=== PATIENT | female | born 1945 | race Caucasian/White ===

== ENCOUNTER → 2016-11-11 | Outpatient (CLI) | payer MEDICARE, OTHER ==
[2016-10-07 15:00] VITALS: BP 105/61
[~2016-11-11] MED LIST: ACLI400A2 IH; ACYC400T4 PO; ALPR1TAB2 PO; ALPR1TAB6 PO; ASPI325T11 PO; BENZ100C PO; BUDE10.2 IH; BUME2TAB PO; CHOL500016 PO; CYCL10TA2 PO; ESCI20TA10 PO; FEXO-67 PO; FEXO180T81 PO; FLUO20CA8 PO; FURO-68 PO; FURO40TA4 PO; GABA100C6 PO; GI COCKTAIL PO; HYDR-2666 PO; HYDR1TAB12 PO; IMIQ1CRE17 TP; IPRA3AMP IH; IPRA3AMP NEB; LEVO500T38 PO; LIDO5CRE14 TP; LINA145C PO; LOSA25TA4 PO; MECL-51 PO; METF850T PO; METO10TA81 PO; MUPI15CR TP; NIFE30TA38 PO; NITR100C PO; Nifedipine PO; OMEP40CA5 PO; OXYC-323 PO; PNV1TABL25 PO; POTA10CA PO; POTA20TA12 PO; POTA20TA4 PO; PRED-220 PO; PRED2.5T PO; PRED20TA PO; PROM118S2 PO; QUET100T4 PO; SIMV40TA PO; SPIR25TA PO; TAMS0.4C2 PO; VENTOLIN HFA18 GM IH; XOPENEX1.25 MG/3 NEB; ZOLP10TA PO
--- NOTE | 2016-11-12 12:01 | PAIN ---
DATE OF SERVICE: 11/11/2016 INITIAL CONSULTATION FOR PAIN CLINIC CHIEF COMPLAINT: Low back and bilateral lower extremity pain, left greater than right. HISTORY OF PRESENT ILLNESS: The patient is a 71-year-old female who presents with history of pain in low back and bilateral lower extremities for about 3 years on and off, but worse over the past 6 months or so. The patient reports as pain is across the low back radiating to the posterior gluteus, posterior thighs, posterior lateral thighs, anterior thighs, posterior calf into the feet causing numbness to the heels, but not into the toes. The patient reports constant, stabbing, sharp, tingling, numbness, burning, cramping and aching. The patient reports it is worse with standing and walking. It awakes her from sleep at least 3 times at night. Also causes some increased urinary frequency, but no incontinence and difficulty with walking occasionally. She is not using any assistive devices, does have a cane and a walker that she uses if she is going out further distances once she is out and about. The patient reports she has had previous physical therapy, still does exercises on her own at home most recently was in 2015. The patient had epidural injections in 2014, which she reports were quite helpful as well in the low back. The patient did have an MRI scan showing some degenerative disk disease throughout the lumbar spine, but only minimal with L4-L5 having the most significant amount of degenerative change, but again only minimal without any significant spinal stenosis and no significant neural foraminal compromise. The patient rates her disability rating the pain as 0 to 10, 10 being the worst, as a 7 with family and home responsibilities and recreation, 5 with social activity, 3 with occupation, 1 with sexual behavior and self-care and 2 with life support activities. 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 PAST MEDICAL HISTORY: Significant for arthritis; type 2 diabetes, on a diet controlled; sarcoidosis of the lungs; hypertension; basal cell carcinomas; respiratory infections; gastroesophageal reflux; dialysis x 2 in the past, but not ongoing; headaches; dizziness. PREVIOUS SURGERY: Includes left shoulder surgery, rotator cuff repair in September 2016, cataract extraction in 2014, aortic valve replacement x 2, splenectomy in the past, tubal ligation in the past, appendectomy and hysterectomy in 1984. CURRENT MEDICATIONS: Well documented on the patient's chart. ALLERGIES: THE PATIENT IS ALLERGIC TO COMPAZINE, MEPERIDINE, PENICILLINS, NONSTEROIDAL ANTI-INFLAMMATORIES, SULFA AND MORPHINE. FAMILY HISTORY: Significant for no major medical problems or conditions that she reports. SOCIAL HISTORY: The patient does not smoke. Drinks 1-2 alcoholic drinks a week on average. She is , lives with her spouse, lives locally in [place], [place]. REVIEW OF SYSTEMS: The patient's review of systems is positive for those items mentioned in history of present illness. All systems reviewed and otherwise negative. It is complete, full and well documented on the patient's chart. PHYSICAL EXAMINATION: VITAL SIGNS: The patient's blood pressure 128/78, pulse 93, respirations 18, temperature is 98.2 degrees Fahrenheit, height is 5 feet 3 inches, weight 150 pounds. GENERAL: The patient is awake, alert, oriented, appropriate, very pleasant demeanor. HEENT: Head shows normocephalic and atraumatic. Extraocular movements are intact and symmetrical. Oral cavity shows mucous membranes moist and pink. Dentition is intact. NECK: Shows anterior throat supple without palpable lymphadenopathy noted. Swallow reflex is symmetrical. CHEST: Shows normal on inspection. Breath sounds are clear to auscultation bilaterally. HEART: Shows S1 and S2 clear. ABDOMEN: Soft, nontender and nondistended. No palpable organomegaly noted. No rebound or guarding demonstrated. The patient does have a sternotomy scar noted on the chest as well. BACK: The patient's back shows spine grossly in the midline, normal-appearing cervical lordotic curvature, thoracic kyphotic curvature, and lumbar lordotic curvature. No previous bruises, lesions, rashes or scars are noted. Lumbar paraspinous musculature shows some mild tenderness with palpation in the lower lumbar distribution only, but is symmetrical without evidence of atrophy, hypertrophy and without tenderness over the spinous processes over the sacrum and sacroiliac regions bilaterally. The patient has good rotational motion of the lumbar spine, both laterally greater than 10 degrees right and left as well as extension greater than 10 degrees, forward flexion 45 degrees without significant pain reported. LOWER EXTREMITIES: Showed deep tendon reflexes 1+ in the patellar and tendo calcaneus tendons are equal. Motor exam is strong with 5/5 dorsiflexion, extension, quadriceps and hamstring flexion. Peripheral pulses are 1+ posterior tibial and dorsalis pedis pulses. No peripheral edema is noted. No clubbing, no cyanosis. Lower extremities are warm and dry to touch. Straight leg raise noted to be negative for reproduction of radicular symptoms bilaterally. Gaenslen's and Fredi's maneuvers are negative for any pain reproduction as well. The patient is able to stand, stand on her toes, but loses balance fairly quickly when trying to stand on her toes. She does walk with a normal appearing gait today for short distances, again not using any assistive devices such as canes or walkers to ambulate, but reports she does have both these at home and uses them occasionally. IMPRESSION: 1. This is a 71-year-old female with approximate 3-year history of increasing pain in the low back, bilateral lower extremities as noted. 2. MRI scan as noted. 3. History of sarcoidosis. 4. Hypertension. 5. Diabetes. 6. Arthritis. PLAN: Options were discussed with the patient including conservative medical management, physical therapy, interventional techniques. She elected to proceed with interventional techniques since she has done well with these in the past at an outside facility. We discussed lumbar epidural steroid injection using description as well as anatomical models to describe the procedure. The patient elected to try this, but is wishing to perform this in a couple of weeks from now, not today. We discussed her pain medication and I informed her that we would prescribe pain medication while we are treating her here for her epidural injections, but would not use on a long-term basis. She would have this ____ with her primary care physician about this. She understands and agrees. We will write prescription for Percocet 5 mg 1-2 tablets q. 6 hours, dispense #75 and was given instruction as well as side effects to be aware of with the medication. The patient will follow up in approximately 2 weeks. We will plan on lumbar epidural steroid injection at that time. JASWINDER CLEMENT MD DR: SINGH/trevon JOB#: [id number] / [id number]
== END | disposition home or self-care (01) ==
LOC: PNCL 12:54
PROVIDERS: ATTEND Anesthesiology
DX: M54.2 Cervicalgia (principal); M79.605 Pain in left leg; M79.604 Pain in right leg
CPT/HCPCS: G0463

== ENCOUNTER 2016-11-17 15:57 | Emergency (ER) | payer MEDICARE, OTHER ==
[~2016-11-17] VITALS: Ht 160 cm; Wt 64.9 kg
[2016-11-17 17:33] VITALS: BP 151/73
[2016-11-17] MEDS ORDERED: OXYCODONE/APAP 5/325 TABLET. PO ONE (18:15)
[2016-11-17] MEDS ORDERED: OXYC-323 PO (19:13)
--- NOTE | 2016-11-17 19:13 | PHYS DOC ---
Past Medical History Past Medical History: CHF, COPD, Diabetes-Type II, GERD, Other Additional Past Medical Histor: sarcodosis Past Surgical History: Hysterectomy, Splenectomy, Other Additional Past Surgical Histo: OPEN HEART SGRY AORTIC VALVE Alcohol Use: Rarely Drug Use: None Adult General Chief Complaint Chief Complaint: MECHANICAL FALL HPI HPI 71-year-old female presents after she tripped and fell injuring her right knee. She states she landed directly on her kneecap. She states since that time she's had a difficult time putting weight on her knee. She denies any other injuries. [] Review of Systems Review of Systems Constitutional: Denies fever or chills [] Eyes: Denies change in visual acuity, redness, or eye pain [] HENT: Denies nasal congestion or sore throat [] Respiratory: Denies cough or shortness of breath [] Cardiovascular: No additional information not addressed in HPI [] GI: Denies abdominal pain, nausea, vomiting, bloody stools or diarrhea [] : Denies dysuria or hematuria [] Musculoskeletal: Right knee pain [] Integument: Denies rash or skin lesions [] Neurologic: Denies headache, focal weakness or sensory changes [] Endocrine: Denies polyuria or polydipsia [] Current Medications Current Medications Current Medications Medications (Trade) Dose Ordered Sig/Mariana Start Time Stop Time Status Last Admin Dose Admin Oxycodone/ Acetaminophen (Percocet 5/325) 2 tab 1X ONCE 11/17/16 18:15 11/17/16 18:16 DC 11/17/16 18:36 2 TAB Allergies Allergies Allergies Coded Allergies Type Severity Reaction Last Updated Verified prochlorperazine edisylate Allergy Severe 09/16/16 Yes prochlorperazine maleate Allergy Severe 09/16/16 Yes NSAIDS (Non-Steroidal Anti-Inflamma Allergy Intermediate 09/16/16 Yes Penicillins Allergy Intermediate 09/16/16 Yes Sulfa (Sulfonamide Antibiotics) Allergy Intermediate Rash 09/16/16 Yes fentanyl Allergy Intermediate Unknown 09/16/16 Yes meperidine HCl Allergy Intermediate TOLERATES FENTANYL 09/16/16 Yes prednisone Allergy Intermediate 09/16/16 Yes morphine Adverse Reaction Severe HALLUCINATES 09/16/16 Yes albuterol Adverse Reaction Unknown pt refuses albuterol 10/05/16 Yes Physical Exam Physical Exam Constitutional: Well developed, well nourished, no acute distress, non-toxic appearance. [] HENT: Normocephalic, atraumatic, bilateral external ears normal, oropharynx moist, no oral exudates, nose normal. [] Eyes: PERRLA, EOMI, conjunctiva normal, no discharge. [] Neck: Normal range of motion, no tenderness, supple, no stridor. [] Cardiovascular:Heart rate regular rhythm, no murmur [] Lungs & Thorax: Bilateral breath sounds clear to auscultation [] Abdomen: Bowel sounds normal, soft, no tenderness, no masses, no pulsatile masses. [] Skin: Warm, dry, no erythema, no rash. [] Back: No tenderness, no CVA tenderness. [] Extremities: Right knee mildly tender to palp no obvious deformity no significant swelling or ecchymosis. [] Neurologic: Alert and oriented X 3, normal motor function, normal sensory function, no focal deficits noted. [] Psychologic: Affect normal, judgement normal, mood normal. [] Current Patient Data Vital Signs Vital Signs Date Time Temp Pulse Resp B/P Pulse Ox O2 Delivery O2 Flow Rate FiO2 11/17/16 17:33 98.2 82 18 151/73 96 Room Air 98.2 EKG EKG [] Radiology/Procedures Radiology/Procedures [] Impressions: Right knee x-ray: Negative exam as interpreted by me Course & Med Decision Making Course & Med Decision Making Pertinent Labs and Imaging studies reviewed. (See chart for details) [] Dragon Disclaimer Dragon Disclaimer This electronic medical record was generated, in whole or in part, using a voice recognition dictation system. Departure Departure Impression: Primary Impression: Contusion of right knee Disposition: 01 HOME, SELF-CARE Condition: STABLE Referrals: LORRIE HONG MD (PCP) Patient Instructions: Knee Pain Additional Instructions: Thank you for allowing us to participate in your care today. Followup with your primary care physician in 3 days if your symptoms do not improve. Return to the emergency department you have any new or concerning findings. This should be evaluated by the primary care physician and any necessary consulting services for continued management within a few days after discharge. Return to emergency room if you have any new or concerning symptoms including but not limited to fever, chills, nausea, vomiting, intractable pain, any new rashes, chest pain, shortness of air, uncontrolled bleeding, difficulty breathing, and/or vision loss. You may have been prescribed medication that can change in your level of thinking and ability to operate machinery. These medications include hydrocodone and Ativan. Also, Benadryl has been known to do this as well. Be sure to check with your pharmacist and ask if the medications you've prescribed can affect your level of consciousness. I recommend not operating heavy machinery or driving while on medication such as these. Scripts Oxycodone/Apap 5-325 (Percocet 5-325 Mg Tablet)1 Each Tablet1 Tab PO PRN Q6HRS PRN PAIN #20 TAB Prov:LUÍS STALEY DO 11/17/16 Problem Qualifiers Primary Impression: Contusion of right knee Encounter type: initial encounter Qualified Code: S80.01XA - Contusion of right knee, initial encounter LUÍS STALEY DO Nov 17, 2016 19:13
--- NOTE | 2016-11-18 08:10 | RAD ---
Indication knee pain associated with a fall. AP oblique and lateral views of the right knee were obtained. No acute bony finding is seen. Some mild degenerative change involving the knee is apparent.
== END 2016-11-17 19:29 | disposition home or self-care (01) ==
LOC: ER 15:57
DX: S80.01XA Contusion of right knee, initial encounter (principal); K21.9 Gastro-esophageal reflux disease without esophagitis; I50.9 Heart failure, unspecified; J44.9 Chronic obstructive pulmonary disease, unspecified; E11.9 Type 2 diabetes mellitus without complications; Z95.1 Presence of aortocoronary bypass graft; Z88.8 Allergy status to other drugs, medicaments and biological substances; Z88.5 Allergy status to narcotic agent; Z88.2 Allergy status to sulfonamides; Z88.0 Allergy status to penicillin; W01.0XXA Fall on same level from slipping, tripping and stumbling without subsequent striking against object, initial encounter; Y93.89 Activity, other specified; Y92.89 Other specified places as the place of occurrence of the external cause; Y99.8 Other external cause status
CPT/HCPCS: 73562; 99284

== ENCOUNTER → 2016-11-25 | Outpatient (CLI) | payer MEDICARE, OTHER ==
[2016-11-17 17:33] VITALS: BP 151/73
[~2016-11-25] MED LIST changes: +IOHEXOL 180 MG/ML 10 ML VIAL. ONE; +methylPREDNISolone ACETATE 40 MG/ML VIAL. ONE; +methylPREDNISolone ACETATE 80 MG/ML VIAL. ONE
--- NOTE | 2016-11-26 02:11 | PAIN ---
DATE OF SERVICE: 11/25/2016 DIAGNOSES: Lumbar radiculopathy with lumbar degenerative disk disease and low back pain. HISTORY OF PRESENT ILLNESS: The patient is a 81-year-old female who returns for followup, last seen on November 11. Due to some scheduling difficulties she waited to return today for ____ lumbar epidural steroid injection. The patient is still reporting significant pain in low back and into the bilateral lower extremities, left greater than right. The patient reports that since she was here last time she fell on her right side, landing on her right knee in a local grocery store when she was shopping and has some increased pain in the low back, as well as in the right knee and leg, also patient reports her pain is a 7 on a scale of 10, it is a sharp, aching pain, again still in the low back radiating into the lower extremities as previously, but now worse pain in the right knee after the fall. The patient is seeing her orthopedic doctor later this week regarding her right knee. She had some x-rays in the Emergency Room when it happened last week and they did not determinate any fractures. The patient reports otherwise doing well. No new motor or sensory deficits, no new bowel or bladder patterns. The patient reports her pain is 7 on a scale of 10, sharp and aching in the low back, again radiating into the lower extremities, more on the left than the right ____ her fall. PHYSICAL EXAMINATION: VITAL SIGNS: The patient's blood pressure 124/66, pulse 90, respirations 18, temperature 97.3 degrees Fahrenheit, height is 5 feet 3 inches, weight is 151 pounds. GENERAL: The patient is awake, alert, oriented, appropriate, very pleasant demeanor. HEENT: Head shows normocephalic, atraumatic. The patient wears eye glasses. Oral cavity shows mucous membranes moist and pink. Dentition is intact. NECK: Shows anterior throat supple without palpable lymphadenopathy noted. Swallow reflex is symmetrical. CHEST: Shows normal on inspection. Breath sounds are clear to auscultation bilaterally. HEART: Shows S1 and S2 clear. ABDOMEN: Soft, nontender, nondistended. No palpable organomegaly. No rebound or guarding demonstrated. BACK: The patient's back shows spine grossly in midline with normal appearing thoracic kyphosis and lumbar lordotic curvature. Lumbar paraspinous muscle shows some moderate tenderness with palpation only in the lower lumbar distribution bilaterally without significant radiation and moderately tender, however, diffusely bilaterally. No tenderness over the spinous processes, sacrum or sacroiliac regions. The patient shows good rotation and motion of the lumbar spine, both laterally as well as extension and flexion without significant increase in pain. EXTREMITIES: Lower extremity show deep tendon reflexes at 1+ in the patellar and tendo calcaneus tendons are equal. Motor exam is strong with 5/5 dorsiflexion, extension, quadriceps and hamstring flexion and are symmetrical. PLAN: Options were discussed with the patient. Patient's old chart was reviewed as her current medications regimen and updated. Current review of systems updated today as well. We will plan on lumbar epidural steroid injection today with fluoroscopic guidance. Risks were again discussed including, but not limited to bleeding, infection, possibility of epidural hematoma, subsequent neurologic compromise, dural puncture, headaches, spinal cord and/or nerve damage, side effects of steroid medication and poor results regarding pain control. The patient understands and wishes to proceed. The patient will return to clinic in approximately 2 weeks for followup, was counseled on return appointment, activity level and side effects to be aware of. DIAGNOSIS: Lumbar radiculopathy with low back pain and lumbar degenerative disk disease. PROCEDURE: Lumbar epidural steroid injection, translaminar approach at the L4-L5 level with fluoroscopic guidance under sterile prep and drape using local anesthetic. MEDICATIONS INJECTED: Depo-Medrol 120 mg plus 10 mL of preservative-free normal saline and 2 mL of Isovue contrast. CONDITION AT DISCHARGE: Stable. The patient tolerated the procedure well, had no complications. JASWINDER CLEMENT MD DR: SINGH/trevon JOB#: [id number] / [id number]
== END | disposition home or self-care (01) ==
LOC: PNCL 12:45
PROVIDERS: ATTEND Anesthesiology
DX: M51.16 Intervertebral disc disorders with radiculopathy, lumbar region (principal); E78.00 Pure hypercholesterolemia, unspecified; I10 Essential (primary) hypertension; J44.9 Chronic obstructive pulmonary disease, unspecified; J45.909 Unspecified asthma, uncomplicated; K21.9 Gastro-esophageal reflux disease without esophagitis; M19.90 Unspecified osteoarthritis, unspecified site; F41.9 Anxiety disorder, unspecified; F32.9 Major depressive disorder, single episode, unspecified; E11.9 Type 2 diabetes mellitus without complications; Z98.42 Cataract extraction status, left eye; Z72.89 Other problems related to lifestyle; Z98.41 Cataract extraction status, right eye; Z87.39 Personal history of other diseases of the musculoskeletal system and connective tissue; Z90.710 Acquired absence of both cervix and uterus; Z90.721 Acquired absence of ovaries, unilateral; Z98.51 Tubal ligation status
CPT/HCPCS: 62323; J1030; J1040

== ENCOUNTER → 2016-11-27 | Outpatient (CLI) | payer MEDICARE, OTHER ==
[2016-11-17 17:33] VITALS: BP 151/73
[~2016-11-27] MED LIST changes: -IOHEXOL 180 MG/ML 10 ML VIAL. ONE; -methylPREDNISolone ACETATE 40 MG/ML VIAL. ONE; -methylPREDNISolone ACETATE 80 MG/ML VIAL. ONE
[2016-11-27 16:24] LABS: BASO # 0.1 x10^3/uL (0.0-0.2); BASO % 1 % (0-3); EOS % 1 % (0-3); HEMATOCRIT 40.5 % (36.0-47.0); HEMOGLOBIN 13.1 g/dL (12.0-15.5); LYMPH # 2.4 x10^3/uL (1.0-4.8); LYMPH % 29 % (24-48); MEAN CORPUSCULAR HEMOGLOBIN 30 pg (25-35); MEAN CORPUSCULAR HGB CONC 32 g/dL (31-37); MEAN CORPUSCULAR VOLUME 92 fL (79-100); MONO % 9 % (0-9); NEUT % 59 % (31-73); PLATELET COUNT 311 x10^3/uL (140-400); RED CELL DISTRIBUTION WIDTH 14.6 % (11.5-14.5); WHITE BLOOD COUNT 8.1 x10^3/uL (4.0-11.0)
[2016-11-27 16:58] LABS: ALBUMIN 4.1 g/dL (3.4-5.0); CALCIUM 9.6 mg/dL (8.5-10.1); POTASSIUM 3.2 mmol/L (3.5-5.1)
[2016-11-27 16:59] LABS: MAGNESIUM 2.2 mg/dL (1.8-2.4); PHOSPHORUS 3.8 mg/dL (2.6-4.7)
[2016-11-28 04:17] LABS: PTH INTACT 82 pg/mL (15-65)
== END | disposition home or self-care (01) ==
LOC: LAB 15:51
PROVIDERS: ATTEND Nurse Practitioner Family
DX: E87.6 Hypokalemia (principal)
CPT/HCPCS: 36415; 80069; 83735; 83970; 85027

== ENCOUNTER → 2016-12-22 | Outpatient (CLI) | payer MEDICARE, OTHER ==
--- NOTE | 2016-12-22 14:56 | RAD ---
DATE: 12/22/2016. EXAM: DIGITAL SCREEN BILAT W/CAD. HISTORY: Routine mammographic screening. COMPARISON: 12/12/2015. This study was interpreted with the benefit of Computerized Aided Detection (CAD). FINDINGS: The breast parenchyma shows scattered fibroglandular densities. There are no suspicious masses, microcalcifications or architectural distortion. There are coarse irregular calcifications laterally on the left. Some of these have become more coarse since the prior study, likely representing benign secretory calcifications. A density laterally on the left also a stable remote correlates. BI-RADS CATEGORY: 2 BENIGN FINDING. RECOMMENDED FOLLOW-UP: 12M 12 MONTH FOLLOW-UP. PQRS compliance statement: Patient information was entered into a reminder system with a target due date 12/22/2017 for the next mammogram. Mammography is a sensitive method for finding small breast cancers, but it does not detect them all and is not a substitute for careful clinical examination. A negative mammogram does not negate a clinically suspicious finding and should not result in delay in biopsying a clinically suspicious abnormality. "Our facility is accredited by the [employer] Mammography Program."
== END | disposition home or self-care (01) ==
LOC: MAMMO 12:56
PROVIDERS: ATTEND Family Medicine
DX: Z12.31 Encounter for screening mammogram for malignant neoplasm of breast (principal)
CPT/HCPCS: G0202; 77067

== ENCOUNTER → 2016-12-24 | Outpatient (CLI) | payer MEDICARE, OTHER ==
[2016-12-24 16:26] LABS: BILIRUBIN,URINE NEGATIVE (NEG); GLUCOSE,URINE NEGATIVE (NEG); NITRITE,URINE NEGATIVE (NEG); PH,URINE 6.5; PROTEIN,URINE NEGATIVE (NEG-TRACE)
[2016-12-24 16:36] LABS: BACTERIA,URINE FEW /HPF (0-FEW); RBC,URINE 0 /HPF (0-2); SQUAMOUS EPITHELIAL CELL,UR MOD /LPF
== END | disposition home or self-care (01) ==
LOC: LAB 15:13
PROVIDERS: ATTEND Internal Medicine Nephrology
DX: R30.0 Dysuria (principal)
CPT/HCPCS: 81001; 87086

== ENCOUNTER → 2017-01-06 | Outpatient (CLI) | payer MEDICARE, OTHER ==
[2017-01-06 14:32] LABS: CREATININE 1.2 mg/dL (0.6-1.0); GFR 44.5; MAGNESIUM 2.1 mg/dL (1.8-2.4); POTASSIUM 3.9 mmol/L (3.5-5.1)
--- NOTE | 2017-01-07 15:18 | PN ---
DATE: 01/06/2017 DIAGNOSES: Lumbar radiculopathy with lumbar degenerative disk disease and low back pain. PROCEDURE: Lumbar epidural steroid injection, translaminar approach at the L4-5 level using C-arm fluoroscopic guidance. DESCRIPTION OF PROCEDURE: Under sterile prep and drape using local anesthetic, medication injected is 120 mg of Depo-Medrol plus 10 mL of preservative-free normal saline and 2 mL of Isovue contrast. CONDITION ON DISCHARGE: Stable. The patient tolerated the procedure well, had no complications. JASWINDER CLEMENT MD DR: SINGH/trevon JOB#: [id number] / [id number]
== END | disposition home or self-care (01) ==
LOC: LAB 13:53
PROVIDERS: ATTEND Internal Medicine Nephrology
DX: N17.9 Acute kidney failure, unspecified (principal)
CPT/HCPCS: 36415; 82565; 83735; 84132; 84520

== ENCOUNTER → 2017-01-06 | Outpatient (CLI) | payer MEDICARE, OTHER ==
[~2017-01-06] MED LIST changes: +IOHEXOL 180 MG/ML 10 ML VIAL. ONE; +methylPREDNISolone ACETATE 40 MG/ML VIAL. ONE; +methylPREDNISolone ACETATE 80 MG/ML VIAL. ONE
--- NOTE | 2017-01-07 05:33 | PAIN ---
DATE OF SERVICE: 01/06/2017 DIAGNOSES: Lumbar radiculopathy with lumbar degenerative disk disease and low back pain. HISTORY OF PRESENT ILLNESS: The patient is a 71-year-old female, who returns for followup status post lumbar epidural steroid injection x 1 on 11/25/2016. The patient reports she did very well with about a 65% improvement, but the pain is now returning over the past one to two weeks. The patient reports in the low back and now in the right lower extremity more than in the left, in the posterior gluteus, posterolateral thigh, lateral anterior thigh, medial lower leg and posterior lower leg as well on the right side. The patient reports no new motor or sensory deficits, no new bowel or bladder incontinence. Still significant pain rated as an 8 on a scale of 10. The patient reports that she "waited too long" to return as the pain has become much worse, even worse than it was prior to her first visit. The patient reports significant pain with walking and standing. It is waking her up from sleep at night over the past week or so. No new motor or sensory deficits. No bowel or bladder incontinence. However, significant pain in the right leg with fatigability, especially when driving a car or standing for more than about 10 minutes. PHYSICAL EXAMINATION: VITAL SIGNS: Shows blood pressure 100/58, pulse 88, respirations 18, temperature is 97.6 degrees Fahrenheit, height 5 feet 3 inches, weight is 148 pounds. GENERAL: The patient is awake, alert, oriented, appropriate, very pleasant demeanor. HEENT: Exam shows normocephalic, atraumatic. Extraocular movements are intact and symmetrical. Oral cavity shows mucous membranes moist and pink. Dentition is intact. NECK: Shows anterior throat supple. CHEST: Shows normal on inspection. Breath sounds are clear to auscultation bilaterally. HEART: Shows S1 and S2 clear. No murmurs auscultated. ABDOMEN: Soft, nontender, nondistended. No palpable organomegaly. No rebound or guarding demonstrated. BACK: Shows lumbar spine grossly in the midline, normal-appearing lumbar lordotic curvature, with palpation shows some moderate tenderness bilaterally, but only diffusely without radiation. No tenderness over the sacrum or sacroiliac regions. LOWER EXTREMITIES: Showed deep tendon reflexes at 1+ in the patellar and tendo calcaneus tendons are equal. Motor exam is strong with 5/5 dorsiflexion and extension equal. Quadriceps and hamstring flexion is slightly decreased on the right at 4/5. Muscle strength of 5/5 on the left. PLAN: Options were discussed with the patient. The patient's old chart was reviewed as was her current medication regimen updated. Current review of systems was updated today as well. We will proceed with a second lumbar epidural steroid injection in this series with fluoroscopic guidance. Risks were again discussed including, but not limited to bleeding, infection, possibility of epidural hematoma and subsequent neurologic compromise, dural puncture, headaches, spinal cord and/or nerve damage, side effects of steroid medication, and poor results regarding pain control. The patient understands and wished to proceed. The patient will return to clinic in approximately 2 weeks for followup. She was counseled on return appointment, activity level, and side effects to be aware of. JASWINDER CLEMENT MD DR: SINGH/trevon JOB#: [id number] / [id number]
--- NOTE | 2017-01-20 09:46 | PAIN ---
DATE OF SERVICE: 01/06/2017 ADDENDUM PROCEDURE NOTE DIAGNOSIS: Lumbar radiculopathy with lumbar degenerative disk disease and low back pain. PROCEDURE: Lumbar epidural steroid injection at the L4-L5 level using C-arm fluoroscopic guidance under sterile prep and drape using local anesthesia. MEDICATIONS INJECTED: 120 mg of Depo-Medrol plus 10 mL preservative-free normal saline and 2 mL of Isovue for contrast. CONDITION AT DISCHARGE: Stable. The patient tolerated the procedure well, had no complications. JASIWNDER CLEMENT MD DR: SINGH/trevon JOB#: [id number] / [id number]
== END | disposition home or self-care (01) ==
LOC: PNCL 13:02
PROVIDERS: ATTEND Anesthesiology
DX: M51.16 Intervertebral disc disorders with radiculopathy, lumbar region (principal); E78.00 Pure hypercholesterolemia, unspecified; I10 Essential (primary) hypertension; J44.9 Chronic obstructive pulmonary disease, unspecified; J45.909 Unspecified asthma, uncomplicated; K21.9 Gastro-esophageal reflux disease without esophagitis; M19.90 Unspecified osteoarthritis, unspecified site; E11.9 Type 2 diabetes mellitus without complications; F41.9 Anxiety disorder, unspecified; F32.9 Major depressive disorder, single episode, unspecified; Z98.51 Tubal ligation status; Z90.710 Acquired absence of both cervix and uterus; Z72.89 Other problems related to lifestyle
CPT/HCPCS: 62323; J1030; J1040; 62327

== ENCOUNTER → 2017-02-18 | Outpatient (CLI) | payer MEDICARE, OTHER ==
--- NOTE | 2017-02-19 03:58 | PAIN ---
DATE OF SERVICE: 02/18/2017 PROGRESS NOTE FOR PAIN CLINIC DIAGNOSES: Lumbar radiculopathy with lumbar degenerative disk disease and low back pain. HISTORY OF PRESENT ILLNESS: The patient is a 71-year-old female who returns for followup status post lumbar epidural steroid injections x 2. The patient reports approximately 60% improvement overall, still some pain in the low back, but the pain in the leg and now has completely gone and symptoms in her right lower extremity. The patient reports otherwise having some significant pain across the mid back and low back, aching, sharp and dull with radiating pain can be severe on and off, not constant, better with stretching and heat application. The patient reports it is also significant trying to do some walking, which she seems to think helps the pain as well. The patient reports anywhere from 7 to 8 on a scale of 10 at its worst. The patient reports no new motor or sensory deficits, no new bowel or bladder incontinence or other complaints. PHYSICAL EXAMINATION: VITAL SIGNS: The patient's blood pressure 104/64, pulse 84, respirations are 20, temperature 98.0 degrees Fahrenheit, weight is 153 pounds. GENERAL: The patient is awake, alert, oriented, appropriate, very pleasant demeanor. HEENT: Shows normocephalic, atraumatic. Extraocular movements are intact and symmetrical. Oral cavity shows mucous membranes moist and pink. Dentition is intact. NECK: Shows anterior throat supple without palpable lymphadenopathy noted. Swallow reflex is symmetrical. CHEST: Shows normal on inspection. Breath sounds clear to auscultation bilaterally. HEART: Shows S1 and S2 clear. ABDOMEN: Soft, nontender, nondistended. No palpable organomegaly, no rebound or guarding demonstrated. BACK: Shows spine grossly midline. Lumbar lordotic curvature and thoracic kyphotic curvature normal in appearance. Lumbar paraspinous musculature is firm, very tender to palpation throughout the upper, middle, lower distribution with moderate palpation consistent with ____ myofascial pain. Very tender, but without significant radiation bilaterally throughout the paraspinous, the lateral flank and back muscles. No tenderness over the sacrum or sacroiliac regions; however, the patient does show good rotation and motion of the lumbar spine, both laterally as well as extension and flexion without significant difficulty or pain. EXTREMITIES: Lower extremities showed deep tendon reflexes 1+ in the patellar and tendo calcaneus tendons. Motor exam is strong with approximately 4 on a scale of 5 with quadriceps and hamstring flexion on the right and 5/5 on the left. Options were discussed with the patient and the patient's old chart was reviewed as her current medication regimen updated. Current review of systems updated today as well. We will proceed with a third in the series of lumbar epidural steroid injection with fluoroscopic guidance. Risks were again discussed including, but not limited to bleeding, infection, possibility of epidural hematoma, subsequent neurologic compromise, dural puncture, headaches, spinal cord and/or nerve damage, side effects of steroid medication and poor results regarding pain control. The patient understands and wishes to proceed. The patient will return to clinic in approximately 2 weeks for followup, was counseled on return appointment, activity level and side effects to be aware of. DIAGNOSES: Lumbar radiculopathy with lumbar degenerative disk disease. PROCEDURE: Lumbar epidural steroid injection in translaminar approach at the L4-L5 level using C-arm fluoroscopic guidance under sterile prep and drape using local anesthetic. MEDICATIONS INJECTED: Depo-Medrol 120 mg plus 10 mL of preservative-free normal saline and 2 mL Isovue for contrast. CONDITION AT DISCHARGE: Stable. The patient tolerated procedure well, had no complications. JASWINDER CLEMENT MD DR: SINGH/trevon JOB#: [id number] / [id number]
== END | disposition home or self-care (01) ==
LOC: PNCL 13:13
PROVIDERS: ATTEND Anesthesiology
DX: M51.16 Intervertebral disc disorders with radiculopathy, lumbar region (principal); K21.9 Gastro-esophageal reflux disease without esophagitis; E78.00 Pure hypercholesterolemia, unspecified; I10 Essential (primary) hypertension; J44.9 Chronic obstructive pulmonary disease, unspecified; J45.909 Unspecified asthma, uncomplicated; M19.90 Unspecified osteoarthritis, unspecified site; F41.9 Anxiety disorder, unspecified; F32.9 Major depressive disorder, single episode, unspecified; E11.9 Type 2 diabetes mellitus without complications; Z98.41 Cataract extraction status, right eye; Z98.42 Cataract extraction status, left eye; Z72.89 Other problems related to lifestyle; Z90.710 Acquired absence of both cervix and uterus
CPT/HCPCS: 62323; J1030; J1040

== ENCOUNTER → 2017-02-24 | Outpatient (CLI) | payer MEDICARE, OTHER ==
[~2017-02-24] MED LIST changes: -IOHEXOL 180 MG/ML 10 ML VIAL. ONE; -methylPREDNISolone ACETATE 40 MG/ML VIAL. ONE; -methylPREDNISolone ACETATE 80 MG/ML VIAL. ONE
[2017-02-24 15:28] LABS: HEMATOCRIT 38.4 % (36.0-47.0); HEMOGLOBIN 12.8 g/dL (12.0-15.5)
[2017-02-24 15:44] LABS: ALBUMIN 3.9 g/dL (3.4-5.0); CALCIUM 9.3 mg/dL (8.5-10.1); CREATININE 1.1 mg/dL (0.6-1.0); GFR 49.2; POTASSIUM 4.3 mmol/L (3.5-5.1); URIC ACID 4.8 mg/dL (2.6-6.0)
[2017-02-24 16:16] LABS: BILIRUBIN,URINE NEGATIVE (NEG); GLUCOSE,URINE NEGATIVE (NEG); NITRITE,URINE NEGATIVE (NEG); PH,URINE 5.5; PROTEIN,URINE NEGATIVE (NEG-TRACE); UROBILINOGEN,URINE 0.2 mg/dL (0.2 mg/dL)
[2017-02-24 16:23] LABS: BACTERIA,URINE 0 /HPF (0-FEW); RBC,URINE 0 /HPF (0-2); SQUAMOUS EPITHELIAL CELL,UR OCC /LPF; WBC,URINE 0 /HPF (0-4)
[2017-02-25 07:33] LABS: TOTAL PROTEIN CREATININE RATIO 354 mg/g creat (0-200); UR PROTEIN RD 4.6 mg/dL (Not Estab.)
[2017-02-25 10:27] LABS: VITAMIN D25(OH)TOTAL 30.2 ng/mL (30.0-100.0)
== END | disposition home or self-care (01) ==
LOC: LAB 14:58
PROVIDERS: ATTEND Internal Medicine Nephrology
DX: I13.10 Hypertensive heart and chronic kidney disease without heart failure, with stage 1 through stage 4 chronic kidney disease, or unspecified chronic kidney disease (principal); N18.3 Chronic kidney disease, stage 3 (moderate); I50.22 Chronic systolic (congestive) heart failure; E86.0 Dehydration; E87.6 Hypokalemia; E21.3 Hyperparathyroidism, unspecified; Z68.25 Body mass index [BMI] 25.0-25.9, adult
CPT/HCPCS: 36415; 80069; 81001; 82043; 82306; 82570; 84156; 84550; 85014; 85018

== ENCOUNTER 2017-03-22 18:20 | Emergency (ER) | payer MEDICARE, OTHER ==
[~2017-03-22] VITALS: Ht 162.6 cm; Wt 64.9 kg
[~2017-03-22 18:20] MED LIST changes: -POTA10CA PO; +POTASSIUM CHLO10 MEQ PO
[2017-03-22] MEDS ORDERED: LEVALBUTEROL 1.25 MG/0.5 ML NEBU. NEB ONE (19:15)
--- NOTE | 2017-03-22 19:27 | PHYS DOC ---
Past Medical History Past Medical History: Cancer, CHF, COPD, Diabetes-Type II, GERD, UTI, Other Additional Past Medical Histor: sarcodosis, skin CA Past Surgical History: Hysterectomy, Splenectomy, Other Additional Past Surgical Histo: OPEN HEART SGRY AORTIC VALVE Alcohol Use: Rarely Drug Use: None Adult General Chief Complaint Chief Complaint: SHORTNESS OF BREATH HPI HPI Patient is a 71 year old female with COPD who presents with 3-4 days of increased cough, dyspnea, and sputum changes typical of COPD exacerbations. Notes mild diffuse achy/burning chest pain with cough. States she has not had antibiotics in 6 months. She denies hemoptysis, leg pain or swelling, fever or chills, myalgia, abdominal pain, n/v, diarrhea. Review of Systems Review of Systems Constitutional: Denies fever or chills [] Eyes: Denies change in visual acuity, redness, or eye pain [] HENT: Denies nasal congestion or sore throat [] Respiratory: Has cough and shortness of breath [] Cardiovascular: No additional information not addressed in HPI [] GI: Denies abdominal pain, nausea, vomiting, bloody stools or diarrhea [] : Denies dysuria or hematuria [] Musculoskeletal: Denies back pain or joint pain [] Integument: Denies rash or skin lesions [] Neurologic: Denies headache, focal weakness or sensory changes [] Endocrine: Denies polyuria or polydipsia [] Current Medications Current Medications Current Medications Medications (Trade) Dose Ordered Sig/Mariana Start Time Stop Time Status Last Admin Dose Admin Levalbuterol HCl (Xopenex) 1.25 mg 1X ONCE 03/22/17 19:15 03/22/17 19:16 DC 03/22/17 19:26 1.25 MG Allergies Allergies Allergies Coded Allergies Type Severity Reaction Last Updated Verified prochlorperazine edisylate Allergy Severe 09/16/16 Yes prochlorperazine maleate Allergy Severe 09/16/16 Yes NSAIDS (Non-Steroidal Anti-Inflamma Allergy Intermediate 09/16/16 Yes Penicillins Allergy Intermediate 09/16/16 Yes Sulfa (Sulfonamide Antibiotics) Allergy Intermediate Rash 09/16/16 Yes fentanyl Allergy Intermediate Unknown 09/16/16 Yes meperidine HCl Allergy Intermediate TOLERATES FENTANYL 09/16/16 Yes prednisone Allergy Intermediate 09/16/16 Yes morphine Adverse Reaction Severe HALLUCINATES 09/16/16 Yes albuterol Adverse Reaction Unknown pt refuses albuterol 10/05/16 Yes Physical Exam Physical Exam Constitutional: Well developed, well nourished, no acute distress, non-toxic appearance. [] HENT: Normocephalic, atraumatic, bilateral external ears normal, oropharynx moist, no oral exudates, nose normal. [] Eyes: PERRLA, EOMI, conjunctiva normal, no discharge. [] Neck: Normal range of motion, no tenderness, supple, no stridor. [] Cardiovascular:Heart rate regular rhythm, no murmur [] Lungs & Thorax: Bilateral breath sounds clear to auscultation [] Abdomen: Bowel sounds normal, soft, no tenderness, no masses, no pulsatile masses. [] Skin: Warm, dry, no erythema, no rash. [] Back: No tenderness, no CVA tenderness. [] Extremities: No tenderness, no cyanosis, no clubbing, ROM intact, no edema. [] Neurologic: Alert and oriented X 3, normal motor function, normal sensory function, no focal deficits noted. [] Psychologic: Affect normal, judgement normal, mood normal. [] Current Patient Data Vital Signs Vital Signs Date Time Temp Pulse Resp B/P (MAP) Pulse Ox O2 Delivery O2 Flow Rate FiO2 03/22/17 19:28 95 Room Air 03/22/17 19:01 98.4 83 18 115/81 (92) 98.4 EKG EKG EKG as interpreted by me as normal sinus rhythm, rate 93, no ST-T changes, normal intervals, no ectopy Radiology/Procedures Radiology/Procedures Chest xray as interpreted by me with no acute cardiopulmonary disease process Course & Med Decision Making Course & Med Decision Making Pertinent Labs and Imaging studies reviewed. (See chart for details) Symptoms are improved with medication here. Will place on levofloxacin for COPD exacerbation. 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 Return precautions given. She understands and agrees with plan. Dragon Disclaimer Dragon Disclaimer This electronic medical record was generated, in whole or in part, using a voice recognition dictation system. Departure Departure Impression: Primary Impression: COPD exacerbation Disposition: HOME, SELF-CARE Condition: STABLE Referrals: YAMIL VICTOR MD (PCP) Patient Instructions: Chronic Obstructive Pulmonary Disease Exacerbation, Easy- to-Read Additional Instructions: Take levofloxacin as prescribed. Continue your home medications. Follow-up with your primary care doctor and printer slotter feeder within one week. Return for any concerns. Scripts Levofloxacin (LEVOFLOXACIN) 750 Mg Tablet 1 TAB PO DAILY, #7 TAB Prov: Yaritza ZHU MD 03/22/17 Yaritza ZHU MD March 22, 2017 19:27
[2017-03-22 19:55] VITALS: BP 128/60
[2017-03-22] MEDS ORDERED: LEVO750T5 PO (20:07)
--- NOTE | 2017-03-23 08:07 | RAD ---
Chest, 2 views, 03/22/2017: History: Cough Comparison is made to a study from 10/03/2016. A right Port-A-Cath extends into the superior vena cava. There has been a previous median sternotomy. A ringlike radiopacity projected over the aortic valve region is presumably related to a valvular prosthesis. The heart size and pulmonary vascularity are normal. No pulmonary infiltrates are seen. There is no evidence of pleural fluid. The bony structures are demineralized. There is mild spurring in the spine. IMPRESSION: No acute cardiopulmonary abnormality is detected.
--- NOTE | 2017-03-23 08:43 | EKG ---
[facility] [address] [place] [address] Test Date: 2017-03-22 Test Time: 19:04:16 Pat Name: DUDLEY ALAN Department: Room: Gender: F [facility]: MAY : 1945 Requested By: Yaritza ZHU Order Number: [id number] Reading MD: Measurements Intervals [place] Rate: 93 P: 42 [place]: 138 QRS: 21 QRSD: 104 T: 41 QT: 354 QTc: 443 Interpretive Statements SINUS RHYTHM NON SPECIFIC T ABNORMALITY NON SPECIFIC ST DEPRESSION RI6.01 Unconfirmed report No previous ECG available for comparison
== END 2017-03-22 20:10 | disposition home or self-care (01) ==
LOC: ER 19:57
DX: J44.1 Chronic obstructive pulmonary disease with (acute) exacerbation (principal); I50.9 Heart failure, unspecified; E11.9 Type 2 diabetes mellitus without complications; K21.9 Gastro-esophageal reflux disease without esophagitis; D86.9 Sarcoidosis, unspecified; Z95.1 Presence of aortocoronary bypass graft; Z88.2 Allergy status to sulfonamides; Z88.0 Allergy status to penicillin; Z88.6 Allergy status to analgesic agent; Z88.4 Allergy status to anesthetic agent; Z88.5 Allergy status to narcotic agent; Z88.8 Allergy status to other drugs, medicaments and biological substances; Z87.440 Personal history of urinary (tract) infections
CPT/HCPCS: 71020; 93005; 94250; 94640; 99284-25

== ENCOUNTER 2017-04-28 14:01 | Emergency (ER) | payer MEDICARE, OTHER ==
[~2017-04-28] VITALS: Ht 160 cm; Wt 65.8 kg
[~2017-04-28 14:01] MED LIST changes: -ESCI20TA10 PO; -HYDR-2666 PO; +HYDR-2758 PO; -LEVO500T38 PO; +LEVO500T59 PO; +LEVO750T5 PO; +LEXAPRO20 MG PO
[2017-04-28] MEDS ORDERED: 0.9 % SOD CHL for STERILE FIELD 10 ML DISP.SYRIN. ONE (14:33)
[2017-04-28 15:38] LABS: BASO # 0.1 x10^3/uL (0.0-0.2); BASO % 1 % (0-3); EOS % 1 % (0-3); HEMATOCRIT 41.1 % (36.0-47.0); HEMOGLOBIN 13.7 g/dL (12.0-15.5); LYMPH # 2.4 x10^3/uL (1.0-4.8); LYMPH % 27 % (24-48); MEAN CORPUSCULAR HEMOGLOBIN 32 pg (25-35); MEAN CORPUSCULAR HGB CONC 33 g/dL (31-37); MEAN CORPUSCULAR VOLUME 97 fL (79-100); MONO % 9 % (0-9); NEUT % 62 % (31-73); PLATELET COUNT 244 x10^3/uL (140-400); RED BLOOD COUNT 4.22 x10^6/uL (3.50-5.40)
[2017-04-28 15:53] LABS: CALCIUM 9.8 mg/dL (8.5-10.1); CREATININE 1.4 mg/dL (0.6-1.0); GFR 37.3; POTASSIUM 3.4 mmol/L (3.5-5.1)
[2017-04-28 16:00] LABS: ALBUMIN 3.8 g/dL (3.4-5.0); TOTAL BILIRUBIN 0.3 mg/dL (0.2-1.0); TOTAL PROTEIN 7.6 g/dL (6.4-8.2)
[2017-04-28] MEDS ORDERED: HYDROcodone/APAP 10/325 1 TAB TABLET PO ONE (16:00)
--- NOTE | 2017-04-28 16:07 | EKG ---
[facility] [address] [place] [address] Test Date: 2017-04-28 Test Time: 14:13:28 Pat Name: DUDLEY ALAN Department: Room: Gender: F [employer]ter: : 1945 Requested By: LORA POTTER Order Number: [id number] Reading MD: Harriet Garcia Measurements Intervals [place] Rate: 94 P: 34 [place]: 138 QRS: 14 QRSD: 104 T: 69 QT: 360 QTc: 456 Interpretive Statements SINUS RHYTHM ST & T ABNORMALITY, CONSIDER HIGH LATERAL ISCHEMIA Electronically Signed On 05-01-2017 21:03:48 CDT by Harriet Garcia
--- NOTE | 2017-04-28 16:10 | RAD ---
Portable AP upright chest x-ray performed at 1535 History: Chest pain for a week Comparison: March 22, 2017. Findings: No acute lung infiltrate or pleural effusion or pulmonary edema or lung mass or pneumothorax is seen. The heart size, pulmonary vasculature, mediastinum and both pushpa are stable. Right IJ Port-A-Cath is unchanged in position. Impression: No acute radiographic abnormality is seen.
--- NOTE | 2017-04-28 16:54 | RAD ---
Chest CT without contrast Clinical indications: Chest pain. History of sarcoidosis. Technique: Noncontrast helical CT scanning of the chest was performed. Without IV contrast, the sensitivity to detect organ pathology decreased. PQRS Compliance Statement: One or more of the following individualized dose reduction techniques were utilized for this examination: 1. Automated exposure control 2. Adjustment of the mA and/or kV according to patient size 3. Use of iterative reconstruction technique Comparison: July 11, 2015. Findings: No enlarging thoracic lymphadenopathy is seen. Calcified atheromatous disease of the thoracic aorta is seen. No focal aneurysmal dilatation is seen. No pericardial effusion is seen. Heart size is mildly enlarged. Bilateral subcentimeter noncalcified lung nodules are again seen and are stable. No new lung nodules or new lung mass or new lung infiltrate is seen. No pleural effusion or pneumothorax is seen. The proximal bronchial tree is patent. No adrenal mass is seen. No osteolytic process is seen. IMPRESSION: Stable subcentimeter bilateral lung nodules consistent with a benign finding. No acute lung infiltrate. Mild cardiomegaly.
--- NOTE | 2017-04-28 18:34 | ED.ADGEN ---
Past Medical History Past Medical History: Cancer, CHF, COPD, Diabetes-Type II, GERD, UTI, Other Additional Past Medical Histor: sarcodosis, skin CA Past Surgical History: Hysterectomy, Splenectomy, Other Additional Past Surgical Histo: OPEN HEART SGRY AORTIC VALVE Alcohol Use: Rarely Drug Use: None Adult General Chief Complaint Chief Complaint: CHEST PAIN HPI HPI Patient is a 71 year old female with history of sarcoidosis, COPD, congestive heart failure, prosthetic aortic valve replacement presents with right posterior shoulder, right anterior chest pain. Patient denies chest wall tenderness or pain with deep breathing or movement. Patient states pelvis constant. She denies shortness of breath, cough, fever, palpitations, nausea vomiting and sweats. An ice leg pain, swelling, history of DVT or PE. No other acute symptoms or complaints. She is a nonsmoker. Please take medications Review of Systems Review of Systems Review symptoms as per history of present illness. All other review of symptoms are negative. Current Medications Current Medications Current Medications Medications (Trade) Dose Ordered Sig/Mariana Start Time Stop Time Status Last Admin Dose Admin Acetaminophen/ Hydrocodone Bitart (Lortab 10/325) 1 tab 1X ONCE 04/28/17 16:00 04/28/17 16:01 DC 04/28/17 16:14 1 TAB Sodium Chloride (NORMAL SALINE FLUSH for STERILE FIELD) 10 ml STK-MED ONCE 04/28/17 14:33 04/28/17 14:34 DC Allergies Allergies Allergies Coded Allergies Type Severity Reaction Last Updated Verified prochlorperazine edisylate Allergy Severe 09/16/16 Yes prochlorperazine maleate Allergy Severe 09/16/16 Yes NSAIDS (Non-Steroidal Anti-Inflamma Allergy Intermediate 09/16/16 Yes Penicillins Allergy Intermediate 09/16/16 Yes Sulfa (Sulfonamide Antibiotics) Allergy Intermediate Rash 09/16/16 Yes fentanyl Allergy Intermediate Unknown 09/16/16 Yes meperidine HCl Allergy Intermediate TOLERATES FENTANYL 09/16/16 Yes prednisone Allergy Intermediate 09/16/16 Yes morphine Adverse Reaction Severe HALLUCINATES 09/16/16 Yes albuterol Adverse Reaction Unknown pt refuses albuterol 10/05/16 Yes Physical Exam Physical Exam Constitutional: Well developed, well nourished, no acute distress, non-toxic appearance. HENT: Normocephalic, atraumatic, bilateral external ears normal, oropharynx moist, no oral exudates, nose normal. Eyes: PERRL. Neck: Normal range of motion. Cardiovascular:Heart rate regular rhythm, no murmur. Lungs & Thorax: Bilateral breath sounds clear to auscultation. Abdomen: Bowel sounds normal, soft, no tenderness. Skin: Warm, dry. Back: No tenderness. Extremities: No tenderness. Neurologic: Alert and oriented X 3, normal motor function, normal sensory function, no focal deficits noted. Psychologic: Affect normal, judgement normal, mood normal. Current Patient Data Vital Signs Vital Signs Date Time Temp Pulse Resp B/P (MAP) Pulse Ox O2 Delivery O2 Flow Rate FiO2 04/28/17 16:14 30 95 Room Air 04/28/17 14:10 98.0 94 135/69 (91) 98.0 Lab Values Laboratory Tests Test 04/28/17 14:40 White Blood Count 9.0 x10^3/uL (4.0-11.0) Red Blood Count 4.22 x10^6/uL (3.50-5.40) Hemoglobin 13.7 g/dL (12.0-15.5) Hematocrit 41.1 % (36.0-47.0) Mean Corpuscular Volume 97 fL (79-100) Mean Corpuscular Hemoglobin 32 pg (25-35) Mean Corpuscular Hemoglobin Concent 33 g/dL (31-37) Red Cell Distribution Width 13.0 % (11.5-14.5) Platelet Count 244 x10^3/uL (140-400) Neutrophils (%) (Auto) 62 % (31-73) Lymphocytes (%) (Auto) 27 % (24-48) Monocytes (%) (Auto) 9 % (0-9) Eosinophils (%) (Auto) 1 % (0-3) Basophils (%) (Auto) 1 % (0-3) Neutrophils # (Auto) 5.5 x10^3uL (1.8-7.7) Lymphocytes # (Auto) 2.4 x10^3/uL (1.0-4.8) Monocytes # (Auto) 0.8 x10^3/uL (0.0-1.1) Eosinophils # (Auto) 0.1 x10^3/uL (0.0-0.7) Basophils # (Auto) 0.1 x10^3/uL (0.0-0.2) Sodium Level 143 mmol/L (136-145) Potassium Level 3.4 mmol/L (3.5-5.1) L Chloride Level 105 mmol/L (98-107) Carbon Dioxide Level 32 mmol/L (21-32) Anion Gap 6 (6-14) Blood Urea Nitrogen 24 mg/dL (7-20) H Creatinine 1.4 mg/dL (0.6-1.0) H Estimated GFR (Cockcroft-Gault) 37.3 BUN/Creatinine Ratio 17 (6-20) Glucose Level 118 mg/dL (70-99) H Calcium Level 9.8 mg/dL (8.5-10.1) Total Bilirubin 0.3 mg/dL (0.2-1.0) Aspartate Amino Transferase (AST) 17 U/L (15-37) Alanine Aminotransferase (ALT) 18 U/L (14-59) Alkaline Phosphatase 105 U/L (46-116) Troponin I Quantitative < 0.017 ng/mL (0.000-0.055) Total Protein 7.6 g/dL (6.4-8.2) Albumin 3.8 g/dL (3.4-5.0) Albumin/Globulin Ratio 1.0 (1.0-1.7) Laboratory Tests 04/28/17 14:40 Laboratory Tests 04/28/17 14:40 EKG EKG [EKG: EKG: Normal sinus rhythm, rate 94, nonspecific ST-T wave changes.] Radiology/Procedures Radiology/Procedures [Chest x-ray: No acute cardiopulmonary disease CT chest without contrast: Benign appearing nodules per radiology report Perfusion lung scan: Pending] Course & Med Decision Making Course & Med Decision Making Pertinent Labs and Imaging studies reviewed. (See chart for details) [Nonspecific right-sided chest wall pain 2 days. Troponin is negative. Lab work , otherwise unremarkable. Chest x-ray, so CT chest without contrast negative. VQ study pending. Despite discharge home if negative.] Dragon Disclaimer Dragon Disclaimer This electronic medical record was generated, in whole or in part, using a voice recognition dictation system. LORA POTTER DO Apr 28, 2017 18:34
--- NOTE | 2017-04-28 20:46 | RAD ---
Nuclear medicine ventilation/perfusion scan. History: Chest pain. Comparison: Chest radiograph April 28, 2017. Technique: Ventilation portion was performed after inhalation of 11.0 mCi Xenon-133. Perfusion portion was performed after intravenous administration of 5.0 mCi Tc 99m MAA. Findings: Ventilation study demonstrates symmetric ventilation, there is evidence of mild air trapping, compatible with obstructive lung disease. Perfusion study demonstrates heterogeneity of perfusion. Multiple small bilateral perfusion defects are seen. No large wedge-shaped perfusion defects are identified. Examination is considered low probability. Impression: 1. Low probability VQ scan. 2. Air trapping, suggesting obstructive lung disease. Electronically signed by: Jose Roland MD (04/28/2017 8:43 PM)
[2017-04-28 21:00] VITALS: BP 120/66
[2017-04-28] MEDS ORDERED: HEPARIN PF 500 UNIT/5 ML DISP.SYRIN. IV ONE (21:29)
== END 2017-04-28 21:36 | disposition home or self-care (01) ==
LOC: ER 14:01
DX: R07.89 Other chest pain (principal); M25.511 Pain in right shoulder; I50.9 Heart failure, unspecified; J44.9 Chronic obstructive pulmonary disease, unspecified; E11.9 Type 2 diabetes mellitus without complications; K21.9 Gastro-esophageal reflux disease without esophagitis; D86.9 Sarcoidosis, unspecified; Z87.440 Personal history of urinary (tract) infections; Z90.710 Acquired absence of both cervix and uterus; Z90.81 Acquired absence of spleen; Z95.1 Presence of aortocoronary bypass graft; Z95.2 Presence of prosthetic heart valve; Z88.8 Allergy status to other drugs, medicaments and biological substances; Z88.6 Allergy status to analgesic agent; Z88.0 Allergy status to penicillin; Z88.4 Allergy status to anesthetic agent; Z88.2 Allergy status to sulfonamides; Z88.5 Allergy status to narcotic agent
CPT/HCPCS: 36415; 71010; 71250; 78582; 80053; 84484; 85027; 93005; 96374; 99285; A9540; A9558

== ENCOUNTER → 2017-06-24 | Outpatient (CLI) | payer MEDICARE, OTHER ==
[2017-05-22 07:45] VITALS: BP 105/58
[~2017-06-24] MED LIST changes: +CETI10TA30 PO; +POTA20TA82 PO; +SPIR50TA PO
== END | disposition home or self-care (01) ==
LOC: LAB 16:54
PROVIDERS: ATTEND Internal Medicine Gastroenterology
DX: R19.7 Diarrhea, unspecified (principal)
CPT/HCPCS: 87045; 87177; 87205; 87324; 87329

== ENCOUNTER → 2017-06-29 | Outpatient (CLI) | payer MEDICARE, OTHER ==
[2017-05-22 07:45] VITALS: BP 105/58
[2017-06-29 15:27] LABS: BASO # 0.1 x10^3/uL (0.0-0.2); BASO % 1 % (0-3); EOS % 2 % (0-3); HEMATOCRIT 40.3 % (36.0-47.0); HEMOGLOBIN 13.4 g/dL (12.0-15.5); LYMPH # 2.8 x10^3/uL (1.0-4.8); LYMPH % 37 % (24-48); MEAN CORPUSCULAR HEMOGLOBIN 32 pg (25-35); MEAN CORPUSCULAR HGB CONC 33 g/dL (31-37); MEAN CORPUSCULAR VOLUME 97 fL (79-100); MONO % 9 % (0-9); NEUT % 52 % (31-73); PLATELET COUNT 256 x10^3/uL (140-400); RED BLOOD COUNT 4.15 x10^6/uL (3.50-5.40); RED CELL DISTRIBUTION WIDTH 13.3 % (11.5-14.5); WHITE BLOOD COUNT 7.6 x10^3/uL (4.0-11.0)
[2017-06-29 15:44] LABS: ALBUMIN 3.9 g/dL (3.4-5.0); CALCIUM 9.7 mg/dL (8.5-10.1); CREATININE 1.3 mg/dL (0.6-1.0); GFR 40.5; MAGNESIUM 2.2 mg/dL (1.8-2.4); POTASSIUM 4.6 mmol/L (3.5-5.1)
[2017-06-30 08:17] LABS: PTH INTACT 83 pg/mL (15-65)
[2017-06-30 08:17] LABS: TOTAL PROTEIN CREATININE RATIO <200 mg/g creat (0-200); UR PROTEIN RD <4.0 mg/dL (Not Estab.)
== END | disposition home or self-care (01) ==
LOC: LAB 15:00
PROVIDERS: ATTEND Nurse Practitioner Family
DX: I12.9 Hypertensive chronic kidney disease with stage 1 through stage 4 chronic kidney disease, or unspecified chronic kidney disease (principal); N18.3 Chronic kidney disease, stage 3 (moderate); I50.22 Chronic systolic (congestive) heart failure; E87.6 Hypokalemia; R80.9 Proteinuria, unspecified; Z68.26 Body mass index [BMI] 26.0-26.9, adult
CPT/HCPCS: 36415; 80069; 82043; 82570; 83735; 83970; 84156; 85025

== ENCOUNTER → 2017-07-16 | Outpatient (CLI) | payer MEDICARE, OTHER ==
[2017-05-22 07:45] VITALS: BP 105/58
[~2017-07-16] MED LIST changes: +FURO20TA3 PO; +IOHEXOL 180 MG/ML 10 ML VIAL. ONE; +methylPREDNISolone ACETATE 40 MG/ML VIAL. ONE; +methylPREDNISolone ACETATE 80 MG/ML VIAL. ONE
--- NOTE | 2017-07-16 11:26 | PAIN ---
DATE OF SERVICE: 07/16/2017 DIAGNOSES: Lumbar radiculopathy with lumbar degenerative disk disease. HISTORY OF PRESENT ILLNESS: The patient is a 72-year-old female who returns to follow status post lumbar epidural steroid injections x 3, last seen 02/18/2017. The patient reports she did very well with this of about 75% improvement overall. Pain returning now over the past about 3-4 weeks in the low back and into the left lower extremity more than the right, occasionally on the right side but mostly on the left at this time. The patient reports no new motor or sensory deficits. No new bowel or bladder incontinence. The pain is a 9 on a scale of 10 at its worst, 7 on average and 6 at its least. The patient reports it is across the low back with radiating to the left side mostly in the lateral posterior aspect of the thigh, anterior thigh, medial thigh, medial lower leg as well as lateral lower leg to the foot, is aching, tingling, burning and constant and can be severe as well. The patient reports worse with activity, standing, walking, changing positions, better at night. Does not awaken her from sleep. She sleeps about 6 hours a nighttime without significant interruption. The patient reports otherwise doing fairly well, no new changes. PAST MEDICAL HISTORY: Significant for type 2 diabetes, arthritis which is diet controlled with the diabetes, sarcoidosis, hypertension, previous basal cell carcinoma, gastroesophageal reflux, dialysis in the past, headaches, dizziness and hypotension. PAST SURGICAL HISTORY: Includes shoulder surgery rotator cuff repair 2015, cataract extraction 2014, aortic valve replaced x 2, previous splenectomy, tubal ligation, appendectomy and hysterectomy. CURRENT MEDICATIONS: Updated and included on the patient's chart including Aldactone, gabapentin, levofloxacin, Symbicort, Percocet, vitamins, Lasix and Reglan. ALLERGIES: The patient is allergic to DEMEROL, COMPAZINE, PREDNISONE and MORPHINE. FAMILY HISTORY: Significant for no major medical conditions or problems that she is aware of. SOCIAL HISTORY: The patient does not smoke. Drinks 1-2 alcoholic drinks a week on average. Lives with her spouse, is , lives . REVIEW OF SYSTEMS: Positive for those items mentioned in history of present illness. All systems reviewed and otherwise negative. It is complete, full and well documented on the patient's chart. PHYSICAL EXAMINATION: VITAL SIGNS: Today, his blood pressure is 96/44, pulse 80, respirations 18, temperature 98.2 degrees Fahrenheit. Height is 5 feet 3 inches, weighs 157 pounds. GENERAL: The patient is awake, alert, oriented, appropriate, very pleasant demeanor. HEENT: Normocephalic, atraumatic. Extraocular movements are intact and symmetrical. Oral cavity shows mucous membranes moist and pink. Dentition is intact. NECK: Shows anterior throat supple without palpable lymphadenopathy noted. Swallow reflex is symmetrical. CHEST: Shows normal on inspection. Breath sounds are clear to auscultation bilaterally. HEART: Shows S1 and S2 clear. ABDOMEN: Soft, nontender, nondistended. No palpable organomegaly. There is no rebound or guarding demonstrated. BACK: Shows spine grossly midline. Thoracic kyphosis is slightly increased normal. Lumbar lordotic curvature is normal in appearance. Paraspinous musculature shows normal without asymmetry. The patient shows no difficulty with palpation, only very mild tenderness within inferior aspect of the lumbar paraspinous musculature diffusely. The patient shows good rotation and motion, however, both laterally greater than 10 degrees, right and left lateral extension greater than 10 degrees, forward flexion 45 degrees without difficulty. EXTREMITIES: Lower extremity showed deep tendon reflexes 1+ in the patellar and tendo calcaneus tendons are symmetrical. Motor exam is approximately 5 on a scale of 5 with dorsiflexion, extension with left quadriceps and hamstrings flexion is 4/5 on the left and 5/5 on the right. Peripheral pulses are 1+ posterior tibial. No peripheral edema is noted. Options were discussed with the patient. The patient's old chart was reviewed, as her current medication regimen is updated as noted and review of systems updated as noted as well. We will plan on a lumbar epidural steroid injection today with fluoroscopic guidance. She has done very well with these in the past. Risks were again discussed including but not limited to bleeding, infection, possibility of epidural hematoma, subsequent neurologic compromise, dural puncture, headaches, spinal cord and/or nerve damage, side effects of steroid medication and poor results regarding pain control. The patient understands and wished to proceed. The patient will return to the clinic in approximately 2 weeks for followup, was counseled on return appointment, activity level and side effects to be aware of. DIAGNOSES: Lumbar radiculopathy with lumbar degenerative disk disease. PROCEDURE: Lumbar epidural steroid injection, translaminar approach in the L4-L5 level using C-arm fluoroscopic guidance under sterile prep and drape using local anesthetic. MEDICATION INJECTED: A total of 120 mg Depo-Medrol plus 10 mL preservative-free normal saline and 2 mL of Isovue for contrast. CONDITION ON DISCHARGE: Stable. The patient tolerated procedure well, had no complications. JASWINDER CLEMENT MD DR: SINGH/trevon JOB#: [id number] / [id number]
== END | disposition home or self-care (01) ==
LOC: PNCL 08:18
PROVIDERS: ATTEND Anesthesiology
DX: M51.16 Intervertebral disc disorders with radiculopathy, lumbar region (principal); M19.91 Primary osteoarthritis, unspecified site; D86.9 Sarcoidosis, unspecified; K21.9 Gastro-esophageal reflux disease without esophagitis; I13.0 Hypertensive heart and chronic kidney disease with heart failure and stage 1 through stage 4 chronic kidney disease, or unspecified chronic kidney disease; E11.22 Type 2 diabetes mellitus with diabetic chronic kidney disease; N18.9 Chronic kidney disease, unspecified; I50.9 Heart failure, unspecified; F41.9 Anxiety disorder, unspecified; F32.9 Major depressive disorder, single episode, unspecified; J44.9 Chronic obstructive pulmonary disease, unspecified; Z98.51 Tubal ligation status; Z98.41 Cataract extraction status, right eye; Z90.710 Acquired absence of both cervix and uterus; Z98.890 Other specified postprocedural states; Z98.42 Cataract extraction status, left eye; Z87.39 Personal history of other diseases of the musculoskeletal system and connective tissue; Z86.69 Personal history of other diseases of the nervous system and sense organs; Z88.6 Allergy status to analgesic agent; Z88.4 Allergy status to anesthetic agent; Z88.0 Allergy status to penicillin; Z88.2 Allergy status to sulfonamides
CPT/HCPCS: 62323; J1030; J1040

== ENCOUNTER → 2017-07-28 | Outpatient (CLI) | payer MEDICARE, OTHER ==
[2017-05-22 07:45] VITALS: BP 105/58
--- NOTE | 2017-07-28 19:05 | PAIN ---
DATE OF SERVICE: 07/28/2017 DIAGNOSES: Lumbar radiculopathy with lumbar degenerative disk disease and low back pain with HISTORY OF PRESENT ILLNESS: The patient is a 72-year-old female who returns for followup status post lumbar epidural steroid injection x 1 on 07/16, did very well with this, about 75% improvement initially until she was doing some weed eating about a week ago and the pain began to return significantly. The patient reports still about a 50% improvement overall, but still have pain in the low back, into the left lower extremity, mostly in the posterolateral and anterior thigh, anteromedial lower leg into the calf as well. The patient reports a sharp, shooting, stabbing, can become more constant with activity, standing, walking, changing positions, better with sitting or lying down, reports as a 9 on a scale of 10 at its worst and 8 at least, does not awaken her from sleep; however, she feels much better lying down or sitting down. The patient reports no new motor or sensory deficits, no new bowel or bladder incontinence or other complaints. PHYSICAL EXAMINATION: VITAL SIGNS: Today, the patient's blood pressure is 126/70, pulse 77, respirations 18, temperature is 97.7 degrees Fahrenheit. Height is 5 feet 3 inches, weight is 156 pounds. GENERAL: The patient is awake, alert, oriented, appropriate, is a very pleasant demeanor. HEENT: Head shows normocephalic, atraumatic. Extraocular movements intact, symmetrical. Oral cavity, mucous membranes are moist and pink. Dentition is intact. NECK: Shows anterior throat supple without palpable lymphadenopathy noted. Swallow reflex is symmetrical. CHEST: Shows normal on inspection. Breath sounds are clear to auscultation bilaterally. HEART: Shows S1 and S2 clear. ABDOMEN: Soft, nontender, nondistended. No palpable organomegaly is noted. MUSCULOSKELETAL: Back shows spine grossly in the midline. Slight exaggeration of thoracic kyphosis, mild flattening of lumbar lordotic curvature. Lumbar paraspinous muscle shows some moderate tenderness with palpation, but is symmetrical. No radiation, diffusely tender only bilaterally, mostly in the low lumbar distribution. No tenderness over the sacrum or sacroiliac regions. Lower extremities showed deep tendon reflexes at 1+/4 in the patellar and tendo-calcaneus tendons. Motor exam is strong with 5/5 dorsiflexion, extension at approximately 4 on a scale of 5 with left quadriceps and hamstring flexion and right side is 5/5. PLAN: Options were discussed with the patient and the patient's old chart was reviewed as her current medication regimen and updated. Current review of systems updated today as well. We will proceed with the second in the series of lumbar epidural steroid injection using C-arm fluoroscopic guidance. Risks were again discussed including, but not limited to bleeding, infection, possibility of epidural hematoma, subsequent neurological compromise, dural punctures, headaches, spinal cord and/or nerve damage, side effects of steroid medication and poor results regarding pain control. The patient understands and wishes to proceed. The patient will return to clinic in approximately 2 weeks for a followup, was counseled on return appointment, activity level and side effects to be aware of. DIAGNOSIS: Lumbar radiculopathy with lumbar degenerative disk disease. PROCEDURES: Lumbar epidural steroid injection in translaminar approach, L4-L5 level, using C-arm fluoroscopic guidance under sterile prep and drape using local anesthetic. MEDICATIONS INJECTED: A total of 120 mg Depo-Medrol plus 10 mL preservative-free normal saline and 2 mL Isovue for contrast. CONDITION AT DISCHARGE: Stable. The patient tolerated the procedure well, had no complications. JASWINDER CLEMENT MD DR: SINGH/trevon JOB#: [id number] / [id number]
== END | disposition home or self-care (01) ==
LOC: PNCL 09:08
PROVIDERS: ATTEND Anesthesiology
DX: M51.16 Intervertebral disc disorders with radiculopathy, lumbar region (principal); I13.0 Hypertensive heart and chronic kidney disease with heart failure and stage 1 through stage 4 chronic kidney disease, or unspecified chronic kidney disease; E11.22 Type 2 diabetes mellitus with diabetic chronic kidney disease; N18.9 Chronic kidney disease, unspecified; I50.9 Heart failure, unspecified; E78.00 Pure hypercholesterolemia, unspecified; J44.9 Chronic obstructive pulmonary disease, unspecified; K21.9 Gastro-esophageal reflux disease without esophagitis; F41.9 Anxiety disorder, unspecified; F32.9 Major depressive disorder, single episode, unspecified; Z98.42 Cataract extraction status, left eye; Z98.41 Cataract extraction status, right eye; Z86.69 Personal history of other diseases of the nervous system and sense organs; Z86.73 Personal history of transient ischemic attack (TIA), and cerebral infarction without residual deficits; Z90.710 Acquired absence of both cervix and uterus; Z98.51 Tubal ligation status; Z87.39 Personal history of other diseases of the musculoskeletal system and connective tissue; Z86.39 Personal history of other endocrine, nutritional and metabolic disease; Z88.6 Allergy status to analgesic agent; Z88.4 Allergy status to anesthetic agent; Z88.0 Allergy status to penicillin; Z88.2 Allergy status to sulfonamides; Z88.8 Allergy status to other drugs, medicaments and biological substances
CPT/HCPCS: 62323; J1030; J1040

== ENCOUNTER 2017-08-06 11:58 | Inpatient (IN) | payer MEDICARE, OTHER ==
[~2017-08-06] VITALS: Ht 160 cm; Wt 73.9 kg
[~2017-08-06 11:58] MED LIST changes: -IOHEXOL 180 MG/ML 10 ML VIAL. ONE; -methylPREDNISolone ACETATE 40 MG/ML VIAL. ONE; -methylPREDNISolone ACETATE 80 MG/ML VIAL. ONE
[2017-08-06] MEDS ORDERED: LEVALBUTEROL 1.25 MG/0.5 ML NEBU. NEB ONE (12:30)
[2017-08-06 12:38] LABS: BILIRUBIN,URINE NEGATIVE (NEG); GLUCOSE,URINE NEGATIVE (NEG); NITRITE,URINE NEGATIVE (NEG); PH,URINE 6.5; PROTEIN,URINE NEGATIVE (NEG-TRACE); UROBILINOGEN,URINE 0.2 mg/dL (0.2 mg/dL)
--- NOTE | 2017-08-06 12:41 | EKG ---
[facility] [address] [place] [address] Test Date: 2017-08-06 Test Time: 12:12:40 Pat Name: DUDLEY ALAN Department: Room: Gender: F Network Consultant: : 1945 Requested By: BERNADINE PRICE Order Number: [id number] Reading MD: Measurements Intervals [place] Rate: 85 P: -82 OR: 128 QRS: -83 QRSD: 110 T: -149 QT: 382 QTc: 455 Interpretive Statements SINUS RHYTHM ABNORMAL LEFT AXIS DEVIATION QRS(T) CONTOUR ABNORMALITY CONSISTENT WITH INFERIOR INFARCT AGE UNDETERMINED T ABNORMALITY IN HIGH LATERAL LEADS RI6.01 Unconfirmed report No previous ECG available for comparison
[2017-08-06 12:48] LABS: SQUAMOUS EPITHELIAL CELL,UR OCC /LPF
[2017-08-06 12:49] LABS: BACTERIA,URINE 0 /HPF (0-FEW); RBC,URINE 0 /HPF (0-2); WBC,URINE OCC /HPF (0-4)
--- NOTE | 2017-08-06 13:10 | RAD ---
CT of the head without contrast, 08/06/2017: History: Syncope, fall, head injury Comparison is made to a study from 06/30/2016. There appears to be a scalp contusion in the left frontal region. No underlying fractures identified. The ventricles are within normal limits in size. There is no shift of the midline structures. There is no evidence of acute intracranial hemorrhage or mass effect. IMPRESSION: No acute intracranial abnormality is detected. CT of the cervical spine without contrast, 08/06/2017: Noncontrast scans were obtained with multiplanar reconstructions produced. There is mild disc space narrowing at C5-6 and C6-7 with mild marginal spurring. There are mild degenerative changes involving scattered facet joints. There is mild associated narrowing of the central spinal canal and moderate foraminal narrowing bilaterally at C5-6. No fracture or dislocation is identified. Moderate calcific plaquing is present the carotid bifurcations. IMPRESSION: 1. Mild scattered degenerative changes. 2. No acute bony abnormality is detected. PQRS Compliance Statement: One or more of the following individualized dose reduction techniques were utilized for this examination: 1. Automated exposure control 2. Adjustment of the mA and/or kV according to patient size 3. Use of iterative reconstruction technique
[2017-08-06 13:14] LABS: BASO # 0.1 x10^3/uL (0.0-0.2); BASO % 1 % (0-3); EOS % 1 % (0-3); HEMATOCRIT 38.9 % (36.0-47.0); HEMOGLOBIN 12.9 g/dL (12.0-15.5); LYMPH % 26 % (24-48); MEAN CORPUSCULAR HEMOGLOBIN 33 pg (25-35); MEAN CORPUSCULAR HGB CONC 33 g/dL (31-37); MEAN CORPUSCULAR VOLUME 99 fL (79-100); MONO % 9 % (0-9); NEUT % 62 % (31-73); PLATELET COUNT 242 x10^3/uL (140-400); RED BLOOD COUNT 3.92 x10^6/uL (3.50-5.40); RED CELL DISTRIBUTION WIDTH 13.8 % (11.5-14.5); WHITE BLOOD COUNT 11.2 x10^3/uL (4.0-11.0)
[2017-08-06 13:26] LABS: CALCIUM 8.9 mg/dL (8.5-10.1); CREATININE 1.3 mg/dL (0.6-1.0); GFR 40.5; POTASSIUM 3.7 mmol/L (3.5-5.1)
[2017-08-06] MEDS ORDERED: ACETAMINOPHEN 500 MG TABLET PO ONE (13:30)
[2017-08-06] MEDS ORDERED: ONDANSETRON PF 4 MG/2 ML VIAL. IV ONE (13:30)
[2017-08-06 13:32] LABS: ALBUMIN 3.7 g/dL (3.4-5.0); ALBUMIN/GLOBULIN RATIO 1.1 (1.0-1.7); TOTAL BILIRUBIN 0.4 mg/dL (0.2-1.0)
--- NOTE | 2017-08-06 14:15 | PHYS DOC ---
Past Medical History Past Medical History: Cancer, CHF, COPD, GERD, UTI, Other Additional Past Medical Histor: sarcodosis, skin CA Past Surgical History: Hysterectomy, Splenectomy, Other Additional Past Surgical Histo: OPEN HEART SGRY AORTIC VALVE Alcohol Use: Rarely Drug Use: None Adult General Chief Complaint Chief Complaint: HEAD INJURY/TRAUMA HPI HPI Patient is a 72 year old female who presents with head injury. The patient states early this morning she went to the bathroom to urinate. She states she accidentally fell asleep while sitting on the toilet, woke up when she fell & hit the floor. She hit her head on the floor & noticed a swollen area over her left forehead. She is coming to the emergency department now because she feels dizzy, lightheaded, & nauseated. She denies any chest pain, shortness of breath , palpitations preceding the fall. Denies fevers/chills, vision changes, extremity numbness/weakness. She has frequent falls. She denies use of blood thinners. She has CHF, COPD, aortic valve replacement. PCP is Dr. Ocampo. Review of Systems Review of Systems Constitutional: Denies fever or chills Eyes: Denies change in visual acuity HENT: Denies nasal congestion or sore throat Respiratory: Denies cough or shortness of breath Cardiovascular: Denies chest pain or edema GI: Denies abdominal pain, nausea, vomiting, bloody stools or diarrhea : Denies dysuria or hematuria Musculoskeletal: Denies back pain or joint pain Integument: Denies rash or skin lesions Neurologic: Reports headache, denies focal weakness or sensory changes Current Medications Current Medications Current Medications Medications (Trade) Dose Ordered Sig/Mariana Start Time Stop Time Status Last Admin Dose Admin Acetaminophen (Tylenol) 500 mg 1X ONCE 08/06/17 13:30 08/06/17 13:31 DC 08/06/17 13:25 500 MG Levalbuterol HCl (Xopenex) 1.25 mg 1X ONCE 08/06/17 12:30 08/06/17 12:31 DC 08/06/17 12:43 1.25 MG Ondansetron HCl (Zofran) 4 mg 1X ONCE 08/06/17 13:30 08/06/17 13:31 DC 08/06/17 13:25 4 MG Oxycodone/ Acetaminophen (Percocet 5/325) 1 tab 1X ONCE 08/06/17 15:00 08/06/17 15:01 DC 08/06/17 15:01 1 TAB Allergies Allergies Allergies Coded Allergies Type Severity Reaction Last Updated Verified prochlorperazine edisylate Allergy Severe 09/16/16 Yes prochlorperazine maleate Allergy Severe 09/16/16 Yes NSAIDS (Non-Steroidal Anti-Inflamma Allergy Intermediate 09/16/16 Yes Penicillins Allergy Intermediate 09/16/16 Yes Sulfa (Sulfonamide Antibiotics) Allergy Intermediate Rash 09/16/16 Yes fentanyl Allergy Intermediate 05/21/17 Yes meperidine HCl Allergy Intermediate TOLERATES FENTANYL 09/16/16 Yes prednisone Allergy Intermediate 09/16/16 Yes morphine Adverse Reaction Severe HALLUCINATES 09/16/16 Yes albuterol Adverse Reaction Mild pt refuses albuterol 05/21/17 Yes Physical Exam Physical Exam Constitutional: Well developed, well nourished, no acute distress, non-toxic appearance. HENT: Normocephalic, left frontal hematoma, bilateral external ears normal, no hemotympanum, oropharynx moist, nose normal. Eyes: PERRLA, EOMI, conjunctiva normal, no discharge. Neck: supple, no stridor. diffuse midline c-spine tenderness is present without step offs. Cardiovascular: RRR, systolic murmur, no edema. Lungs & Thorax: LCTAB, no wheezing, no respiratory distress. Abdomen: soft, nontender, nondistended. Skin: Warm, dry, no erythema, no rash. Back: No spinal tenderness. Extremities: No tenderness, no edema. Neurologic: Alert and oriented X 3, CN2-12 grossly intact, symmetric strength/ sensation to upper & lower extremities, no focal deficits noted. Psychologic: Affect normal, judgement normal, mood normal. Current Patient Data Vital Signs Vital Signs Date Time Temp Pulse Resp B/P (MAP) Pulse Ox O2 Delivery O2 Flow Rate FiO2 08/06/17 15:01 24 97 Room Air 08/06/17 14:47 80 129/61 (83) 08/06/17 12:06 98.4 98.4 Lab Values Laboratory Tests Test 08/06/17 12:15 08/06/17 12:55 Urine Collection Type Void Urine Color Yellow Urine Clarity Clear Urine pH 6.5 Urine Specific [place] <=1.005 Urine Protein Negative mg/dL (NEG-TRACE) Urine Glucose (UA) Negative mg/dL (NEG) Urine Ketones (Stick) Negative mg/dL (NEG) Urine Blood Negative (NEG) Urine Nitrite Negative (NEG) Urine Bilirubin Negative (NEG) Urine Urobilinogen Dipstick 0.2 mg/dL (0.2 mg/dL) Urine Leukocyte Esterase Trace (NEG) Urine RBC 0 /HPF (0-2) Urine WBC Occ /HPF (0-4) Urine Squamous Epithelial Cells Occ /LPF Urine Renal Epithelial Cells Occ /LPF Urine Bacteria 0 /HPF (0-FEW) White Blood Count 11.2 x10^3/uL (4.0-11.0) H Red Blood Count 3.92 x10^6/uL (3.50-5.40) Hemoglobin 12.9 g/dL (12.0-15.5) Hematocrit 38.9 % (36.0-47.0) Mean Corpuscular Volume 99 fL (79-100) Mean Corpuscular Hemoglobin 33 pg (25-35) Mean Corpuscular Hemoglobin Concent 33 g/dL (31-37) Red Cell Distribution Width 13.8 % (11.5-14.5) Platelet Count 242 x10^3/uL (140-400) Neutrophils (%) (Auto) 62 % (31-73) Lymphocytes (%) (Auto) 26 % (24-48) Monocytes (%) (Auto) 9 % (0-9) Eosinophils (%) (Auto) 1 % (0-3) Basophils (%) (Auto) 1 % (0-3) Neutrophils # (Auto) 7.0 x10^3uL (1.8-7.7) Lymphocytes # (Auto) 3.0 x10^3/uL (1.0-4.8) Monocytes # (Auto) 1.0 x10^3/uL (0.0-1.1) Eosinophils # (Auto) 0.1 x10^3/uL (0.0-0.7) Basophils # (Auto) 0.1 x10^3/uL (0.0-0.2) Sodium Level 143 mmol/L (136-145) Potassium Level 3.7 mmol/L (3.5-5.1) Chloride Level 104 mmol/L (98-107) Carbon Dioxide Level 34 mmol/L (21-32) H Anion Gap 5 (6-14) L Blood Urea Nitrogen 23 mg/dL (7-20) H Creatinine 1.3 mg/dL (0.6-1.0) H Estimated GFR (Cockcroft-Gault) 40.5 BUN/Creatinine Ratio 18 (6-20) Glucose Level 107 mg/dL (70-99) H Calcium Level 8.9 mg/dL (8.5-10.1) Total Bilirubin 0.4 mg/dL (0.2-1.0) Aspartate Amino Transferase (AST) 17 U/L (15-37) Alanine Aminotransferase (ALT) 25 U/L (14-59) Alkaline Phosphatase 88 U/L (46-116) Troponin I Quantitative < 0.017 ng/mL (0.000-0.055) SC-Oit-V-Type Natriuretic Peptide 649 pg/mL (0-124) H Total Protein 7.0 g/dL (6.4-8.2) Albumin 3.7 g/dL (3.4-5.0) Albumin/Globulin Ratio 1.1 (1.0-1.7) Laboratory Tests 08/06/17 12:55 Laboratory Tests 08/06/17 12:55 EKG EKG Interpreted by me: Normal sinus rhythm rate 85, no acute ST or T wave changes, Q waves in inferior leads, normal intervals, no ectopy[] Radiology/Procedures Radiology/Procedures PROCEDURE: CT HEAD AND CERVICAL SPINE WO CT of the head without contrast, 08/06/2017: History: Syncope, fall, head injury Comparison is made to a study from 06/30/2016. There appears to be a scalp contusion in the left frontal region. No underlying fractures identified. The ventricles are within normal limits in size. There is no shift of the midline structures. There is no evidence of acute intracranial hemorrhage or mass effect. IMPRESSION: No acute intracranial abnormality is detected. CT of the cervical spine without contrast, 08/06/2017: Noncontrast scans were obtained with multiplanar reconstructions produced. There is mild disc space narrowing at C5-6 and C6-7 with mild marginal spurring. There are mild degenerative changes involving scattered facet joints. There is mild associated narrowing of the central spinal canal and moderate foraminal narrowing bilaterally at C5-6. No fracture or dislocation is identified. Moderate calcific plaquing is present the carotid bifurcations. IMPRESSION: 1. Mild scattered degenerative changes. 2. No acute bony abnormality is detected. PQRS Compliance Statement: One or more of the following individualized dose reduction techniques were utilized for this examination: 1. Automated exposure control 2. Adjustment of the mA and/or kV according to patient size 3. Use of iterative reconstruction technique DICTATED and SIGNED BY: CAROLYN LEWIS MD DATE: 08/06/17 1302 [] Course & Med Decision Making Course & Med Decision Making Pertinent Labs and Imaging studies reviewed. (See chart for details) The patient presents with head injury. Provided pain medication. Labs unremarkable. EKG shows Q waves. No evidence of acute intracranial injury or C- spine injury. Cervical collar had been applied upon arrival, clinically cleared by me after imaging results available. Discussed patient's presentation and EKG with Dr. Ocampo who recommended that it was safe for her to be discharged home and follow-up with him in the clinic. Patient agrees with plan of care. She is eager to be discharged from the hospital. She attempted to ambulate & was too unsteady to stand independently. She did not feel safe being discharged & I recommended admission. Discussed again with Dr. Ocampo who agreed to admit to inpatient status, consult to Dr. Escalona of neurology. Will give IV fluids & manage pain/nausea. The patient is being admitted in stable condition. [] Dragon Disclaimer Dragon Disclaimer This electronic medical record was generated, in whole or in part, using a voice recognition dictation system. Departure Departure Impression: Primary Impression: Closed head injury Disposition: ADMITTED INPATIENT Condition: STABLE Referrals: YAMIL VICTOR MD (PCP) LORRIE OCAMPO MD Patient Instructions: Head Injury, Adult, [id number] Additional Instructions: You were seen in the emergency department today for head injury. Tests did not show a serious injury. Please rest, take Tylenol for pain, use Zofran for nausea. Follow-up with Dr. Ocampo in 2-3 days. Return to the emergency department for confusion, abnormal walking or talking, numbness or weakness in arms or legs, any otherwise worsening condition. Scripts Ondansetron (ZOFRAN ODT) 4 Mg Tab.rapdis 1 TAB SL Q8HRS, #10 TAB Prov: BERNADINE PRICE MD 08/06/17 BERNADINE PRICE MD Aug 06, 2017 14:15
[2017-08-06] MEDS ORDERED: oxyCODONE/APAP 5/325 1 TAB TABLET PO ONE (15:00)
[2017-08-06] MEDS ORDERED: ONDA4TAB10 SL (15:02)
[2017-08-06] MEDS ORDERED: ONDANSETRON PF 4 MG/2 ML VIAL. IV PRN (15:30)
[2017-08-06] MEDS ORDERED: ACETAMINOPHEN 325 MG TABLET. PO PRN (15:30)
[2017-08-06] MEDS: MECLIZINE HCL 12.5 MG TABLET. PO PRN ×2 (15:43→22:44)
[2017-08-06 18:26] VITALS: BP 129/62
[2017-08-06 18:27] VITALS: BP 129/62
--- NOTE | 2017-08-06 19:17 | PDOC1 ---
History and Physical Date of Admission Date of Admission DATE: 08/06/17 TIME: 19:09 Identification/Chief Complaint Chief Complaint Syncope Problems: History of Present Illness History of Present Illness This patient is a 72-year-old lady that has a long cardiac history. She had congenital heart disease with aortic stenosis. She has had 2 previous episodes of aortic valve replacement surgery. She has hypertension as well as COPD and sarcoidosis. The patient is a nonsmoker. She has also had problems with GI and a gastroparesis. The patient has chronic pain problems. She was at home and got up in the middle of the night about 4:00 in the morning to go to the bathroom and while she was sitting on the. She is not sure if she fell asleep or passed out but she fell forward hitting the left side of the head on the bathroom door and then falling on her face on the floor. The heard her and came and got her. She was brought to the emergency room where she was seen and evaluated. A CT of the head was done that showed no evidence of an acute bleed and after an initial normal evaluation she was going to be discharged when she tried to stand up she became lightheaded and hypotensive therefore it was decided to admit her. At the time that I saw her she is feeling better but still very weak and unable to stand on her own. She denies any chest pains. She denies any significant dyspnea at this point. Past Medical History Cardiovascular: CHF, HTN, Hyperlipidemia, Valve insufficiency, Other Pulmonary: Asthma, COPD GI: Constipation, GERD Heme/Onc: Cancer, Other Psych: Anxiety, Depression Musculoskeletal: Weakness Rheumatologic: Other Renal/: Chronic renal insuff, Other Endocrine: Diabetes Past Surgical History Past Surgical History: Appendectomy, Tubal Ligation, Hysterectomy, Other Family History Family History: Coronary Artery Disease, Diabetes, Heart Disease, Hypertension , Kidney Disease, Family History Unknown, Other Social History ALCOHOL: none Drugs: None Current Problem List Problem List Problems Medical Problems: (1) Closed head injury Status: Acute (2) Syncope Status: Acute Problems: Current Medications Current Medications Current Medications Levalbuterol HCl (Xopenex) 1.25 mg 1X ONCE NEB Last administered on 08/06/17t 12:43; Start 08/06/17 at 12:30; Stop 08/06/17 at 12:31; Status DC Ondansetron HCl (Zofran) 4 mg 1X ONCE IV Last administered on 08/06/17 13:25 ; Start 08/06/17 at 13:30; Stop 08/06/17 at 13:31; Status DC Acetaminophen (Tylenol) 500 mg 1X ONCE PO Last administered on 08/06/17 13:25 ; Start 08/06/17 at 13:30; Stop 08/06/17 at 13:31; Status DC Oxycodone/ Acetaminophen (Percocet 5/325) 1 tab 1X ONCE PO Last administered on 08/06/17 15:01; Start 08/06/17 at 15:00; Stop 08/06/17 at 15:01; Status DC Ondansetron HCl (Zofran) 4 mg PRN Q8HRS PRN IV NAUSEA/VOMITING; Start 08/06/17 at 15:30; Stop 08/07/17 at 15:29 Sodium Chloride 1,000 ml @ 100 mls/hr Q10H IV ; Start 08/06/17 at 15:27; Stop 08/07/17 at 15:26 Acetaminophen (Tylenol) 650 mg PRN Q4HRS PRN PO FEVER; Start 08/06/17 at 15:30 ; Stop 08/07/17 at 15:29 Meclizine HCl (Antivert) 12.5 mg PRN Q6HRS PRN PO DIZZINESS Last administered on 08/06/17 15:43; Start 08/06/17 at 15:30 Active Scripts Active Zofran Odt (Ondansetron) 4 Mg Tab.rapdis 1 Tab SL Q8HRS Levofloxacin 750 Mg Tablet 1 Tab PO DAILY Reported Furosemide 20 Mg Tablet 20 Mg PO BID Potassium Chloride 20 Meq Tablet.er 20 Meq PO BID Cetirizine Hcl 10 Mg Tab.chew 10 Mg PO DAILY Ambien (Zolpidem Tartrate) 10 Mg Tablet 10 Mg PO HS PRN Aldactone (Spironolactone) 50 Mg Tablet 50 Mg PO BID Symbicort 160-4.5 Mcg Inhaler (Budesonide/Formoterol Fumarate) 10.2 Gm Hfa.aer.ad 2 Puff IH BID Percocet 5-325 Mg Tablet (Oxycodone/Acetaminophen) 1 Each Tablet 1-2 Tab PO Q4- 6HRS Reglan (Metoclopramide Hcl) 10 Mg Tablet 1 Tab PO TID Vitamin D3 (Cholecalciferol (Vitamin D3)) 5,000 Unit Tablet 5,000 Unit PO WEEKLY Xopenex (Levalbuterol Hcl) 1.25 Mg/3 Ml Vial.neb 1 Vial NEB TID Tablet (Pnv Cmb#95/Ferrous Fumarate/Fa) 1 Each Tablet 1 Tab PO DAILY Aller-Fex (Fexofenadine Hcl) 180 Mg Tablet 180 Mg PO DAILY Losartan Potassium 25 Mg Tablet 25 Mg PO DAILY Omeprazole 40 Mg Capsule.dr 40 Mg PO BID Linzess (Linaclotide) 145 Mcg Capsule 145 Mcg PO DAILY08 Gabapentin 100 Mg Capsule 400 Mg PO BID 30 Days Tamsulosin Hcl 0.4 Mg Cap.er.24h 0.4 Mg PO DAILY Fluoxetine Hcl 20 Mg Capsule 1 Cap PO DAILY Cyclobenzaprine Hcl 10 Mg Tablet 1 Tab PO TID Meclizine Hcl 25 Mg Tab.chew 25 Mg PO PRN BID PRN Xanax (Alprazolam) 1 Mg Tablet 1 Mg PO PRN TID PRN Seroquel (Quetiapine Fumarate) 100 Mg Tablet 100 Mg PO HS Allergies Allergies: Coded Allergies: prochlorperazine edisylate (Verified Allergy, Severe, 09/16/16) TOLERATES PHENERGAN W/CODEINE prochlorperazine maleate (Verified Allergy, Severe, 09/16/16) NSAIDS (Non-Steroidal Anti-Inflamma (Verified Allergy, Intermediate, 09/16) Penicillins (Verified Allergy, Intermediate, 09/16/16) "BEOMES UNCONSCIOUS Sulfa (Sulfonamide Antibiotics) (Verified Allergy, Intermediate, Rash, ) fentanyl (Verified Allergy, Intermediate, 05/21/17) HALLICINATIONS ONLY WITH PATCH meperidine HCl (Verified Allergy, Intermediate, TOLERATES FENTANYL, ) DEMEROL MAKES HER SPASTIC prednisone (Verified Allergy, Intermediate, 09/16/16) WATER RETENTION AND MAKES HER CONFUSED morphine (Verified Adverse Reaction, Severe, HALLUCINATES, 09/16/16) albuterol (Verified Adverse Reaction, Mild, pt refuses albuterol, 05/21/17) Physical Exam General: Alert, Oriented X3, Cooperative HEENT: Atraumatic, PERRLA, Other (ecchymosis over the left temporal area and left lateral orbital area. Oral mucosa dry.) Lungs: Clear to auscultation Heart: S1S2, RRR, murmurs Abdomen: Normal bowel sounds, Soft Extremities: No edema Vitals Vitals Vital Signs Date Time Temp Pulse Resp B/P (MAP) Pulse Ox O2 Delivery O2 Flow Rate FiO2 08/06/17 18:27 98.3 71 15 129/62 (84) 99 Room Air 98.3 Labs Labs Laboratory Tests Test 08/06/17 12:15 08/06/17 12:55 Urine Collection Type Void Urine Color Yellow Urine Clarity Clear Urine pH 6.5 Urine Specific [place] <=1.005 Urine Protein Negative mg/dL (NEG-TRACE) Urine Glucose (UA) Negative mg/dL (NEG) Urine Ketones (Stick) Negative mg/dL (NEG) Urine Blood Negative (NEG) Urine Nitrite Negative (NEG) Urine Bilirubin Negative (NEG) Urine Urobilinogen Dipstick 0.2 mg/dL (0.2 mg/dL) Urine Leukocyte Esterase Trace (NEG) Urine RBC 0 /HPF (0-2) Urine WBC Occ /HPF (0-4) Urine Squamous Epithelial Cells Occ /LPF Urine Renal Epithelial Cells Occ /LPF Urine Bacteria 0 /HPF (0-FEW) White Blood Count 11.2 x10^3/uL (4.0-11.0) Red Blood Count 3.92 x10^6/uL (3.50-5.40) Hemoglobin 12.9 g/dL (12.0-15.5) Hematocrit 38.9 % (36.0-47.0) Mean Corpuscular Volume 99 fL (79-100) Mean Corpuscular Hemoglobin 33 pg (25-35) Mean Corpuscular Hemoglobin Concent 33 g/dL (31-37) Red Cell Distribution Width 13.8 % (11.5-14.5) Platelet Count 242 x10^3/uL (140-400) Neutrophils (%) (Auto) 62 % (31-73) Lymphocytes (%) (Auto) 26 % (24-48) Monocytes (%) (Auto) 9 % (0-9) Eosinophils (%) (Auto) 1 % (0-3) Basophils (%) (Auto) 1 % (0-3) Neutrophils # (Auto) 7.0 x10^3uL (1.8-7.7) Lymphocytes # (Auto) 3.0 x10^3/uL (1.0-4.8) Monocytes # (Auto) 1.0 x10^3/uL (0.0-1.1) Eosinophils # (Auto) 0.1 x10^3/uL (0.0-0.7) Basophils # (Auto) 0.1 x10^3/uL (0.0-0.2) Sodium Level 143 mmol/L (136-145) Potassium Level 3.7 mmol/L (3.5-5.1) Chloride Level 104 mmol/L (98-107) Carbon Dioxide Level 34 mmol/L (21-32) Anion Gap 5 (6-14) Blood Urea Nitrogen 23 mg/dL (7-20) Creatinine 1.3 mg/dL (0.6-1.0) Estimated GFR (Cockcroft-Gault) 40.5 BUN/Creatinine Ratio 18 (6-20) Glucose Level 107 mg/dL (70-99) Calcium Level 8.9 mg/dL (8.5-10.1) Total Bilirubin 0.4 mg/dL (0.2-1.0) Aspartate Amino Transf (AST/SGOT) 17 U/L (15-37) Alanine Aminotransferase (ALT/SGPT) 25 U/L (14-59) Alkaline Phosphatase 88 U/L (46-116) Troponin I Quantitative < 0.017 ng/mL (0.000-0.055) PT-Qap-Q-Type Natriuretic Peptide 649 pg/mL (0-124) Total Protein 7.0 g/dL (6.4-8.2) Albumin 3.7 g/dL (3.4-5.0) Albumin/Globulin Ratio 1.1 (1.0-1.7) Laboratory Tests Test 08/06/17 12:15 08/06/17 12:55 Urine Collection Type Void Urine Color Yellow Urine Clarity Clear Urine pH 6.5 Urine Specific [place] <=1.005 Urine Protein Negative mg/dL (NEG-TRACE) Urine Glucose (UA) Negative mg/dL (NEG) Urine Ketones (Stick) Negative mg/dL (NEG) Urine Blood Negative (NEG) Urine Nitrite Negative (NEG) Urine Bilirubin Negative (NEG) Urine Urobilinogen Dipstick 0.2 mg/dL (0.2 mg/dL) Urine Leukocyte Esterase Trace (NEG) Urine RBC 0 /HPF (0-2) Urine WBC Occ /HPF (0-4) Urine Squamous Epithelial Cells Occ /LPF Urine Renal Epithelial Cells Occ /LPF Urine Bacteria 0 /HPF (0-FEW) White Blood Count 11.2 x10^3/uL (4.0-11.0) Red Blood Count 3.92 x10^6/uL (3.50-5.40) Hemoglobin 12.9 g/dL (12.0-15.5) Hematocrit 38.9 % (36.0-47.0) Mean Corpuscular Volume 99 fL (79-100) Mean Corpuscular Hemoglobin 33 pg (25-35) Mean Corpuscular Hemoglobin Concent 33 g/dL (31-37) Red Cell Distribution Width 13.8 % (11.5-14.5) Platelet Count 242 x10^3/uL (140-400) Neutrophils (%) (Auto) 62 % (31-73) Lymphocytes (%) (Auto) 26 % (24-48) Monocytes (%) (Auto) 9 % (0-9) Eosinophils (%) (Auto) 1 % (0-3) Basophils (%) (Auto) 1 % (0-3) Neutrophils # (Auto) 7.0 x10^3uL (1.8-7.7) Lymphocytes # (Auto) 3.0 x10^3/uL (1.0-4.8) Monocytes # (Auto) 1.0 x10^3/uL (0.0-1.1) Eosinophils # (Auto) 0.1 x10^3/uL (0.0-0.7) Basophils # (Auto) 0.1 x10^3/uL (0.0-0.2) Sodium Level 143 mmol/L (136-145) Potassium Level 3.7 mmol/L (3.5-5.1) Chloride Level 104 mmol/L (98-107) Carbon Dioxide Level 34 mmol/L (21-32) Anion Gap 5 (6-14) Blood Urea Nitrogen 23 mg/dL (7-20) Creatinine 1.3 mg/dL (0.6-1.0) Estimated GFR (Cockcroft-Gault) 40.5 BUN/Creatinine Ratio 18 (6-20) Glucose Level 107 mg/dL (70-99) Calcium Level 8.9 mg/dL (8.5-10.1) Total Bilirubin 0.4 mg/dL (0.2-1.0) Aspartate Amino Transf (AST/SGOT) 17 U/L (15-37) Alanine Aminotransferase (ALT/SGPT) 25 U/L (14-59) Alkaline Phosphatase 88 U/L (46-116) Troponin I Quantitative < 0.017 ng/mL (0.000-0.055) SV-Vxi-X-Type Natriuretic Peptide 649 pg/mL (0-124) Total Protein 7.0 g/dL (6.4-8.2) Albumin 3.7 g/dL (3.4-5.0) Albumin/Globulin Ratio 1.1 (1.0-1.7) VTE Prophylaxis Ordered VTE Prophylaxis Devices: Yes VTE Pharmacological Prophylaxi: Yes Assessment/Plan Assessment/Plan This patient comes in after a syncopal episode with blunt head trauma. She needs to be evaluated by neurology both for the possibility of the syncope as well as a concussion from her blunt head trauma. Will admit her and consult neurology and then depending on her progress as well as a recommendations of the neurologist will decide about further workup and treatment. LORRIE HONG MD Aug 06, 2017 19:17
[2017-08-06 19:54] VITALS: BP 115/60
[2017-08-06] MEDS ORDERED: oxyCODONE/APAP 5/325 1 TAB TABLET PO PRN (20:30)
[2017-08-06] MEDS ORDERED: MECLIZINE HCL 12.5 MG TABLET. PO PRN (21:00)
[2017-08-06] MEDS ORDERED: QUEtiapine 100 MG TABLET. PO SCH (21:00)
[2017-08-06] MEDS ORDERED: ZOLPIDEM 5 MG TABLET. PO PRN (21:00)
[2017-08-06] MEDS ORDERED: NON FORMULARY ITEM (Budesonide/Formoterol Fumarate (Symbicort 160-4.5 Mcg Inhaler) 2 PUFF) IH SCH (21:00)
[2017-08-06] MEDS ORDERED: LEVALBUTEROL 1.25 MG/0.5 ML NEBU. NEB SCH (21:30)
[2017-08-06] MEDS: IV NORMAL SALINE 1000ML BAG 1,000 ML IV SCH (21:54)
[2017-08-06] MEDS: GABAPENTIN 400 MG CAPSULE. PO SCH (21:54)
[2017-08-06] MEDS: SPIRONOLACTONE 25 MG TABLET PO SCH (21:54)
[2017-08-06] MEDS: oxyCODONE/APAP 5/325 1 TAB TABLET PO PRN (21:54)
[2017-08-06] MEDS: ALPRAZolam 1 MG TABLET PO PRN (21:55)
[2017-08-06] MEDS: CYCLOBENZAPRINE 10 MG TABLET. PO SCH (21:55)
[2017-08-06] MEDS ORDERED: ONDANSETRON ODT 4 MG TAB.RAPDIS. PO SCH (22:00)
[2017-08-06 23:43] VITALS: BP 116/67
[2017-08-07] MEDS: IV NORMAL SALINE 1000ML BAG 1,000 ML IV SCH ×2 (01:27→08:10)
[2017-08-07 03:00] VITALS: BP 97/57
[2017-08-07] MEDS: oxyCODONE/APAP 5/325 1 TAB TABLET PO PRN ×3 (03:20→12:16)
[2017-08-07 07:19] VITALS: BP 143/70
[2017-08-07] MEDS ORDERED: LINACLOTIDE 145 MCG CAPSULE. PO SCH (08:00)
[2017-08-07 08:09] LABS: BASO # 0.1 x10^3/uL (0.0-0.2); BASO % 1 % (0-3); EOS % 2 % (0-3); HEMOGLOBIN 13.2 g/dL (12.0-15.5); LYMPH % 34 % (24-48); MEAN CORPUSCULAR HEMOGLOBIN 33 pg (25-35); MEAN CORPUSCULAR HGB CONC 33 g/dL (31-37); MEAN CORPUSCULAR VOLUME 99 fL (79-100); MONO % 7 % (0-9); NEUT % 56 % (31-73); PLATELET COUNT 230 x10^3/uL (140-400); RED BLOOD COUNT 4.04 x10^6/uL (3.50-5.40); RED CELL DISTRIBUTION WIDTH 13.9 % (11.5-14.5); WHITE BLOOD COUNT 8.9 x10^3/uL (4.0-11.0)
[2017-08-07] MEDS: SPIRONOLACTONE 25 MG TABLET PO SCH (08:11)
[2017-08-07] MEDS: ALPRAZolam 1 MG TABLET PO PRN ×2 (08:11→17:23)
[2017-08-07] MEDS: POTASSIUM CHLORIDE 20 MEQ TABLET.ER. PO SCH ×2 (08:13→17:23)
[2017-08-07] MEDS: GABAPENTIN 400 MG CAPSULE. PO SCH (08:13)
[2017-08-07] MEDS: MECLIZINE HCL 12.5 MG TABLET. PO PRN (08:14)
[2017-08-07] MEDS: PANTOPRAZOLE 40 MG TABLET.DR. PO SCH ×2 (08:14→17:22)
--- NOTE | 2017-08-07 08:14 | PDOC2 ---
NEUROLOGY CONSULT Date of Admission Date of Admission DATE: 08/07/17 TIME: 08:11 Reason for Consult Reason for Consult: Concussion Referring Physician Referring Physician: Dr. Ocampo PCP: Dr. Mckeon Source Source: Chart review, Patient History of Present Illness History of Present Illness The patient is a 72-year-old right-handed female who fell off the toilet early yesterday morning. She hit her head and was knocked out. She has chronic dizziness. She takes meclizine. She also has multiple cardiac problems. She has had a seizure in the past for which I saw her nearly 20 years ago, probably related to Demerol. She has also seen Dr. Win for a concussion. She denies any history of strokes. She still feels dizzy and has a headache. She has had chronic headaches related to previous head injuries. She cannot have MRI studies here at the hospital because the field strength is too strong for her heart valve, she says. Past Medical History Cardiovascular: AFIB, HTN Pulmonary: Asthma, Bronchitis, COPD (on oxygen at night and when necessary), Pneumonia, Other (sarcoidosis) CENTRAL NERVOUS SYSTEM: Periperal neuropathy, Vertigo, Other (concussions) GI: GERD, Peptic Ulcer disease Psych: Anxiety, Depression Musculoskeletal: low back pain (she sees Dr. Delgadillo) Renal/: Acute renal failure (was on dialysis for a couple weeks last year) Endocrine: Diabetes (resolved after dialysis) Dermatology: Basal cell Past Surgical History Past Surgical History: Appendectomy, Cataract Removal, Tubal Ligation, Hysterectomy, Other (aortic valve, porcine, spleen surgery, cardiac catheterization, right thumb) Family History Family History: Cancer Social History Social History , no tobacco, occasional beer Current Medications Current Medications Current Medications Levalbuterol HCl (Xopenex) 1.25 mg 1X ONCE NEB Last administered on 08/06/17 12:43; Start 08/06/17 at 12:30; Stop 08/06/17 at 12:31; Status DC Ondansetron HCl (Zofran) 4 mg 1X ONCE IV Last administered on 08/06/17 13:25 ; Start 08/06/17 at 13:30; Stop 08/06/17 at 13:31; Status DC Acetaminophen (Tylenol) 500 mg 1X ONCE PO Last administered on 08/06/17 13:25 ; Start 08/06/17 at 13:30; Stop 08/06/17 at 13:31; Status DC Oxycodone/ Acetaminophen (Percocet 5/325) 1 tab 1X ONCE PO Last administered on 08/06/17 15:01; Start 08/06/17 at 15:00; Stop 08/06/17 at 15:01; Status DC Ondansetron HCl (Zofran) 4 mg PRN Q8HRS PRN IV NAUSEA/VOMITING; Start 08/06/17 at 15:30; Stop 08/07/17 at 15:29 Sodium Chloride 1,000 ml @ 100 mls/hr Q10H IV Last administered on 08/06/17 21:54; Start 08/06/17 at 15:27; Stop 08/07/17 at 15:26 Acetaminophen (Tylenol) 650 mg PRN Q4HRS PRN PO FEVER; Start 08/06/17 at 15:30 ; Stop 08/07/17 at 15:29 Meclizine HCl (Antivert) 12.5 mg PRN Q6HRS PRN PO DIZZINESS Last administered on 08/06/17 22:44; Start 08/06/17 at 15:30 Alprazolam (Xanax) 1 mg PRN TID PRN PO ANXIETY / AGITATION Last administered on 08/06/17 21:55; Start 08/06/17 at 20:30 Cyclobenzaprine HCl (Flexeril) 10 mg TID PO Last administered on 08/06/17 21: 55; Start 08/06/17 at 21:00 Fluoxetine HCl (PROzac) 20 mg DAILY PO ; Start 08/07/17 at 09:00 Furosemide (Lasix) 20 mg BID94 PO ; Start 08/07/17 at 09:00 Gabapentin (Neurontin) 400 mg BID PO Last administered on 08/06/17 21:54; Start 08/06/17 at 21:00 Levofloxacin (Levaquin) 750 mg DAILY PO ; Start 08/07/17 at 09:00; Status UNV Linaclotide (Linzess) 145 mcg DAILY08 PO ; Start 08/07/17 at 08:00 Losartan Potassium (Cozaar) 25 mg DAILY PO ; Start 08/07/17 at 09:00 Metoclopramide HCl (Reglan) 5 mg TIDWMEALS PO ; Start 08/07/17 at 08:00 Ondansetron HCl (Zofran Odt) 4 mg Q8HRS PO ; Start 08/06/17 at 22:00; Stop 08/07 at 05:42; Status DC Oxycodone/ Acetaminophen (Percocet 5/325) 1 tab PRN Q4HRS PRN PO MODERATE PAIN ; Start 08/06/17 at 20:30 Quetiapine Fumarate (SEROquel) 100 mg HS PO Last administered on 08/06/17 21: 55; Start 08/06/17 at 21:00 Tamsulosin HCl (Flomax) 0.4 mg DAILY PO ; Start 08/07/17 at 09:00 Non-Formulary Medication 2 puff BID IH ; Start 08/06/17 at 21:00; Status UNV Cetirizine HCl (ZyrTEC) 10 mg DAILY PO ; Start 08/07/17 at 09:00 Vitamin D (Vitamin D3) 5,000 unit WEEKLY PO ; Start 08/07/17 at 09:00 Non-Formulary Medication 180 mg DAILY PO ; Start 08/07/17 at 09:00; Status UNV Levalbuterol HCl (Xopenex) 1.25 mg TID NEB ; Start 08/06/17 at 21:30 Meclizine HCl (Antivert) 25 mg PRN BID PRN PO DIZZINESS; Start 08/06/17 at 21: 00 Pantoprazole Sodium (Protonix) 40 mg BIDAC PO ; Start 08/07/17 at 07:30 Multivit/ Folic Acid/Iron (Multivitamin ) 1 tab DAILY PO ; Start 08/07/17 at 09:00 Potassium Chloride (Klor-Con) 20 meq BIDWMEALS PO ; Start 08/07/17 at 08:00 Spironolactone (Aldactone) 50 mg BID PO Last administered on 08/06/17 21:54; Start 08/06/17 at 21:00 Zolpidem Tartrate (Ambien) 5 mg PRN QHS PRN PO INSOMNIA Last administered on 21:55; Start 08/06/17 at 21:00 Oxycodone/ Acetaminophen (Percocet 5/325) 2 tab PRN Q4HRS PRN PO MODERATE PAIN Last administered on 10/6/17at 03:20; Start 08/06/17 at 21:00 Budesonide (Pulmicort) 0.5 mg RTBID NEB ; Start 08/07/17 at 21:30 Active Scripts Active Levofloxacin 750 Mg Tablet 1 Tab PO DAILY Reported Furosemide 20 Mg Tablet 20 Mg PO BID Potassium Chloride 20 Meq Tablet.er 20 Meq PO BID Cetirizine Hcl 10 Mg Tab.chew 10 Mg PO DAILY Ambien (Zolpidem Tartrate) 10 Mg Tablet 10 Mg PO HS PRN Aldactone (Spironolactone) 50 Mg Tablet 50 Mg PO BID Symbicort 160-4.5 Mcg Inhaler (Budesonide/Formoterol Fumarate) 10.2 Gm Hfa.aer.ad 2 Puff IH BID Percocet 5-325 Mg Tablet (Oxycodone/Acetaminophen) 1 Each Tablet 1-2 Tab PO Q4- 6HRS Reglan (Metoclopramide Hcl) 10 Mg Tablet 1 Tab PO TID Vitamin D3 (Cholecalciferol (Vitamin D3)) 5,000 Unit Tablet 5,000 Unit PO WEEKLY Xopenex (Levalbuterol Hcl) 1.25 Mg/3 Ml Vial.neb 1 Vial NEB TID Tablet (Pnv Cmb#95/Ferrous Fumarate/Fa) 1 Each Tablet 1 Tab PO DAILY Aller-Fex (Fexofenadine Hcl) 180 Mg Tablet 180 Mg PO DAILY Losartan Potassium 25 Mg Tablet 25 Mg PO DAILY Omeprazole 40 Mg Capsule.dr 40 Mg PO BID Linzess (Linaclotide) 145 Mcg Capsule 145 Mcg PO DAILY08 Gabapentin 100 Mg Capsule 400 Mg PO BID 30 Days Tamsulosin Hcl 0.4 Mg Cap.er.24h 0.4 Mg PO DAILY Fluoxetine Hcl 20 Mg Capsule 1 Cap PO DAILY Cyclobenzaprine Hcl 10 Mg Tablet 1 Tab PO TID Meclizine Hcl 25 Mg Tab.chew 25 Mg PO PRN BID PRN Xanax (Alprazolam) 1 Mg Tablet 1 Mg PO PRN TID PRN Seroquel (Quetiapine Fumarate) 100 Mg Tablet 100 Mg PO HS Allergies Allergies: Coded Allergies: prochlorperazine edisylate (Verified Allergy, Severe, 09/16/16) TOLERATES PHENERGAN W/CODEINE prochlorperazine maleate (Verified Allergy, Severe, 09/16/16) NSAIDS (Non-Steroidal Anti-Inflamma (Verified Allergy, Intermediate, 09/16) Penicillins (Verified Allergy, Intermediate, 09/16/16) "BEOMES UNCONSCIOUS Sulfa (Sulfonamide Antibiotics) (Verified Allergy, Intermediate, Rash, ) fentanyl (Verified Allergy, Intermediate, 05/21/17) HALLICINATIONS ONLY WITH PATCH meperidine HCl (Verified Allergy, Intermediate, TOLERATES FENTANYL, ) DEMEROL MAKES HER SPASTIC prednisone (Verified Allergy, Intermediate, 09/16/16) WATER RETENTION AND MAKES HER CONFUSED morphine (Verified Adverse Reaction, Severe, HALLUCINATES, 09/16/16) albuterol (Verified Adverse Reaction, Mild, pt refuses albuterol, 05/21/17) ROS Review of System Patient denies fevers, chills, weight loss, dyspnea, angina, abdominal pain, change in bowels, or dysuria. 14 point review of systems is negative. Physical Exam Physical Examination PHYSICAL EXAMINATION: Vital signs: see above. General appearance is normal and in no acute distress. HEENT: Normocephalic. Small ecchymosis below the left orbit, scalp ecchymosis on left. Eyes, nose, ears, and throat are unremarkable. Neck is supple. No lymphadenopathy. No bruits are heard over the carotid artery. No crepitus. NEUROLOGICAL EXAMINATION: Mental Status Examination: Alert. Oriented to time, place, and person. Answers questions and follows commends. Pupils are equal round and reactive to light and accommodation. Funduscopic exam: No papilledema. Extraocular movements are intact. Visual field exam shows no defect on the direct confrontation. No motor or sensory deficits on the facial exam. Uvula in the midline and the soft palate elevated symmetrically. No deviation of the tongue to any direction. Gross hearing is normal. Shoulder shrug normal. Muscle tone is normal. Muscle strength is 5. Deep tendon reflexes are 2+ all around. Plantar reflex is with flexion response bilaterally. [id number] test performance is accurate. Alternative movements are accurate. Romberg test is negative. Gait a little unsteady Sensory exam shows no deficits. No cerebellar signs are elicited. Vitals VITALS Vital Signs Date Time Temp Pulse Resp B/P (MAP) Pulse Ox O2 Delivery O2 Flow Rate FiO2 08/07/17 04:20 20 Nasal Cannula 2.0 08/07/17 03:00 97.7 64 97/57 (70) 94 97.7 Labs Labs Laboratory Tests Test 08/06/17 12:15 08/06/17 12:55 Urine Collection Type Void Urine Color Yellow Urine Clarity Clear Urine pH 6.5 Urine Specific Willows <=1.005 Urine Protein Negative mg/dL (NEG-TRACE) Urine Glucose (UA) Negative mg/dL (NEG) Urine Ketones (Stick) Negative mg/dL (NEG) Urine Blood Negative (NEG) Urine Nitrite Negative (NEG) Urine Bilirubin Negative (NEG) Urine Urobilinogen Dipstick 0.2 mg/dL (0.2 mg/dL) Urine Leukocyte Esterase Trace (NEG) Urine RBC 0 /HPF (0-2) Urine WBC Occ /HPF (0-4) Urine Squamous Epithelial Cells Occ /LPF Urine Renal Epithelial Cells Occ /LPF Urine Bacteria 0 /HPF (0-FEW) White Blood Count 11.2 x10^3/uL (4.0-11.0) Red Blood Count 3.92 x10^6/uL (3.50-5.40) Hemoglobin 12.9 g/dL (12.0-15.5) Hematocrit 38.9 % (36.0-47.0) Mean Corpuscular Volume 99 fL (79-100) Mean Corpuscular Hemoglobin 33 pg (25-35) Mean Corpuscular Hemoglobin Concent 33 g/dL (31-37) Red Cell Distribution Width 13.8 % (11.5-14.5) Platelet Count 242 x10^3/uL (140-400) Neutrophils (%) (Auto) 62 % (31-73) Lymphocytes (%) (Auto) 26 % (24-48) Monocytes (%) (Auto) 9 % (0-9) Eosinophils (%) (Auto) 1 % (0-3) Basophils (%) (Auto) 1 % (0-3) Neutrophils # (Auto) 7.0 x10^3uL (1.8-7.7) Lymphocytes # (Auto) 3.0 x10^3/uL (1.0-4.8) Monocytes # (Auto) 1.0 x10^3/uL (0.0-1.1) Eosinophils # (Auto) 0.1 x10^3/uL (0.0-0.7) Basophils # (Auto) 0.1 x10^3/uL (0.0-0.2) Sodium Level 143 mmol/L (136-145) Potassium Level 3.7 mmol/L (3.5-5.1) Chloride Level 104 mmol/L (98-107) Carbon Dioxide Level 34 mmol/L (21-32) Anion Gap 5 (6-14) Blood Urea Nitrogen 23 mg/dL (7-20) Creatinine 1.3 mg/dL (0.6-1.0) Estimated GFR (Cockcroft-Gault) 40.5 BUN/Creatinine Ratio 18 (6-20) Glucose Level 107 mg/dL (70-99) Calcium Level 8.9 mg/dL (8.5-10.1) Total Bilirubin 0.4 mg/dL (0.2-1.0) Aspartate Amino Transf (AST/SGOT) 17 U/L (15-37) Alanine Aminotransferase (ALT/SGPT) 25 U/L (14-59) Alkaline Phosphatase 88 U/L (46-116) Troponin I Quantitative < 0.017 ng/mL (0.000-0.055) LR-Ztm-A-Type Natriuretic Peptide 649 pg/mL (0-124) Total Protein 7.0 g/dL (6.4-8.2) Albumin 3.7 g/dL (3.4-5.0) Albumin/Globulin Ratio 1.1 (1.0-1.7) Laboratory Tests Test 08/06/17 12:15 08/06/17 12:55 Urine Collection Type Void Urine Color Yellow Urine Clarity Clear Urine pH 6.5 Urine Specific Willows <=1.005 Urine Protein Negative mg/dL (NEG-TRACE) Urine Glucose (UA) Negative mg/dL (NEG) Urine Ketones (Stick) Negative mg/dL (NEG) Urine Blood Negative (NEG) Urine Nitrite Negative (NEG) Urine Bilirubin Negative (NEG) Urine Urobilinogen Dipstick 0.2 mg/dL (0.2 mg/dL) Urine Leukocyte Esterase Trace (NEG) Urine RBC 0 /HPF (0-2) Urine WBC Occ /HPF (0-4) Urine Squamous Epithelial Cells Occ /LPF Urine Renal Epithelial Cells Occ /LPF Urine Bacteria 0 /HPF (0-FEW) White Blood Count 11.2 x10^3/uL (4.0-11.0) Red Blood Count 3.92 x10^6/uL (3.50-5.40) Hemoglobin 12.9 g/dL (12.0-15.5) Hematocrit 38.9 % (36.0-47.0) Mean Corpuscular Volume 99 fL (79-100) Mean Corpuscular Hemoglobin 33 pg (25-35) Mean Corpuscular Hemoglobin Concent 33 g/dL (31-37) Red Cell Distribution Width 13.8 % (11.5-14.5) Platelet Count 242 x10^3/uL (140-400) Neutrophils (%) (Auto) 62 % (31-73) Lymphocytes (%) (Auto) 26 % (24-48) Monocytes (%) (Auto) 9 % (0-9) Eosinophils (%) (Auto) 1 % (0-3) Basophils (%) (Auto) 1 % (0-3) Neutrophils # (Auto) 7.0 x10^3uL (1.8-7.7) Lymphocytes # (Auto) 3.0 x10^3/uL (1.0-4.8) Monocytes # (Auto) 1.0 x10^3/uL (0.0-1.1) Eosinophils # (Auto) 0.1 x10^3/uL (0.0-0.7) Basophils # (Auto) 0.1 x10^3/uL (0.0-0.2) Sodium Level 143 mmol/L (136-145) Potassium Level 3.7 mmol/L (3.5-5.1) Chloride Level 104 mmol/L (98-107) Carbon Dioxide Level 34 mmol/L (21-32) Anion Gap 5 (6-14) Blood Urea Nitrogen 23 mg/dL (7-20) Creatinine 1.3 mg/dL (0.6-1.0) Estimated GFR (Cockcroft-Gault) 40.5 BUN/Creatinine Ratio 18 (6-20) Glucose Level 107 mg/dL (70-99) Calcium Level 8.9 mg/dL (8.5-10.1) Total Bilirubin 0.4 mg/dL (0.2-1.0) Aspartate Amino Transf (AST/SGOT) 17 U/L (15-37) Alanine Aminotransferase (ALT/SGPT) 25 U/L (14-59) Alkaline Phosphatase 88 U/L (46-116) Troponin I Quantitative < 0.017 ng/mL (0.000-0.055) WX-Jqy-P-Type Natriuretic Peptide 649 pg/mL (0-124) Total Protein 7.0 g/dL (6.4-8.2) Albumin 3.7 g/dL (3.4-5.0) Albumin/Globulin Ratio 1.1 (1.0-1.7) Images Images CT of the head without contrast, 08/06/2017: History: Syncope, fall, head injury Comparison is made to a study from 06/30/2016. There appears to be a scalp contusion in the left frontal region. No underlying fractures identified. The ventricles are within normal limits in size. There is no shift of the midline structures. There is no evidence of acute intracranial hemorrhage or mass effect. IMPRESSION: No acute intracranial abnormality is detected. CT of the cervical spine without contrast, 08/06/2017: Noncontrast scans were obtained with multiplanar reconstructions produced. There is mild disc space narrowing at C5-6 and C6-7 with mild marginal spurring. There are mild degenerative changes involving scattered facet joints. There is mild associated narrowing of the central spinal canal and moderate foraminal narrowing bilaterally at C5-6. No fracture or dislocation is identified. Moderate calcific plaquing is present the carotid bifurcations. IMPRESSION: 1. Mild scattered degenerative changes. 2. No acute bony abnormality is detected. I also reviewed brain MRI from 07/30/16 and cervical, thoracic, lumbar MRI studies from 10/14/16 Assessment/Plan Assessment/Plan Impression: Concussion, no evidence of stroke or seizure Chronic dizziness, multifactorial. Chronic headaches, takes Percocet Chronic spine pain, sees Dr. Delgadillo Recommendations: Physical/occupational therapy evaluation Home later today if safe by PT and OT I will arrange for outpatient vestibular testing by Dr. Orona She can follow-up with me after that. As she cannot have an MRI here, hold off on that study, and maybe do it as an outpatient if symptoms persist. Thank you for letting me help with the patient's care. KELL BLAKE MD Aug 07, 2017 08:14
[2017-08-07] MEDS: FUROSEMIDE 20 MG TABLET PO SCH ×2 (08:15→17:22)
[2017-08-07] MEDS: CYCLOBENZAPRINE 10 MG TABLET. PO SCH ×2 (08:15→14:47)
[2017-08-07] MEDS: METOCLOPRAMIDE 10 MG TABLET. PO SCH ×3 (08:15→17:23)
[2017-08-07 08:28] LABS: CREATININE 1.1 mg/dL (0.6-1.0); GFR 49.1; POTASSIUM 4.1 mmol/L (3.5-5.1)
[2017-08-07] MEDS ORDERED: CHOLECALCIFEROL (VITAMIN D3) 5,000 UNIT CAPSULE PO SCH (09:00)
[2017-08-07] MEDS ORDERED: PRENATAL MULTIVITAMIN TABLET. PO SCH (09:00)
[2017-08-07] MEDS ORDERED: LOSARTAN POTASSIUM 25 MG TABLET. PO SCH (09:00)
[2017-08-07] MEDS ORDERED: FEXOFENADINE HCL 180 MG PO SCH (09:00)
[2017-08-07] MEDS ORDERED: TAMSULOSIN 0.4 MG CAP.ER.24H. PO SCH (09:00)
[2017-08-07] MEDS ORDERED: FLUoxetine HCL 20 MG CAPSULE PO SCH (09:00)
[2017-08-07] MEDS ORDERED: CETIRIZINE HCL 10 MG TABLET. PO SCH (09:00)
[2017-08-07 11:03] VITALS: BP 98/68
[2017-08-07] MEDS ORDERED: FLU VACC QS2017-18 (36MOS+)/PF 0.5 ML SYRINGE. VAX IM ONE (14:00)
[2017-08-07 15:15] VITALS: BP 102/53
[2017-08-07] MEDS ORDERED: BUDESONIDE 0.5 MG/2 ML NEBU. NEB SCH (21:30)
== END 2017-08-07 18:00 | disposition home or self-care (01) | DRG 89 ==
LOC: ER 11:58 → 6 SOUTH 15:18
PROVIDERS: ADMIT Internal Medicine Cardiovascular Disease; ATTEND Internal Medicine Cardiovascular Disease
DX: S06.0X9A Concussion with loss of consciousness of unspecified duration, initial encounter (principal); I13.0 Hypertensive heart and chronic kidney disease with heart failure and stage 1 through stage 4 chronic kidney disease, or unspecified chronic kidney disease; E11.22 Type 2 diabetes mellitus with diabetic chronic kidney disease; I48.91 Unspecified atrial fibrillation; G62.9 Polyneuropathy, unspecified; I50.9 Heart failure, unspecified; Z99.81 Dependence on supplemental oxygen; J44.9 Chronic obstructive pulmonary disease, unspecified; K31.84 Gastroparesis; D86.9 Sarcoidosis, unspecified; F32.9 Major depressive disorder, single episode, unspecified; W18.11XA Fall from or off toilet without subsequent striking against object, initial encounter; E11.43 Type 2 diabetes mellitus with diabetic autonomic (poly)neuropathy; E78.5 Hyperlipidemia, unspecified; G89.29 Other chronic pain; I35.0 Nonrheumatic aortic (valve) stenosis; K21.9 Gastro-esophageal reflux disease without esophagitis; N18.9 Chronic kidney disease, unspecified; K59.00 Constipation, unspecified; F41.9 Anxiety disorder, unspecified; R29.6 Repeated falls; Z82.49 Family history of ischemic heart disease and other diseases of the circulatory system; Z87.11 Personal history of peptic ulcer disease; Z90.710 Acquired absence of both cervix and uterus; Z90.81 Acquired absence of spleen; Z95.2 Presence of prosthetic heart valve; Z87.01 Personal history of pneumonia (recurrent); Z87.440 Personal history of urinary (tract) infections; Y93.89 Activity, other specified; Y92.89 Other specified places as the place of occurrence of the external cause; Y99.8 Other external cause status; Z88.6 Allergy status to analgesic agent; Z88.1 Allergy status to other antibiotic agents; Z88.0 Allergy status to penicillin; Z88.2 Allergy status to sulfonamides; Z88.8 Allergy status to other drugs, medicaments and biological substances
CPT/HCPCS: 36415; 70450; 72125; 80048; 80051; 80053; 81001; 83735; 83880; 84484; 85025; 87086; 90686; 93005; 94640; 96374; J2405; J7030; J8597; 99285-25

== ENCOUNTER 2017-08-17 11:38 | Inpatient (IN) | payer MEDICARE, OTHER ==
[~2017-08-17] VITALS: Ht 160 cm; Wt 76.0 kg
[~2017-08-17 11:38] MED LIST changes: +ONDA4TAB10 SL
[2017-08-17] MEDS ORDERED: PROMETH/CODEINE 6.25/10MG 5 ML SYRUP. PO ONE (12:30)
[2017-08-17] MEDS: IPRATRPIUM/ALBUTEROL 0.5/2.5MG 3 ML NEBU. NEB ONE ×2 (12:30→13:02)
--- NOTE | 2017-08-17 12:33 | EKG ---
[facility] [address] [place] [address] Test Date: 2017-08-17 Test Time: 12:01:09 Pat Name: DUDLEY ALAN Department: Room: Gender: F [employer]: : 1945 Requested By: LINNEA BRISENO Order Number: [id number] Reading MD: Measurements Intervals [place] Rate: 101 P: -10 WI: 128 QRS: 21 QRSD: 106 T: 78 QT: 338 QTc: 439 Interpretive Statements SINUS TACHYCARDIA QRS(T) CONTOUR ABNORMALITY CONSIDER ANTEROSEPTAL MYOCARDIAL DAMAGE ST & T ABNORMALITY, CONSIDER LATERAL ISCHEMIA OR LEFT VENTRICULAR STRAIN INFEROLATERAL ISCHEMIA OR LEFT VENTRICULAR STRAIN ABNORMAL ECG RI6.01 No previous ECG available for comparison
--- NOTE | 2017-08-17 12:42 | PHYS DOC ---
Past Medical History Past Medical History: Cancer, CHF, COPD, GERD, UTI, Other Additional Past Medical Histor: sarcodosis, skin CA Past Surgical History: Hysterectomy, Splenectomy, Other Additional Past Surgical Histo: OPEN HEART SGRY AORTIC VALVE X 2,L SHOULDER SURG Alcohol Use: Rarely Drug Use: None Adult General Chief Complaint Chief Complaint: CHEST WALL PAIN HPI HPI Patient is a 72 year old F who presents with chest pain and shortness of breath since . Patient has a history of sarcoidosis and COPD and has been having a productive cough with increasing shortness of breath and chest pain for the past 4 days. Patient complains of increasing wheezing despite doing her breathing treatments at home. Patient wears 2 L of oxygen at night. Patient states her shortness breath is worse when getting up or walking. Patient states when she rest her shortness breath resolves. Patient had a history of to aortic valve surgeries. Patient states Dr. Ocampo is her PCP. Patient denies any other symptoms. Review of Systems Review of Systems GEN: Denies fevers, chills, sweats HEENT: Denies blurred vision, sore throat CV: chest pain RESP: shortness of air, cough GI: Denies n/v/d NEURO: Denies confusion, dizziness MSK: Denies weakness, joint pain/swelling Current Medications Current Medications Current Medications Medications (Trade) Dose Ordered Sig/Mariana Start Time Stop Time Status Last Admin Dose Admin Albuterol/ Ipratropium (Duoneb) 3 ml 1X ONCE 08/17/17 12:30 08/17/17 12:31 DC Alprazolam (Xanax) 1 mg 1X ONCE 08/17/17 14:00 08/17/17 14:01 DC 08/17/17 14:09 1 MG Levalbuterol HCl (Xopenex) 1.25 mg 1X ONCE 08/17/17 13:15 08/17/17 13:16 DC 08/17/17 13:15 1.25 MG Ondansetron HCl (Zofran) 4 mg PRN Q8HRS PRN 08/17/17 15:30 08/18/17 15:29 Oxycodone/ Acetaminophen (Percocet 5/325) 2 tab 1X ONCE 08/17/17 14:00 08/17/17 14:01 DC 08/17/17 14:10 2 TAB Promethazine HCl/ Codeine (Phenergan With Codeine) 5 ml 1X ONCE 08/17/17 12:30 08/17/17 12:31 DC 08/17/17 13:17 5 ML Sodium Chloride (NORMAL SALINE FLUSH for STERILE FIELD) 10 ml STK-MED ONCE 08/17/17 12:52 08/17/17 12:53 DC Allergies Allergies Allergies Coded Allergies Type Severity Reaction Last Updated Verified prochlorperazine edisylate Allergy Severe 09/16/16 Yes prochlorperazine maleate Allergy Severe 09/16/16 Yes NSAIDS (Non-Steroidal Anti-Inflamma Allergy Intermediate 09/16/16 Yes Penicillins Allergy Intermediate 09/16/16 Yes Sulfa (Sulfonamide Antibiotics) Allergy Intermediate Rash 09/16/16 Yes fentanyl Allergy Intermediate 05/21/17 Yes meperidine HCl Allergy Intermediate TOLERATES FENTANYL 09/16/16 Yes prednisone Allergy Intermediate 09/16/16 Yes morphine Adverse Reaction Severe HALLUCINATES 09/16/16 Yes albuterol Adverse Reaction Mild pt refuses albuterol 05/21/17 Yes Physical Exam Physical Exam GEN.: No apparent distress. Alert and oriented. HEENT: Head is normocephalic, atraumatic NECK: Supple. LUNGS: Wheezing bilaterally. HEART: Tachycardia, S1, S2 present. Peripheral pulses intact ABDOMEN: Soft, nontender. Positive bowel sounds. EXTREMITIES: Without any cyanosis. NEUROLOGIC: Normal speech, normal tone PSYCHIATRIC: Normal affect, normal mood. SKIN: No ulcerations Current Patient Data Vital Signs Vital Signs Date Time Temp Pulse Resp B/P (MAP) Pulse Ox O2 Delivery O2 Flow Rate FiO2 08/17/17 14:10 20 95 Room Air 08/17/17 13:48 92 106/58 (74) 08/17/17 11:48 98.3 98.3 Lab Values Laboratory Tests Test 08/17/17 13:10 White Blood Count 11.1 x10^3/uL (4.0-11.0) H Red Blood Count 3.57 x10^6/uL (3.50-5.40) Hemoglobin 12.0 g/dL (12.0-15.5) Hematocrit 35.3 % (36.0-47.0) L Mean Corpuscular Volume 99 fL (79-100) Mean Corpuscular Hemoglobin 34 pg (25-35) Mean Corpuscular Hemoglobin Concent 34 g/dL (31-37) Red Cell Distribution Width 14.0 % (11.5-14.5) Platelet Count 235 x10^3/uL (140-400) Neutrophils (%) (Auto) 65 % (31-73) Lymphocytes (%) (Auto) 22 % (24-48) L Monocytes (%) (Auto) 9 % (0-9) Eosinophils (%) (Auto) 3 % (0-3) Basophils (%) (Auto) 1 % (0-3) Neutrophils # (Auto) 7.2 x10^3uL (1.8-7.7) Lymphocytes # (Auto) 2.4 x10^3/uL (1.0-4.8) Monocytes # (Auto) 1.0 x10^3/uL (0.0-1.1) Eosinophils # (Auto) 0.3 x10^3/uL (0.0-0.7) Basophils # (Auto) 0.1 x10^3/uL (0.0-0.2) Sodium Level 143 mmol/L (136-145) Potassium Level 3.7 mmol/L (3.5-5.1) Chloride Level 104 mmol/L (98-107) Carbon Dioxide Level 29 mmol/L (21-32) Anion Gap 10 (6-14) Blood Urea Nitrogen 23 mg/dL (7-20) H Creatinine 1.1 mg/dL (0.6-1.0) H Estimated GFR (Cockcroft-Gault) 49.1 BUN/Creatinine Ratio 21 (6-20) H Glucose Level 130 mg/dL (70-99) H Lactic Acid Level 1.5 mmol/L (0.4-2.0) Calcium Level 9.2 mg/dL (8.5-10.1) Total Bilirubin 0.4 mg/dL (0.2-1.0) Aspartate Amino Transferase (AST) 17 U/L (15-37) Alanine Aminotransferase (ALT) 20 U/L (14-59) Alkaline Phosphatase 83 U/L (46-116) Troponin I Quantitative < 0.017 ng/mL (0.000-0.055) Total Protein 6.6 g/dL (6.4-8.2) Albumin 3.5 g/dL (3.4-5.0) Albumin/Globulin Ratio 1.1 (1.0-1.7) Laboratory Tests 08/17/17 13:10 Laboratory Tests 08/17/17 13:10 EKG EKG 1201: EKG shows sinus tach rate of 101 no STEMI[] Radiology/Procedures Radiology/Procedures Chest x-ray NAD[] Course & Med Decision Making Course & Med Decision Making Pertinent Labs and Imaging studies reviewed. (See chart for details) ED course: Patient was seen and examined emergency room septic workup was ordered 1515: On reevaluation the patient still complained of some shortness of breath and wheezing and does not focal to going home. 1526: Discussed CC/HP/PMH with Dr. Ocampo and recommends admit with Dr. Cho on consult MDM: After reviewing the chart, CC/HPI/PMH, physical exam, [lab results], [ radiological results], will admit the patient for COPD exacerbation with sarcoidosis and increased of altered breathing for further evaluation and management. Pulmonary has been placed on consult. [] Dragon Disclaimer Dragon Disclaimer This electronic medical record was generated, in whole or in part, using a voice recognition dictation system. Departure Departure Impression: Primary Impression: Dyspnea Additional Impressions: COPD exacerbation Sarcoidosis Disposition: ADMITTED INPATIENT Admitting Physician: Jose Maria Ocampo Condition: STABLE Referrals: YAMIL VICTOR MD (PCP) Problem Qualifiers LINNEA BRISENO DO Aug 17, 2017 12:42
[2017-08-17] MEDS ORDERED: 0.9 % SOD CHL for STERILE FIELD 10 ML DISP.SYRIN. ONE (12:52)
--- NOTE | 2017-08-17 13:13 | RAD ---
Indication cough. Congestion. Chest wall pain. Frontal and lateral views of the chest were obtained comparison is made to an exam 05/20/2017. Note is made of a CT examination of the chest that same day. Postoperative changes are noted. Heart size is at the upper limits of normal. There is no evidence of congestive heart failure on today's study. No focal infiltrate is seen. There is no significant pleural fluid. No pneumothorax is seen. A right Port-A-Cath is noted. IMPRESSION: No acute finding apparent in the chest
[2017-08-17] MEDS ORDERED: LEVALBUTEROL 1.25 MG/0.5 ML NEBU. NEB ONE (13:15)
[2017-08-17 13:29] LABS: BASO # 0.1 x10^3/uL (0.0-0.2); BASO % 1 % (0-3); EOS % 3 % (0-3); HEMATOCRIT 35.3 % (36.0-47.0); LYMPH # 2.4 x10^3/uL (1.0-4.8); LYMPH % 22 % (24-48); MEAN CORPUSCULAR HEMOGLOBIN 34 pg (25-35); MEAN CORPUSCULAR HGB CONC 34 g/dL (31-37); MEAN CORPUSCULAR VOLUME 99 fL (79-100); MONO % 9 % (0-9); NEUT % 65 % (31-73); PLATELET COUNT 235 x10^3/uL (140-400); RED BLOOD COUNT 3.57 x10^6/uL (3.50-5.40); WHITE BLOOD COUNT 11.1 x10^3/uL (4.0-11.0)
[2017-08-17 13:46] LABS: CALCIUM 9.2 mg/dL (8.5-10.1); CREATININE 1.1 mg/dL (0.6-1.0); GFR 49.1; POTASSIUM 3.7 mmol/L (3.5-5.1)
[2017-08-17 13:50] LABS: ALBUMIN 3.5 g/dL (3.4-5.0); ALBUMIN/GLOBULIN RATIO 1.1 (1.0-1.7); TOTAL BILIRUBIN 0.4 mg/dL (0.2-1.0); TOTAL PROTEIN 6.6 g/dL (6.4-8.2)
[2017-08-17] MEDS ORDERED: ALPRAZolam 0.5 MG TABLET PO ONE (14:00)
[2017-08-17] MEDS ORDERED: oxyCODONE/APAP 5/325 1 TAB TABLET PO ONE (14:00)
[2017-08-17] MEDS ORDERED: ONDANSETRON PF 4 MG/2 ML VIAL. IV PRN (15:30)
[2017-08-17] MEDS ORDERED: PROM118S2 PO (18:20)
--- NOTE | 2017-08-17 18:48 | PDOC1 ---
History and Physical Date of Admission Date of Admission DATE: 08/17/17 TIME: 18:40 Identification/Chief Complaint Chief Complaint Cough and dyspnea Problems: History of Present Illness History of Present Illness This patient is a 72-year-old lady that has a known history of valvular heart disease and 2 previous surgeries for aortic valve replacement. The last replacement that was done was done with a bioprosthetic valve. The patient has sarcoidosis with pulmonary disease and COPD. She has been a frequent inpatient at this institution. 3 days ago the patient developed a productive cough that has been getting worse to the point that she is barely able to speak. She has been getting more more short of breath and even though she has done multiple breathing treatments she came into the emergency room with a lot of difficulty breathing as well as this productive cough with thick sputum. She has been having some fever. After she was seen in the emergency room it was decided to admit the patient. Past Medical History Cardiovascular: AFIB, HTN Pulmonary: Asthma, Bronchitis, COPD, Pneumonia, Other CENTRAL NERVOUS SYSTEM: Periperal neuropathy, Vertigo, Other GI: GERD, Peptic Ulcer disease Heme/Onc: Cancer, Other Psych: Anxiety, Depression Musculoskeletal: low back pain Rheumatologic: Other Renal/: Acute renal failure Endocrine: Diabetes Past Surgical History Past Surgical History: Appendectomy, Cataract Removal, Tubal Ligation, Hysterectomy, Other Family History Family History: Coronary Artery Disease, Diabetes, Heart Disease, Hypertension , Kidney Disease, Family History Unknown, Other Social History ALCOHOL: none Drugs: None Current Problem List Problem List Problems Medical Problems: (1) COPD exacerbation Status: Acute (2) Dyspnea Status: Acute (3) Sarcoidosis Status: Acute Problems: Current Medications Current Medications Current Medications Albuterol/ Ipratropium (Duoneb) 3 ml 1X ONCE NEB ; Start 08/17/17 at 12:30; Stop 08/17/17 at 12:31; Status DC Promethazine HCl/ Codeine (Phenergan With Codeine) 5 ml 1X ONCE PO Last administered on 08/17/17t 13:17; Start 08/17/17 at 12:30; Stop 08/17/17 at 12 :31; Status DC Sodium Chloride (NORMAL SALINE FLUSH for STERILE FIELD) 10 ml STK-MED ONCE .ROUTE ; Start 08/17/17 at 12:52; Stop 08/17/17 at 12:53; Status DC Levalbuterol HCl (Xopenex) 1.25 mg 1X ONCE NEB Last administered on 13:15; Start 08/17/17 at 13:15; Stop 08/17/17 at 13:16; Status DC Oxycodone/ Acetaminophen (Percocet 5/325) 2 tab 1X ONCE PO Last administered on 08/17/17 14:10; Start 08/17/17 at 14:00; Stop 08/17/17 at 14:01; Status DC Alprazolam (Xanax) 1 mg 1X ONCE PO Last administered on 08/17/17 14:09; Start 08/17/17 at 14:00; Stop 08/17/17 at 14:01; Status DC Ondansetron HCl (Zofran) 4 mg PRN Q8HRS PRN IV NAUSEA/VOMITING; Start at 15:30; Stop 08/18/17 at 15:29 Active Scripts Active Reported Promethazine-Codeine Syrup (Promethazine Hcl/Codeine) 118 Ml Syrup 10 Ml PO PRN Q4-6HRS PRN Furosemide 20 Mg Tablet 20 Mg PO BID Potassium Chloride 20 Meq Tablet.er 20 Meq PO TID Cetirizine Hcl 10 Mg Tab.chew 10 Mg PO DAILY Ambien (Zolpidem Tartrate) 10 Mg Tablet 10 Mg PO HS PRN Aldactone (Spironolactone) 50 Mg Tablet 50 Mg PO BID Symbicort 160-4.5 Mcg Inhaler (Budesonide/Formoterol Fumarate) 10.2 Gm Hfa.aer.ad 2 Puff IH BID Percocet 5-325 Mg Tablet (Oxycodone/Acetaminophen) 1 Each Tablet 2 Tab PO Q4- 6HRS Reglan (Metoclopramide Hcl) 10 Mg Tablet 1 Tab PO TID Vitamin D3 (Cholecalciferol (Vitamin D3)) 5,000 Unit Tablet 5,000 Unit PO WEEKLY Xopenex (Levalbuterol Hcl) 1.25 Mg/3 Ml Vial.neb 1 Vial NEB TID Tablet (Pnv Cmb#95/Ferrous Fumarate/Fa) 1 Each Tablet 1 Tab PO DAILY Aller-Fex (Fexofenadine Hcl) 180 Mg Tablet 180 Mg PO DAILY Losartan Potassium 25 Mg Tablet 25 Mg PO DAILY Omeprazole 40 Mg Capsule.dr 40 Mg PO BID Gabapentin 100 Mg Capsule 400 Mg PO BID 30 Days Tamsulosin Hcl 0.4 Mg Cap.er.24h 0.4 Mg PO DAILY Fluoxetine Hcl 20 Mg Capsule 1 Cap PO DAILY Cyclobenzaprine Hcl 10 Mg Tablet 1 Tab PO TID Meclizine Hcl 25 Mg Tab.chew 25 Mg PO PRN BID PRN Xanax (Alprazolam) 1 Mg Tablet 1 Mg PO PRN TID PRN Seroquel (Quetiapine Fumarate) 100 Mg Tablet 100 Mg PO HS Allergies Allergies: Coded Allergies: prochlorperazine edisylate (Verified Allergy, Severe, 09/16/16) TOLERATES PHENERGAN W/CODEINE prochlorperazine maleate (Verified Allergy, Severe, 09/16/16) NSAIDS (Non-Steroidal Anti-Inflamma (Verified Allergy, Intermediate, 09/16) Penicillins (Verified Allergy, Intermediate, 09/16/16) "BEOMES UNCONSCIOUS Sulfa (Sulfonamide Antibiotics) (Verified Allergy, Intermediate, Rash, ) fentanyl (Verified Allergy, Intermediate, 05/21/17) HALLICINATIONS ONLY WITH PATCH meperidine HCl (Verified Allergy, Intermediate, TOLERATES FENTANYL, ) DEMEROL MAKES HER SPASTIC prednisone (Verified Allergy, Intermediate, 09/16/16) WATER RETENTION AND MAKES HER CONFUSED morphine (Verified Adverse Reaction, Severe, HALLUCINATES, 09/16/16) albuterol (Verified Adverse Reaction, Mild, pt refuses albuterol, 05/21/17) Physical Exam General: Alert, Oriented X3, Cooperative HEENT: Other (ecchymosis around the left eye. This was present following the previous fall that she had.) Lungs: Other (markedly decreased breath sounds with diffuse wheezing and rhonchi mostly over the right side Somma the left base.) Heart: S1S2, RRR, murmurs Abdomen: Normal bowel sounds, Soft Rectal Exam: not examined Extremities: No edema Vitals Vitals Vital Signs Date Time Temp Pulse Resp B/P (MAP) Pulse Ox O2 Delivery O2 Flow Rate FiO2 08/17/17 16:48 74 102/53 (69) 94 Room Air 08/17/17 15:48 22 08/17/17 11:48 98.3 98.3 Labs Labs Laboratory Tests Test 08/17/17 13:10 White Blood Count 11.1 x10^3/uL (4.0-11.0) Red Blood Count 3.57 x10^6/uL (3.50-5.40) Hemoglobin 12.0 g/dL (12.0-15.5) Hematocrit 35.3 % (36.0-47.0) Mean Corpuscular Volume 99 fL (79-100) Mean Corpuscular Hemoglobin 34 pg (25-35) Mean Corpuscular Hemoglobin Concent 34 g/dL (31-37) Red Cell Distribution Width 14.0 % (11.5-14.5) Platelet Count 235 x10^3/uL (140-400) Neutrophils (%) (Auto) 65 % (31-73) Lymphocytes (%) (Auto) 22 % (24-48) Monocytes (%) (Auto) 9 % (0-9) Eosinophils (%) (Auto) 3 % (0-3) Basophils (%) (Auto) 1 % (0-3) Neutrophils # (Auto) 7.2 x10^3uL (1.8-7.7) Lymphocytes # (Auto) 2.4 x10^3/uL (1.0-4.8) Monocytes # (Auto) 1.0 x10^3/uL (0.0-1.1) Eosinophils # (Auto) 0.3 x10^3/uL (0.0-0.7) Basophils # (Auto) 0.1 x10^3/uL (0.0-0.2) Sodium Level 143 mmol/L (136-145) Potassium Level 3.7 mmol/L (3.5-5.1) Chloride Level 104 mmol/L (98-107) Carbon Dioxide Level 29 mmol/L (21-32) Anion Gap 10 (6-14) Blood Urea Nitrogen 23 mg/dL (7-20) Creatinine 1.1 mg/dL (0.6-1.0) Estimated GFR (Cockcroft-Gault) 49.1 BUN/Creatinine Ratio 21 (6-20) Glucose Level 130 mg/dL (70-99) Lactic Acid Level 1.5 mmol/L (0.4-2.0) Calcium Level 9.2 mg/dL (8.5-10.1) Total Bilirubin 0.4 mg/dL (0.2-1.0) Aspartate Amino Transf (AST/SGOT) 17 U/L (15-37) Alanine Aminotransferase (ALT/SGPT) 20 U/L (14-59) Alkaline Phosphatase 83 U/L (46-116) Troponin I Quantitative < 0.017 ng/mL (0.000-0.055) Total Protein 6.6 g/dL (6.4-8.2) Albumin 3.5 g/dL (3.4-5.0) Albumin/Globulin Ratio 1.1 (1.0-1.7) Laboratory Tests Test 08/17/17 13:10 White Blood Count 11.1 x10^3/uL (4.0-11.0) Red Blood Count 3.57 x10^6/uL (3.50-5.40) Hemoglobin 12.0 g/dL (12.0-15.5) Hematocrit 35.3 % (36.0-47.0) Mean Corpuscular Volume 99 fL (79-100) Mean Corpuscular Hemoglobin 34 pg (25-35) Mean Corpuscular Hemoglobin Concent 34 g/dL (31-37) Red Cell Distribution Width 14.0 % (11.5-14.5) Platelet Count 235 x10^3/uL (140-400) Neutrophils (%) (Auto) 65 % (31-73) Lymphocytes (%) (Auto) 22 % (24-48) Monocytes (%) (Auto) 9 % (0-9) Eosinophils (%) (Auto) 3 % (0-3) Basophils (%) (Auto) 1 % (0-3) Neutrophils # (Auto) 7.2 x10^3uL (1.8-7.7) Lymphocytes # (Auto) 2.4 x10^3/uL (1.0-4.8) Monocytes # (Auto) 1.0 x10^3/uL (0.0-1.1) Eosinophils # (Auto) 0.3 x10^3/uL (0.0-0.7) Basophils # (Auto) 0.1 x10^3/uL (0.0-0.2) Sodium Level 143 mmol/L (136-145) Potassium Level 3.7 mmol/L (3.5-5.1) Chloride Level 104 mmol/L (98-107) Carbon Dioxide Level 29 mmol/L (21-32) Anion Gap 10 (6-14) Blood Urea Nitrogen 23 mg/dL (7-20) Creatinine 1.1 mg/dL (0.6-1.0) Estimated GFR (Cockcroft-Gault) 49.1 BUN/Creatinine Ratio 21 (6-20) Glucose Level 130 mg/dL (70-99) Lactic Acid Level 1.5 mmol/L (0.4-2.0) Calcium Level 9.2 mg/dL (8.5-10.1) Total Bilirubin 0.4 mg/dL (0.2-1.0) Aspartate Amino Transf (AST/SGOT) 17 U/L (15-37) Alanine Aminotransferase (ALT/SGPT) 20 U/L (14-59) Alkaline Phosphatase 83 U/L (46-116) Troponin I Quantitative < 0.017 ng/mL (0.000-0.055) Total Protein 6.6 g/dL (6.4-8.2) Albumin 3.5 g/dL (3.4-5.0) Albumin/Globulin Ratio 1.1 (1.0-1.7) VTE Prophylaxis Ordered VTE Prophylaxis Devices: No VTE Pharmacological Prophylaxi: Yes Assessment/Plan Assessment/Plan His patient comes in with acute respiratory failure and a productive cough. She is an immunocompromise patient with COPD and sarcoidosis. In view of this I would recommend that the patient be admitted to be able to give her IV antibiotics as well as IV steroids. I will leave it up to the clinical pharmacist to decide on the antibiotics and other medications and treatments for her pulmonary problems. LORRIE HONG MD Aug 17, 2017 18:48
[2017-08-17 18:58] VITALS: BP 124/74
[2017-08-17 19:00] VITALS: BP 130/71
[2017-08-17] MEDS ORDERED: ZOLPIDEM 5 MG TABLET. PO PRN (19:00)
[2017-08-17] MEDS: LEVALBUTEROL 1.25 MG/0.5 ML NEBU. NEB SCH (20:14)
[2017-08-17] MEDS: BUDESONIDE 0.5 MG/2 ML NEBU. NEB SCH (20:15)
[2017-08-17] MEDS ORDERED: NON FORMULARY ITEM (Budesonide/Formoterol Fumarate (Symbicort 160-4.5 Mcg Inhaler) 2 PUFF) IH SCH (21:00)
[2017-08-17] MEDS: PROMETH/CODEINE 6.25/10MG 5 ML SYRUP. PO PRN (21:10)
[2017-08-17] MEDS: methylPREDNISolone SOD SUCC PF 125 MG/2 ML VIAL. IV SCH (21:10)
[2017-08-17] MEDS: POTASSIUM CHLORIDE 20 MEQ TABLET.ER. PO SCH (21:11)
[2017-08-17] MEDS: SPIRONOLACTONE 25 MG TABLET PO SCH (21:11)
[2017-08-17] MEDS: FUROSEMIDE 20 MG TABLET PO SCH (21:11)
[2017-08-17] MEDS: CYCLOBENZAPRINE 10 MG TABLET. PO SCH (21:12)
[2017-08-17] MEDS: GABAPENTIN 400 MG CAPSULE. PO SCH (21:12)
[2017-08-17] MEDS: PANTOPRAZOLE 40 MG TABLET.DR. PO SCH (21:12)
[2017-08-17] MEDS: oxyCODONE/APAP 5/325 1 TAB TABLET PO PRN (21:21)
[2017-08-17] MEDS: ALPRAZolam 1 MG TABLET PO PRN (21:21)
[2017-08-17 23:00] VITALS: BP 121/70
[2017-08-17] MEDS: QUEtiapine 100 MG TABLET. PO SCH (23:04)
[2017-08-18] MEDS: ZOLPIDEM 5 MG TABLET. PO SCH (00:07)
[2017-08-18] MEDS: MECLIZINE HCL 12.5 MG TABLET. PO PRN ×2 (00:17→22:46)
[2017-08-18 03:33] VITALS: BP 132/68
[2017-08-18] MEDS: PROMETH/CODEINE 6.25/10MG 5 ML SYRUP. PO PRN ×2 (03:36→13:40)
[2017-08-18] MEDS: ALPRAZolam 1 MG TABLET PO PRN ×3 (06:04→22:40)
[2017-08-18] MEDS: oxyCODONE/APAP 5/325 1 TAB TABLET PO PRN ×3 (06:05→21:30)
[2017-08-18] MEDS ORDERED: BENZ100C PO (06:24)
[2017-08-18 06:30] LABS: BASO % 1 % (0-3); EOS % 0 % (0-3); HEMATOCRIT 34.8 % (36.0-47.0); HEMOGLOBIN 11.8 g/dL (12.0-15.5); LYMPH # 0.7 x10^3/uL (1.0-4.8); LYMPH % 10 % (24-48); MEAN CORPUSCULAR HEMOGLOBIN 34 pg (25-35); MEAN CORPUSCULAR HGB CONC 34 g/dL (31-37); MEAN CORPUSCULAR VOLUME 99 fL (79-100); MONO % 1 % (0-9); NEUT % 88 % (31-73); PLATELET COUNT 248 x10^3/uL (140-400); RED BLOOD COUNT 3.53 x10^6/uL (3.50-5.40); RED CELL DISTRIBUTION WIDTH 13.6 % (11.5-14.5)
[2017-08-18 06:40] LABS: CALCIUM 9.7 mg/dL (8.5-10.1); CREATININE 1.2 mg/dL (0.6-1.0); GFR 44.4; POTASSIUM 4.2 mmol/L (3.5-5.1)
[2017-08-18] MEDS: BENZONATATE 100 MG CAPSULE. PO PRN ×2 (06:42→13:39)
[2017-08-18] MEDS: BUDESONIDE 0.5 MG/2 ML NEBU. NEB SCH (07:28)
[2017-08-18] MEDS: LEVALBUTEROL 1.25 MG/0.5 ML NEBU. NEB SCH ×2 (07:28→13:58)
[2017-08-18 07:30] VITALS: BP 134/79
[2017-08-18] MEDS: PANTOPRAZOLE 40 MG TABLET.DR. PO SCH ×2 (08:24→16:07)
[2017-08-18] MEDS: METOCLOPRAMIDE 10 MG TABLET. PO SCH ×3 (08:25→16:08)
[2017-08-18] MEDS: methylPREDNISolone SOD SUCC PF 125 MG/2 ML VIAL. IV SCH ×2 (08:26→22:07)
[2017-08-18] MEDS: SPIRONOLACTONE 25 MG TABLET PO SCH ×2 (08:27→22:46)
[2017-08-18] MEDS: LOSARTAN POTASSIUM 25 MG TABLET. PO SCH (08:30)
[2017-08-18] MEDS: TAMSULOSIN 0.4 MG CAP.ER.24H. PO SCH (08:31)
[2017-08-18] MEDS: CYCLOBENZAPRINE 10 MG TABLET. PO SCH ×3 (08:31→22:05)
[2017-08-18] MEDS: POTASSIUM CHLORIDE 20 MEQ TABLET.ER. PO SCH ×3 (08:32→22:06)
[2017-08-18] MEDS: FUROSEMIDE 20 MG TABLET PO SCH ×2 (08:32→13:39)
[2017-08-18] MEDS: PRENATAL MULTIVITAMIN TABLET. PO SCH (08:32)
[2017-08-18] MEDS: GABAPENTIN 400 MG CAPSULE. PO SCH ×2 (08:33→22:05)
[2017-08-18] MEDS: FLUoxetine HCL 20 MG CAPSULE PO SCH (08:33)
[2017-08-18] MEDS: CETIRIZINE HCL 10 MG TABLET. PO SCH (08:33)
[2017-08-18 08:49] LABS: % BASOS 1 % (0-3); ANISOCYTOSIS SLIGHT; PLT ESTIMATE ADEQUATE (ADEQUATE); POIKILOCYTOSIS SLIGHT
[2017-08-18] MEDS ORDERED: FEXOFENADINE HCL 180 MG PO SCH (09:00)
--- NOTE | 2017-08-18 09:18 | PDOC ---
PROGRESS NOTES Subjective Subjective Mrs. Vaca was pleasant, and in no acute distress. She said she thought that her infection was due to her increased susceptibility due to sarcoidosis. The patient continues to complain about her cough. The dyspnea is better Objective Objective Vital Signs Date Time Temp Pulse Resp B/P (MAP) Pulse Ox O2 Delivery O2 Flow Rate FiO2 08/18/17 08:30 80 134/79 08/18/17 07:30 96.5 18 93 Room Air 96.5 Intake and Output 08/19/17 07:00 Intake Total 360 ml Output Total 550 ml Balance -190 ml Intake Oral 360 ml Output Urine Total 550 ml Physical Exam Abdomen: Normal bowel sounds, Soft, No tenderness Heart: Regular rate, Normal S1, Normal S2, Other (no changes in murmur) Extremities: No clubbing, No cyanosis, No edema General: Alert, Oriented X3, Cooperative HEENT: PERRLA, EOMI Lungs: Other (Crackles, cough on deep respiration) Neck: Supple, No JVD, No thyromegaly Neuro: Normal speech, Normal tone, Sensation intact Psych/Mental Status: Mental status NL, Mood NL Diagnosis COPD: Chronic RESPIRATORY FAILURE: Acute Assessment Assessment Mrs Vaca comes in with acute respiratory failure and a productive cough. She is an immunocompromised patient with COPD and sarcoidosis. Patient is compensated cardiac-pozo. The patient is feeling a little better after 2 doses of IV steroids. I will leave it up to the pulmonary service to decide on antibiotics and further steroids. Comment Review of Relevant I have reviewed the following items kari (where applicable) has been applied. Labs Laboratory Tests Test 08/17/17 13:10 08/18/17 06:00 White Blood Count 11.1 x10^3/uL (4.0-11.0) 7.0 x10^3/uL (4.0-11.0) Red Blood Count 3.57 x10^6/uL (3.50-5.40) 3.53 x10^6/uL (3.50-5.40) Hemoglobin 12.0 g/dL (12.0-15.5) 11.8 g/dL (12.0-15.5) Hematocrit 35.3 % (36.0-47.0) 34.8 % (36.0-47.0) Mean Corpuscular Volume 99 fL (79-100) 99 fL (79-100) Mean Corpuscular Hemoglobin 34 pg (25-35) 34 pg (25-35) Mean Corpuscular Hemoglobin Concent 34 g/dL (31-37) 34 g/dL (31-37) Red Cell Distribution Width 14.0 % (11.5-14.5) 13.6 % (11.5-14.5) Platelet Count 235 x10^3/uL (140-400) 248 x10^3/uL (140-400) Neutrophils (%) (Auto) 65 % (31-73) 88 % (31-73) Lymphocytes (%) (Auto) 22 % (24-48) 10 % (24-48) Monocytes (%) (Auto) 9 % (0-9) 1 % (0-9) Eosinophils (%) (Auto) 3 % (0-3) 0 % (0-3) Basophils (%) (Auto) 1 % (0-3) 1 % (0-3) Neutrophils # (Auto) 7.2 x10^3uL (1.8-7.7) 6.1 x10^3uL (1.8-7.7) Lymphocytes # (Auto) 2.4 x10^3/uL (1.0-4.8) 0.7 x10^3/uL (1.0-4.8) Monocytes # (Auto) 1.0 x10^3/uL (0.0-1.1) 0.1 x10^3/uL (0.0-1.1) Eosinophils # (Auto) 0.3 x10^3/uL (0.0-0.7) 0.0 x10^3/uL (0.0-0.7) Basophils # (Auto) 0.1 x10^3/uL (0.0-0.2) 0.0 x10^3/uL (0.0-0.2) Sodium Level 143 mmol/L (136-145) 141 mmol/L (136-145) Potassium Level 3.7 mmol/L (3.5-5.1) 4.2 mmol/L (3.5-5.1) Chloride Level 104 mmol/L (98-107) 103 mmol/L (98-107) Carbon Dioxide Level 29 mmol/L (21-32) 30 mmol/L (21-32) Anion Gap 10 (6-14) 8 (6-14) Blood Urea Nitrogen 23 mg/dL (7-20) 25 mg/dL (7-20) Creatinine 1.1 mg/dL (0.6-1.0) 1.2 mg/dL (0.6-1.0) Estimated GFR (Cockcroft-Gault) 49.1 44.4 BUN/Creatinine Ratio 21 (6-20) Glucose Level 130 mg/dL (70-99) 155 mg/dL (70-99) Lactic Acid Level 1.5 mmol/L (0.4-2.0) Calcium Level 9.2 mg/dL (8.5-10.1) 9.7 mg/dL (8.5-10.1) Total Bilirubin 0.4 mg/dL (0.2-1.0) Aspartate Amino Transf (AST/SGOT) 17 U/L (15-37) Alanine Aminotransferase (ALT/SGPT) 20 U/L (14-59) Alkaline Phosphatase 83 U/L (46-116) Troponin I Quantitative < 0.017 ng/mL (0.000-0.055) Total Protein 6.6 g/dL (6.4-8.2) Albumin 3.5 g/dL (3.4-5.0) Albumin/Globulin Ratio 1.1 (1.0-1.7) Segmented Neutrophils % 95 % (35-66) Lymphocytes % 3 % (24-48) Monocytes % 1 % (0-10) Basophils % 1 % (0-3) Platelet Estimate Adequate (ADEQUATE) Poikilocytosis Slight Anisocytosis Slight Laboratory Tests Test 08/17/17 13:10 08/18/17 06:00 White Blood Count 11.1 x10^3/uL (4.0-11.0) 7.0 x10^3/uL (4.0-11.0) Red Blood Count 3.57 x10^6/uL (3.50-5.40) 3.53 x10^6/uL (3.50-5.40) Hemoglobin 12.0 g/dL (12.0-15.5) 11.8 g/dL (12.0-15.5) Hematocrit 35.3 % (36.0-47.0) 34.8 % (36.0-47.0) Mean Corpuscular Volume 99 fL (79-100) 99 fL (79-100) Mean Corpuscular Hemoglobin 34 pg (25-35) 34 pg (25-35) Mean Corpuscular Hemoglobin Concent 34 g/dL (31-37) 34 g/dL (31-37) Red Cell Distribution Width 14.0 % (11.5-14.5) 13.6 % (11.5-14.5) Platelet Count 235 x10^3/uL (140-400) 248 x10^3/uL (140-400) Neutrophils (%) (Auto) 65 % (31-73) 88 % (31-73) Lymphocytes (%) (Auto) 22 % (24-48) 10 % (24-48) Monocytes (%) (Auto) 9 % (0-9) 1 % (0-9) Eosinophils (%) (Auto) 3 % (0-3) 0 % (0-3) Basophils (%) (Auto) 1 % (0-3) 1 % (0-3) Neutrophils # (Auto) 7.2 x10^3uL (1.8-7.7) 6.1 x10^3uL (1.8-7.7) Lymphocytes # (Auto) 2.4 x10^3/uL (1.0-4.8) 0.7 x10^3/uL (1.0-4.8) Monocytes # (Auto) 1.0 x10^3/uL (0.0-1.1) 0.1 x10^3/uL (0.0-1.1) Eosinophils # (Auto) 0.3 x10^3/uL (0.0-0.7) 0.0 x10^3/uL (0.0-0.7) Basophils # (Auto) 0.1 x10^3/uL (0.0-0.2) 0.0 x10^3/uL (0.0-0.2) Sodium Level 143 mmol/L (136-145) 141 mmol/L (136-145) Potassium Level 3.7 mmol/L (3.5-5.1) 4.2 mmol/L (3.5-5.1) Chloride Level 104 mmol/L (98-107) 103 mmol/L (98-107) Carbon Dioxide Level 29 mmol/L (21-32) 30 mmol/L (21-32) Anion Gap 10 (6-14) 8 (6-14) Blood Urea Nitrogen 23 mg/dL (7-20) 25 mg/dL (7-20) Creatinine 1.1 mg/dL (0.6-1.0) 1.2 mg/dL (0.6-1.0) Estimated GFR (Cockcroft-Gault) 49.1 44.4 BUN/Creatinine Ratio 21 (6-20) Glucose Level 130 mg/dL (70-99) 155 mg/dL (70-99) Lactic Acid Level 1.5 mmol/L (0.4-2.0) Calcium Level 9.2 mg/dL (8.5-10.1) 9.7 mg/dL (8.5-10.1) Total Bilirubin 0.4 mg/dL (0.2-1.0) Aspartate Amino Transf (AST/SGOT) 17 U/L (15-37) Alanine Aminotransferase (ALT/SGPT) 20 U/L (14-59) Alkaline Phosphatase 83 U/L (46-116) Troponin I Quantitative < 0.017 ng/mL (0.000-0.055) Total Protein 6.6 g/dL (6.4-8.2) Albumin 3.5 g/dL (3.4-5.0) Albumin/Globulin Ratio 1.1 (1.0-1.7) Segmented Neutrophils % 95 % (35-66) Lymphocytes % 3 % (24-48) Monocytes % 1 % (0-10) Basophils % 1 % (0-3) Platelet Estimate Adequate (ADEQUATE) Poikilocytosis Slight Anisocytosis Slight Medications Current Medications Albuterol/ Ipratropium (Duoneb) 3 ml 1X ONCE NEB ; Start 08/17/17 at 12:30; Stop 08/17/17 at 12:31; Status DC Promethazine HCl/ Codeine (Phenergan With Codeine) 5 ml 1X ONCE PO Last administered on 08/17/17t 13:17; Start 08/17/17 at 12:30; Stop 08/17/17 at 12 :31; Status DC Sodium Chloride (NORMAL SALINE FLUSH for STERILE FIELD) 10 ml STKaraz-MED ONCE .ROUTE ; Start 08/17/17 at 12:52; Stop 08/17/17 at 12:53; Status DC Levalbuterol HCl (Xopenex) 1.25 mg 1X ONCE NEB Last administered on 13:15; Start 08/17/17 at 13:15; Stop 08/17/17 at 13:16; Status DC Oxycodone/ Acetaminophen (Percocet 5/325) 2 tab 1X ONCE PO Last administered on 08/17/17 14:10; Start 08/17/17 at 14:00; Stop 08/17/17 at 14:01; Status DC Alprazolam (Xanax) 1 mg 1X ONCE PO Last administered on 08/17/17 14:09; Start 08/17/17 at 14:00; Stop 08/17/17 at 14:01; Status DC Ondansetron HCl (Zofran) 4 mg PRN Q8HRS PRN IV NAUSEA/VOMITING; Start at 15:30; Stop 08/18/17 at 15:29 Alprazolam (Xanax) 1 mg PRN TID PRN PO ANXIETY / AGITATION Last administered on 08/18/17 06:04; Start 08/17/17 at 18:45 Cyclobenzaprine HCl (Flexeril) 10 mg TID PO Last administered on 08/18/17 08: 31; Start 08/17/17 at 21:00 Fluoxetine HCl (PROzac) 20 mg DAILY PO Last administered on 08/18/17 08:33; Start 08/18/17 at 09:00 Furosemide (Lasix) 20 mg BID PO Last administered on 08/18/17 08:32; Start 08/17/17 at 21:00 Gabapentin (Neurontin) 400 mg BID PO Last administered on 08/18/17 08:33; Start 08/17/17 at 21:00 Losartan Potassium (Cozaar) 25 mg DAILY PO Last administered on 08/18/17 08: 30; Start 08/18/17 at 09:00 Metoclopramide HCl (Reglan) 10 mg TIDWMEALS PO Last administered on 08/18/17 08:25; Start 08/18/17 at 08:00 Oxycodone/ Acetaminophen (Percocet 5/325) 2 tab PRN Q6HRS PRN PO PAIN Last administered on 08/18/17 06:05; Start 08/17/17 at 18:45 Quetiapine Fumarate (SEROquel) 100 mg HS PO Last administered on 08/17/17 23: 04; Start 08/17/17 at 21:00 Tamsulosin HCl (Flomax) 0.4 mg DAILY PO Last administered on 08/18/17 08:31; Start 08/18/17 at 09:00 Non-Formulary Medication 2 puff BID IH ; Start 08/17/17 at 21:00; Status UNV Cetirizine HCl (ZyrTEC) 10 mg DAILY PO Last administered on 08/18/17 08:33; Start 08/18/17 at 09:00 Vitamin D (Vitamin D3) 5,000 unit WEEKLY PO ; Start 08/24/17 at 09:00 Non-Formulary Medication 180 mg DAILY PO ; Start 08/18/17 at 09:00; Status UNV Levalbuterol HCl (Xopenex) 1.25 mg TID NEB Last administered on 08/18/17 07: 28; Start 08/17/17 at 21:00 Meclizine HCl (Antivert) 25 mg PRN BID PRN PO DIZZINESS Last administered on 00:17; Start 08/17/17 at 19:00 Pantoprazole Sodium (Protonix) 40 mg BIDAC PO Last administered on 08/18/17 08:24; Start 08/17/17 at 19:30 Multivit/ Folic Acid/Iron (Multivitamin ) 1 tab DAILY PO Last administered on 08/18/17 08:32; Start 08/18/17 at 09:00 Potassium Chloride (Klor-Con) 20 meq TID PO Last administered on 08/18/17 08: 32; Start 08/17/17 at 21:00 Spironolactone (Aldactone) 50 mg BID PO Last administered on 08/18/17 08:27; Start 08/17/17 at 21:00 Zolpidem Tartrate (Ambien) 5 mg PRN QHS PRN PO INSOMNIA Last administered on 00:07; Start 08/17/17 at 19:00 Promethazine HCl/ Codeine (Phenergan With Codeine) 10 ml PRN Q4HRS PRN PO COUGH Last administered on 08/18/17 03:36; Start 08/17/17 at 18:45 Zolpidem Tartrate (Ambien) 5 mg HS PO Last administered on 08/18/17 00:07; Start 08/17/17 at 21:00 Methylprednisolone Sodium Succinate (SOLU-Medrol 125MG VIAL) 125 mg Q12HR IV Last administered on 08/18/17 08:26; Start 08/17/17 at 21:00; Stop 08/18/17 at 10:00 Budesonide (Pulmicort) 0.5 mg RTBID NEB Last administered on 08/18/17 07:28; Start 08/17/17 at 20:00 Benzonatate (Tessalon Perle) 100 mg PRN TID PRN PO COUGH Last administered on 08/18/17 06:42; Start 08/18/17 at 06:30 Active Scripts Active Reported Tessalon Perle (Benzonatate) 100 Mg Capsule 1 Cap PO TID Promethazine-Codeine Syrup (Promethazine Hcl/Codeine) 118 Ml Syrup 10 Ml PO PRN Q4-6HRS PRN Furosemide 20 Mg Tablet 20 Mg PO BID Potassium Chloride 20 Meq Tablet.er 20 Meq PO TID Cetirizine Hcl 10 Mg Tab.chew 10 Mg PO DAILY Ambien (Zolpidem Tartrate) 10 Mg Tablet 10 Mg PO HS PRN Aldactone (Spironolactone) 50 Mg Tablet 50 Mg PO BID Symbicort 160-4.5 Mcg Inhaler (Budesonide/Formoterol Fumarate) 10.2 Gm Hfa.aer.ad 2 Puff IH BID Percocet 5-325 Mg Tablet (Oxycodone/Acetaminophen) 1 Each Tablet 2 Tab PO Q4- 6HRS Reglan (Metoclopramide Hcl) 10 Mg Tablet 1 Tab PO TID Vitamin D3 (Cholecalciferol (Vitamin D3)) 5,000 Unit Tablet 5,000 Unit PO WEEKLY Xopenex (Levalbuterol Hcl) 1.25 Mg/3 Ml Vial.neb 1 Vial NEB TID Tablet (Pnv Cmb#95/Ferrous Fumarate/Fa) 1 Each Tablet 1 Tab PO DAILY Aller-Fex (Fexofenadine Hcl) 180 Mg Tablet 180 Mg PO DAILY Losartan Potassium 25 Mg Tablet 25 Mg PO DAILY Omeprazole 40 Mg Capsule.dr 40 Mg PO BID Gabapentin 100 Mg Capsule 400 Mg PO BID 30 Days Tamsulosin Hcl 0.4 Mg Cap.er.24h 0.4 Mg PO DAILY Fluoxetine Hcl 20 Mg Capsule 1 Cap PO DAILY Cyclobenzaprine Hcl 10 Mg Tablet 1 Tab PO TID Meclizine Hcl 25 Mg Tab.chew 25 Mg PO PRN BID PRN Xanax (Alprazolam) 1 Mg Tablet 1 Mg PO PRN TID PRN Seroquel (Quetiapine Fumarate) 100 Mg Tablet 100 Mg PO HS Vitals/I & O Vital Sign - Last 24 Hours 08/17/17 08/17/17 08/17/17 08/17/17 11:48 13:14 13:18 13:48 Temp 98.3 98.3 Pulse 99 92 92 Resp 20 B/P (MAP) 100/70 (80) 104/61 (75) 106/58 (74) Pulse Ox 95 97 99 93 O2 Delivery Room Air Room Air Room Air Room Air 08/17/17 08/17/17 08/17/17 08/17/17 14:10 14:48 15:10 15:18 Pulse 82 Resp 20 25 20 B/P (MAP) 102/59 (73) 103/58 (73) Pulse Ox 95 95 94 94 O2 Delivery Room Air Room Air Room Air Room Air 08/17/17 08/17/17 08/17/17 08/17/17 15:48 16:48 18:58 19:00 Temp 97.9 97.5 97.9 97.5 Pulse 84 74 80 93 Resp 22 16 20 B/P (MAP) 103/60 (74) 102/53 (69) 124/74 (91) 130/71 (90) Pulse Ox 95 94 94 94 O2 Delivery Room Air Room Air Room Air Room Air 08/17/17 08/17/17 08/17/17 08/17/17 19:01 20:00 20:29 20:31 Pulse Ox 97 97 O2 Delivery Room Air Room Air Room Air Room Air 08/17/17 08/17/17 08/18/17 08/18/17 21:21 23:00 03:33 06:05 Temp 97.7 95.9 97.7 95.9 Pulse 90 79 Resp 20 20 20 20 B/P (MAP) 121/70 (87) 132/68 (89) Pulse Ox 95 96 O2 Delivery Room Air Room Air Room Air Room Air 08/18/17 08/18/17 08/18/17 08/18/17 07:05 07:29 07:30 08:30 Temp 96.5 96.5 Pulse 80 80 Resp 20 18 B/P (MAP) 134/79 (97) 134/79 Pulse Ox 95 95 93 O2 Delivery Room Air Room Air Room Air Intake and Output 08/18/17 08/18/17 08/19/17 15:00 23:00 07:00 Intake Total 360 ml Output Total 550 ml Balance -190 ml LORRIE HONG MD Aug 18, 2017 09:18
[2017-08-18 10:30] VITALS: BP 94/49
[2017-08-18] MEDS ORDERED: ALPRAZolam 0.5 MG TABLET PO ONE (10:45)
[2017-08-18 14:30] VITALS: BP 91/48
--- NOTE | 2017-08-18 18:38 | PDOC ---
PULMONARY PROGRESS NOTES Vitals Vital Signs Date Time Temp Pulse Resp B/P (MAP) Pulse Ox O2 Delivery O2 Flow Rate FiO2 08/18/17 14:41 20 95 Room Air 08/18/17 14:30 97.5 91 91/48 (62) 97.5 General: Alert, Oriented X4, No acute distress Lungs: Other Cardiovascular: S1 Abdomen: Soft, Non-tender Extremities: No Edema Labs Laboratory Tests Test 08/17/17 13:10 08/18/17 06:00 White Blood Count 11.1 x10^3/uL (4.0-11.0) 7.0 x10^3/uL (4.0-11.0) Red Blood Count 3.57 x10^6/uL (3.50-5.40) 3.53 x10^6/uL (3.50-5.40) Hemoglobin 12.0 g/dL (12.0-15.5) 11.8 g/dL (12.0-15.5) Hematocrit 35.3 % (36.0-47.0) 34.8 % (36.0-47.0) Mean Corpuscular Volume 99 fL (79-100) 99 fL (79-100) Mean Corpuscular Hemoglobin 34 pg (25-35) 34 pg (25-35) Mean Corpuscular Hemoglobin Concent 34 g/dL (31-37) 34 g/dL (31-37) Red Cell Distribution Width 14.0 % (11.5-14.5) 13.6 % (11.5-14.5) Platelet Count 235 x10^3/uL (140-400) 248 x10^3/uL (140-400) Neutrophils (%) (Auto) 65 % (31-73) 88 % (31-73) Lymphocytes (%) (Auto) 22 % (24-48) 10 % (24-48) Monocytes (%) (Auto) 9 % (0-9) 1 % (0-9) Eosinophils (%) (Auto) 3 % (0-3) 0 % (0-3) Basophils (%) (Auto) 1 % (0-3) 1 % (0-3) Neutrophils # (Auto) 7.2 x10^3uL (1.8-7.7) 6.1 x10^3uL (1.8-7.7) Lymphocytes # (Auto) 2.4 x10^3/uL (1.0-4.8) 0.7 x10^3/uL (1.0-4.8) Monocytes # (Auto) 1.0 x10^3/uL (0.0-1.1) 0.1 x10^3/uL (0.0-1.1) Eosinophils # (Auto) 0.3 x10^3/uL (0.0-0.7) 0.0 x10^3/uL (0.0-0.7) Basophils # (Auto) 0.1 x10^3/uL (0.0-0.2) 0.0 x10^3/uL (0.0-0.2) Sodium Level 143 mmol/L (136-145) 141 mmol/L (136-145) Potassium Level 3.7 mmol/L (3.5-5.1) 4.2 mmol/L (3.5-5.1) Chloride Level 104 mmol/L (98-107) 103 mmol/L (98-107) Carbon Dioxide Level 29 mmol/L (21-32) 30 mmol/L (21-32) Anion Gap 10 (6-14) 8 (6-14) Blood Urea Nitrogen 23 mg/dL (7-20) 25 mg/dL (7-20) Creatinine 1.1 mg/dL (0.6-1.0) 1.2 mg/dL (0.6-1.0) Estimated GFR (Cockcroft-Gault) 49.1 44.4 BUN/Creatinine Ratio 21 (6-20) Glucose Level 130 mg/dL (70-99) 155 mg/dL (70-99) Lactic Acid Level 1.5 mmol/L (0.4-2.0) Calcium Level 9.2 mg/dL (8.5-10.1) 9.7 mg/dL (8.5-10.1) Total Bilirubin 0.4 mg/dL (0.2-1.0) Aspartate Amino Transf (AST/SGOT) 17 U/L (15-37) Alanine Aminotransferase (ALT/SGPT) 20 U/L (14-59) Alkaline Phosphatase 83 U/L (46-116) Troponin I Quantitative < 0.017 ng/mL (0.000-0.055) Total Protein 6.6 g/dL (6.4-8.2) Albumin 3.5 g/dL (3.4-5.0) Albumin/Globulin Ratio 1.1 (1.0-1.7) Segmented Neutrophils % 95 % (35-66) Lymphocytes % 3 % (24-48) Monocytes % 1 % (0-10) Basophils % 1 % (0-3) Platelet Estimate Adequate (ADEQUATE) Poikilocytosis Slight Anisocytosis Slight Laboratory Tests Test 08/18/17 06:00 White Blood Count 7.0 x10^3/uL (4.0-11.0) Red Blood Count 3.53 x10^6/uL (3.50-5.40) Hemoglobin 11.8 g/dL (12.0-15.5) Hematocrit 34.8 % (36.0-47.0) Mean Corpuscular Volume 99 fL (79-100) Mean Corpuscular Hemoglobin 34 pg (25-35) Mean Corpuscular Hemoglobin Concent 34 g/dL (31-37) Red Cell Distribution Width 13.6 % (11.5-14.5) Platelet Count 248 x10^3/uL (140-400) Neutrophils (%) (Auto) 88 % (31-73) Lymphocytes (%) (Auto) 10 % (24-48) Monocytes (%) (Auto) 1 % (0-9) Eosinophils (%) (Auto) 0 % (0-3) Basophils (%) (Auto) 1 % (0-3) Neutrophils # (Auto) 6.1 x10^3uL (1.8-7.7) Lymphocytes # (Auto) 0.7 x10^3/uL (1.0-4.8) Monocytes # (Auto) 0.1 x10^3/uL (0.0-1.1) Eosinophils # (Auto) 0.0 x10^3/uL (0.0-0.7) Basophils # (Auto) 0.0 x10^3/uL (0.0-0.2) Segmented Neutrophils % 95 % (35-66) Lymphocytes % 3 % (24-48) Monocytes % 1 % (0-10) Basophils % 1 % (0-3) Platelet Estimate Adequate (ADEQUATE) Poikilocytosis Slight Anisocytosis Slight Sodium Level 141 mmol/L (136-145) Potassium Level 4.2 mmol/L (3.5-5.1) Chloride Level 103 mmol/L (98-107) Carbon Dioxide Level 30 mmol/L (21-32) Anion Gap 8 (6-14) Blood Urea Nitrogen 25 mg/dL (7-20) Creatinine 1.2 mg/dL (0.6-1.0) Estimated GFR (Cockcroft-Gault) 44.4 Glucose Level 155 mg/dL (70-99) Calcium Level 9.7 mg/dL (8.5-10.1) Medications Active Scripts Medications Dose Route/Sig Max Daily Dose Days Date Category Tessalon Perle (Benzonatate) 100 Mg Capsule 1 Cap PO TID 08/18/17 Reported Promethazine-Codeine Syrup (Promethazine Hcl/Codeine) 118 Ml Syrup 10 Ml PO PRN Q4-6HRS PRN 08/17/17 Reported Furosemide 20 Mg Tablet 20 Mg PO BID 07/16/17 Reported Potassium Chloride 20 Meq Tablet.er 20 Meq PO TID 05/22/17 Reported Cetirizine Hcl 10 Mg Tab.chew 10 Mg PO DAILY 05/22/17 Reported Ambien (Zolpidem Tartrate) 10 Mg Tablet 10 Mg PO HS PRN 05/20/17 Reported Aldactone (Spironolactone) 50 Mg Tablet 50 Mg PO BID 05/20/17 Reported Symbicort 160-4.5 Mcg Inhaler (Budesonide/Formoterol Fumarate) 10.2 Gm Hfa.aer.ad 2 Puff IH BID 11/11/16 Reported Percocet 5-325 Mg Tablet (Oxycodone/Acetaminophen) 1 Each Tablet 2 Tab PO Q4-6HRS 11/11/16 Reported Reglan (Metoclopramide Hcl) 10 Mg Tablet 1 Tab PO TID 11/11/16 Reported Vitamin D3 (Cholecalciferol (Vitamin D3)) 5,000 Unit Tablet 5,000 Unit PO WEEKLY 11/11/16 Reported Xopenex (Levalbuterol Hcl) 1.25 Mg/3 Ml Vial.neb 1 Vial NEB TID 09/03/16 Reported Tablet (Pnv Cmb#95/Ferrous Fumarate/Fa) 1 Each Tablet 1 Tab PO DAILY 09/03/16 Reported Aller-Fex (Fexofenadine Hcl) 180 Mg Tablet 180 Mg PO DAILY 09/03/16 Reported Losartan Potassium 25 Mg Tablet 25 Mg PO DAILY 09/03/16 Reported Omeprazole 40 Mg Capsule.dr 40 Mg PO BID 09/03/16 Reported Gabapentin 100 Mg Capsule 400 Mg PO BID 30 05/11/16 Reported Tamsulosin Hcl 0.4 Mg Cap.er.24h 0.4 Mg PO DAILY 02/06/16 Reported Fluoxetine Hcl 20 Mg Capsule 1 Cap PO DAILY 01/01/16 Reported Cyclobenzaprine Hcl 10 Mg Tablet 1 Tab PO TID 01/06/15 Reported Meclizine Hcl 25 Mg Tab.chew 25 Mg PO PRN BID PRN 01/11/14 Reported Xanax (Alprazolam) 1 Mg Tablet 1 Mg PO PRN TID PRN 01/11/14 Reported Seroquel (Quetiapine Fumarate) 100 Mg Tablet 100 Mg PO HS 01/11/14 Reported Impression . NOTE DICTATED AECOPD CLINICAL PNEUMONIA SEE ORDERS THANKS REMIGIO LARA MD Aug 18, 2017 18:38
[2017-08-18 19:00] VITALS: BP 106/53
[2017-08-18 23:00] VITALS: BP 107/64
[2017-08-18] MEDS: QUEtiapine 100 MG TABLET. PO SCH (23:55)
[2017-08-19] MEDS: ZOLPIDEM 5 MG TABLET. PO SCH ×2 (01:00→23:54)
--- NOTE | 2017-08-19 04:29 | CONS ---
DATE OF CONSULTATION: 08/18/2017 ATTENDING PHYSICIAN: Jose Maria Ocampo MD. REASON FOR CONSULTATION: The patient is seen in pulmonary consultation at the request of Dr. Ocampo for progressive dyspnea. HISTORY OF PRESENT ILLNESS: The patient is a 72-year-old female with a history of severe COPD, underlying sarcoid, presenting with increasing shortness of breath, cough, discolored sputum brown in color. She was unable to tolerate activities of daily living. She was unable to complete full sentences. She was admitted. I was asked to see her in consultation. She had been having some subjective fever. No nausea or vomiting. She is avoiding caffeinated beverages. PAST MEDICAL HISTORY: COPD, sarcoid, hypertension, chronic bronchitis, AFib, peripheral neuropathy, anxiety, depression, lower back pain, chronic renal insufficiency. PAST SURGICAL HISTORY: Status post appendectomy, cataract removal, tubal ligation, hysterectomy. FAMILY HISTORY: Coronary artery disease, hypertension and kidney disease. ALLERGIES: MULTIPLE MEDICATIONS INCLUDING SULFA. Please see the list. SOCIAL HISTORY: She denies any tobacco or alcohol. REVIEW OF SYSTEMS: As indicated above. Otherwise, the 10-point system was reviewed and negative. PHYSICAL EXAMINATION: VITAL SIGNS: Stable. O2 saturation was greater than 92%, currently on room air. HEENT: Eyes: The sclerae were nonicteric. NECK: Jugular venous distention was not elevated. No lymphadenopathy. CHEST: Full expansion. LUNGS: Poor airway flow with some expiratory wheeze. CARDIOVASCULAR: Regular rate and rhythm with S1 and S2, no S3. ABDOMEN: Soft, nontender, nondistended. EXTREMITIES: No clubbing, cyanosis or edema. LABORATORY DATA: Chest x-ray revealed no consolidation. White count was elevated. Electrolytes were noted. BUN and creatinine was slightly elevated. IMPRESSION: 1. Acute exacerbation of chronic obstructive pulmonary disease. 2. Clinical pneumonia. 3. Sarcoid. 4. Cough, multifactorial. 5. Hypertension. 6. Neuropathy. 7. Depression. 8. Anxiety. PLAN: 1. Continue current steroids. 2. Add Levaquin. 3. Follow clinical course. 4. Nebulized treatments. 5. Avoid caffeine. 6. Nebulized Pulmicort. Dr. Ocampo, I appreciate the privilege of taking care of the patient. REMIGIO LARA MD DR: JOY/trevon JOB#: [id number] / [id number]
[2017-08-19] MEDS: ALPRAZolam 1 MG TABLET PO PRN ×3 (06:17→22:34)
[2017-08-19] MEDS: BENZONATATE 100 MG CAPSULE. PO PRN ×2 (06:17→22:28)
[2017-08-19] MEDS: oxyCODONE/APAP 5/325 1 TAB TABLET PO PRN ×3 (06:18→22:33)
[2017-08-19 07:00] VITALS: BP 111/65
[2017-08-19] MEDS: BUDESONIDE 0.5 MG/2 ML NEBU. NEB SCH ×2 (07:40→20:04)
[2017-08-19] MEDS: LEVALBUTEROL 1.25 MG/0.5 ML NEBU. NEB SCH ×3 (07:40→20:05)
[2017-08-19] MEDS: PANTOPRAZOLE 40 MG TABLET.DR. PO SCH ×2 (08:08→16:01)
[2017-08-19] MEDS: METOCLOPRAMIDE 10 MG TABLET. PO SCH ×3 (08:08→16:01)
[2017-08-19] MEDS: PROMETH/CODEINE 6.25/10MG 5 ML SYRUP. PO PRN ×3 (08:51→23:50)
[2017-08-19] MEDS: GABAPENTIN 400 MG CAPSULE. PO SCH ×2 (08:53→22:26)
[2017-08-19] MEDS: PRENATAL MULTIVITAMIN TABLET. PO SCH (08:53)
[2017-08-19] MEDS: SPIRONOLACTONE 25 MG TABLET PO SCH ×2 (08:53→22:25)
[2017-08-19] MEDS: FLUoxetine HCL 20 MG CAPSULE PO SCH (08:54)
[2017-08-19] MEDS: CETIRIZINE HCL 10 MG TABLET. PO SCH (08:54)
[2017-08-19] MEDS: CYCLOBENZAPRINE 10 MG TABLET. PO SCH ×3 (08:54→22:27)
[2017-08-19] MEDS: LOSARTAN POTASSIUM 25 MG TABLET. PO SCH (08:54)
[2017-08-19] MEDS: FUROSEMIDE 20 MG TABLET PO SCH ×2 (08:54→13:40)
[2017-08-19] MEDS: TAMSULOSIN 0.4 MG CAP.ER.24H. PO SCH (08:54)
[2017-08-19] MEDS: POTASSIUM CHLORIDE 20 MEQ TABLET.ER. PO SCH ×3 (08:54→22:26)
--- NOTE | 2017-08-19 08:56 | PDOC ---
PULMONARY PROGRESS NOTES Subjective PT WITH INCREASE SOA THIS AM Vitals Vital Signs Date Time Temp Pulse Resp B/P (MAP) Pulse Ox O2 Delivery O2 Flow Rate FiO2 08/19/17 08:10 Room Air 08/19/17 07:43 98 3.0 08/19/17 07:00 97.8 71 18 111/65 (80) 97.8 ROS: No Nausea, No Chest Pain, No Abdominal Pain General: Alert, Oriented X4, No acute distress Lungs: Wheezing, Crackles Cardiovascular: S1 Abdomen: Soft, Non-tender Neuro Exam: Alert, Oriented Extremities: No Edema Skin: Warm Labs Laboratory Tests Test 08/17/17 13:10 08/18/17 06:00 White Blood Count 11.1 x10^3/uL (4.0-11.0) 7.0 x10^3/uL (4.0-11.0) Red Blood Count 3.57 x10^6/uL (3.50-5.40) 3.53 x10^6/uL (3.50-5.40) Hemoglobin 12.0 g/dL (12.0-15.5) 11.8 g/dL (12.0-15.5) Hematocrit 35.3 % (36.0-47.0) 34.8 % (36.0-47.0) Mean Corpuscular Volume 99 fL (79-100) 99 fL (79-100) Mean Corpuscular Hemoglobin 34 pg (25-35) 34 pg (25-35) Mean Corpuscular Hemoglobin Concent 34 g/dL (31-37) 34 g/dL (31-37) Red Cell Distribution Width 14.0 % (11.5-14.5) 13.6 % (11.5-14.5) Platelet Count 235 x10^3/uL (140-400) 248 x10^3/uL (140-400) Neutrophils (%) (Auto) 65 % (31-73) 88 % (31-73) Lymphocytes (%) (Auto) 22 % (24-48) 10 % (24-48) Monocytes (%) (Auto) 9 % (0-9) 1 % (0-9) Eosinophils (%) (Auto) 3 % (0-3) 0 % (0-3) Basophils (%) (Auto) 1 % (0-3) 1 % (0-3) Neutrophils # (Auto) 7.2 x10^3uL (1.8-7.7) 6.1 x10^3uL (1.8-7.7) Lymphocytes # (Auto) 2.4 x10^3/uL (1.0-4.8) 0.7 x10^3/uL (1.0-4.8) Monocytes # (Auto) 1.0 x10^3/uL (0.0-1.1) 0.1 x10^3/uL (0.0-1.1) Eosinophils # (Auto) 0.3 x10^3/uL (0.0-0.7) 0.0 x10^3/uL (0.0-0.7) Basophils # (Auto) 0.1 x10^3/uL (0.0-0.2) 0.0 x10^3/uL (0.0-0.2) Sodium Level 143 mmol/L (136-145) 141 mmol/L (136-145) Potassium Level 3.7 mmol/L (3.5-5.1) 4.2 mmol/L (3.5-5.1) Chloride Level 104 mmol/L (98-107) 103 mmol/L (98-107) Carbon Dioxide Level 29 mmol/L (21-32) 30 mmol/L (21-32) Anion Gap 10 (6-14) 8 (6-14) Blood Urea Nitrogen 23 mg/dL (7-20) 25 mg/dL (7-20) Creatinine 1.1 mg/dL (0.6-1.0) 1.2 mg/dL (0.6-1.0) Estimated GFR (Cockcroft-Gault) 49.1 44.4 BUN/Creatinine Ratio 21 (6-20) Glucose Level 130 mg/dL (70-99) 155 mg/dL (70-99) Lactic Acid Level 1.5 mmol/L (0.4-2.0) Calcium Level 9.2 mg/dL (8.5-10.1) 9.7 mg/dL (8.5-10.1) Total Bilirubin 0.4 mg/dL (0.2-1.0) Aspartate Amino Transf (AST/SGOT) 17 U/L (15-37) Alanine Aminotransferase (ALT/SGPT) 20 U/L (14-59) Alkaline Phosphatase 83 U/L (46-116) Troponin I Quantitative < 0.017 ng/mL (0.000-0.055) Total Protein 6.6 g/dL (6.4-8.2) Albumin 3.5 g/dL (3.4-5.0) Albumin/Globulin Ratio 1.1 (1.0-1.7) Segmented Neutrophils % 95 % (35-66) Lymphocytes % 3 % (24-48) Monocytes % 1 % (0-10) Basophils % 1 % (0-3) Platelet Estimate Adequate (ADEQUATE) Poikilocytosis Slight Anisocytosis Slight Medications Active Scripts Medications Dose Route/Sig Max Daily Dose Days Date Category Tessalon Perle (Benzonatate) 100 Mg Capsule 1 Cap PO TID 08/18/17 Reported Promethazine-Codeine Syrup (Promethazine Hcl/Codeine) 118 Ml Syrup 10 Ml PO PRN Q4-6HRS PRN 08/17/17 Reported Furosemide 20 Mg Tablet 20 Mg PO BID 07/16/17 Reported Potassium Chloride 20 Meq Tablet.er 20 Meq PO TID 05/22/17 Reported Cetirizine Hcl 10 Mg Tab.chew 10 Mg PO DAILY 05/22/17 Reported Ambien (Zolpidem Tartrate) 10 Mg Tablet 10 Mg PO HS PRN 05/20/17 Reported Aldactone (Spironolactone) 50 Mg Tablet 50 Mg PO BID 05/20/17 Reported Symbicort 160-4.5 Mcg Inhaler (Budesonide/Formoterol Fumarate) 10.2 Gm Hfa.aer.ad 2 Puff IH BID 11/11/16 Reported Percocet 5-325 Mg Tablet (Oxycodone/Acetaminophen) 1 Each Tablet 2 Tab PO Q4-6HRS 11/11/16 Reported Reglan (Metoclopramide Hcl) 10 Mg Tablet 1 Tab PO TID 11/11/16 Reported Vitamin D3 (Cholecalciferol (Vitamin D3)) 5,000 Unit Tablet 5,000 Unit PO WEEKLY 11/11/16 Reported Xopenex (Levalbuterol Hcl) 1.25 Mg/3 Ml Vial.neb 1 Vial NEB TID 09/03/16 Reported Tablet (Pnv Cmb#95/Ferrous Fumarate/Fa) 1 Each Tablet 1 Tab PO DAILY 09/03/16 Reported Aller-Fex (Fexofenadine Hcl) 180 Mg Tablet 180 Mg PO DAILY 09/03/16 Reported Losartan Potassium 25 Mg Tablet 25 Mg PO DAILY 09/03/16 Reported Omeprazole 40 Mg Capsule.dr 40 Mg PO BID 09/03/16 Reported Gabapentin 100 Mg Capsule 400 Mg PO BID 30 05/11/16 Reported Tamsulosin Hcl 0.4 Mg Cap.er.24h 0.4 Mg PO DAILY 02/06/16 Reported Fluoxetine Hcl 20 Mg Capsule 1 Cap PO DAILY 01/01/16 Reported Cyclobenzaprine Hcl 10 Mg Tablet 1 Tab PO TID 01/06/15 Reported Meclizine Hcl 25 Mg Tab.chew 25 Mg PO PRN BID PRN 01/11/14 Reported Xanax (Alprazolam) 1 Mg Tablet 1 Mg PO PRN TID PRN 01/11/14 Reported Seroquel (Quetiapine Fumarate) 100 Mg Tablet 100 Mg PO HS 01/11/14 Reported Impression . 1. Acute exacerbation of chronic obstructive pulmonary disease. 2. Clinical pneumonia. 3. Sarcoid. 4. Cough, multifactorial. 5. Hypertension. 6. Neuropathy. 7. Depression. 8. Anxiety. . Plan . PT AT TIMES WITH SEVERE SOA WILL CONTINUE THE SAME DIURESE PER DR Phillip 1. Continue current steroids. 2. Add Levaquin. 3. Follow clinical course. 4. Nebulized treatments. 5. Avoid caffeine. 6. Nebulized Pulmicort. REMIGIO LARA MD Aug 19, 2017 08:55
[2017-08-19] MEDS: MECLIZINE HCL 12.5 MG TABLET. PO PRN (08:58)
[2017-08-19] MEDS: methylPREDNISolone SOD SUCC PF 125 MG/2 ML VIAL. IV SCH (09:04)
[2017-08-19] MEDS ORDERED: CALCIUM CARBONATE 500 MG TAB.CHEW PO PRN (10:30)
[2017-08-19] MEDS ORDERED: LIDO:MAALOX:DONNATAL 1:1:1 15 ML SINGLE DOSE SWSW PRN (10:30)
--- NOTE | 2017-08-19 10:34 | PDOC2 ---
GI CONSULT Reason For Consult: GI problem HPI: HPI: 72 y/o female evaluated in ER for cough, admitted. H/o constipation w/ previous use of Relistor (as intpt) and Linzess which caused diarrhea. Over the summer had a change in bowel habits, now has up to 7 incontinent stools daily, consistency described as "gritty peanut butter." Did have stool studies in 06/[address] Clemente in the office, all normal /negative. Not taking anything for stools currently. Occasional scant red blood noted, attributed to hemorrhoids. While traveling in [place] over the summer, had one episode of "everything falling out" (prolapse?) which has not recurred. Has had some right-sided pain this week. Appetite okay w/ stable weight. H/o dysphagia w/ multiple EGDs and empiric dilations, last EGD w/ Dr. Clemente in 04/2016 showed presbyesophagus and mild reflux esophagitis. H/o H. pylori positive PUD. Now on PPI BID, Tums PRN, and GI cocktail PRN. Previously on Reglan (out of this) and promethazine (currently not taking). Tells me last colonoscopy w/ Dr. Santos 2 years ago, maybe w/ polyps. PMH: PMH: CAD, CHF, sarcoidosis involving primarily the lungs, HTN, CKD, chronic back pain , SCC, DM, depression/anxiety, splenectomy (for dilated artery), hysterectomy, appendectomy, tubal ligation, excision of skin cancers, AVR x 2 (first mechanical then bioprosthetic) FH: Family History: Cancer, Other (pancreatitis, GB disease, colon polyps) Social History: ALCOHOL: none Drugs: None ROS: GEN: Denies fevers, chills, sweats HEENT: feel off toilet, has black eye CV: Denies chest pain RESP: +cough GI: Per HPI : Denies hematuria, dysuria ENDO: Denies weight changes NEURO: Denies confusion, dizziness MSK: back pain SKIN: Denies jaundice, pruritus Vitals: Vitals: Vital Signs Date Time Temp Pulse Resp B/P (MAP) Pulse Ox O2 Delivery O2 Flow Rate FiO2 08/19/17 08:54 71 111/65 08/19/17 08:10 Room Air 08/19/17 07:43 98 3.0 08/19/17 07:00 97.8 18 97.8 Allergies: Coded Allergies: prochlorperazine edisylate (Verified Allergy, Severe, 09/16/16) TOLERATES PHENERGAN W/CODEINE prochlorperazine maleate (Verified Allergy, Severe, 09/16/16) NSAIDS (Non-Steroidal Anti-Inflamma (Verified Allergy, Intermediate, 09/16) Penicillins (Verified Allergy, Intermediate, 09/16/16) "BEOMES UNCONSCIOUS Sulfa (Sulfonamide Antibiotics) (Verified Allergy, Intermediate, Rash, ) fentanyl (Verified Allergy, Intermediate, 05/21/17) HALLICINATIONS ONLY WITH PATCH meperidine HCl (Verified Allergy, Intermediate, TOLERATES FENTANYL, ) DEMEROL MAKES HER SPASTIC prednisone (Verified Allergy, Intermediate, 09/16/16) WATER RETENTION AND MAKES HER CONFUSED morphine (Verified Adverse Reaction, Severe, HALLUCINATES, 09/16/16) albuterol (Verified Adverse Reaction, Mild, pt refuses albuterol, 05/21/17) Medications: Current Medications Medications (Trade) Dose Ordered Sig/Mariana Route PRN Reason Start Time Stop Time Status Last Admin Dose Admin Alprazolam (Xanax) 0.5 mg 1X ONCE PO 08/18/17 10:45 08/18/17 10:46 DC 08/18/17 11:19 Furosemide (Lasix) 20 mg [id number] PO 08/18/17 14:00 08/19/17 08:54 Levofloxacin/ Dextrose 100 ml @ 100 mls/hr Q24H IV 08/18/17 19:00 08/18/17 22:31 Methylprednisolone Sodium Succinate (SOLU-Medrol 125MG VIAL) 125 mg DAILY IV 08/18/17 19:00 08/19/17 09:04 Imaging: Imaging: CXR IMPRESSION: No acute finding apparent in the chest PE: GEN: NAD HEENT: (below) LUNGS: decreased HEART: RRR, rigth port ABD: NABS, S/ND, some right-sided discomfort EXTREMITY: No edema SKIN: right eye ecchymosis NEURO/PSYCH: A & O 3 A/P: A/P: COPD exacerbation, pneumonia, sarcoid, cough -per pulm Incontinence of stool, change in bowel habits -stool studies earlier this year negative GERD, intermittent dysphagia -multiple EGDs, last 2015 -on PPI BID, Tums and GI cocktail PRN CRC screen, h/o polyps -says last colonoscopy ~2 years ago -- Try Colestid. Continue regular GERD meds. FRANSISCA MOORE Aug 19, 2017 10:34
[2017-08-19 11:00] VITALS: BP 99/52
[2017-08-19] MEDS: COLESTIPOL HCL 1 GM TABLET PO SCH (11:26)
[2017-08-19 15:00] VITALS: BP 112/58
[2017-08-19 19:00] VITALS: BP 155/71
[2017-08-19] MEDS: FUROSEMIDE 40 MG/4 ML VIAL. IVP SCH (19:13)
--- NOTE | 2017-08-19 19:13 | PDOC ---
PROGRESS NOTES Subjective Subjective Pt complains of cough, BM's, and leg edema. Weight is up. Objective Objective Vital Signs Date Time Temp Pulse Resp B/P (MAP) Pulse Ox O2 Delivery O2 Flow Rate FiO2 08/19/17 16:01 Room Air 08/19/17 15:00 97.9 82 18 112/58 (76) 95 97.9 08/19/17 07:43 3.0 Intake and Output 08/20/17 07:00 Intake Total 300 ml Output Total 400 ml Balance -100 ml Intake Oral 300 ml Output Urine Total 400 ml # Voids 1 Physical Exam Physical Exam leg edema, otherwise no change in cardiac exam Assessment Assessment Agree with present Pulmonary and GI plan. Will give IV lasix daily while in here. Home soon. Problems Medical Problems: (1) COPD exacerbation Status: Acute (2) Dyspnea Status: Acute (3) Sarcoidosis Status: Acute Comment Review of Relevant I have reviewed the following items kari (where applicable) has been applied. Labs Laboratory Tests Test 08/18/17 06:00 White Blood Count 7.0 x10^3/uL (4.0-11.0) Red Blood Count 3.53 x10^6/uL (3.50-5.40) Hemoglobin 11.8 g/dL (12.0-15.5) Hematocrit 34.8 % (36.0-47.0) Mean Corpuscular Volume 99 fL (79-100) Mean Corpuscular Hemoglobin 34 pg (25-35) Mean Corpuscular Hemoglobin Concent 34 g/dL (31-37) Red Cell Distribution Width 13.6 % (11.5-14.5) Platelet Count 248 x10^3/uL (140-400) Neutrophils (%) (Auto) 88 % (31-73) Lymphocytes (%) (Auto) 10 % (24-48) Monocytes (%) (Auto) 1 % (0-9) Eosinophils (%) (Auto) 0 % (0-3) Basophils (%) (Auto) 1 % (0-3) Neutrophils # (Auto) 6.1 x10^3uL (1.8-7.7) Lymphocytes # (Auto) 0.7 x10^3/uL (1.0-4.8) Monocytes # (Auto) 0.1 x10^3/uL (0.0-1.1) Eosinophils # (Auto) 0.0 x10^3/uL (0.0-0.7) Basophils # (Auto) 0.0 x10^3/uL (0.0-0.2) Segmented Neutrophils % 95 % (35-66) Lymphocytes % 3 % (24-48) Monocytes % 1 % (0-10) Basophils % 1 % (0-3) Platelet Estimate Adequate (ADEQUATE) Poikilocytosis Slight Anisocytosis Slight Sodium Level 141 mmol/L (136-145) Potassium Level 4.2 mmol/L (3.5-5.1) Chloride Level 103 mmol/L (98-107) Carbon Dioxide Level 30 mmol/L (21-32) Anion Gap 8 (6-14) Blood Urea Nitrogen 25 mg/dL (7-20) Creatinine 1.2 mg/dL (0.6-1.0) Estimated GFR (Cockcroft-Gault) 44.4 Glucose Level 155 mg/dL (70-99) Calcium Level 9.7 mg/dL (8.5-10.1) Microbiology 08/17/17 Blood Culture - Preliminary, Resulted NO GROWTH AFTER 2 DAYS Medications Current Medications Albuterol/ Ipratropium (Duoneb) 3 ml 1X ONCE NEB ; Start 08/17/17 at 12:30; Stop 08/17/17 at 12:31; Status DC Promethazine HCl/ Codeine (Phenergan With Codeine) 5 ml 1X ONCE PO Last administered on 08/17/17 13:17; Start 08/17/17 at 12:30; Stop 08/17/17 at 12 :31; Status DC Sodium Chloride (NORMAL SALINE FLUSH for STERILE FIELD) 10 ml STK-MED ONCE .ROUTE ; Start 08/17/17 at 12:52; Stop 08/17/17 at 12:53; Status DC Levalbuterol HCl (Xopenex) 1.25 mg 1X ONCE NEB Last administered on 13:15; Start 08/17/17 at 13:15; Stop 08/17/17 at 13:16; Status DC Oxycodone/ Acetaminophen (Percocet 5/325) 2 tab 1X ONCE PO Last administered on 08/17/17 14:10; Start 08/17/17 at 14:00; Stop 08/17/17 at 14:01; Status DC Alprazolam (Xanax) 1 mg 1X ONCE PO Last administered on 08/17/17 14:09; Start 08/17/17 at 14:00; Stop 08/17/17 at 14:01; Status DC Ondansetron HCl (Zofran) 4 mg PRN Q8HRS PRN IV NAUSEA/VOMITING; Start at 15:30; Stop 08/18/17 at 15:29; Status DC Alprazolam (Xanax) 1 mg PRN TID PRN PO ANXIETY / AGITATION Last administered on 08/19/17 14:21; Start 08/17/17 at 18:45 Cyclobenzaprine HCl (Flexeril) 10 mg TID PO Last administered on 08/19/17 13: 40; Start 08/17/17 at 21:00 Fluoxetine HCl (PROzac) 20 mg DAILY PO Last administered on 08/19/17 08:54; Start 08/18/17 at 09:00 Furosemide (Lasix) 20 mg BID PO Last administered on 08/18/17 08:32; Start 08/17/17 at 21:00; Stop 08/18/17 at 11:40; Status DC Gabapentin (Neurontin) 400 mg BID PO Last administered on 08/19/17 08:53; Start 08/17/17 at 21:00 Losartan Potassium (Cozaar) 25 mg DAILY PO Last administered on 08/19/17 08: 54; Start 08/18/17 at 09:00 Metoclopramide HCl (Reglan) 10 mg TIDWMEALS PO Last administered on 08/19/17 16:01; Start 08/18/17 at 08:00 Oxycodone/ Acetaminophen (Percocet 5/325) 2 tab PRN Q6HRS PRN PO PAIN Last administered on 08/19/17 13:40; Start 08/17/17 at 18:45 Quetiapine Fumarate (SEROquel) 100 mg HS PO Last administered on 08/18/17 23: 55; Start 08/17/17 at 21:00 Tamsulosin HCl (Flomax) 0.4 mg DAILY PO Last administered on 08/19/17 08:54; Start 08/18/17 at 09:00 Non-Formulary Medication 2 puff BID IH ; Start 08/17/17 at 21:00; Status UNV Cetirizine HCl (ZyrTEC) 10 mg DAILY PO Last administered on 08/19/17 08:54; Start 08/18/17 at 09:00 Vitamin D (Vitamin D3) 5,000 unit WEEKLY PO ; Start 08/24/17 at 09:00 Non-Formulary Medication 180 mg DAILY PO ; Start 08/18/17 at 09:00; Status UNV Levalbuterol HCl (Xopenex) 1.25 mg TID NEB Last administered on 08/19/17 12: 54; Start 08/17/17 at 21:00 Meclizine HCl (Antivert) 25 mg PRN BID PRN PO DIZZINESS Last administered on 08:58; Start 08/17/17 at 19:00 Pantoprazole Sodium (Protonix) 40 mg BIDAC PO Last administered on 08/19/17 16:01; Start 08/17/17 at 19:30 Multivit/ Folic Acid/Iron (Multivitamin ) 1 tab DAILY PO Last administered on 08/19/17 08:53; Start 08/18/17 at 09:00 Potassium Chloride (Klor-Con) 20 meq TID PO Last administered on 08/19/17 13: 40; Start 08/17/17 at 21:00 Spironolactone (Aldactone) 50 mg BID PO Last administered on 08/19/17 08:53; Start 08/17/17 at 21:00 Zolpidem Tartrate (Ambien) 5 mg PRN QHS PRN PO INSOMNIA Last administered on 00:07; Start 08/17/17 at 19:00; Stop 08/19/17 at 18:44; Status DC Promethazine HCl/ Codeine (Phenergan With Codeine) 10 ml PRN Q4HRS PRN PO COUGH Last administered on 08/19/17 16:01; Start 08/17/17 at 18:45 Zolpidem Tartrate (Ambien) 5 mg HS PO Last administered on 08/19/17 01:00; Start 08/17/17 at 21:00; Stop 08/19/17 at 18:42; Status DC Methylprednisolone Sodium Succinate (SOLU-Medrol 125MG VIAL) 125 mg Q12HR IV Last administered on 08/18/17 08:26; Start 08/17/17 at 21:00; Stop 08/18/17 at 10:00; Status DC Budesonide (Pulmicort) 0.5 mg RTBID NEB Last administered on 08/19/17 07:40; Start 08/17/17 at 20:00 Benzonatate (Tessalon Perle) 100 mg PRN TID PRN PO COUGH Last administered on 08/19/17 06:17; Start 08/18/17 at 06:30 Alprazolam (Xanax) 0.5 mg 1X ONCE PO Last administered on 08/18/17 11:19; Start 08/18/17 at 10:45; Stop 08/18/17 at 10:46; Status DC Furosemide (Lasix) 20 mg BID92 PO Last administered on 08/19/17 13:40; Start 08/18/17 at 14:00 Levofloxacin/ Dextrose 100 ml @ 100 mls/hr Q24H IV Last administered on 22:31; Start 08/18/17 at 19:00 Methylprednisolone Sodium Succinate (SOLU-Medrol 125MG VIAL) 125 mg DAILY IV Last administered on 08/19/17 09:04; Start 08/18/17 at 19:00 Calcium Carbonate/ Glycine (Tums) 500 mg PRN AFTMEALHC PRN PO INDIGESTION; Start 08/19/17 at 10:30 Multi-Ingredient Mouthwash/Gargle (Gi Cocktail Single Dose) 15 ml PRN BID PRN SWSW GERD; Start 08/19/17 at 10:30 Colestipol HCl (Colestid) 1 gm DAILY10 PO Last administered on 08/19/17 11:26 ; Start 08/19/17 at 11:00 Zolpidem Tartrate (Ambien) 10 mg HS PO ; Start 08/19/17 at 21:00 Furosemide (Lasix) 40 mg Q12H IVP ; Start 08/19/17 at 18:00; Stop 08/20/17 at 18:01 Active Scripts Active Reported Tessalon Perle (Benzonatate) 100 Mg Capsule 1 Cap PO TID Promethazine-Codeine Syrup (Promethazine Hcl/Codeine) 118 Ml Syrup 10 Ml PO PRN Q4-6HRS PRN Furosemide 20 Mg Tablet 20 Mg PO BID Potassium Chloride 20 Meq Tablet.er 20 Meq PO TID Cetirizine Hcl 10 Mg Tab.chew 10 Mg PO DAILY Ambien (Zolpidem Tartrate) 10 Mg Tablet 10 Mg PO HS PRN Aldactone (Spironolactone) 50 Mg Tablet 50 Mg PO BID Symbicort 160-4.5 Mcg Inhaler (Budesonide/Formoterol Fumarate) 10.2 Gm Hfa.aer.ad 2 Puff IH BID Percocet 5-325 Mg Tablet (Oxycodone/Acetaminophen) 1 Each Tablet 2 Tab PO Q4- 6HRS Reglan (Metoclopramide Hcl) 10 Mg Tablet 1 Tab PO TID Vitamin D3 (Cholecalciferol (Vitamin D3)) 5,000 Unit Tablet 5,000 Unit PO WEEKLY Xopenex (Levalbuterol Hcl) 1.25 Mg/3 Ml Vial.neb 1 Vial NEB TID Tablet (Pnv Cmb#95/Ferrous Fumarate/Fa) 1 Each Tablet 1 Tab PO DAILY Aller-Fex (Fexofenadine Hcl) 180 Mg Tablet 180 Mg PO DAILY Losartan Potassium 25 Mg Tablet 25 Mg PO DAILY Omeprazole 40 Mg Capsule.dr 40 Mg PO BID Gabapentin 100 Mg Capsule 400 Mg PO BID 30 Days Tamsulosin Hcl 0.4 Mg Cap.er.24h 0.4 Mg PO DAILY Fluoxetine Hcl 20 Mg Capsule 1 Cap PO DAILY Cyclobenzaprine Hcl 10 Mg Tablet 1 Tab PO TID Meclizine Hcl 25 Mg Tab.chew 25 Mg PO PRN BID PRN Xanax (Alprazolam) 1 Mg Tablet 1 Mg PO PRN TID PRN Seroquel (Quetiapine Fumarate) 100 Mg Tablet 100 Mg PO HS Vitals/I & O Vital Sign - Last 24 Hours 08/18/17 08/18/17 08/18/17 08/18/17 20:00 20:12 21:30 23:00 Temp 97.9 97.9 Pulse 91 Resp 17 20 B/P (MAP) 107/64 (78) Pulse Ox 96 96 93 O2 Delivery Room Air Room Air Room Air Room Air 08/19/17 08/19/17 08/19/17 08/19/17 06:18 07:00 07:43 07:45 Temp 97.8 97.8 Pulse 71 Resp 18 B/P (MAP) 111/65 (80) Pulse Ox 98 98 O2 Delivery Nasal Cannula Room Air Nasal Cannula Room Air O2 Flow Rate 3.0 3.0 08/19/17 08/19/17 08/19/17 08/19/17 08:54 11:00 12:56 13:40 Temp 96.8 96.8 Pulse 71 89 Resp 18 B/P (MAP) 111/65 99/52 (68) Pulse Ox 96 O2 Delivery Room Air Room Air Room Air 08/19/17 08/19/17 15:00 16:01 Temp 97.9 97.9 Pulse 82 Resp 18 B/P (MAP) 112/58 (76) Pulse Ox 95 O2 Delivery Room Air Room Air Intake and Output 08/19/17 08/19/17 08/20/17 15:00 23:00 07:00 Intake Total 300 ml Output Total 400 ml Balance 300 ml -400 ml LORRIE HONG MD Aug 19, 2017 19:13
[2017-08-19 22:59] VITALS: BP 127/61
[2017-08-19] MEDS: QUEtiapine 100 MG TABLET. PO SCH (23:49)
[2017-08-20] MEDS: oxyCODONE/APAP 5/325 1 TAB TABLET PO PRN ×3 (05:54→20:40)
[2017-08-20] MEDS: FUROSEMIDE 40 MG/4 ML VIAL. IVP SCH ×2 (05:55→17:58)
[2017-08-20 05:56] VITALS: BP 117/87
[2017-08-20] MEDS: BENZONATATE 100 MG CAPSULE. PO PRN (06:10)
[2017-08-20 07:32] VITALS: BP 120/79
[2017-08-20] MEDS: BUDESONIDE 0.5 MG/2 ML NEBU. NEB SCH ×2 (07:40→20:01)
[2017-08-20] MEDS: LEVALBUTEROL 1.25 MG/0.5 ML NEBU. NEB SCH ×3 (07:40→20:01)
[2017-08-20] MEDS: METOCLOPRAMIDE 10 MG TABLET. PO SCH ×3 (07:48→16:56)
[2017-08-20] MEDS: PANTOPRAZOLE 40 MG TABLET.DR. PO SCH ×2 (07:48→16:56)
[2017-08-20] MEDS: PROMETH/CODEINE 6.25/10MG 5 ML SYRUP. PO PRN ×3 (07:49→22:47)
[2017-08-20] MEDS: CETIRIZINE HCL 10 MG TABLET. PO SCH (08:40)
[2017-08-20] MEDS: CYCLOBENZAPRINE 10 MG TABLET. PO SCH ×3 (08:41→20:41)
[2017-08-20] MEDS: PRENATAL MULTIVITAMIN TABLET. PO SCH (08:41)
[2017-08-20] MEDS: GABAPENTIN 400 MG CAPSULE. PO SCH ×2 (08:41→20:40)
[2017-08-20] MEDS: SPIRONOLACTONE 25 MG TABLET PO SCH ×2 (08:41→20:40)
[2017-08-20] MEDS: FUROSEMIDE 20 MG TABLET PO SCH ×2 (08:41→13:47)
[2017-08-20] MEDS: FLUoxetine HCL 20 MG CAPSULE PO SCH (08:41)
[2017-08-20] MEDS: TAMSULOSIN 0.4 MG CAP.ER.24H. PO SCH (08:41)
[2017-08-20] MEDS: LOSARTAN POTASSIUM 25 MG TABLET. PO SCH (08:41)
[2017-08-20] MEDS: POTASSIUM CHLORIDE 20 MEQ TABLET.ER. PO SCH ×3 (08:41→20:40)
[2017-08-20] MEDS: methylPREDNISolone SOD SUCC PF 125 MG/2 ML VIAL. IV SCH (08:42)
[2017-08-20] MEDS: COLESTIPOL HCL 1 GM TABLET PO SCH (10:20)
[2017-08-20 10:31] VITALS: BP 85/54
--- NOTE | 2017-08-20 11:18 | PDOC ---
PROGRESS NOTES Subjective Subjective Patient reports breathing more easily today. reports productive cough and increased urine output since IV lasix was started Objective Objective Vital Signs Date Time Temp Pulse Resp B/P (MAP) Pulse Ox O2 Delivery O2 Flow Rate FiO2 08/20/17 10:31 98.5 84 16 85/54 (64) 94 Room Air 98.5 08/19/17 07:43 3.0 Physical Exam Physical Exam general: pleasant, sitting in bed, no acute distress HEENT: EOMI, moist mucous membanes, neck supple, no JVD CV: regular rate and rhythm without murmurs Resp: decreased breath sounds bilaterally; mild expiratory wheezing abdomen: soft, non-tender, non-distended ext: minimal lower extremity edema Assessment Assessment 72 year old female admitted with acute on chronic COPD exacerbation. 1. acute on chronic COPD exacerbation 2. clinical pneumonia 3. sarcoidosis 4. HTN 5. acute dyspnea Plan Plan of Care Continue IV lasix as inpatient continue IV steroids as inpatient colestipol per GI recommendations Levaquin per pulmonology recommendations Comment Review of Relevant I have reviewed the following items kari (where applicable) has been applied. Labs Microbiology 08/17/17 Blood Culture - Preliminary, Resulted NO GROWTH AFTER 2 DAYS Medications Current Medications Albuterol/ Ipratropium (Duoneb) 3 ml 1X ONCE NEB ; Start 08/17/17 at 12:30; Stop 08/17/17 at 12:31; Status DC Promethazine HCl/ Codeine (Phenergan With Codeine) 5 ml 1X ONCE PO Last administered on 08/17/17 13:17; Start 08/17/17 at 12:30; Stop 08/17/17 at 12 :31; Status DC Sodium Chloride (NORMAL SALINE FLUSH for STERILE FIELD) 10 ml STK-MED ONCE .ROUTE ; Start 08/17/17 at 12:52; Stop 08/17/17 at 12:53; Status DC Levalbuterol HCl (Xopenex) 1.25 mg 1X ONCE NEB Last administered on 13:15; Start 08/17/17 at 13:15; Stop 08/17/17 at 13:16; Status DC Oxycodone/ Acetaminophen (Percocet 5/325) 2 tab 1X ONCE PO Last administered on 08/17/17 14:10; Start 08/17/17 at 14:00; Stop 08/17/17 at 14:01; Status DC Alprazolam (Xanax) 1 mg 1X ONCE PO Last administered on 08/17/17 14:09; Start 08/17/17 at 14:00; Stop 08/17/17 at 14:01; Status DC Ondansetron HCl (Zofran) 4 mg PRN Q8HRS PRN IV NAUSEA/VOMITING; Start at 15:30; Stop 08/18/17 at 15:29; Status DC Alprazolam (Xanax) 1 mg PRN TID PRN PO ANXIETY / AGITATION Last administered on 08/19/17 22:34; Start 08/17/17 at 18:45 Cyclobenzaprine HCl (Flexeril) 10 mg TID PO Last administered on 08/20/17 08: 41; Start 08/17/17 at 21:00 Fluoxetine HCl (PROzac) 20 mg DAILY PO Last administered on 08/20/17 08:41; Start 08/18/17 at 09:00 Furosemide (Lasix) 20 mg BID PO Last administered on 08/18/17 08:32; Start 08/17/17 at 21:00; Stop 08/18/17 at 11:40; Status DC Gabapentin (Neurontin) 400 mg BID PO Last administered on 08/20/17 08:41; Start 08/17/17 at 21:00 Losartan Potassium (Cozaar) 25 mg DAILY PO Last administered on 08/20/17 08: 41; Start 08/18/17 at 09:00 Metoclopramide HCl (Reglan) 10 mg TIDWMEALS PO Last administered on 08/20/17 07:48; Start 08/18/17 at 08:00 Oxycodone/ Acetaminophen (Percocet 5/325) 2 tab PRN Q6HRS PRN PO PAIN Last administered on 08/20/17 05:54; Start 08/17/17 at 18:45 Quetiapine Fumarate (SEROquel) 100 mg HS PO Last administered on 08/19/17 23: 49; Start 08/17/17 at 21:00 Tamsulosin HCl (Flomax) 0.4 mg DAILY PO Last administered on 08/20/17 08:41; Start 08/18/17 at 09:00 Non-Formulary Medication 2 puff BID IH ; Start 08/17/17 at 21:00; Status UNV Cetirizine HCl (ZyrTEC) 10 mg DAILY PO Last administered on 08/20/17 08:40; Start 08/18/17 at 09:00 Vitamin D (Vitamin D3) 5,000 unit WEEKLY PO ; Start 08/24/17 at 09:00 Non-Formulary Medication 180 mg DAILY PO ; Start 08/18/17 at 09:00; Status UNV Levalbuterol HCl (Xopenex) 1.25 mg TID NEB Last administered on 08/20/17 07: 40; Start 08/17/17 at 21:00 Meclizine HCl (Antivert) 25 mg PRN BID PRN PO DIZZINESS Last administered on 08:58; Start 08/17/17 at 19:00 Pantoprazole Sodium (Protonix) 40 mg BIDAC PO Last administered on 08/20/17 07:48; Start 08/17/17 at 19:30 Multivit/ Folic Acid/Iron (Multivitamin ) 1 tab DAILY PO Last administered on 08/20/17 08:41; Start 08/18/17 at 09:00 Potassium Chloride (Klor-Con) 20 meq TID PO Last administered on 08/20/17 08: 41; Start 08/17/17 at 21:00 Spironolactone (Aldactone) 50 mg BID PO Last administered on 08/20/17 08:41; Start 08/17/17 at 21:00 Zolpidem Tartrate (Ambien) 5 mg PRN QHS PRN PO INSOMNIA Last administered on 00:07; Start 08/17/17 at 19:00; Stop 08/19/17 at 18:44; Status DC Promethazine HCl/ Codeine (Phenergan With Codeine) 10 ml PRN Q4HRS PRN PO COUGH Last administered on 08/20/17 07:49; Start 08/17/17 at 18:45 Zolpidem Tartrate (Ambien) 5 mg HS PO Last administered on 08/19/17 01:00; Start 08/17/17 at 21:00; Stop 08/19/17 at 18:42; Status DC Methylprednisolone Sodium Succinate (SOLU-Medrol 125MG VIAL) 125 mg Q12HR IV Last administered on 08/18/17 08:26; Start 08/17/17 at 21:00; Stop 08/18/17 at 10:00; Status DC Budesonide (Pulmicort) 0.5 mg RTBID NEB Last administered on 08/20/17 07:40; Start 08/17/17 at 20:00 Benzonatate (Tessalon Perle) 100 mg PRN TID PRN PO COUGH Last administered on 08/20/17 06:10; Start 08/18/17 at 06:30 Alprazolam (Xanax) 0.5 mg 1X ONCE PO Last administered on 08/18/17 11:19; Start 08/18/17 at 10:45; Stop 08/18/17 at 10:46; Status DC Furosemide (Lasix) 20 mg BID92 PO Last administered on 08/20/17 08:41; Start 08/18/17 at 14:00 Levofloxacin/ Dextrose 100 ml @ 100 mls/hr Q24H IV Last administered on 22:21; Start 08/18/17 at 19:00 Methylprednisolone Sodium Succinate (SOLU-Medrol 125MG VIAL) 125 mg DAILY IV Last administered on 08/20/17 08:42; Start 08/18/17 at 19:00 Calcium Carbonate/ Glycine (Tums) 500 mg PRN AFTMEALHC PRN PO INDIGESTION; Start 08/19/17 at 10:30 Multi-Ingredient Mouthwash/Gargle (Gi Cocktail Single Dose) 15 ml PRN BID PRN SWSW GERD; Start 08/19/17 at 10:30 Colestipol HCl (Colestid) 1 gm DAILY10 PO Last administered on 08/20/17 10:20 ; Start 08/19/17 at 11:00 Zolpidem Tartrate (Ambien) 10 mg HS PO Last administered on 08/19/17 23:54; Start 08/19/17 at 21:00 Furosemide (Lasix) 40 mg Q12H IVP Last administered on 08/20/17 05:55; Start 08/19/17 at 18:00; Stop 08/20/17 at 18:01 Active Scripts Active Reported Tessalon Perle (Benzonatate) 100 Mg Capsule 1 Cap PO TID Promethazine-Codeine Syrup (Promethazine Hcl/Codeine) 118 Ml Syrup 10 Ml PO PRN Q4-6HRS PRN Furosemide 20 Mg Tablet 20 Mg PO BID Potassium Chloride 20 Meq Tablet.er 20 Meq PO TID Cetirizine Hcl 10 Mg Tab.chew 10 Mg PO DAILY Ambien (Zolpidem Tartrate) 10 Mg Tablet 10 Mg PO HS PRN Aldactone (Spironolactone) 50 Mg Tablet 50 Mg PO BID Symbicort 160-4.5 Mcg Inhaler (Budesonide/Formoterol Fumarate) 10.2 Gm Hfa.aer.ad 2 Puff IH BID Percocet 5-325 Mg Tablet (Oxycodone/Acetaminophen) 1 Each Tablet 2 Tab PO Q4- 6HRS Reglan (Metoclopramide Hcl) 10 Mg Tablet 1 Tab PO TID Vitamin D3 (Cholecalciferol (Vitamin D3)) 5,000 Unit Tablet 5,000 Unit PO WEEKLY Xopenex (Levalbuterol Hcl) 1.25 Mg/3 Ml Vial.neb 1 Vial NEB TID Tablet (Pnv Cmb#95/Ferrous Fumarate/Fa) 1 Each Tablet 1 Tab PO DAILY Aller-Fex (Fexofenadine Hcl) 180 Mg Tablet 180 Mg PO DAILY Losartan Potassium 25 Mg Tablet 25 Mg PO DAILY Omeprazole 40 Mg Capsule.dr 40 Mg PO BID Gabapentin 100 Mg Capsule 400 Mg PO BID 30 Days Tamsulosin Hcl 0.4 Mg Cap.er.24h 0.4 Mg PO DAILY Fluoxetine Hcl 20 Mg Capsule 1 Cap PO DAILY Cyclobenzaprine Hcl 10 Mg Tablet 1 Tab PO TID Meclizine Hcl 25 Mg Tab.chew 25 Mg PO PRN BID PRN Xanax (Alprazolam) 1 Mg Tablet 1 Mg PO PRN TID PRN Seroquel (Quetiapine Fumarate) 100 Mg Tablet 100 Mg PO HS Vitals/I & O Vital Sign - Last 24 Hours 08/19/17 08/19/17 08/19/17 08/19/17 12:56 13:40 15:00 19:00 Temp 97.9 97.5 97.9 97.5 Pulse 82 89 Resp 18 18 B/P (MAP) 112/58 (76) 155/71 (99) Pulse Ox 95 100 O2 Delivery Room Air Room Air Room Air Room Air 08/19/17 08/19/17 08/19/17 08/19/17 20:00 20:05 20:06 22:33 Pulse Ox 96 96 O2 Delivery Room Air Room Air Room Air Room Air 08/19/17 08/20/17 08/20/17 08/20/17 22:59 05:54 05:56 07:30 Temp 98.1 98.1 Pulse 101 88 Resp 18 B/P (MAP) 127/61 (83) 117/87 (97) Pulse Ox 97 O2 Delivery Room Air Room Air Room Air 08/20/17 08/20/17 08/20/17 08/20/17 07:32 07:43 07:49 08:41 Temp 98.4 98.4 Pulse 84 84 Resp 17 B/P (MAP) 120/79 (93) 120/79 Pulse Ox 98 98 O2 Delivery Room Air Room Air Room Air 08/20/17 10:31 Temp 98.5 98.5 Pulse 84 Resp 16 B/P (MAP) 85/54 (64) Pulse Ox 94 O2 Delivery Room Air LORRIE HONG MD Aug 20, 2017 11:18
--- NOTE | 2017-08-20 11:32 | PDOC ---
Subjective: Subjective: No stools. Feels a little crampy like something might happen. Wants to continue Colestid. Objective: Objective: Reviewed w/ RN. Vital Signs: Vital Signs Date Time Temp Pulse Resp B/P (MAP) Pulse Ox O2 Delivery O2 Flow Rate FiO2 08/20/17 10:31 98.5 84 16 85/54 (64) 94 Room Air 98.5 08/19/17 07:43 3.0 PE: GEN: NAD LUNGS: decreased HEART: RRR ABD: soft, non-tender NEURO/PSYCH: A & O 3 A/P: COPD exacerbation, cough Incontinence of stool -stool studies earlier this year negative -started on Colestid yesterday - no stools since -- Continue same for now. (Does have h/o constipation...) FRANSISCA MOORE Aug 20, 2017 11:31
[2017-08-20] MEDS: MECLIZINE HCL 12.5 MG TABLET. PO PRN (11:55)
[2017-08-20] MEDS: ALPRAZolam 1 MG TABLET PO PRN ×2 (13:47→20:41)
[2017-08-20 14:39] VITALS: BP 89/57
--- NOTE | 2017-08-20 17:51 | PDOC ---
PULMONARY PROGRESS NOTES Subjective PT STILL SOA AND COUGH Vitals Vital Signs Date Time Temp Pulse Resp B/P (MAP) Pulse Ox O2 Delivery O2 Flow Rate FiO2 08/20/17 16:24 Room Air 08/20/17 14:39 97.6 97 18 89/57 (68) 97 97.6 08/19/17 07:43 3.0 ROS: No Nausea, No Chest Pain, No Abdominal Pain General: Alert, Oriented X4, No acute distress Lungs: Wheezing, Crackles Cardiovascular: S1 Abdomen: Soft, Non-tender Neuro Exam: Alert, Oriented Extremities: No Edema Skin: Warm Medications Active Scripts Medications Dose Route/Sig Max Daily Dose Days Date Category Tessalon Perle (Benzonatate) 100 Mg Capsule 1 Cap PO TID 08/18/17 Reported Promethazine-Codeine Syrup (Promethazine Hcl/Codeine) 118 Ml Syrup 10 Ml PO PRN Q4-6HRS PRN 08/17/17 Reported Furosemide 20 Mg Tablet 20 Mg PO BID 07/16/17 Reported Potassium Chloride 20 Meq Tablet.er 20 Meq PO TID 05/22/17 Reported Cetirizine Hcl 10 Mg Tab.chew 10 Mg PO DAILY 05/22/17 Reported Ambien (Zolpidem Tartrate) 10 Mg Tablet 10 Mg PO HS PRN 05/20/17 Reported Aldactone (Spironolactone) 50 Mg Tablet 50 Mg PO BID 05/20/17 Reported Symbicort 160-4.5 Mcg Inhaler (Budesonide/Formoterol Fumarate) 10.2 Gm Hfa.aer.ad 2 Puff IH BID 11/11/16 Reported Percocet 5-325 Mg Tablet (Oxycodone/Acetaminophen) 1 Each Tablet 2 Tab PO Q4-6HRS 11/11/16 Reported Reglan (Metoclopramide Hcl) 10 Mg Tablet 1 Tab PO TID 11/11/16 Reported Vitamin D3 (Cholecalciferol (Vitamin D3)) 5,000 Unit Tablet 5,000 Unit PO WEEKLY 11/11/16 Reported Xopenex (Levalbuterol Hcl) 1.25 Mg/3 Ml Vial.neb 1 Vial NEB TID 09/03/16 Reported Tablet (Pnv Cmb#95/Ferrous Fumarate/Fa) 1 Each Tablet 1 Tab PO DAILY 09/03/16 Reported Aller-Fex (Fexofenadine Hcl) 180 Mg Tablet 180 Mg PO DAILY 09/03/16 Reported Losartan Potassium 25 Mg Tablet 25 Mg PO DAILY 09/03/16 Reported Omeprazole 40 Mg Capsule.dr 40 Mg PO BID 09/03/16 Reported Gabapentin 100 Mg Capsule 400 Mg PO BID 30 05/11/16 Reported Tamsulosin Hcl 0.4 Mg Cap.er.24h 0.4 Mg PO DAILY 02/06/16 Reported Fluoxetine Hcl 20 Mg Capsule 1 Cap PO DAILY 01/01/16 Reported Cyclobenzaprine Hcl 10 Mg Tablet 1 Tab PO TID 01/06/15 Reported Meclizine Hcl 25 Mg Tab.chew 25 Mg PO PRN BID PRN 01/11/14 Reported Xanax (Alprazolam) 1 Mg Tablet 1 Mg PO PRN TID PRN 01/11/14 Reported Seroquel (Quetiapine Fumarate) 100 Mg Tablet 100 Mg PO HS 01/11/14 Reported Impression . 1. Acute exacerbation of chronic obstructive pulmonary disease. 2. Clinical pneumonia. 3. Sarcoid. 4. Cough, multifactorial. 5. Hypertension. 6. Neuropathy. 7. Depression. 8. Anxiety. . Plan . ORAL MED HOME IN AM IS/ [facility] PER REMIGIO ROTH MD Aug 20, 2017 17:51
[2017-08-20 19:00] VITALS: BP 111/69
[2017-08-20] MEDS: QUEtiapine 100 MG TABLET. PO SCH (20:41)
[2017-08-20] MEDS: ZOLPIDEM 5 MG TABLET. PO SCH (20:41)
[2017-08-20] MEDS ORDERED: CALCIUM CARBONATE 500 MG TAB.CHEW PO PRN (22:45)
[2017-08-20] MEDS: CHLORHEXIDINE 0.12% 15 ML MOUTHWASH. SWSP SCH (22:46)
[2017-08-20 23:00] VITALS: BP 118/69
[2017-08-21] MEDS: oxyCODONE/APAP 5/325 1 TAB TABLET PO PRN ×4 (03:14→20:44)
[2017-08-21 07:00] VITALS: BP 126/69
[2017-08-21] MEDS: LEVALBUTEROL 1.25 MG/0.5 ML NEBU. NEB SCH ×3 (07:47→19:17)
[2017-08-21] MEDS: BUDESONIDE 0.5 MG/2 ML NEBU. NEB SCH ×2 (07:47→19:17)
[2017-08-21] MEDS: PROMETH/CODEINE 6.25/10MG 5 ML SYRUP. PO PRN ×2 (08:01→20:57)
[2017-08-21] MEDS: predniSONE 10 MG TABLET PO SCH (08:37)
[2017-08-21] MEDS: CHLORHEXIDINE 0.12% 15 ML MOUTHWASH. SWSP SCH ×2 (08:37→20:56)
[2017-08-21] MEDS: COLESTIPOL HCL 1 GM TABLET PO SCH (08:38)
[2017-08-21] MEDS: ALPRAZolam 1 MG TABLET PO PRN ×3 (08:38→22:20)
[2017-08-21] MEDS: SPIRONOLACTONE 25 MG TABLET PO SCH ×2 (08:39→20:44)
[2017-08-21] MEDS: LACTOBACILLUS RHAMNOSUS GG 1 CAPSULE. PO SCH ×2 (08:39→20:44)
[2017-08-21] MEDS: PRENATAL MULTIVITAMIN TABLET. PO SCH (08:39)
[2017-08-21] MEDS: FLUoxetine HCL 20 MG CAPSULE PO SCH (08:39)
[2017-08-21] MEDS: METOCLOPRAMIDE 10 MG TABLET. PO SCH ×3 (08:40→17:46)
[2017-08-21] MEDS: PANTOPRAZOLE 40 MG TABLET.DR. PO SCH ×2 (08:40→17:46)
[2017-08-21] MEDS: LOSARTAN POTASSIUM 25 MG TABLET. PO SCH (08:40)
[2017-08-21] MEDS: CYCLOBENZAPRINE 10 MG TABLET. PO SCH ×3 (08:40→20:44)
[2017-08-21] MEDS: POTASSIUM CHLORIDE 20 MEQ TABLET.ER. PO SCH ×3 (08:40→20:43)
[2017-08-21] MEDS: CETIRIZINE HCL 10 MG TABLET. PO SCH (08:41)
[2017-08-21] MEDS: TAMSULOSIN 0.4 MG CAP.ER.24H. PO SCH (08:41)
[2017-08-21] MEDS: GABAPENTIN 400 MG CAPSULE. PO SCH ×2 (08:41→20:43)
[2017-08-21] MEDS: FUROSEMIDE 20 MG TABLET PO SCH ×2 (08:41→14:26)
--- NOTE | 2017-08-21 09:27 | PDOC ---
PULMONARY PROGRESS NOTES Subjective PT WITH COUGH Vitals Vital Signs Date Time Temp Pulse Resp B/P (MAP) Pulse Ox O2 Delivery O2 Flow Rate FiO2 08/21/17 08:40 77 126/69 08/21/17 07:50 97 Room Air 08/21/17 07:00 97.9 18 97.9 08/21/17 04:14 3.0 ROS: No Nausea, No Chest Pain, No Abdominal Pain General: Alert, Oriented X4, No acute distress Lungs: Other (DECREASE BS) Cardiovascular: S1 Abdomen: Soft, Non-tender Neuro Exam: Alert, Oriented Extremities: No Edema Skin: Warm Medications Active Scripts Medications Dose Route/Sig Max Daily Dose Days Date Category Tessalon Perle (Benzonatate) 100 Mg Capsule 1 Cap PO TID 08/18/17 Reported Promethazine-Codeine Syrup (Promethazine Hcl/Codeine) 118 Ml Syrup 10 Ml PO PRN Q4-6HRS PRN 08/17/17 Reported Furosemide 20 Mg Tablet 20 Mg PO BID 07/16/17 Reported Potassium Chloride 20 Meq Tablet.er 20 Meq PO TID 05/22/17 Reported Cetirizine Hcl 10 Mg Tab.chew 10 Mg PO DAILY 05/22/17 Reported Ambien (Zolpidem Tartrate) 10 Mg Tablet 10 Mg PO HS PRN 05/20/17 Reported Aldactone (Spironolactone) 50 Mg Tablet 50 Mg PO BID 05/20/17 Reported Symbicort 160-4.5 Mcg Inhaler (Budesonide/Formoterol Fumarate) 10.2 Gm Hfa.aer.ad 2 Puff IH BID 11/11/16 Reported Percocet 5-325 Mg Tablet (Oxycodone/Acetaminophen) 1 Each Tablet 2 Tab PO Q4-6HRS 11/11/16 Reported Reglan (Metoclopramide Hcl) 10 Mg Tablet 1 Tab PO TID 11/11/16 Reported Vitamin D3 (Cholecalciferol (Vitamin D3)) 5,000 Unit Tablet 5,000 Unit PO WEEKLY 11/11/16 Reported Xopenex (Levalbuterol Hcl) 1.25 Mg/3 Ml Vial.neb 1 Vial NEB TID 09/03/16 Reported Tablet (Pnv Cmb#95/Ferrous Fumarate/Fa) 1 Each Tablet 1 Tab PO DAILY 09/03/16 Reported Aller-Fex (Fexofenadine Hcl) 180 Mg Tablet 180 Mg PO DAILY 09/03/16 Reported Losartan Potassium 25 Mg Tablet 25 Mg PO DAILY 09/03/16 Reported Omeprazole 40 Mg Capsule.dr 40 Mg PO BID 09/03/16 Reported Gabapentin 100 Mg Capsule 400 Mg PO BID 30 05/11/16 Reported Tamsulosin Hcl 0.4 Mg Cap.er.24h 0.4 Mg PO DAILY 02/06/16 Reported Fluoxetine Hcl 20 Mg Capsule 1 Cap PO DAILY 01/01/16 Reported Cyclobenzaprine Hcl 10 Mg Tablet 1 Tab PO TID 01/06/15 Reported Meclizine Hcl 25 Mg Tab.chew 25 Mg PO PRN BID PRN 01/11/14 Reported Xanax (Alprazolam) 1 Mg Tablet 1 Mg PO PRN TID PRN 01/11/14 Reported Seroquel (Quetiapine Fumarate) 100 Mg Tablet 100 Mg PO HS 01/11/14 Reported Impression . 1. Acute exacerbation of chronic obstructive pulmonary disease. 2. ACUTE BRONCHITIS(COUGH WITH YELLOW SPUTUM), clear CXR 3. Sarcoid.in remission 4. Cough, multifactorial. 5. Hypertension. 6. Neuropathy. 7. Depression. 8. Anxiety. . Plan . LEVAQUIN STEROID WITH GRADUAL TAPER IS/ FLUTTER VALVE DIURESE PER DR Marjan REYEZ IN 24 HR RONNA KHOURY MD Aug 21, 2017 09:27
[2017-08-21 11:01] VITALS: BP 101/56
--- NOTE | 2017-08-21 13:29 | PDOC ---
Subjective: Subjective: Seen earlier this morning. Wants an abd x-ray. Feels constipated. Last stool 08/17. Wants to continue Colestid. Objective: Vital Signs: Vital Signs Date Time Temp Pulse Resp B/P (MAP) Pulse Ox O2 Delivery O2 Flow Rate FiO2 08/21/17 11:01 97.9 82 18 101/56 (71) 95 Room Air 97.9 08/21/17 08:20 3.0 PE: GEN: NAD LUNGS: decreased HEART: RRR ABD: soft, BS+ NEURO/PSYCH: A & O 3 A/P: COPD exacerbation, cough Incontinence of stool -stool studies earlier this year negative -started on Colestid yesterday - now says last stool on 08/17 -h/o constipation -- KUB. Attempted to again explain use of Colestid and how this might not be ideal to continue since she's not having issues w/ incontinence currently and does have a h/o constipation. FRANSISCA MOORE Aug 21, 2017 13:29
[2017-08-21] MEDS: BENZONATATE 100 MG CAPSULE. PO PRN (14:26)
--- NOTE | 2017-08-21 14:38 | PDOC3 ---
Discharge Summary* Date of Admission: Aug 17, 2017 Date of Discharge: Aug 21, 2017 Admitting Diagnosis Problems Medical Problems: (1) COPD exacerbation Status: Acute (2) Dyspnea Status: Acute (3) Sarcoidosis Status: Acute Abdominal pain Incontinence of bowel Problems: Final Diagnosis Problems Medical Problems: (1) COPD exacerbation Status: Acute (2) Dyspnea Status: Acute (3) Sarcoidosis Status: Acute Abdominal pain Bowel incontinence CONSULTS Pulmonary and GI Brief Hospital Course Is a 72-year-old lady with a known history of congenital valvular heart disease that is status post aortic valve replacement 2. She also has a known history of sarcoidosis, COPD, GI problems. came in with a severe productive cough and in acute respiratory failure. After her arrival she was seen by the manager parking and treatment was initiated for an acute exacerbation of COPD and bronchitis. The patient then complained of abdominal pain and incontinence of bowel therefore the GI service was consulted. They evaluated the patient and initiated treatment. During hospital stay the patient had multiple tests please see the chart for those reports. Her pulmonary situation progressed rather slowly and she has a significant history of sarcoidosis as well as COPD but gradually the patient improved and today she appears to be doing better. If it is okay with the pulmonary and GI services I would like to discharge the patient today. Please see the MRAD for the discharge medications. The patient is being discharged in stable condition and is to go home. I have discussed with the patient her situation, options as well as diet, activity, medications and follow-up. CONDITION AT DISCHARGE: Stable Scheduled Benzonatate (Tessalon Perle), 1 CAP PO TID, (Reported) Budesonide/Formoterol Fumarate (Symbicort 160-4.5 Mcg Inhaler), 2 PUFF IH BID, ( Reported) Cetirizine Hcl (Cetirizine Hcl), 10 MG PO DAILY, (Reported) Cholecalciferol (Vitamin D3) (Vitamin D3), 5,000 UNIT PO WEEKLY, (Reported) Cyclobenzaprine Hcl (Cyclobenzaprine Hcl), 1 TAB PO TID, (Reported) Fexofenadine Hcl (Aller-Fex), 180 MG PO DAILY, (Reported) Fluoxetine Hcl (Fluoxetine Hcl), 1 CAP PO DAILY, (Reported) Furosemide (Furosemide), 20 MG PO BID, (Reported) Gabapentin (Gabapentin), 400 MG PO BID, (Reported) Levalbuterol Hcl (Xopenex), 1 VIAL NEB TID, (Reported) Losartan Potassium (Losartan Potassium), 25 MG PO DAILY, (Reported) Metoclopramide Hcl (Reglan), 1 TAB PO TID, (Reported) Omeprazole (Omeprazole), 40 MG PO BID, (Reported) Oxycodone/Apap 5-325 (Percocet 5-325 Mg Tablet), 2 TAB PO Q4-6HRS, (Reported) Pnv Cmb#95/Ferrous Fumarate/Fa ( Tablet), 1 TAB PO DAILY, (Reported) Potassium Chloride (Potassium Chloride), 20 MEQ PO TID, (Reported) Quetiapine Fumarate (Seroquel), 100 MG PO HS, (Reported) Spironolactone (Aldactone), 50 MG PO BID, (Reported) Tamsulosin Hcl (Tamsulosin Hcl), 0.4 MG PO DAILY, (Reported) Scheduled PRN Alprazolam (Xanax), 1 MG PO PRN TID PRN for ANXIETY / AGITATION, (Reported) Meclizine Hcl (Meclizine Hcl), 25 MG PO PRN BID PRN for DIZZINESS, (Reported) Promethazine Hcl/Codeine (Promethazine-Codeine Syrup), 10 ML PO PRN Q4-6HRS PRN for COUGH, (Reported) Zolpidem Tartrate (Ambien), 10 MG PO HS PRN for INSOMNIA, (Reported) Time Spent Total time spent with patient [] minutes for coordination of care, counseling, and education. LORRIE HONG MD Aug 21, 2017 14:38
[2017-08-21 14:44] VITALS: BP 111/61
[2017-08-21] MEDS ORDERED: METHYLNALTREXONE 12 MG/0.6 ML VIAL. SQ ONE (15:15)
--- NOTE | 2017-08-21 15:39 | RAD ---
Indication shortness of air. A single view of the chest was obtained. Comparison is made to an examination 4 days earlier. Postoperative changes are noted. Right Port-A-Cath is noted. There is unchanged mild cardiomegaly. There is no gross congestive heart failure. A focal infiltrate is not seen. There has not been a significant change when compared to the previous exam. IMPRESSION: No acute or focal process. No significant change
--- NOTE | 2017-08-21 15:40 | RAD ---
Indication constipation and abdominal pain. A single KUB was obtained. Note is made of a previous examination 04/27/2016. The abdominal gas pattern is nonobstructive. There is an abundant amount of stool noted in the large bowel. Bony structures appear grossly intact. No organomegaly or definite abnormal calculi are seen. IMPRESSION: Abundant stool in the large bowel
[2017-08-21 19:00] VITALS: BP 113/59
[2017-08-21] MEDS: QUEtiapine 100 MG TABLET. PO SCH (22:20)
[2017-08-21 23:00] VITALS: BP 109/67
[2017-08-22] MEDS: ZOLPIDEM 5 MG TABLET. PO SCH (00:15)
[2017-08-22 03:00] VITALS: BP 104/70
[2017-08-22] MEDS: oxyCODONE/APAP 5/325 1 TAB TABLET PO PRN ×2 (03:36→08:22)
[2017-08-22] MEDS: BENZONATATE 100 MG CAPSULE. PO PRN (03:38)
[2017-08-22 07:00] VITALS: BP 119/71
[2017-08-22] MEDS: LEVALBUTEROL 1.25 MG/0.5 ML NEBU. NEB SCH ×2 (07:22→12:57)
[2017-08-22] MEDS: BUDESONIDE 0.5 MG/2 ML NEBU. NEB SCH (07:22)
[2017-08-22] MEDS: PRENATAL MULTIVITAMIN TABLET. PO SCH (08:19)
[2017-08-22] MEDS: MECLIZINE HCL 12.5 MG TABLET. PO PRN (08:22)
[2017-08-22] MEDS: CETIRIZINE HCL 10 MG TABLET. PO SCH (08:22)
[2017-08-22] MEDS: FLUoxetine HCL 20 MG CAPSULE PO SCH (08:23)
[2017-08-22] MEDS: predniSONE 10 MG TABLET PO SCH (08:23)
[2017-08-22] MEDS: CYCLOBENZAPRINE 10 MG TABLET. PO SCH ×2 (08:24→14:02)
[2017-08-22] MEDS: METOCLOPRAMIDE 10 MG TABLET. PO SCH ×2 (08:24→14:02)
[2017-08-22] MEDS: FUROSEMIDE 20 MG TABLET PO SCH ×2 (08:24→14:02)
[2017-08-22] MEDS: GABAPENTIN 400 MG CAPSULE. PO SCH (08:25)
[2017-08-22] MEDS: POTASSIUM CHLORIDE 20 MEQ TABLET.ER. PO SCH ×2 (08:25→14:00)
[2017-08-22] MEDS: SPIRONOLACTONE 25 MG TABLET PO SCH (08:26)
[2017-08-22] MEDS: PANTOPRAZOLE 40 MG TABLET.DR. PO SCH (08:26)
[2017-08-22] MEDS: TAMSULOSIN 0.4 MG CAP.ER.24H. PO SCH (08:26)
[2017-08-22] MEDS: ALPRAZolam 1 MG TABLET PO PRN (08:26)
[2017-08-22] MEDS: CHLORHEXIDINE 0.12% 15 ML MOUTHWASH. SWSP SCH (08:27)
[2017-08-22] MEDS: PROMETH/CODEINE 6.25/10MG 5 ML SYRUP. PO PRN (08:27)
[2017-08-22] MEDS: LOSARTAN POTASSIUM 25 MG TABLET. PO SCH (08:31)
--- NOTE | 2017-08-22 09:25 | PDOC ---
PULMONARY PROGRESS NOTES Subjective PT WITH COUGH better, sob better, no pain, Vitals Vital Signs Date Time Temp Pulse Resp B/P (MAP) Pulse Ox O2 Delivery O2 Flow Rate FiO2 08/22/17 08:31 91 119/71 08/22/17 08:22 20 99 Room Air 08/22/17 07:00 97.7 97.7 08/21/17 14:36 3.0 ROS: No Nausea, No Chest Pain, No Abdominal Pain General: Alert, Oriented X4, No acute distress HEENT: Other (nc at perrl) Lungs: Other (DECREASE BS) Cardiovascular: S1 Abdomen: Soft, Non-tender Neuro Exam: Alert, Oriented Extremities: No Edema Skin: Warm Medications Active Scripts Medications Dose Route/Sig Max Daily Dose Days Date Category Tessalon Perle (Benzonatate) 100 Mg Capsule 1 Cap PO TID 08/18/17 Reported Promethazine-Codeine Syrup (Promethazine Hcl/Codeine) 118 Ml Syrup 10 Ml PO PRN Q4-6HRS PRN 08/17/17 Reported Furosemide 20 Mg Tablet 20 Mg PO BID 07/16/17 Reported Potassium Chloride 20 Meq Tablet.er 20 Meq PO TID 05/22/17 Reported Cetirizine Hcl 10 Mg Tab.chew 10 Mg PO DAILY 05/22/17 Reported Ambien (Zolpidem Tartrate) 10 Mg Tablet 10 Mg PO HS PRN 05/20/17 Reported Aldactone (Spironolactone) 50 Mg Tablet 50 Mg PO BID 05/20/17 Reported Symbicort 160-4.5 Mcg Inhaler (Budesonide/Formoterol Fumarate) 10.2 Gm Hfa.aer.ad 2 Puff IH BID 11/11/16 Reported Percocet 5-325 Mg Tablet (Oxycodone/Acetaminophen) 1 Each Tablet 2 Tab PO Q4-6HRS 11/11/16 Reported Reglan (Metoclopramide Hcl) 10 Mg Tablet 1 Tab PO TID 11/11/16 Reported Vitamin D3 (Cholecalciferol (Vitamin D3)) 5,000 Unit Tablet 5,000 Unit PO WEEKLY 11/11/16 Reported Xopenex (Levalbuterol Hcl) 1.25 Mg/3 Ml Vial.neb 1 Vial NEB TID 09/03/16 Reported Tablet (Pnv Cmb#95/Ferrous Fumarate/Fa) 1 Each Tablet 1 Tab PO DAILY 09/03/16 Reported Aller-Fex (Fexofenadine Hcl) 180 Mg Tablet 180 Mg PO DAILY 09/03/16 Reported Losartan Potassium 25 Mg Tablet 25 Mg PO DAILY 09/03/16 Reported Omeprazole 40 Mg Capsule.dr 40 Mg PO BID 09/03/16 Reported Gabapentin 100 Mg Capsule 400 Mg PO BID 30 05/11/16 Reported Tamsulosin Hcl 0.4 Mg Cap.er.24h 0.4 Mg PO DAILY 02/06/16 Reported Fluoxetine Hcl 20 Mg Capsule 1 Cap PO DAILY 01/01/16 Reported Cyclobenzaprine Hcl 10 Mg Tablet 1 Tab PO TID 01/06/15 Reported Meclizine Hcl 25 Mg Tab.chew 25 Mg PO PRN BID PRN 01/11/14 Reported Xanax (Alprazolam) 1 Mg Tablet 1 Mg PO PRN TID PRN 01/11/14 Reported Seroquel (Quetiapine Fumarate) 100 Mg Tablet 100 Mg PO HS 01/11/14 Reported Impression . 1. Acute exacerbation of chronic obstructive pulmonary disease. 2. ACUTE BRONCHITIS(COUGH WITH YELLOW SPUTUM), clear CXR 3. Sarcoid.in remission 4. Cough, multifactorial. 5. Hypertension. 6. Neuropathy. 7. Depression. 8. Anxiety. . Plan . LEVAQUIN for total of 10 days prednisone w taper by 10 mg q 3d IS/ FLUTTER VALVE DIURESE PER DR Phillip, keep I<O, monitor k, cr ok to dc from pulm standpoint discussed w LOIDA Velasquez MD Aug 22, 2017 09:25
[2017-08-22] MEDS: LACTOBACILLUS RHAMNOSUS GG 1 CAPSULE. PO SCH (09:34)
[2017-08-22 11:00] VITALS: BP 104/68
--- NOTE | 2017-08-22 13:58 | PDOC ---
PROGRESS NOTES Subjective Subjective The patient was not discharged yesterday as her the recommendations of the chief recordist. Today she is feeling much better. Objective Objective Vital Signs Date Time Temp Pulse Resp B/P (MAP) Pulse Ox O2 Delivery O2 Flow Rate FiO2 08/22/17 12:59 Room Air 08/22/17 11:00 98.4 90 18 104/68 (80) 93 98.4 08/22/17 09:34 3.0 Physical Exam Physical Exam No significant changes in cardiac exam Assessment Assessment Wu is stable today. We will discharge her home. The discharge summary was dictated yesterday. Will continue with the current medications and I wrote her prescriptions for the Protonix, colestipol, and Levaquin. Home. Be followed as an outpatient. Instructions have been given to the patient. Problems Medical Problems: (1) COPD exacerbation Status: Acute (2) Dyspnea Status: Acute (3) Sarcoidosis Status: Acute Comment Review of Relevant I have reviewed the following items kari (where applicable) has been applied. Labs Microbiology 08/17/17 Blood Culture - Final, Complete NO GROWTH AFTER 5 DAYS Medications Current Medications Albuterol/ Ipratropium (Duoneb) 3 ml 1X ONCE NEB ; Start 08/17/17 at 12:30; Stop 08/17/17 at 12:31; Status DC Promethazine HCl/ Codeine (Phenergan With Codeine) 5 ml 1X ONCE PO Last administered on 08/17/17 13:17; Start 08/17/17 at 12:30; Stop 08/17/17 at 12 :31; Status DC Sodium Chloride (NORMAL SALINE FLUSH for STERILE FIELD) 10 ml STK-MED ONCE .ROUTE ; Start 08/17/17 at 12:52; Stop 08/17/17 at 12:53; Status DC Levalbuterol HCl (Xopenex) 1.25 mg 1X ONCE NEB Last administered on 13:15; Start 08/17/17 at 13:15; Stop 08/17/17 at 13:16; Status DC Oxycodone/ Acetaminophen (Percocet 5/325) 2 tab 1X ONCE PO Last administered on 08/17/17 14:10; Start 08/17/17 at 14:00; Stop 08/17/17 at 14:01; Status DC Alprazolam (Xanax) 1 mg 1X ONCE PO Last administered on 08/17/17 14:09; Start 08/17/17 at 14:00; Stop 08/17/17 at 14:01; Status DC Ondansetron HCl (Zofran) 4 mg PRN Q8HRS PRN IV NAUSEA/VOMITING; Start at 15:30; Stop 08/18/17 at 15:29; Status DC Alprazolam (Xanax) 1 mg PRN TID PRN PO ANXIETY / AGITATION Last administered on 08/22/17 08:26; Start 08/17/17 at 18:45 Cyclobenzaprine HCl (Flexeril) 10 mg TID PO Last administered on 08/22/17 08: 24; Start 08/17/17 at 21:00 Fluoxetine HCl (PROzac) 20 mg DAILY PO Last administered on 08/22/17 08:23; Start 08/18/17 at 09:00 Furosemide (Lasix) 20 mg BID PO Last administered on 08/18/17 08:32; Start 08/17/17 at 21:00; Stop 08/18/17 at 11:40; Status DC Gabapentin (Neurontin) 400 mg BID PO Last administered on 08/22/17 08:25; Start 08/17/17 at 21:00 Losartan Potassium (Cozaar) 25 mg DAILY PO Last administered on 08/22/17 08: 31; Start 08/18/17 at 09:00 Metoclopramide HCl (Reglan) 10 mg TIDWMEALS PO Last administered on 08/22/17 08:24; Start 08/18/17 at 08:00 Oxycodone/ Acetaminophen (Percocet 5/325) 2 tab PRN Q6HRS PRN PO PAIN Last administered on 08/22/17 08:22; Start 08/17/17 at 18:45 Quetiapine Fumarate (SEROquel) 100 mg HS PO Last administered on 08/21/17 22: 20; Start 08/17/17 at 21:00 Tamsulosin HCl (Flomax) 0.4 mg DAILY PO Last administered on 08/22/17 08:26; Start 08/18/17 at 09:00 Non-Formulary Medication 2 puff BID IH ; Start 08/17/17 at 21:00; Status UNV Cetirizine HCl (ZyrTEC) 10 mg DAILY PO Last administered on 08/22/17 08:22; Start 08/18/17 at 09:00 Vitamin D (Vitamin D3) 5,000 unit WEEKLY PO ; Start 08/24/17 at 09:00 Non-Formulary Medication 180 mg DAILY PO ; Start 08/18/17 at 09:00; Status UNV Levalbuterol HCl (Xopenex) 1.25 mg TID NEB Last administered on 08/22/17 12: 57; Start 08/17/17 at 21:00 Meclizine HCl (Antivert) 25 mg PRN BID PRN PO DIZZINESS Last administered on 08:22; Start 08/17/17 at 19:00 Pantoprazole Sodium (Protonix) 40 mg BIDAC PO Last administered on 08/22/17 08:26; Start 08/17/17 at 19:30 Multivit/ Folic Acid/Iron (Multivitamin ) 1 tab DAILY PO Last administered on 08/22/17 08:19; Start 08/18/17 at 09:00 Potassium Chloride (Klor-Con) 20 meq TID PO Last administered on 08/22/17 08: 25; Start 08/17/17 at 21:00 Spironolactone (Aldactone) 50 mg BID PO Last administered on 08/22/17 08:26; Start 08/17/17 at 21:00 Zolpidem Tartrate (Ambien) 5 mg PRN QHS PRN PO INSOMNIA Last administered on 00:07; Start 08/17/17 at 19:00; Stop 08/19/17 at 18:44; Status DC Promethazine HCl/ Codeine (Phenergan With Codeine) 10 ml PRN Q4HRS PRN PO COUGH Last administered on 08/22/17 08:27; Start 08/17/17 at 18:45 Zolpidem Tartrate (Ambien) 5 mg HS PO Last administered on 08/19/17 01:00; Start 08/17/17 at 21:00; Stop 08/19/17 at 18:42; Status DC Methylprednisolone Sodium Succinate (SOLU-Medrol 125MG VIAL) 125 mg Q12HR IV Last administered on 08/18/17 08:26; Start 08/17/17 at 21:00; Stop 08/18/17 at 10:00; Status DC Budesonide (Pulmicort) 0.5 mg RTBID NEB Last administered on 08/22/17 07:22; Start 08/17/17 at 20:00 Benzonatate (Tessalon Perle) 100 mg PRN TID PRN PO COUGH Last administered on 08/22/17 03:38; Start 08/18/17 at 06:30 Alprazolam (Xanax) 0.5 mg 1X ONCE PO Last administered on 08/18/17 11:19; Start 08/18/17 at 10:45; Stop 08/18/17 at 10:46; Status DC Furosemide (Lasix) 20 mg BID92 PO Last administered on 08/22/17 08:24; Start 08/18/17 at 14:00 Levofloxacin/ Dextrose 100 ml @ 100 mls/hr Q24H IV Last administered on 22:21; Start 08/18/17 at 19:00; Stop 08/20/17 at 17:50; Status DC Methylprednisolone Sodium Succinate (SOLU-Medrol 125MG VIAL) 125 mg DAILY IV Last administered on 08/20/17 08:42; Start 08/18/17 at 19:00; Stop 08/20/17 at 17:50; Status DC Calcium Carbonate/ Glycine (Tums) 500 mg PRN AFTMEALHC PRN PO INDIGESTION Last administered on 08/20/17 22:47; Start 08/19/17 at 10:30; Stop 08/21/17 at 14 :51; Status DC Multi-Ingredient Mouthwash/Gargle (Gi Cocktail Single Dose) 15 ml PRN BID PRN SWSW GERD; Start 08/19/17 at 10:30 Colestipol HCl (Colestid) 1 gm DAILY10 PO Last administered on 08/21/17 08:38 ; Start 08/19/17 at 11:00; Stop 08/21/17 at 15:48; Status DC Zolpidem Tartrate (Ambien) 10 mg HS PO Last administered on 08/22/17 00:15; Start 08/19/17 at 21:00 Furosemide (Lasix) 40 mg Q12H IVP Last administered on 08/20/17 17:58; Start 08/19/17 at 18:00; Stop 08/20/17 at 18:01; Status DC Prednisone (Prednisone) 30 mg DAILY PO Last administered on 08/22/17 08:23; Start 08/21/17 at 09:00 Levofloxacin (Levaquin) 500 mg QHS PO Last administered on 08/21/17 20:57; Start 08/20/17 at 21:00 Lactobacillus Rhamnosus (Culturelle) 1 cap BID PO Last administered on 09:34; Start 08/21/17 at 09:00 Chlorhexidine Gluconate (Peridex) 15 ml BID SWSP Last administered on 08:27; Start 08/20/17 at 22:45 Calcium Carbonate/ Glycine (Tums) 500 mg PRN AFTMEALHC PRN PO INDIGESTION; Start 08/20/17 at 22:45 Methylnaltrexone Mackay (Relistor) 12 mg 1X ONCE SQ Last administered on 17:46; Start 08/21/17 at 15:15; Stop 08/21/17 at 15:16; Status DC Heparin Sodium (Porcine) (Hep Lock Adult) 500 unit 1X ONCE IV ; Start at 14:00; Stop 08/22/17 at 14:01 Active Scripts Active Reported Tessalon Perle (Benzonatate) 100 Mg Capsule 1 Cap PO TID Promethazine-Codeine Syrup (Promethazine Hcl/Codeine) 118 Ml Syrup 10 Ml PO PRN Q4-6HRS PRN Furosemide 20 Mg Tablet 20 Mg PO BID Potassium Chloride 20 Meq Tablet.er 20 Meq PO TID Cetirizine Hcl 10 Mg Tab.chew 10 Mg PO DAILY Ambien (Zolpidem Tartrate) 10 Mg Tablet 10 Mg PO HS PRN Aldactone (Spironolactone) 50 Mg Tablet 50 Mg PO BID Symbicort 160-4.5 Mcg Inhaler (Budesonide/Formoterol Fumarate) 10.2 Gm Hfa.aer.ad 2 Puff IH BID Percocet 5-325 Mg Tablet (Oxycodone/Acetaminophen) 1 Each Tablet 2 Tab PO Q4- 6HRS Reglan (Metoclopramide Hcl) 10 Mg Tablet 1 Tab PO TID Vitamin D3 (Cholecalciferol (Vitamin D3)) 5,000 Unit Tablet 5,000 Unit PO WEEKLY Xopenex (Levalbuterol Hcl) 1.25 Mg/3 Ml Vial.neb 1 Vial NEB TID Tablet (Pnv Cmb#95/Ferrous Fumarate/Fa) 1 Each Tablet 1 Tab PO DAILY Aller-Fex (Fexofenadine Hcl) 180 Mg Tablet 180 Mg PO DAILY Losartan Potassium 25 Mg Tablet 25 Mg PO DAILY Omeprazole 40 Mg Capsule.dr 40 Mg PO BID Gabapentin 100 Mg Capsule 400 Mg PO BID 30 Days Tamsulosin Hcl 0.4 Mg Cap.er.24h 0.4 Mg PO DAILY Fluoxetine Hcl 20 Mg Capsule 1 Cap PO DAILY Cyclobenzaprine Hcl 10 Mg Tablet 1 Tab PO TID Meclizine Hcl 25 Mg Tab.chew 25 Mg PO PRN BID PRN Xanax (Alprazolam) 1 Mg Tablet 1 Mg PO PRN TID PRN Seroquel (Quetiapine Fumarate) 100 Mg Tablet 100 Mg PO HS Vitals/I & O Vital Sign - Last 24 Hours 08/21/17 08/21/17 08/21/17 08/21/17 14:36 14:44 16:02 19:00 Temp 97.9 98.0 97.9 98.0 Pulse 85 94 Resp 18 20 B/P (MAP) 111/61 (78) 113/59 (77) Pulse Ox 95 95 98 99 O2 Delivery Room Air Room Air Room Air Room Air O2 Flow Rate 3.0 08/21/17 08/21/17 08/21/17 08/21/17 19:19 20:40 20:44 23:00 Temp 97.9 97.9 Pulse 92 Resp 20 20 B/P (MAP) 109/67 (81) Pulse Ox 99 95 O2 Delivery Room Air Room Air Room Air Room Air 08/22/17 08/22/17 08/22/17 08/22/17 03:00 03:36 04:45 07:00 Temp 97.7 97.7 97.7 97.7 Pulse 86 92 Resp 20 20 20 18 B/P (MAP) 104/70 (81) 119/71 (87) Pulse Ox 95 95 O2 Delivery Room Air Room Air Room Air 08/22/17 08/22/17 08/22/17 08/22/17 07:22 08:00 08:22 08:31 Pulse 91 Resp 20 B/P (MAP) 119/71 Pulse Ox 99 99 O2 Delivery Room Air Room Air Room Air 08/22/17 08/22/17 08/22/17 09:34 11:00 12:59 Temp 98.4 98.4 Pulse 90 Resp 18 B/P (MAP) 104/68 (80) Pulse Ox 99 93 O2 Delivery Room Air Room Air Room Air O2 Flow Rate 3.0 LORRIE HONG MD Aug 22, 2017 13:58
[2017-08-22] MEDS ORDERED: HEPARIN PF 500 UNIT/5 ML DISP.SYRIN. IV ONE (14:00)
[2017-08-24] MEDS ORDERED: CHOLECALCIFEROL (VITAMIN D3) 5,000 UNIT CAPSULE PO SCH (09:00)
== END 2017-08-22 14:00 | disposition home or self-care (01) | DRG 177 ==
LOC: ER 11:38 → 5 NORTH 15:27
PROVIDERS: ADMIT Internal Medicine Cardiovascular Disease; ATTEND Internal Medicine Cardiovascular Disease
DX: J15.6 Pneumonia due to other Gram-negative bacteria (principal); J96.00 Acute respiratory failure, unspecified whether with hypoxia or hypercapnia; I13.0 Hypertensive heart and chronic kidney disease with heart failure and stage 1 through stage 4 chronic kidney disease, or unspecified chronic kidney disease; J44.1 Chronic obstructive pulmonary disease with (acute) exacerbation; J44.0 Chronic obstructive pulmonary disease with (acute) lower respiratory infection; E11.22 Type 2 diabetes mellitus with diabetic chronic kidney disease; E11.40 Type 2 diabetes mellitus with diabetic neuropathy, unspecified; I48.91 Unspecified atrial fibrillation; I50.9 Heart failure, unspecified; D86.0 Sarcoidosis of lung; F32.9 Major depressive disorder, single episode, unspecified; F41.9 Anxiety disorder, unspecified; G47.00 Insomnia, unspecified; Z79.4 Long term (current) use of insulin; G89.29 Other chronic pain; I25.10 Atherosclerotic heart disease of native coronary artery without angina pectoris; J20.9 Acute bronchitis, unspecified; K21.9 Gastro-esophageal reflux disease without esophagitis; K21.0 Gastro-esophageal reflux disease with esophagitis; K59.00 Constipation, unspecified; K64.9 Unspecified hemorrhoids; M54.5 Low back pain; R19.7 Diarrhea, unspecified; N18.9 Chronic kidney disease, unspecified; Z79.51 Long term (current) use of inhaled steroids; Z82.49 Family history of ischemic heart disease and other diseases of the circulatory system; Z83.71 Family history of colonic polyps; Z87.11 Personal history of peptic ulcer disease; Z90.49 Acquired absence of other specified parts of digestive tract; Z90.710 Acquired absence of both cervix and uterus; Z90.81 Acquired absence of spleen; Z95.2 Presence of prosthetic heart valve; Z87.440 Personal history of urinary (tract) infections; Z98.49 Cataract extraction status, unspecified eye; Z98.51 Tubal ligation status; Z88.6 Allergy status to analgesic agent; Z88.1 Allergy status to other antibiotic agents; Z88.0 Allergy status to penicillin; Z88.2 Allergy status to sulfonamides; Z88.8 Allergy status to other drugs, medicaments and biological substances
CPT/HCPCS: 36415; 71010; 71020; 74000; 80048; 80053; 83605; 84484; 85007; 85025; 87040; 93005; 94250; 94640; 94667; 94668; 94760; G0238; J1940; J1956; J2212; J2930; J7512; J7620; J7626; J8597; 99285-25

== ENCOUNTER 2017-09-17 17:19 | Inpatient (IN) | payer MEDICARE, OTHER ==
[~2017-09-17] VITALS: Ht 160 cm; Wt 79.9 kg
[~2017-09-17 17:19] MED LIST changes: +HYDR200T PO
[2017-09-17] MEDS ORDERED: HYDROmorphone 2 MG/ML VIAL IV ONE (17:45)
--- NOTE | 2017-09-17 17:53 | PHYS DOC ---
Past Medical History Past Medical History: Cancer, CHF, COPD, GERD, UTI, Other Additional Past Medical Histor: sarcodosis, skin CA Past Surgical History: Hysterectomy, Splenectomy, Other Additional Past Surgical Histo: OPEN HEART SGRY AORTIC VALVE X 2,L SHOULDER SURG Alcohol Use: Rarely Drug Use: None Adult General Chief Complaint Chief Complaint: KNEE INJURY HPI HPI Patient is a 72 year old F who presents with chronic bilateral knee pain. Patient states she was admitted 2 weeks ago for this knee pain for 6 days and was placed on some steroids and appeared symptoms got a little bit better however with the patient went home she was still unable to walk. Patient states that since she's been home the pain has gotten worse and she was unable to sleep last night therefore called Dr. Ocampo who told her to come back to the emergency room. Patient denies any fevers. Patient denies any warmth or swelling to the joints bilaterally. Patient has no chest pain returns of breath. Patient no other complaints. Review of Systems Review of Systems GEN: Denies fevers, chills, sweats HEENT: Denies blurred vision, sore throat CV: Denies chest pain RESP: Denies shortness of air, cough GI: Denies n/v/d NEURO: Denies confusion, dizziness MSK: Knee pain All other systems were reviewed and found to be within normal limits, except as documented in this note. Current Medications Current Medications Current Medications Medications (Trade) Dose Ordered Sig/Mariana Start Time Stop Time Status Last Admin Dose Admin Hydromorphone HCl (Dilaudid) 1 mg 1X ONCE 09/17/17 17:45 09/17/17 17:49 DC 09/17/17 18:34 1 MG Allergies Allergies Allergies Coded Allergies Type Severity Reaction Last Updated Verified prochlorperazine edisylate Allergy Severe 09/16/16 Yes prochlorperazine maleate Allergy Severe 09/16/16 Yes NSAIDS (Non-Steroidal Anti-Inflamma Allergy Intermediate 09/16/16 Yes Penicillins Allergy Intermediate 09/16/16 Yes Sulfa (Sulfonamide Antibiotics) Allergy Intermediate Rash 09/16/16 Yes fentanyl Allergy Intermediate 05/21/17 Yes meperidine HCl Allergy Intermediate TOLERATES FENTANYL 09/16/16 Yes prednisone Allergy Intermediate 09/16/16 Yes morphine Adverse Reaction Severe HALLUCINATES 09/16/16 Yes albuterol Adverse Reaction Mild pt refuses albuterol 05/21/17 Yes Physical Exam Physical Exam GEN.: mod distress. Alert and oriented. HEENT: Head is normocephalic, atraumatic NECK: Supple. LUNGS: CTAB. HEART: RRR, S1, S2 present. Peripheral pulses intact ABDOMEN: Soft, nontender. Positive bowel sounds. EXTREMITIES: Without any cyanosis, bilateral knee pain with tenderness palpation, decreased range of motion secondary to pain, no erythema bilaterally , no joint effusion bilaterally, dorsal pedis pulses palpated bilaterally, no hip tenderness to palpation bilaterally NEUROLOGIC: Normal speech, normal tone PSYCHIATRIC: Normal affect, normal mood. SKIN: No ulcerations EKG EKG [] Radiology/Procedures Radiology/Procedures Ultrasound arterial and venous and lower extremity bilaterally pending[] Course & Med Decision Making Course & Med Decision Making Pertinent Labs and Imaging studies reviewed. (See chart for details) ED course: Patient was seen and examined emergency room 1751: Discussed CC/HP/PMH with Dr. Ocampo and recommends admit and consult Dr. Schaefer with orthopedics I ordered basic blood work and intravenous no arterial Doppler lower extremity bilaterally Updated patient on plan to admit get blood work and ultrasounds. MDM: After reviewing the chart, CC/HPI/PMH, physical exam, [lab results], [ radiological results], I do not believe the patient has a emergent traumatic injury to the lower extremity is requiring emergent surgery. Patient has chronic pain and will admit for further hydration and management. [] Dragon Disclaimer Dragon Disclaimer This electronic medical record was generated, in whole or in part, using a voice recognition dictation system. Departure Departure Impression: Primary Impression: Knee pain, bilateral Additional Impression: Inability to walk Disposition: ADMITTED INPATIENT Admitting Physician: Jose Maria Ocampo Condition: STABLE Referrals: YAMIL VICTOR MD (PCP) Problem Qualifiers LINNEA BRISENO DO Sep 17, 2017 17:53
[2017-09-17] MEDS ORDERED: ONDANSETRON PF 4 MG/2 ML VIAL. IV PRN (18:00)
[2017-09-17 18:27] LABS: BASO # 0.1 x10^3/uL (0.0-0.2); BASO % 1 % (0-3); EOS % 1 % (0-3); HEMATOCRIT 39.5 % (36.0-47.0); HEMOGLOBIN 12.9 g/dL (12.0-15.5); LYMPH # 3.2 x10^3/uL (1.0-4.8); LYMPH % 27 % (24-48); MEAN CORPUSCULAR HEMOGLOBIN 33 pg (25-35); MEAN CORPUSCULAR HGB CONC 33 g/dL (31-37); MEAN CORPUSCULAR VOLUME 101 fL (79-100); MONO % 10 % (0-9); NEUT % 61 % (31-73); PLATELET COUNT 362 x10^3/uL (140-400); RED BLOOD COUNT 3.92 x10^6/uL (3.50-5.40); RED CELL DISTRIBUTION WIDTH 13.6 % (11.5-14.5); WHITE BLOOD COUNT 12.1 x10^3/uL (4.0-11.0)
[2017-09-17 18:36] LABS: CALCIUM 9.5 mg/dL (8.5-10.1); CREATININE 1.2 mg/dL (0.6-1.0); GFR 44.4; POTASSIUM 3.9 mmol/L (3.5-5.1)
[2017-09-17 18:42] LABS: ALBUMIN 3.3 g/dL (3.4-5.0); ALBUMIN/GLOBULIN RATIO 0.9 (1.0-1.7); C-REACTIVE PROTEIN 1.4 mg/L (0-3.3); TOTAL BILIRUBIN 0.3 mg/dL (0.2-1.0); TOTAL PROTEIN 7.1 g/dL (6.4-8.2)
--- NOTE | 2017-09-17 20:02 | RAD ---
Ultrasound venous Doppler INDICATION: Bilateral leg pain TECHNIQUE: Grayscale, color Doppler and spectral waveform ultrasound images of the bilateral lower extremity deep veins. COMPARISON: None FINDINGS: The bilateral interrogated lower extremity deep veins are compressible and demonstrate evidence of blood flow with normal respiratory variation and response to augmentation. There is a lobulated cystic lesion in the right popliteal fossa measuring 3.4 x 1.9 x 4.1 cm with internal septations and no vascularity. IMPRESSION: 1. No sonographic evidence of acute DVT in the interrogated bilateral lower extremity deep veins. 2. Complex right popliteal fossa cyst. Ultrasound bilateral lower extremities arterial INDICATION: Bilateral leg pain TECHNIQUE: Grayscale, color Doppler and spectral waveform of the bilateral lower extremity arteries. COMPARISON: None FINDINGS: Right side: Triphasic waveform in the CLOTH TESTER QUALITY with peak systolic velocity of 194 cm/s. Triphasic waveform in the profunda femoris with peak systolic velocity of 119 cm/s. Triphasic waveform in the proximal superficial femoral artery with peak systolic velocity of 119 cm/s. Triphasic waveform in the mid superficial femoral artery with peak systolic velocity of 103 cm/s. Triphasic waveform in the distal superficial femoral artery with peak systolic velocity of 125 cm/s. Biphasic waveform in the popliteal artery with peak systolic velocity of 69 cm/s. Triphasic waveform in the proximal posterior tibial artery with peak systolic velocity of 81 cm/s. Biphasic waveform in the peroneal artery with peak velocity of 72 cm/s. Biphasic waveform in the anterior tibial artery with peak velocity of 50 cm/s. Biphasic waveform in the dorsalis pedis artery with peak static velocity of 40 cm/s. Left side: Triphasic waveform in the CLOTH TESTER QUALITY with peak systolic velocity of 131 cm/s. Biphasic waveform in the profunda femoris with peak systolic velocity of 82 cm/s. Triphasic waveform in the proximal superficial femoral artery with peak systolic velocity of 87 cm/s. Triphasic waveform in the mid superficial femoral artery with peak systolic velocity of 114 cm/s. Triphasic waveform in the distal superficial femoral artery with peak systolic velocity of 73 cm/s. Biphasic waveform in the popliteal artery with peak systolic velocity of 65 cm/s. Triphasic waveform in the proximal posterior tibial artery with peak systolic velocity of 83 cm/s. Biphasic waveform in the peroneal artery with peak velocity of 48 cm/s. Biphasic waveform in the anterior tibial artery with peak velocity of 72 cm/s. Biphasic waveform in the dorsalis pedis artery with peak static velocity of 54 cm/s. IMPRESSION: Bilateral infrapopliteal mild to moderate atherosclerotic disease. Electronically signed by: Jose Antonio Santos DO (09/17/2017 7:59 PM) [facility]
[2017-09-17] MEDS: HYDROmorphone 2 MG/ML VIAL IVP PRN (20:45)
[2017-09-17] MEDS ORDERED: OXYC-328 PO (21:59)
[2017-09-17] MEDS ORDERED: MECLIZINE HCL 12.5 MG TABLET. PO PRN (22:00)
[2017-09-17] MEDS ORDERED: PROMETH/CODEINE 6.25/10MG 5 ML SYRUP. PO PRN (22:00)
[2017-09-17] MEDS: CYCLOBENZAPRINE 10 MG TABLET. PO SCH (22:30)
[2017-09-17] MEDS: HYDROXYCHLOROQUINE 200 MG TABLET PO SCH (22:31)
[2017-09-17] MEDS: GABAPENTIN 400 MG CAPSULE. PO SCH (22:31)
[2017-09-17] MEDS: QUEtiapine 100 MG TABLET. PO SCH (22:31)
[2017-09-17] MEDS: ALPRAZolam 1 MG TABLET PO PRN (22:31)
[2017-09-17] MEDS: METOCLOPRAMIDE 10 MG TABLET. PO SCH (22:31)
[2017-09-17 23:00] VITALS: BP 120/70
[2017-09-18] MEDS: oxyCODONE/APAP 10/325 1 TAB TABLET PO PRN ×4 (00:19→21:52)
[2017-09-18] MEDS: ZOLPIDEM 5 MG TABLET. PO PRN ×3 (01:05→23:16)
[2017-09-18 03:00] VITALS: BP 120/71
[2017-09-18] MEDS: HYDROmorphone 2 MG/ML VIAL IVP PRN ×3 (03:07→18:36)
[2017-09-18] MEDS: PANTOPRAZOLE 40 MG TABLET.DR. PO SCH ×2 (06:24→18:32)
[2017-09-18] MEDS: ALPRAZolam 1 MG TABLET PO PRN ×3 (06:24→23:16)
[2017-09-18 06:55] LABS: BASO # 0.1 x10^3/uL (0.0-0.2); BASO % 1 % (0-3); EOS % 2 % (0-3); HEMATOCRIT 36.3 % (36.0-47.0); HEMOGLOBIN 11.8 g/dL (12.0-15.5); LYMPH # 2.6 x10^3/uL (1.0-4.8); LYMPH % 27 % (24-48); MEAN CORPUSCULAR HEMOGLOBIN 33 pg (25-35); MEAN CORPUSCULAR HGB CONC 33 g/dL (31-37); MEAN CORPUSCULAR VOLUME 101 fL (79-100); MONO % 10 % (0-9); NEUT % 61 % (31-73); PLATELET COUNT 323 x10^3/uL (140-400); RED BLOOD COUNT 3.61 x10^6/uL (3.50-5.40); RED CELL DISTRIBUTION WIDTH 13.5 % (11.5-14.5); WHITE BLOOD COUNT 9.4 x10^3/uL (4.0-11.0)
[2017-09-18 07:00] VITALS: BP 127/82
[2017-09-18 07:00] LABS: CALCIUM 9.6 mg/dL (8.5-10.1); CREATININE 1.1 mg/dL (0.6-1.0); GFR 49.1; POTASSIUM 3.8 mmol/L (3.5-5.1)
[2017-09-18] MEDS: BUDESONIDE 0.5 MG/2 ML NEBU. NEB SCH ×2 (08:00→20:00)
[2017-09-18] MEDS: FUROSEMIDE 20 MG TABLET PO SCH ×2 (08:22→15:13)
[2017-09-18] MEDS: TAMSULOSIN 0.4 MG CAP.ER.24H. PO SCH (08:22)
[2017-09-18] MEDS: POTASSIUM CHLORIDE 20 MEQ TABLET.ER. PO SCH ×3 (08:22→18:32)
[2017-09-18] MEDS: CYCLOBENZAPRINE 10 MG TABLET. PO SCH ×3 (08:22→21:50)
[2017-09-18] MEDS: PRENATAL MULTIVITAMIN TABLET. PO SCH (08:22)
[2017-09-18] MEDS: FLUoxetine HCL 20 MG CAPSULE PO SCH (08:23)
[2017-09-18] MEDS: HYDROXYCHLOROQUINE 200 MG TABLET PO SCH ×2 (08:23→21:51)
[2017-09-18] MEDS: METOCLOPRAMIDE 10 MG TABLET. PO SCH ×3 (08:23→21:51)
[2017-09-18] MEDS: GABAPENTIN 400 MG CAPSULE. PO SCH ×2 (08:23→21:51)
[2017-09-18] MEDS: SPIRONOLACTONE 25 MG TABLET PO SCH ×2 (08:23→15:13)
[2017-09-18] MEDS: LOSARTAN POTASSIUM 25 MG TABLET. PO SCH (08:24)
[2017-09-18] MEDS: CETIRIZINE HCL 10 MG TABLET. PO SCH (08:29)
[2017-09-18] MEDS ORDERED: SPIRONOLACTONE 25 MG TABLET ONE ×2 (09:00)
[2017-09-18] MEDS ORDERED: NON FORMULARY ITEM (Budesonide/Formoterol Fumarate (Symbicort 160-4.5 Mcg Inhaler) 2 PUFF) IH SCH (09:00)
[2017-09-18] MEDS ORDERED: FEXOFENADINE HCL 180 MG PO SCH (09:00)
[2017-09-18] MEDS: LEVALBUTEROL 1.25 MG/0.5 ML NEBU. NEB SCH ×3 (09:00→21:00)
[2017-09-18] MEDS ORDERED: ZOLPIDEM 5 MG TABLET. ONE ×3 (09:00)
--- NOTE | 2017-09-18 10:02 | PDOC2 ---
CONSULT Date of Consult Date of Consult DATE: 09/18/17 TIME: 09:58 Reason for Consult Reason for Consult: Knee pain Referring Physician Referring Physician: Terrence Identification/Chief Complaint Chief Complaint Bilateral knee pain Problems: Source Source: Patient History of Present Illness Reason for Visit: Nasreen is a pleasant 72-year-old female who has had long-standing knee pain that has been exacerbated by falls recently. She feels the pain on the front and medial side of both her knees. It is worse with increasing activity, weightbearing. Is a little better with rest. She has had a cortisone shot in the past with Dr. Michel and she thinks that this helped. This was about a year ago. She does not think that the pain radiates. She feels like there has been a little swelling from time to time Past Medical History Cardiovascular: AFIB, HTN Pulmonary: Asthma, Bronchitis, COPD, Pneumonia, Other CENTRAL NERVOUS SYSTEM: Periperal neuropathy, Vertigo, Other GI: GERD, Peptic Ulcer disease Heme/Onc: Cancer, Other Psych: Anxiety, Depression Musculoskeletal: low back pain Rheumatologic: Other Renal/: Acute renal failure Endocrine: Diabetes Past Surgical History Past Surgical History: Appendectomy, Cataract Removal, Tubal Ligation, Hysterectomy, Other Family History Family History: Coronary Artery Disease, Diabetes, Heart Disease, Hypertension , Kidney Disease, Family History Unknown, Other Social History ALCOHOL: none Drugs: None Current Problem List Problem List Problems Medical Problems: (1) Inability to walk Status: Acute (2) Knee pain, bilateral Status: Acute Current Medications Current Medications Current Medications Hydromorphone HCl (Dilaudid) 1 mg 1X ONCE IV Last administered on 09/17/17 18:34; Start 09/17/17 at 17:45; Stop 09/17/17 at 17:49; Status DC Ondansetron HCl (Zofran) 4 mg PRN Q8HRS PRN IV NAUSEA/VOMITING Last administered on 09/17/17 18:33; Start 09/17/17 at 18:00; Stop 09/18/17 at 17 :59 Hydromorphone HCl (Dilaudid) 0.4 mg PRN Q4HRS PRN IVP PAIN Last administered on 09/18/17 03:07; Start 09/17/17 at 19:30 Alprazolam (Xanax) 1 mg PRN TID PRN PO ANXIETY / AGITATION Last administered on 09/18/17 06:24; Start 09/17/17 at 22:00 Cyclobenzaprine HCl (Flexeril) 10 mg TID PO Last administered on 09/18/17 08: 22; Start 09/17/17 at 22:00 Fluoxetine HCl (PROzac) 20 mg DAILY PO Last administered on 09/18/17 08:23; Start 09/18/17 at 09:00 Furosemide (Lasix) 20 mg [id number] PO Last administered on 09/18/17 08:22; Start 09/18/17 at 09:00 Gabapentin (Neurontin) 400 mg BID PO Last administered on 09/18/17 08:23; Start 09/17/17 at 22:00 Hydroxychloroquine Sulfate (Plaquenil) 200 mg BID PO Last administered on 09/18 08:23; Start 09/17/17 at 22:00 Losartan Potassium (Cozaar) 25 mg DAILY PO Last administered on 09/18/17 08: 24; Start 09/18/17 at 09:00 Metoclopramide HCl (Reglan) 10 mg TID PO Last administered on 09/18/17 08:23 ; Start 09/17/17 at 22:00 Promethazine HCl/ Codeine (Phenergan With Codeine) 10 ml PRN Q4HRS PRN PO COUGH ; Start 09/17/17 at 22:00 Quetiapine Fumarate (SEROquel) 100 mg HS PO Last administered on 09/17/17 22: 31; Start 09/17/17 at 22:00 Tamsulosin HCl (Flomax) 0.4 mg DAILY PO Last administered on 09/18/17 08:22; Start 09/18/17 at 09:00 Non-Formulary Medication 2 puff BID IH ; Start 09/18/17 at 09:00; Status UNV Cetirizine HCl (ZyrTEC) 10 mg DAILY PO Last administered on 09/18/17 08:29; Start 09/18/17 at 09:00 Vitamin D (Vitamin D3) 5,000 unit WEEKLY PO ; Start 09/24/17 at 09:00 Non-Formulary Medication 180 mg DAILY PO ; Start 09/18/17 at 09:00; Status UNV Levalbuterol HCl (Xopenex) 1.25 mg TID NEB ; Start 09/18/17 at 09:00 Meclizine HCl (Antivert) 25 mg PRN BID PRN PO DIZZINESS; Start 09/17/17 at 22: 00 Pantoprazole Sodium (Protonix) 40 mg [id number] PO Last administered on 09/18/17 06:24; Start 09/18/17 at 07:00 Multivit/ Folic Acid/Iron (Multivitamin ) 1 tab DAILY PO Last administered on 09/18/17 08:22; Start 09/18/17 at 09:00 Potassium Chloride (Klor-Con) 20 meq TIDWMEALS PO Last administered on 08:22; Start 09/18/17 at 08:00 Spironolactone (Aldactone) 50 mg [id number] PO Last administered on 09/18/17 08:23 ; Start 09/18/17 at 09:00 Zolpidem Tartrate (Ambien) 5 mg PRN QHS PRN PO INSOMNIA/MAY REPEAT X 1 PRN Last administered on 09/18/17 02:00; Start 09/17/17 at 22:00 Oxycodone/ Acetaminophen (Percocet 10/325) 2 tab PRN Q6HRS PRN PO PAIN Last administered on 09/18/17 06:25; Start 09/17/17 at 23:30 Budesonide (Pulmicort) 0.5 mg RTBID NEB ; Start 09/18/17 at 08:00 Active Scripts Active Reported Percocet 10-325 Mg Tablet (Oxycodone/Acetaminophen) 1 Each Tablet 1 Tab PO Q4- 6HRS Plaquenil (Hydroxychloroquine Sulfate) 200 Mg Tablet 200 Mg PO BID Promethazine-Codeine Syrup (Promethazine Hcl/Codeine) 118 Ml Syrup 10 Ml PO PRN Q4-6HRS PRN Furosemide 20 Mg Tablet 20 Mg PO BID Potassium Chloride 20 Meq Tablet.er 20 Meq PO TID Cetirizine Hcl 10 Mg Tab.chew 10 Mg PO DAILY Ambien (Zolpidem Tartrate) 10 Mg Tablet 10 Mg PO HS PRN Aldactone (Spironolactone) 50 Mg Tablet 50 Mg PO BID Symbicort 160-4.5 Mcg Inhaler (Budesonide/Formoterol Fumarate) 10.2 Gm Hfa.aer.ad 2 Puff IH BID Percocet 5-325 Mg Tablet (Oxycodone/Acetaminophen) 1 Each Tablet 2 Tab PO Q4- 6HRS Reglan (Metoclopramide Hcl) 10 Mg Tablet 1 Tab PO TID Vitamin D3 (Cholecalciferol (Vitamin D3)) 5,000 Unit Tablet 5,000 Unit PO WEEKLY Xopenex (Levalbuterol Hcl) 1.25 Mg/3 Ml Vial.neb 1 Vial NEB TID Tablet (Pnv Cmb#95/Ferrous Fumarate/Fa) 1 Each Tablet 1 Tab PO DAILY Aller-Fex (Fexofenadine Hcl) 180 Mg Tablet 180 Mg PO DAILY Losartan Potassium 25 Mg Tablet 25 Mg PO DAILY Omeprazole 40 Mg Capsule.dr 40 Mg PO BID Gabapentin 100 Mg Capsule 400 Mg PO BID 30 Days Tamsulosin Hcl 0.4 Mg Cap.er.24h 0.4 Mg PO DAILY Fluoxetine Hcl 20 Mg Capsule 1 Cap PO DAILY Cyclobenzaprine Hcl 10 Mg Tablet 1 Tab PO TID Meclizine Hcl 25 Mg Tab.chew 25 Mg PO PRN BID PRN Xanax (Alprazolam) 1 Mg Tablet 1 Mg PO PRN TID PRN Seroquel (Quetiapine Fumarate) 100 Mg Tablet 100 Mg PO HS Allergies Allergies: Coded Allergies: prochlorperazine edisylate (Verified Allergy, Severe, 09/16/16) TOLERATES PHENERGAN W/CODEINE prochlorperazine maleate (Verified Allergy, Severe, 09/16/16) NSAIDS (Non-Steroidal Anti-Inflamma (Verified Allergy, Intermediate, 09/16) Penicillins (Verified Allergy, Intermediate, 09/16/16) "BEOMES UNCONSCIOUS Sulfa (Sulfonamide Antibiotics) (Verified Allergy, Intermediate, Rash, ) fentanyl (Verified Allergy, Intermediate, 05/21/17) HALLICINATIONS ONLY WITH PATCH meperidine HCl (Verified Allergy, Intermediate, TOLERATES FENTANYL, ) DEMEROL MAKES HER SPASTIC prednisone (Verified Allergy, Intermediate, 09/16/16) WATER RETENTION AND MAKES HER CONFUSED morphine (Verified Adverse Reaction, Severe, HALLUCINATES, 09/16/16) albuterol (Verified Adverse Reaction, Mild, pt refuses albuterol, 05/21/17) ROS General: No: Chills, Night Sweats, Fatigue, Malaise, Appetite, Other PSYCHOLOGICAL ROS: No: Anxiety, Behavioral Disorder, Concentration difficultie , Decreased libido, Depression, Disorientation, Hallucinations, Hostility, Irritablity, Memory difficulties, Mood Swings, Obsessive thoughts, Physical abuse, Sexual abuse, Sleep disturbances, Suicidal ideation, Other HEENT: No: Heacaches, Visual Changes, Hearing change, Nasal congestion, Nasal discharge, Oral lesions, Sinus pain, Sore Throat, Epistaxis, Sneezing, Snoring, Tinnitus, Vertigo, Vocal changes, Other ENDOCRINE: No: Breast Changes, Galactorrhea, Hair Pattern Changes, Hot Flashes , Malaise/lethargy, Mood Swings, Palpitations, Polydipsia/polyuria, Skin Changes , Temperature Intolerance, Unexpected Weight Changes, Other Respiratory: YES: Other (sarcoidosis), No: Cough, Hemoptysis, Orthopnea, Pleuritic Pain, Shortness of breath, SOB with excertion, Sputum Changes, Stridor, Tachypnea, Wheezing Gastrointestinal: No Nausea, No Vomiting, No Abdominal Pain, No Diarrhea, No Constipation, No Melena, No Hematochezia, No Other Musculoskeletal: Yes Joint Pain, Yes Joint Stiffness Physical Exam General: Alert, Oriented X3 HEENT: Atraumatic, PERRLA Lungs: Other (chest is unremarkable symmetric chest rise.) Heart: Regular rate, Other (no edema at her ankles) Abdomen: Soft, No tenderness Skin: No rashes, No breakdown Neuro: Strength at 5/5 X4 ext, Normal tone Psych/Mental Status: Mental status NL, Mood NL MUSCULOSKELETAL: Other (examination of both of her knees reveals range of motion 0-120. Both are stable to varus and valgus. Mild effusion at her knees. She has crepitus at her patellofemoral joints) Vitals VITALS Vital Signs Date Time Temp Pulse Resp B/P (MAP) Pulse Ox O2 Delivery O2 Flow Rate FiO2 09/18/17 08:24 120/71 09/18/17 07:50 18 Room Air 09/18/17 07:00 97.6 92 90 97.6 09/18/17 03:00 2.0 Labs Labs Laboratory Tests Test 09/17/17 18:15 09/18/17 06:35 White Blood Count 12.1 x10^3/uL (4.0-11.0) 9.4 x10^3/uL (4.0-11.0) Red Blood Count 3.92 x10^6/uL (3.50-5.40) 3.61 x10^6/uL (3.50-5.40) Hemoglobin 12.9 g/dL (12.0-15.5) 11.8 g/dL (12.0-15.5) Hematocrit 39.5 % (36.0-47.0) 36.3 % (36.0-47.0) Mean Corpuscular Volume 101 fL (79-100) 101 fL (79-100) Mean Corpuscular Hemoglobin 33 pg (25-35) 33 pg (25-35) Mean Corpuscular Hemoglobin Concent 33 g/dL (31-37) 33 g/dL (31-37) Red Cell Distribution Width 13.6 % (11.5-14.5) 13.5 % (11.5-14.5) Platelet Count 362 x10^3/uL (140-400) 323 x10^3/uL (140-400) Neutrophils (%) (Auto) 61 % (31-73) 61 % (31-73) Lymphocytes (%) (Auto) 27 % (24-48) 27 % (24-48) Monocytes (%) (Auto) 10 % (0-9) 10 % (0-9) Eosinophils (%) (Auto) 1 % (0-3) 2 % (0-3) Basophils (%) (Auto) 1 % (0-3) 1 % (0-3) Neutrophils # (Auto) 7.4 x10^3uL (1.8-7.7) 5.7 x10^3uL (1.8-7.7) Lymphocytes # (Auto) 3.2 x10^3/uL (1.0-4.8) 2.6 x10^3/uL (1.0-4.8) Monocytes # (Auto) 1.2 x10^3/uL (0.0-1.1) 0.9 x10^3/uL (0.0-1.1) Eosinophils # (Auto) 0.2 x10^3/uL (0.0-0.7) 0.2 x10^3/uL (0.0-0.7) Basophils # (Auto) 0.1 x10^3/uL (0.0-0.2) 0.1 x10^3/uL (0.0-0.2) Erythrocyte Sedimentation Rate 20 (0-25) Sodium Level 142 mmol/L (136-145) 138 mmol/L (136-145) Potassium Level 3.9 mmol/L (3.5-5.1) 3.8 mmol/L (3.5-5.1) Chloride Level 104 mmol/L (98-107) 101 mmol/L (98-107) Carbon Dioxide Level 31 mmol/L (21-32) 31 mmol/L (21-32) Anion Gap 7 (6-14) 6 (6-14) Blood Urea Nitrogen 25 mg/dL (7-20) 19 mg/dL (7-20) Creatinine 1.2 mg/dL (0.6-1.0) 1.1 mg/dL (0.6-1.0) Estimated GFR (Cockcroft-Gault) 44.4 49.1 BUN/Creatinine Ratio 21 (6-20) Glucose Level 126 mg/dL (70-99) 108 mg/dL (70-99) Calcium Level 9.5 mg/dL (8.5-10.1) 9.6 mg/dL (8.5-10.1) Total Bilirubin 0.3 mg/dL (0.2-1.0) Aspartate Amino Transf (AST/SGOT) 11 U/L (15-37) Alanine Aminotransferase (ALT/SGPT) 15 U/L (14-59) Alkaline Phosphatase 77 U/L (46-116) C-Reactive Protein, Quantitative 1.4 mg/L (0-3.3) Total Protein 7.1 g/dL (6.4-8.2) Albumin 3.3 g/dL (3.4-5.0) Albumin/Globulin Ratio 0.9 (1.0-1.7) Laboratory Tests Test 09/17/17 18:15 09/18/17 06:35 White Blood Count 12.1 x10^3/uL (4.0-11.0) 9.4 x10^3/uL (4.0-11.0) Red Blood Count 3.92 x10^6/uL (3.50-5.40) 3.61 x10^6/uL (3.50-5.40) Hemoglobin 12.9 g/dL (12.0-15.5) 11.8 g/dL (12.0-15.5) Hematocrit 39.5 % (36.0-47.0) 36.3 % (36.0-47.0) Mean Corpuscular Volume 101 fL (79-100) 101 fL (79-100) Mean Corpuscular Hemoglobin 33 pg (25-35) 33 pg (25-35) Mean Corpuscular Hemoglobin Concent 33 g/dL (31-37) 33 g/dL (31-37) Red Cell Distribution Width 13.6 % (11.5-14.5) 13.5 % (11.5-14.5) Platelet Count 362 x10^3/uL (140-400) 323 x10^3/uL (140-400) Neutrophils (%) (Auto) 61 % (31-73) 61 % (31-73) Lymphocytes (%) (Auto) 27 % (24-48) 27 % (24-48) Monocytes (%) (Auto) 10 % (0-9) 10 % (0-9) Eosinophils (%) (Auto) 1 % (0-3) 2 % (0-3) Basophils (%) (Auto) 1 % (0-3) 1 % (0-3) Neutrophils # (Auto) 7.4 x10^3uL (1.8-7.7) 5.7 x10^3uL (1.8-7.7) Lymphocytes # (Auto) 3.2 x10^3/uL (1.0-4.8) 2.6 x10^3/uL (1.0-4.8) Monocytes # (Auto) 1.2 x10^3/uL (0.0-1.1) 0.9 x10^3/uL (0.0-1.1) Eosinophils # (Auto) 0.2 x10^3/uL (0.0-0.7) 0.2 x10^3/uL (0.0-0.7) Basophils # (Auto) 0.1 x10^3/uL (0.0-0.2) 0.1 x10^3/uL (0.0-0.2) Erythrocyte Sedimentation Rate 20 (0-25) Sodium Level 142 mmol/L (136-145) 138 mmol/L (136-145) Potassium Level 3.9 mmol/L (3.5-5.1) 3.8 mmol/L (3.5-5.1) Chloride Level 104 mmol/L (98-107) 101 mmol/L (98-107) Carbon Dioxide Level 31 mmol/L (21-32) 31 mmol/L (21-32) Anion Gap 7 (6-14) 6 (6-14) Blood Urea Nitrogen 25 mg/dL (7-20) 19 mg/dL (7-20) Creatinine 1.2 mg/dL (0.6-1.0) 1.1 mg/dL (0.6-1.0) Estimated GFR (Cockcroft-Gault) 44.4 49.1 BUN/Creatinine Ratio 21 (6-20) Glucose Level 126 mg/dL (70-99) 108 mg/dL (70-99) Calcium Level 9.5 mg/dL (8.5-10.1) 9.6 mg/dL (8.5-10.1) Total Bilirubin 0.3 mg/dL (0.2-1.0) Aspartate Amino Transf (AST/SGOT) 11 U/L (15-37) Alanine Aminotransferase (ALT/SGPT) 15 U/L (14-59) Alkaline Phosphatase 77 U/L (46-116) C-Reactive Protein, Quantitative 1.4 mg/L (0-3.3) Total Protein 7.1 g/dL (6.4-8.2) Albumin 3.3 g/dL (3.4-5.0) Albumin/Globulin Ratio 0.9 (1.0-1.7) Images Images Nonweightbearing x-rays from 08/27/2017 of the left knee were interpreted by myself. No bony abnormalities. She had a CT done recently of her lower extremity which did not demonstrate any fractures. A venous Doppler done recently revealed a right popliteal fossa cyst without any DVT. Arterial studies done demonstrated bilateral lower extremity mild to moderate peripheral vascular disease Assessment/Plan Assessment/Plan Bilateral knee DJD. I did discuss different treatment options with her knee and she thought that receiving bilateral corticosteroid injections would be reasonable. I think this is the best we can do to help her knees all right now. I will be back later to perform these injections LILLIE ABBASI II, MD Sep 18, 2017 10:02
[2017-09-18 11:00] VITALS: BP 117/65
[2017-09-18] MEDS ORDERED: methylPREDNISolone ACETATE 80 MG/ML VIAL. INJ ONE (11:00)
[2017-09-18] MEDS ORDERED: LIDOCAINE 1%/EPI 1:100,000 20 ML VIAL. INJ ONE (11:00)
[2017-09-18 15:00] VITALS: BP 110/65
--- NOTE | 2017-09-18 15:34 | PDOC1 ---
History and Physical Date of Admission Date of Admission DATE: 09/18/17 TIME: 15:28 Identification/Chief Complaint Chief Complaint Bilateral knee pain Problems: History of Present Illness History of Present Illness This patient is a 72-year-old lady with a known history of valvular heart disease that is status post aortic valve replacement twice. 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 The patient had a recent admission to left knee pain and was discharged on some steroids. Since she got home she has not been able to walk due to the progressive pain just gradually started on her other knee and now she comes in with bilateral intractable knee pain with swollen hot and tender knees. She came into the emergency room where she was seen and evaluated and it was decided to admit her for further workup and treatment. At the time that I saw HER-2 denies having any cardiac or pulmonary issues and her problem is the severe pain of both knees that is intractable and getting worse. Past Medical History Cardiovascular: AFIB, HTN, Other (congenital aortic valvular disease) Pulmonary: Asthma, Bronchitis, COPD, Pneumonia, Other CENTRAL NERVOUS SYSTEM: Periperal neuropathy, Vertigo, Other GI: GERD, Peptic Ulcer disease Heme/Onc: Cancer, Other Psych: Anxiety, Depression Musculoskeletal: low back pain Rheumatologic: Other Renal/: Acute renal failure Endocrine: Diabetes Past Surgical History Past Surgical History: Appendectomy, Cataract Removal, Tubal Ligation, Hysterectomy, Other Family History Family History: Coronary Artery Disease, Diabetes, Heart Disease, Hypertension , Kidney Disease, Family History Unknown, Other Social History ALCOHOL: none Drugs: None Current Problem List Problem List Problems Medical Problems: (1) Inability to walk Status: Acute (2) Knee pain, bilateral Status: Acute Problems: Current Medications Current Medications Current Medications Hydromorphone HCl (Dilaudid) 1 mg 1X ONCE IV Last administered on 09/17/17 18:34; Start 09/17/17 at 17:45; Stop 09/17/17 at 17:49; Status DC Ondansetron HCl (Zofran) 4 mg PRN Q8HRS PRN IV NAUSEA/VOMITING Last administered on 09/17/17 18:33; Start 09/17/17 at 18:00; Stop 09/18/17 at 17 :59 Hydromorphone HCl (Dilaudid) 0.4 mg PRN Q4HRS PRN IVP PAIN Last administered on 09/18/17 11:02; Start 09/17/17 at 19:30 Alprazolam (Xanax) 1 mg PRN TID PRN PO ANXIETY / AGITATION Last administered on 09/18/17 15:15; Start 09/17/17 at 22:00 Cyclobenzaprine HCl (Flexeril) 10 mg TID PO Last administered on 09/18/17 15: 13; Start 09/17/17 at 22:00 Fluoxetine HCl (PROzac) 20 mg DAILY PO Last administered on 09/18/17 08:23; Start 09/18/17 at 09:00 Furosemide (Lasix) 20 mg [id number] PO Last administered on 09/18/17 15:13; Start 09/18/17 at 09:00 Gabapentin (Neurontin) 400 mg BID PO Last administered on 09/18/17 08:23; Start 09/17/17 at 22:00 Hydroxychloroquine Sulfate (Plaquenil) 200 mg BID PO Last administered on 09/18 08:23; Start 09/17/17 at 22:00 Losartan Potassium (Cozaar) 25 mg DAILY PO Last administered on 09/18/17 08: 24; Start 09/18/17 at 09:00 Metoclopramide HCl (Reglan) 10 mg TID PO Last administered on 09/18/17 15:13 ; Start 09/17/17 at 22:00 Promethazine HCl/ Codeine (Phenergan With Codeine) 10 ml PRN Q4HRS PRN PO COUGH ; Start 09/17/17 at 22:00 Quetiapine Fumarate (SEROquel) 100 mg HS PO Last administered on 09/17/17 22: 31; Start 09/17/17 at 22:00 Tamsulosin HCl (Flomax) 0.4 mg DAILY PO Last administered on 09/18/17 08:22; Start 09/18/17 at 09:00 Non-Formulary Medication 2 puff BID IH ; Start 09/18/17 at 09:00; Status UNV Cetirizine HCl (ZyrTEC) 10 mg DAILY PO Last administered on 09/18/17 08:29; Start 09/18/17 at 09:00 Vitamin D (Vitamin D3) 5,000 unit WEEKLY PO ; Start 09/24/17 at 09:00 Non-Formulary Medication 180 mg DAILY PO ; Start 09/18/17 at 09:00; Status UNV Levalbuterol HCl (Xopenex) 1.25 mg TID NEB ; Start 09/18/17 at 09:00 Meclizine HCl (Antivert) 25 mg PRN BID PRN PO DIZZINESS; Start 09/17/17 at 22: 00 Pantoprazole Sodium (Protonix) 40 mg [id number] PO Last administered on 09/18/17 06:24; Start 09/18/17 at 07:00 Multivit/ Folic Acid/Iron (Multivitamin ) 1 tab DAILY PO Last administered on 09/18/17 08:22; Start 09/18/17 at 09:00 Potassium Chloride (Klor-Con) 20 meq TIDWMEALS PO Last administered on 11:03; Start 09/18/17 at 08:00 Spironolactone (Aldactone) 50 mg [id number] PO Last administered on 09/18/17 15:13 ; Start 09/18/17 at 09:00 Zolpidem Tartrate (Ambien) 5 mg PRN QHS PRN PO INSOMNIA/MAY REPEAT X 1 PRN Last administered on 09/18/17 02:00; Start 09/17/17 at 22:00 Oxycodone/ Acetaminophen (Percocet 10/325) 2 tab PRN Q6HRS PRN PO PAIN Last administered on 09/18/17 15:14; Start 09/17/17 at 23:30 Budesonide (Pulmicort) 0.5 mg RTBID NEB ; Start 09/18/17 at 08:00 Methylprednisolone Acetate (DEPO-Medrol 80MG VIAL) 80 mg 1X ONCE INJ ; Start 09/18/17 at 11:00; Stop 09/18/17 at 11:01; Status DC Lidocaine/ Epinephrine (Xylocaine 1%-Epi 1:100,000) 10 ml 1X ONCE INJ ; Start 09/18/17 at 11:00; Stop 09/18/17 at 11:01; Status DC Active Scripts Active Reported Percocet 10-325 Mg Tablet (Oxycodone/Acetaminophen) 1 Each Tablet 1 Tab PO Q4- 6HRS Plaquenil (Hydroxychloroquine Sulfate) 200 Mg Tablet 200 Mg PO BID Promethazine-Codeine Syrup (Promethazine Hcl/Codeine) 118 Ml Syrup 10 Ml PO PRN Q4-6HRS PRN Furosemide 20 Mg Tablet 20 Mg PO BID Potassium Chloride 20 Meq Tablet.er 20 Meq PO TID Cetirizine Hcl 10 Mg Tab.chew 10 Mg PO DAILY Ambien (Zolpidem Tartrate) 10 Mg Tablet 10 Mg PO HS PRN Aldactone (Spironolactone) 50 Mg Tablet 50 Mg PO BID Symbicort 160-4.5 Mcg Inhaler (Budesonide/Formoterol Fumarate) 10.2 Gm Hfa.aer.ad 2 Puff IH BID Percocet 5-325 Mg Tablet (Oxycodone/Acetaminophen) 1 Each Tablet 2 Tab PO Q4- 6HRS Reglan (Metoclopramide Hcl) 10 Mg Tablet 1 Tab PO TID Vitamin D3 (Cholecalciferol (Vitamin D3)) 5,000 Unit Tablet 5,000 Unit PO WEEKLY Xopenex (Levalbuterol Hcl) 1.25 Mg/3 Ml Vial.neb 1 Vial NEB TID Tablet (Pnv Cmb#95/Ferrous Fumarate/Fa) 1 Each Tablet 1 Tab PO DAILY Aller-Fex (Fexofenadine Hcl) 180 Mg Tablet 180 Mg PO DAILY Losartan Potassium 25 Mg Tablet 25 Mg PO DAILY Omeprazole 40 Mg Capsule.dr 40 Mg PO BID Gabapentin 100 Mg Capsule 400 Mg PO BID 30 Days Tamsulosin Hcl 0.4 Mg Cap.er.24h 0.4 Mg PO DAILY Fluoxetine Hcl 20 Mg Capsule 1 Cap PO DAILY Cyclobenzaprine Hcl 10 Mg Tablet 1 Tab PO TID Meclizine Hcl 25 Mg Tab.chew 25 Mg PO PRN BID PRN Xanax (Alprazolam) 1 Mg Tablet 1 Mg PO PRN TID PRN Seroquel (Quetiapine Fumarate) 100 Mg Tablet 100 Mg PO HS Allergies Allergies: Coded Allergies: prochlorperazine edisylate (Verified Allergy, Severe, 09/16/16) TOLERATES PHENERGAN W/CODEINE prochlorperazine maleate (Verified Allergy, Severe, 09/16/16) NSAIDS (Non-Steroidal Anti-Inflamma (Verified Allergy, Intermediate, 09/16) Penicillins (Verified Allergy, Intermediate, 09/16/16) "BEOMES UNCONSCIOUS Sulfa (Sulfonamide Antibiotics) (Verified Allergy, Intermediate, Rash, ) fentanyl (Verified Allergy, Intermediate, 05/21/17) HALLICINATIONS ONLY WITH PATCH meperidine HCl (Verified Allergy, Intermediate, TOLERATES FENTANYL, ) DEMEROL MAKES HER SPASTIC prednisone (Verified Allergy, Intermediate, 09/16/16) WATER RETENTION AND MAKES HER CONFUSED morphine (Verified Adverse Reaction, Severe, HALLUCINATES, 09/16/16) albuterol (Verified Adverse Reaction, Mild, pt refuses albuterol, 05/21/17) Physical Exam General: Alert, Oriented X3, Cooperative HEENT: PERRLA Lungs: Clear to auscultation Heart: S1S2, RRR, murmurs Abdomen: Normal bowel sounds, Soft Extremities: Other (both knees appear to have fluid and are tender and warm to touch.) Vitals Vitals Vital Signs Date Time Temp Pulse Resp B/P (MAP) Pulse Ox O2 Delivery O2 Flow Rate FiO2 09/18/17 15:14 18 Room Air 09/18/17 11:00 98.6 69 117/65 (82) 94 98.6 09/18/17 03:00 2.0 Labs Labs Laboratory Tests Test 09/17/17 18:15 09/18/17 06:35 White Blood Count 12.1 x10^3/uL (4.0-11.0) 9.4 x10^3/uL (4.0-11.0) Red Blood Count 3.92 x10^6/uL (3.50-5.40) 3.61 x10^6/uL (3.50-5.40) Hemoglobin 12.9 g/dL (12.0-15.5) 11.8 g/dL (12.0-15.5) Hematocrit 39.5 % (36.0-47.0) 36.3 % (36.0-47.0) Mean Corpuscular Volume 101 fL (79-100) 101 fL (79-100) Mean Corpuscular Hemoglobin 33 pg (25-35) 33 pg (25-35) Mean Corpuscular Hemoglobin Concent 33 g/dL (31-37) 33 g/dL (31-37) Red Cell Distribution Width 13.6 % (11.5-14.5) 13.5 % (11.5-14.5) Platelet Count 362 x10^3/uL (140-400) 323 x10^3/uL (140-400) Neutrophils (%) (Auto) 61 % (31-73) 61 % (31-73) Lymphocytes (%) (Auto) 27 % (24-48) 27 % (24-48) Monocytes (%) (Auto) 10 % (0-9) 10 % (0-9) Eosinophils (%) (Auto) 1 % (0-3) 2 % (0-3) Basophils (%) (Auto) 1 % (0-3) 1 % (0-3) Neutrophils # (Auto) 7.4 x10^3uL (1.8-7.7) 5.7 x10^3uL (1.8-7.7) Lymphocytes # (Auto) 3.2 x10^3/uL (1.0-4.8) 2.6 x10^3/uL (1.0-4.8) Monocytes # (Auto) 1.2 x10^3/uL (0.0-1.1) 0.9 x10^3/uL (0.0-1.1) Eosinophils # (Auto) 0.2 x10^3/uL (0.0-0.7) 0.2 x10^3/uL (0.0-0.7) Basophils # (Auto) 0.1 x10^3/uL (0.0-0.2) 0.1 x10^3/uL (0.0-0.2) Erythrocyte Sedimentation Rate 20 (0-25) Sodium Level 142 mmol/L (136-145) 138 mmol/L (136-145) Potassium Level 3.9 mmol/L (3.5-5.1) 3.8 mmol/L (3.5-5.1) Chloride Level 104 mmol/L (98-107) 101 mmol/L (98-107) Carbon Dioxide Level 31 mmol/L (21-32) 31 mmol/L (21-32) Anion Gap 7 (6-14) 6 (6-14) Blood Urea Nitrogen 25 mg/dL (7-20) 19 mg/dL (7-20) Creatinine 1.2 mg/dL (0.6-1.0) 1.1 mg/dL (0.6-1.0) Estimated GFR (Cockcroft-Gault) 44.4 49.1 BUN/Creatinine Ratio 21 (6-20) Glucose Level 126 mg/dL (70-99) 108 mg/dL (70-99) Calcium Level 9.5 mg/dL (8.5-10.1) 9.6 mg/dL (8.5-10.1) Total Bilirubin 0.3 mg/dL (0.2-1.0) Aspartate Amino Transf (AST/SGOT) 11 U/L (15-37) Alanine Aminotransferase (ALT/SGPT) 15 U/L (14-59) Alkaline Phosphatase 77 U/L (46-116) C-Reactive Protein, Quantitative 1.4 mg/L (0-3.3) Total Protein 7.1 g/dL (6.4-8.2) Albumin 3.3 g/dL (3.4-5.0) Albumin/Globulin Ratio 0.9 (1.0-1.7) Laboratory Tests Test 09/17/17 18:15 09/18/17 06:35 White Blood Count 12.1 x10^3/uL (4.0-11.0) 9.4 x10^3/uL (4.0-11.0) Red Blood Count 3.92 x10^6/uL (3.50-5.40) 3.61 x10^6/uL (3.50-5.40) Hemoglobin 12.9 g/dL (12.0-15.5) 11.8 g/dL (12.0-15.5) Hematocrit 39.5 % (36.0-47.0) 36.3 % (36.0-47.0) Mean Corpuscular Volume 101 fL (79-100) 101 fL (79-100) Mean Corpuscular Hemoglobin 33 pg (25-35) 33 pg (25-35) Mean Corpuscular Hemoglobin Concent 33 g/dL (31-37) 33 g/dL (31-37) Red Cell Distribution Width 13.6 % (11.5-14.5) 13.5 % (11.5-14.5) Platelet Count 362 x10^3/uL (140-400) 323 x10^3/uL (140-400) Neutrophils (%) (Auto) 61 % (31-73) 61 % (31-73) Lymphocytes (%) (Auto) 27 % (24-48) 27 % (24-48) Monocytes (%) (Auto) 10 % (0-9) 10 % (0-9) Eosinophils (%) (Auto) 1 % (0-3) 2 % (0-3) Basophils (%) (Auto) 1 % (0-3) 1 % (0-3) Neutrophils # (Auto) 7.4 x10^3uL (1.8-7.7) 5.7 x10^3uL (1.8-7.7) Lymphocytes # (Auto) 3.2 x10^3/uL (1.0-4.8) 2.6 x10^3/uL (1.0-4.8) Monocytes # (Auto) 1.2 x10^3/uL (0.0-1.1) 0.9 x10^3/uL (0.0-1.1) Eosinophils # (Auto) 0.2 x10^3/uL (0.0-0.7) 0.2 x10^3/uL (0.0-0.7) Basophils # (Auto) 0.1 x10^3/uL (0.0-0.2) 0.1 x10^3/uL (0.0-0.2) Erythrocyte Sedimentation Rate 20 (0-25) Sodium Level 142 mmol/L (136-145) 138 mmol/L (136-145) Potassium Level 3.9 mmol/L (3.5-5.1) 3.8 mmol/L (3.5-5.1) Chloride Level 104 mmol/L (98-107) 101 mmol/L (98-107) Carbon Dioxide Level 31 mmol/L (21-32) 31 mmol/L (21-32) Anion Gap 7 (6-14) 6 (6-14) Blood Urea Nitrogen 25 mg/dL (7-20) 19 mg/dL (7-20) Creatinine 1.2 mg/dL (0.6-1.0) 1.1 mg/dL (0.6-1.0) Estimated GFR (Cockcroft-Gault) 44.4 49.1 BUN/Creatinine Ratio 21 (6-20) Glucose Level 126 mg/dL (70-99) 108 mg/dL (70-99) Calcium Level 9.5 mg/dL (8.5-10.1) 9.6 mg/dL (8.5-10.1) Total Bilirubin 0.3 mg/dL (0.2-1.0) Aspartate Amino Transf (AST/SGOT) 11 U/L (15-37) Alanine Aminotransferase (ALT/SGPT) 15 U/L (14-59) Alkaline Phosphatase 77 U/L (46-116) C-Reactive Protein, Quantitative 1.4 mg/L (0-3.3) Total Protein 7.1 g/dL (6.4-8.2) Albumin 3.3 g/dL (3.4-5.0) Albumin/Globulin Ratio 0.9 (1.0-1.7) VTE Prophylaxis Ordered VTE Prophylaxis Devices: No VTE Pharmacological Prophylaxi: Yes Assessment/Plan Assessment/Plan S patient comes in with severe knee pain with possible effusions to both knees and perhaps a gouty attack. Will have the orthopedic service, and see the patient and see what they recommend to treat her. Would continue with her other medications for now. LORRIE HONG MD Sep 18, 2017 15:34
[2017-09-18 19:00] VITALS: BP 107/62
[2017-09-18] MEDS: QUEtiapine 100 MG TABLET. PO SCH (21:51)
[2017-09-18 23:00] VITALS: BP 116/70
[2017-09-19] MEDS: ZOLPIDEM 5 MG TABLET. PO PRN (00:16)
[2017-09-19 07:00] VITALS: BP 110/63
[2017-09-19] MEDS: METOCLOPRAMIDE 10 MG TABLET. PO SCH ×3 (07:57→20:18)
[2017-09-19] MEDS: CYCLOBENZAPRINE 10 MG TABLET. PO SCH ×3 (07:57→20:18)
[2017-09-19] MEDS: PRENATAL MULTIVITAMIN TABLET. PO SCH (07:57)
[2017-09-19] MEDS: GABAPENTIN 400 MG CAPSULE. PO SCH ×2 (07:57→20:18)
[2017-09-19] MEDS: SPIRONOLACTONE 25 MG TABLET PO SCH ×2 (07:57→14:08)
[2017-09-19] MEDS: TAMSULOSIN 0.4 MG CAP.ER.24H. PO SCH (07:58)
[2017-09-19] MEDS: CETIRIZINE HCL 10 MG TABLET. PO SCH (07:58)
[2017-09-19] MEDS: ALPRAZolam 1 MG TABLET PO PRN ×3 (07:58→20:18)
[2017-09-19] MEDS: FLUoxetine HCL 20 MG CAPSULE PO SCH (07:58)
[2017-09-19] MEDS: FUROSEMIDE 20 MG TABLET PO SCH ×2 (07:59→14:08)
[2017-09-19] MEDS: LOSARTAN POTASSIUM 25 MG TABLET. PO SCH (07:59)
[2017-09-19] MEDS: HYDROXYCHLOROQUINE 200 MG TABLET PO SCH ×2 (07:59→20:17)
[2017-09-19] MEDS: oxyCODONE/APAP 10/325 1 TAB TABLET PO PRN ×3 (08:01→20:17)
[2017-09-19] MEDS: POTASSIUM CHLORIDE 20 MEQ TABLET.ER. PO SCH ×3 (08:11→17:22)
[2017-09-19] MEDS ORDERED: ZOLPIDEM 5 MG TABLET. ONE (09:00)
[2017-09-19] MEDS ORDERED: methylPREDNISolone ACETATE 80 MG/ML VIAL. INJ ONE ×2 (09:00)
[2017-09-19] MEDS ORDERED: LIDOCAINE 1% PF 5 ML VIAL. INJ ONE ×2 (09:00)
[2017-09-19] MEDS ORDERED: SPIRONOLACTONE 25 MG TABLET ONE ×2 (09:00)
[2017-09-19 11:00] VITALS: BP 101/65
--- NOTE | 2017-09-19 11:27 | PDOC ---
ORTHO PROGRESS NOTES Subjective Knee pain largely unchanged Vitals Vital Signs Date Time Temp Pulse Resp B/P (MAP) Pulse Ox O2 Delivery O2 Flow Rate FiO2 09/19/17 08:01 20 Room Air 09/19/17 07:59 85 116/70 09/19/17 07:00 97.9 95 97.9 Labs Laboratory Tests Test 09/17/17 18:15 09/18/17 06:35 White Blood Count 12.1 x10^3/uL (4.0-11.0) 9.4 x10^3/uL (4.0-11.0) Red Blood Count 3.92 x10^6/uL (3.50-5.40) 3.61 x10^6/uL (3.50-5.40) Hemoglobin 12.9 g/dL (12.0-15.5) 11.8 g/dL (12.0-15.5) Hematocrit 39.5 % (36.0-47.0) 36.3 % (36.0-47.0) Mean Corpuscular Volume 101 fL (79-100) 101 fL (79-100) Mean Corpuscular Hemoglobin 33 pg (25-35) 33 pg (25-35) Mean Corpuscular Hemoglobin Concent 33 g/dL (31-37) 33 g/dL (31-37) Red Cell Distribution Width 13.6 % (11.5-14.5) 13.5 % (11.5-14.5) Platelet Count 362 x10^3/uL (140-400) 323 x10^3/uL (140-400) Neutrophils (%) (Auto) 61 % (31-73) 61 % (31-73) Lymphocytes (%) (Auto) 27 % (24-48) 27 % (24-48) Monocytes (%) (Auto) 10 % (0-9) 10 % (0-9) Eosinophils (%) (Auto) 1 % (0-3) 2 % (0-3) Basophils (%) (Auto) 1 % (0-3) 1 % (0-3) Neutrophils # (Auto) 7.4 x10^3uL (1.8-7.7) 5.7 x10^3uL (1.8-7.7) Lymphocytes # (Auto) 3.2 x10^3/uL (1.0-4.8) 2.6 x10^3/uL (1.0-4.8) Monocytes # (Auto) 1.2 x10^3/uL (0.0-1.1) 0.9 x10^3/uL (0.0-1.1) Eosinophils # (Auto) 0.2 x10^3/uL (0.0-0.7) 0.2 x10^3/uL (0.0-0.7) Basophils # (Auto) 0.1 x10^3/uL (0.0-0.2) 0.1 x10^3/uL (0.0-0.2) Erythrocyte Sedimentation Rate 20 (0-25) Sodium Level 142 mmol/L (136-145) 138 mmol/L (136-145) Potassium Level 3.9 mmol/L (3.5-5.1) 3.8 mmol/L (3.5-5.1) Chloride Level 104 mmol/L (98-107) 101 mmol/L (98-107) Carbon Dioxide Level 31 mmol/L (21-32) 31 mmol/L (21-32) Anion Gap 7 (6-14) 6 (6-14) Blood Urea Nitrogen 25 mg/dL (7-20) 19 mg/dL (7-20) Creatinine 1.2 mg/dL (0.6-1.0) 1.1 mg/dL (0.6-1.0) Estimated GFR (Cockcroft-Gault) 44.4 49.1 BUN/Creatinine Ratio 21 (6-20) Glucose Level 126 mg/dL (70-99) 108 mg/dL (70-99) Calcium Level 9.5 mg/dL (8.5-10.1) 9.6 mg/dL (8.5-10.1) Total Bilirubin 0.3 mg/dL (0.2-1.0) Aspartate Amino Transf (AST/SGOT) 11 U/L (15-37) Alanine Aminotransferase (ALT/SGPT) 15 U/L (14-59) Alkaline Phosphatase 77 U/L (46-116) C-Reactive Protein, Quantitative 1.4 mg/L (0-3.3) Total Protein 7.1 g/dL (6.4-8.2) Albumin 3.3 g/dL (3.4-5.0) Albumin/Globulin Ratio 0.9 (1.0-1.7) Notes A and A walking in room BLE: knee stable, skin intact, mild effusions ROM unchanged Assessment and Plan After sterile prep over superolateral bilateral knees, I injected 80mg Depo- Medrol and local anesthetic into the patient's bilateral knees without complication, Tolerated well. Clean dressing applied ok to WBAT, activity as tolerated, ok to D/C per primary f/u Ortho clinic in a couple weeks with Silvano or myself LILLEI ABBASI II, MD Sep 19, 2017 11:27
[2017-09-19] MEDS: PANTOPRAZOLE 40 MG TABLET.DR. PO SCH ×2 (11:29→17:21)
[2017-09-19] MEDS: HYDROmorphone 2 MG/ML VIAL IVP PRN ×2 (11:40→17:23)
[2017-09-19] MEDS: LEVALBUTEROL 1.25 MG/0.5 ML NEBU. NEB SCH ×3 (12:31→21:00)
[2017-09-19] MEDS: BUDESONIDE 0.5 MG/2 ML NEBU. NEB SCH ×2 (12:31→19:15)
--- NOTE | 2017-09-19 13:03 | PDOC ---
PROGRESS NOTES Subjective Subjective The patient had her knee injected earlier. She continues to complain of severe pain. Has not been able to get up and ambulate so far Objective Objective Vital Signs Date Time Temp Pulse Resp B/P (MAP) Pulse Ox O2 Delivery O2 Flow Rate FiO2 09/19/17 12:47 95 Room Air 09/19/17 12:10 20 09/19/17 11:00 97.5 78 101/65 (77) 97.5 09/18/17 03:00 2.0 Physical Exam Physical Exam No significant changes in cardiac exam Assessment Assessment Try to get the patient up and walking today. We will send her home as soon as we have better control of the pain. Problems Medical Problems: (1) Inability to walk Status: Acute (2) Knee pain, bilateral Status: Acute Comment Review of Relevant I have reviewed the following items kari (where applicable) has been applied. Labs Laboratory Tests Test 09/17/17 18:15 09/18/17 06:35 White Blood Count 12.1 x10^3/uL (4.0-11.0) 9.4 x10^3/uL (4.0-11.0) Red Blood Count 3.92 x10^6/uL (3.50-5.40) 3.61 x10^6/uL (3.50-5.40) Hemoglobin 12.9 g/dL (12.0-15.5) 11.8 g/dL (12.0-15.5) Hematocrit 39.5 % (36.0-47.0) 36.3 % (36.0-47.0) Mean Corpuscular Volume 101 fL (79-100) 101 fL (79-100) Mean Corpuscular Hemoglobin 33 pg (25-35) 33 pg (25-35) Mean Corpuscular Hemoglobin Concent 33 g/dL (31-37) 33 g/dL (31-37) Red Cell Distribution Width 13.6 % (11.5-14.5) 13.5 % (11.5-14.5) Platelet Count 362 x10^3/uL (140-400) 323 x10^3/uL (140-400) Neutrophils (%) (Auto) 61 % (31-73) 61 % (31-73) Lymphocytes (%) (Auto) 27 % (24-48) 27 % (24-48) Monocytes (%) (Auto) 10 % (0-9) 10 % (0-9) Eosinophils (%) (Auto) 1 % (0-3) 2 % (0-3) Basophils (%) (Auto) 1 % (0-3) 1 % (0-3) Neutrophils # (Auto) 7.4 x10^3uL (1.8-7.7) 5.7 x10^3uL (1.8-7.7) Lymphocytes # (Auto) 3.2 x10^3/uL (1.0-4.8) 2.6 x10^3/uL (1.0-4.8) Monocytes # (Auto) 1.2 x10^3/uL (0.0-1.1) 0.9 x10^3/uL (0.0-1.1) Eosinophils # (Auto) 0.2 x10^3/uL (0.0-0.7) 0.2 x10^3/uL (0.0-0.7) Basophils # (Auto) 0.1 x10^3/uL (0.0-0.2) 0.1 x10^3/uL (0.0-0.2) Erythrocyte Sedimentation Rate 20 (0-25) Sodium Level 142 mmol/L (136-145) 138 mmol/L (136-145) Potassium Level 3.9 mmol/L (3.5-5.1) 3.8 mmol/L (3.5-5.1) Chloride Level 104 mmol/L (98-107) 101 mmol/L (98-107) Carbon Dioxide Level 31 mmol/L (21-32) 31 mmol/L (21-32) Anion Gap 7 (6-14) 6 (6-14) Blood Urea Nitrogen 25 mg/dL (7-20) 19 mg/dL (7-20) Creatinine 1.2 mg/dL (0.6-1.0) 1.1 mg/dL (0.6-1.0) Estimated GFR (Cockcroft-Gault) 44.4 49.1 BUN/Creatinine Ratio 21 (6-20) Glucose Level 126 mg/dL (70-99) 108 mg/dL (70-99) Calcium Level 9.5 mg/dL (8.5-10.1) 9.6 mg/dL (8.5-10.1) Total Bilirubin 0.3 mg/dL (0.2-1.0) Aspartate Amino Transf (AST/SGOT) 11 U/L (15-37) Alanine Aminotransferase (ALT/SGPT) 15 U/L (14-59) Alkaline Phosphatase 77 U/L (46-116) C-Reactive Protein, Quantitative 1.4 mg/L (0-3.3) Total Protein 7.1 g/dL (6.4-8.2) Albumin 3.3 g/dL (3.4-5.0) Albumin/Globulin Ratio 0.9 (1.0-1.7) Medications Current Medications Hydromorphone HCl (Dilaudid) 1 mg 1X ONCE IV Last administered on 09/17/17 18:34; Start 09/17/17 at 17:45; Stop 09/17/17 at 17:49; Status DC Ondansetron HCl (Zofran) 4 mg PRN Q8HRS PRN IV NAUSEA/VOMITING Last administered on 09/17/17 18:33; Start 09/17/17 at 18:00; Stop 09/18/17 at 17 :59; Status DC Hydromorphone HCl (Dilaudid) 0.4 mg PRN Q4HRS PRN IVP PAIN Last administered on 09/19/17 11:40; Start 09/17/17 at 19:30 Alprazolam (Xanax) 1 mg PRN TID PRN PO ANXIETY / AGITATION Last administered on 09/19/17 07:58; Start 09/17/17 at 22:00 Cyclobenzaprine HCl (Flexeril) 10 mg TID PO Last administered on 09/19/17 07: 57; Start 09/17/17 at 22:00 Fluoxetine HCl (PROzac) 20 mg DAILY PO Last administered on 09/19/17 07:58; Start 09/18/17 at 09:00 Furosemide (Lasix) 20 mg [id number] PO Last administered on 09/19/17 07:59; Start 09/18/17 at 09:00 Gabapentin (Neurontin) 400 mg BID PO Last administered on 09/19/17 07:57; Start 09/17/17 at 22:00 Hydroxychloroquine Sulfate (Plaquenil) 200 mg BID PO Last administered on 09/19 07:59; Start 09/17/17 at 22:00 Losartan Potassium (Cozaar) 25 mg DAILY PO Last administered on 09/19/17 07: 59; Start 09/18/17 at 09:00 Metoclopramide HCl (Reglan) 10 mg TID PO Last administered on 09/19/17 07:57 ; Start 09/17/17 at 22:00 Promethazine HCl/ Codeine (Phenergan With Codeine) 10 ml PRN Q4HRS PRN PO COUGH ; Start 09/17/17 at 22:00 Quetiapine Fumarate (SEROquel) 100 mg HS PO Last administered on 09/18/17 21: 51; Start 09/17/17 at 22:00 Tamsulosin HCl (Flomax) 0.4 mg DAILY PO Last administered on 09/19/17 07:58; Start 09/18/17 at 09:00 Non-Formulary Medication 2 puff BID IH ; Start 09/18/17 at 09:00; Status UNV Cetirizine HCl (ZyrTEC) 10 mg DAILY PO Last administered on 09/19/17 07:58; Start 09/18/17 at 09:00 Vitamin D (Vitamin D3) 5,000 unit WEEKLY PO ; Start 09/24/17 at 09:00 Non-Formulary Medication 180 mg DAILY PO ; Start 09/18/17 at 09:00; Status UNV Levalbuterol HCl (Xopenex) 1.25 mg TID NEB Last administered on 09/19/17 12: 31; Start 09/18/17 at 09:00 Meclizine HCl (Antivert) 25 mg PRN BID PRN PO DIZZINESS; Start 09/17/17 at 22: 00 Pantoprazole Sodium (Protonix) 40 mg [id number] PO Last administered on 09/19/17 11:29; Start 09/18/17 at 07:00 Multivit/ Folic Acid/Iron (Multivitamin ) 1 tab DAILY PO Last administered on 09/19/17 07:57; Start 09/18/17 at 09:00 Potassium Chloride (Klor-Con) 20 meq TIDWMEALS PO Last administered on 11/18/ 17at 12:19; Start 09/18/17 at 08:00 Spironolactone (Aldactone) 50 mg [id number] PO Last administered on 09/19/17 07:57 ; Start 09/18/17 at 09:00 Zolpidem Tartrate (Ambien) 5 mg PRN QHS PRN PO INSOMNIA/MAY REPEAT X 1 PRN Last administered on 09/19/17 00:16; Start 09/17/17 at 22:00 Oxycodone/ Acetaminophen (Percocet 10/325) 2 tab PRN Q6HRS PRN PO PAIN Last administered on 09/19/17 08:01; Start 09/17/17 at 23:30 Budesonide (Pulmicort) 0.5 mg RTBID NEB Last administered on 09/19/17 12:31; Start 09/18/17 at 08:00 Methylprednisolone Acetate (DEPO-Medrol 80MG VIAL) 80 mg 1X ONCE INJ Last administered on 09/19/17 11:47; Start 09/18/17 at 11:00; Stop 09/18/17 at 11 :01; Status DC Lidocaine/ Epinephrine (Xylocaine 1%-Epi 1:100,000) 10 ml 1X ONCE INJ Last administered on 09/19/17 11:53; Start 09/18/17 at 11:00; Stop 09/18/17 at 11 :01; Status DC Methylprednisolone Acetate (DEPO-Medrol 80MG VIAL) 80 mg 1X ONCE INJ ; Start 09/19/17 at 09:00; Stop 09/19/17 at 09:01; Status DC Methylprednisolone Acetate (DEPO-Medrol 80MG VIAL) 80 mg 1X ONCE INJ ; Start 09/19/17 at 09:00; Stop 09/19/17 at 09:01; Status DC Lidocaine HCl (Xylocaine-Mpf 1% Vial) 10 ml 1X ONCE INJ Last administered on 09/19/17 11:48; Start 09/19/17 at 09:00; Stop 09/19/17 at 09:01; Status DC Lidocaine HCl (Xylocaine-Mpf 1% Vial) 10 ml 1X ONCE INJ ; Start 09/19/17 at 09 :00; Stop 09/19/17 at 09:01; Status DC Active Scripts Active Reported Percocet 10-325 Mg Tablet (Oxycodone/Acetaminophen) 1 Each Tablet 1 Tab PO Q4- 6HRS Plaquenil (Hydroxychloroquine Sulfate) 200 Mg Tablet 200 Mg PO BID Promethazine-Codeine Syrup (Promethazine Hcl/Codeine) 118 Ml Syrup 10 Ml PO PRN Q4-6HRS PRN Furosemide 20 Mg Tablet 20 Mg PO BID Potassium Chloride 20 Meq Tablet.er 20 Meq PO TID Cetirizine Hcl 10 Mg Tab.chew 10 Mg PO DAILY Ambien (Zolpidem Tartrate) 10 Mg Tablet 10 Mg PO HS PRN Aldactone (Spironolactone) 50 Mg Tablet 50 Mg PO BID Symbicort 160-4.5 Mcg Inhaler (Budesonide/Formoterol Fumarate) 10.2 Gm Hfa.aer.ad 2 Puff IH BID Percocet 5-325 Mg Tablet (Oxycodone/Acetaminophen) 1 Each Tablet 2 Tab PO Q4- 6HRS Reglan (Metoclopramide Hcl) 10 Mg Tablet 1 Tab PO TID Vitamin D3 (Cholecalciferol (Vitamin D3)) 5,000 Unit Tablet 5,000 Unit PO WEEKLY Xopenex (Levalbuterol Hcl) 1.25 Mg/3 Ml Vial.neb 1 Vial NEB TID Tablet (Pnv Cmb#95/Ferrous Fumarate/Fa) 1 Each Tablet 1 Tab PO DAILY Aller-Fex (Fexofenadine Hcl) 180 Mg Tablet 180 Mg PO DAILY Losartan Potassium 25 Mg Tablet 25 Mg PO DAILY Omeprazole 40 Mg Capsule.dr 40 Mg PO BID Gabapentin 100 Mg Capsule 400 Mg PO BID 30 Days Tamsulosin Hcl 0.4 Mg Cap.er.24h 0.4 Mg PO DAILY Fluoxetine Hcl 20 Mg Capsule 1 Cap PO DAILY Cyclobenzaprine Hcl 10 Mg Tablet 1 Tab PO TID Meclizine Hcl 25 Mg Tab.chew 25 Mg PO PRN BID PRN Xanax (Alprazolam) 1 Mg Tablet 1 Mg PO PRN TID PRN Seroquel (Quetiapine Fumarate) 100 Mg Tablet 100 Mg PO HS Vitals/I & O Vital Sign - Last 24 Hours 09/18/17 09/18/17 09/18/17 09/18/17 15:00 15:14 18:36 19:00 Temp 98.7 98.3 98.7 98.3 Pulse 87 89 Resp 18 18 18 18 B/P (MAP) 110/65 (80) 107/62 (77) Pulse Ox 95 93 O2 Delivery Room Air Room Air Room Air Room Air 09/18/17 09/18/17 09/18/17 09/18/17 20:00 21:52 22:55 23:00 Temp 98.0 98.0 Pulse 85 Resp 20 18 B/P (MAP) 116/70 (85) Pulse Ox 96 96 O2 Delivery Room Air Room Air 09/19/17 09/19/17 09/19/17 09/19/17 03:00 07:00 07:59 08:00 Temp 97.9 97.9 Pulse 69 85 Resp 18 16 B/P (MAP) 110/63 (79) 116/70 Pulse Ox 95 O2 Delivery Room Air Room Air 09/19/17 09/19/17 09/19/17 09/19/17 08:01 09:01 11:00 11:40 Temp 97.5 97.5 Pulse 78 Resp 20 20 18 20 B/P (MAP) 101/65 (77) Pulse Ox 95 O2 Delivery Room Air Room Air Room Air Room Air 09/19/17 09/19/17 12:10 12:47 Resp 20 Pulse Ox 95 O2 Delivery Room Air Room Air LORRIE HONG MD Sep 19, 2017 13:03
[2017-09-19 15:03] VITALS: BP 101/44
[2017-09-19 19:00] VITALS: BP 136/46
[2017-09-19 23:00] VITALS: BP 114/58
[2017-09-19] MEDS: QUEtiapine 100 MG TABLET. PO SCH (23:00)
[2017-09-20] MEDS: ZOLPIDEM 5 MG TABLET. PO PRN (00:59)
[2017-09-20 03:00] VITALS: BP 113/54
[2017-09-20] MEDS: ALPRAZolam 1 MG TABLET PO PRN (07:13)
[2017-09-20] MEDS: PANTOPRAZOLE 40 MG TABLET.DR. PO SCH (07:13)
[2017-09-20] MEDS: oxyCODONE/APAP 10/325 1 TAB TABLET PO PRN ×2 (07:14→12:57)
[2017-09-20] MEDS: BUDESONIDE 0.5 MG/2 ML NEBU. NEB SCH (07:28)
[2017-09-20] MEDS: LEVALBUTEROL 1.25 MG/0.5 ML NEBU. NEB SCH (07:30)
[2017-09-20 07:50] VITALS: BP 120/64
--- NOTE | 2017-09-20 07:52 | PDOC ---
ORTHO PROGRESS NOTES Subjective Injections did not help that much, even during anesthetic phase. She has been using a walker Vitals Vital Signs Date Time Temp Pulse Resp B/P (MAP) Pulse Ox O2 Delivery O2 Flow Rate FiO2 09/20/17 07:31 97 Room Air 09/20/17 03:00 97.5 79 18 113/54 (73) 97.5 Notes A and A in bed BLE: ROM unchanged, mild effusions Assessment and Plan home per primary f/u in Ortho in 3-4 wks, call [phone] for appt LILLIE ABBASI II, MD Sep 20, 2017 07:52
[2017-09-20] MEDS ORDERED: SPIRONOLACTONE 25 MG TABLET ONE (09:00)
[2017-09-20] MEDS ORDERED: ZOLPIDEM 5 MG TABLET. ONE (09:00)
[2017-09-20] MEDS: CYCLOBENZAPRINE 10 MG TABLET. PO SCH (09:12)
[2017-09-20] MEDS: PRENATAL MULTIVITAMIN TABLET. PO SCH (09:12)
[2017-09-20] MEDS: SPIRONOLACTONE 25 MG TABLET PO SCH (09:12)
[2017-09-20] MEDS: METOCLOPRAMIDE 10 MG TABLET. PO SCH (09:12)
[2017-09-20] MEDS: TAMSULOSIN 0.4 MG CAP.ER.24H. PO SCH (09:13)
[2017-09-20] MEDS: LOSARTAN POTASSIUM 25 MG TABLET. PO SCH (09:13)
[2017-09-20] MEDS: FLUoxetine HCL 20 MG CAPSULE PO SCH (09:13)
[2017-09-20] MEDS: GABAPENTIN 400 MG CAPSULE. PO SCH (09:13)
[2017-09-20] MEDS: CETIRIZINE HCL 10 MG TABLET. PO SCH (09:13)
[2017-09-20] MEDS: HYDROXYCHLOROQUINE 200 MG TABLET PO SCH (09:13)
[2017-09-20] MEDS: FUROSEMIDE 20 MG TABLET PO SCH (09:14)
[2017-09-20] MEDS: POTASSIUM CHLORIDE 20 MEQ TABLET.ER. PO SCH ×2 (09:14→12:56)
[2017-09-20 11:00] VITALS: BP 106/53
--- NOTE | 2017-09-20 12:05 | PDOC3 ---
Discharge Summary* Date of Admission: Sep 17, 2017 Date of Discharge: Sep 20, 2017 Admitting Diagnosis Problems Medical Problems: (1) Inability to walk Status: Acute (2) Knee pain, bilateral Status: Acute Problems: Final Diagnosis Problems Medical Problems: (1) Inability to walk Status: Acute (2) Knee pain, bilateral Status: Acute Arthritis Sarcoidosis COPD CONSULTS Orthopedics Procedures Knee injections Brief Hospital Course Is a 72-year-old lady with a known history of valvular heart disease, COPD, sarcoidosis, arthritis that came in with severe knee pains and unable to ambulate. After she came in give her some pain medication and then consulted the orthopedic service. They came and evaluated the patient and then it was decided to inject the knees. After that she has had some slow improvement and today appears to be feeling better therefore it was decided to discharge the patient today and to be followed as an outpatient with further shots in the knee. I have discussed with the patient about her situation, diagnosis, diet, activity , medications and follow-up. Please see the MRAD for the list of discharge medications. The patient is being discharged home in stable condition. CONDITION AT DISCHARGE: Stable Scheduled Budesonide/Formoterol Fumarate (Symbicort 160-4.5 Mcg Inhaler), 2 PUFF IH BID, ( Reported) Cetirizine Hcl (Cetirizine Hcl), 10 MG PO DAILY, (Reported) Cholecalciferol (Vitamin D3) (Vitamin D3), 5,000 UNIT PO WEEKLY, (Reported) Cyclobenzaprine Hcl (Cyclobenzaprine Hcl), 1 TAB PO TID, (Reported) Fexofenadine Hcl (Aller-Fex), 180 MG PO DAILY, (Reported) Fluoxetine Hcl (Fluoxetine Hcl), 1 CAP PO DAILY, (Reported) Furosemide (Furosemide), 20 MG PO BID, (Reported) Gabapentin (Gabapentin), 400 MG PO BID, (Reported) Hydroxychloroquine Sulfate (Plaquenil), 200 MG PO BID, (Reported) Levalbuterol Hcl (Xopenex), 1 VIAL NEB TID, (Reported) Losartan Potassium (Losartan Potassium), 25 MG PO DAILY, (Reported) Metoclopramide Hcl (Reglan), 1 TAB PO TID, (Reported) Omeprazole (Omeprazole), 40 MG PO BID, (Reported) Oxycodone/Apap 10-325 (Percocet 10-325 Mg Tablet), 1 TAB PO Q4-6HRS, (Reported) Oxycodone/Apap 5-325 (Percocet 5-325 Mg Tablet), 2 TAB PO Q4-6HRS, (Reported) Pnv Cmb#95/Ferrous Fumarate/Fa ( Tablet), 1 TAB PO DAILY, (Reported) Potassium Chloride (Potassium Chloride), 20 MEQ PO TID, (Reported) Quetiapine Fumarate (Seroquel), 100 MG PO HS, (Reported) Spironolactone (Aldactone), 50 MG PO BID, (Reported) Tamsulosin Hcl (Tamsulosin Hcl), 0.4 MG PO DAILY, (Reported) Scheduled PRN Alprazolam (Xanax), 1 MG PO PRN TID PRN for ANXIETY / AGITATION, (Reported) Meclizine Hcl (Meclizine Hcl), 25 MG PO PRN BID PRN for DIZZINESS, (Reported) Promethazine Hcl/Codeine (Promethazine-Codeine Syrup), 10 ML PO PRN Q4-6HRS PRN for COUGH, (Reported) Zolpidem Tartrate (Ambien), 10 MG PO HS PRN for INSOMNIA, (Reported) Time Spent Total time spent with patient [] minutes for coordination of care, counseling, and education. LORRIE HONG MD Sep 20, 2017 12:05
[2017-09-20] MEDS ORDERED: METHYLNALTREXONE 12 MG/0.6 ML VIAL. SQ ONE (13:30)
[2017-09-20] MEDS ORDERED: HEPARIN PF 500 UNIT/5 ML DISP.SYRIN. IV ONE (14:00)
[2017-09-24] MEDS ORDERED: CHOLECALCIFEROL (VITAMIN D3) 5,000 UNIT CAPSULE PO SCH (09:00)
== END 2017-09-20 14:16 | disposition home or self-care (01) | DRG 554 ==
LOC: ER 17:19 → 4 NORTH 17:45
PROVIDERS: ADMIT Internal Medicine Cardiovascular Disease; ATTEND Internal Medicine Cardiovascular Disease
PROC: 3E0U33Z Introduction of Anti-inflammatory into Joints, Percutaneous Approach (ICD-10-PCS; principal; 2017-09-19)
PROC: 3E0U3BZ Introduction of Anesthetic Agent into Joints, Percutaneous Approach (ICD-10-PCS; 2017-09-19)
DX: M17.0 Bilateral primary osteoarthritis of knee (principal); I48.91 Unspecified atrial fibrillation; I50.9 Heart failure, unspecified; I11.0 Hypertensive heart disease with heart failure; E11.9 Type 2 diabetes mellitus without complications; Z88.6 Allergy status to analgesic agent; Z88.0 Allergy status to penicillin; Z79.51 Long term (current) use of inhaled steroids; Z82.49 Family history of ischemic heart disease and other diseases of the circulatory system; J44.9 Chronic obstructive pulmonary disease, unspecified; Z90.710 Acquired absence of both cervix and uterus; D86.9 Sarcoidosis, unspecified; F41.9 Anxiety disorder, unspecified; Z90.81 Acquired absence of spleen; Z87.11 Personal history of peptic ulcer disease; F32.9 Major depressive disorder, single episode, unspecified; Z95.2 Presence of prosthetic heart valve; K21.9 Gastro-esophageal reflux disease without esophagitis; Z85.89 Personal history of malignant neoplasm of other organs and systems; I35.9 Nonrheumatic aortic valve disorder, unspecified; Z90.49 Acquired absence of other specified parts of digestive tract; Z98.51 Tubal ligation status; Z98.49 Cataract extraction status, unspecified eye; Z83.3 Family history of diabetes mellitus; Z84.1 Family history of disorders of kidney and ureter; Z84.89 Family history of other specified conditions
CPT/HCPCS: 36415; 80048; 80053; 85025; 85651; 86140; 93923; 93970; 94640; 94760; 96374; 96375; J1040; J1170; J2212; J2405; J3490; J7626; J8597; 99285-25

== ENCOUNTER 2017-09-25 14:05 | Inpatient (IN) | payer MEDICARE, OTHER ==
[~2017-09-25] VITALS: Ht 160 cm; Wt 72.4 kg
[~2017-09-25 14:05] MED LIST changes: +OXYC-328 PO
[2017-09-25] MEDS ORDERED: 0.9 % SOD CHL for STERILE FIELD 10 ML DISP.SYRIN. ONE (15:42)
[2017-09-25] MEDS ORDERED: oxyCODONE/APAP 5/325 1 TAB TABLET PO ONE (15:45)
--- NOTE | 2017-09-25 16:09 | ED.ADGEN ---
Past Medical History Past Medical History: Cancer, CHF, COPD, GERD, UTI, Other Additional Past Medical Histor: sarcodosis, skin CA Past Surgical History: Hysterectomy, Splenectomy, Other Additional Past Surgical Histo: OPEN HEART SGRY AORTIC VALVE X 2,L SHOULDER SURG Alcohol Use: Occasionally Drug Use: None Adult General Chief Complaint Chief Complaint: LOWER EXTREMITY SWELLING HPI HPI Patient is a 72 year old woman, history of COPD, CHF, sarcoidosis, chronic bilateral knee pain for which she received steroid injections approximately week ago, who presents emergency department complaining of worsening right knee pain. Patient states she's been taking her medications as directed, although she did not take any pain medication prior to coming to the ED today, with progressively worsening pain in the right knee. She states she was told during her previous admission that she would most likely require surgery on the knee, however she did decline surgery at that time, but this point states she is unable to stand or ambulate due to the severe degree of pain. She denies any recent falls or injuries, last fall was about 6 weeks ago, she denies any fevers or chills, any nausea or vomiting, any shortness breath, chest pain, urinary complaints. She did speak with Dr. Ocampo her primary care provider prior to coming to the ED. She's been seen by Dr. Blank of orthopedics. Review of Systems Review of Systems Constitutional: Denies fever or chills. [] Eyes: Denies change in visual acuity. [] HENT: Denies nasal congestion or sore throat. [] Respiratory: Denies cough or shortness of breath. [] Cardiovascular: Denies chest pain or edema. [] GI: Denies abdominal pain, nausea, vomiting, bloody stools or diarrhea. [] : Denies dysuria. [] Musculoskeletal: Denies back pain, complaining of pain in the right knee, progressively worsening, currently unable ambulate secondary to degree of pain. Integument: Denies rash. [] Neurologic: Denies headache, focal weakness or sensory changes. [] Endocrine: Denies polyuria or polydipsia. [] Lymphatic: Denies swollen glands. [] Psychiatric: Denies depression or anxiety. [] Current Medications Current Medications Current Medications Medications (Trade) Dose Ordered Sig/Mariana Start Time Stop Time Status Last Admin Dose Admin Oxycodone/ Acetaminophen (Percocet 5/325) 1 tab 1X ONCE 09/25/17 15:45 09/25/17 15:46 DC 09/25/17 15:49 1 TAB Allergies Allergies Allergies Coded Allergies Type Severity Reaction Last Updated Verified prochlorperazine edisylate Allergy Severe 09/16/16 Yes prochlorperazine maleate Allergy Severe 09/16/16 Yes NSAIDS (Non-Steroidal Anti-Inflamma Allergy Intermediate 09/16/16 Yes Penicillins Allergy Intermediate 09/16/16 Yes Sulfa (Sulfonamide Antibiotics) Allergy Intermediate Rash 09/16/16 Yes fentanyl Allergy Intermediate 05/21/17 Yes meperidine HCl Allergy Intermediate TOLERATES FENTANYL 09/16/16 Yes prednisone Allergy Intermediate 09/16/16 Yes morphine Adverse Reaction Severe HALLUCINATES 09/16/16 Yes albuterol Adverse Reaction Mild pt refuses albuterol 05/21/17 Yes Physical Exam Physical Exam Constitutional: Well developed, well nourished, no acute distress, non-toxic appearance. [] HENT: Normocephalic, atraumatic, bilateral external ears normal, oropharynx moist, no oral exudates, nose normal. [] Eyes: PERRLA, EOMI, conjunctiva normal, no discharge. [] Neck: Normal range of motion, no tenderness, supple, no stridor. [] Cardiovascular:Heart rate regular rhythm, no murmur, S1, S2, no rubs or gallops. [] Lungs & Thorax: Diminished breath sounds at bases bilaterally, no rhonchi, rales , or wheezing appreciated. No chest wall crepitus or tenderness. Abdomen: Bowel sounds normal, soft, no rebound, rigidity, no guarding, no tenderness, no masses, no pulsatile masses. [] Skin: Warm, dry, no erythema, no rash. [] Back: No tenderness, no CVA tenderness. [] Extremities: Patient with mild swelling noted to both knees, patient with tenderness palpation throughout both knees, without evidence of effusion, erythema, patient is able to flex and extend knee, with pain, states that she has worse pain with weightbearing, evidence of chronic changes consistent with arthritis, no evidence of acute abnormalities or injury, no cyanosis, no clubbing, ROM intact, no edema. [] Neurologic: Alert and oriented X 3, normal motor function, normal sensory function, no focal deficits noted. [] Psychologic: Affect normal, judgement normal, mood normal. [] Current Patient Data Vital Signs Vital Signs Date Time Temp Pulse Resp B/P (MAP) Pulse Ox O2 Delivery O2 Flow Rate FiO2 09/25/17 14:41 97.8 96 16 137/66 (89) 98 Room Air 97.8 Lab Values Laboratory Tests Test 09/25/17 15:50 White Blood Count 10.5 x10^3/uL (4.0-11.0) Red Blood Count 3.90 x10^6/uL (3.50-5.40) Hemoglobin 13.0 g/dL (12.0-15.5) Hematocrit 39.3 % (36.0-47.0) Mean Corpuscular Volume 101 fL (79-100) H Mean Corpuscular Hemoglobin 33 pg (25-35) Mean Corpuscular Hemoglobin Concent 33 g/dL (31-37) Red Cell Distribution Width 13.9 % (11.5-14.5) Platelet Count 249 x10^3/uL (140-400) Neutrophils (%) (Auto) 61 % (31-73) Lymphocytes (%) (Auto) 30 % (24-48) Monocytes (%) (Auto) 8 % (0-9) Eosinophils (%) (Auto) 1 % (0-3) Basophils (%) (Auto) 1 % (0-3) Neutrophils # (Auto) 6.3 x10^3uL (1.8-7.7) Lymphocytes # (Auto) 3.1 x10^3/uL (1.0-4.8) Monocytes # (Auto) 0.8 x10^3/uL (0.0-1.1) Eosinophils # (Auto) 0.1 x10^3/uL (0.0-0.7) Basophils # (Auto) 0.1 x10^3/uL (0.0-0.2) Laboratory Tests 09/25/17 15:50 EKG EKG Not indicated. Radiology/Procedures Radiology/Procedures Not indicated.[] Course & Med Decision Making Course & Med Decision Making Pertinent Labs and Imaging studies reviewed. (See chart for details) I spoke with Dr. Ocampo, who requests the patient be admitted to his service with a placement for orthopedic surgery consultation, and due to intractable pain with failure of outpatient management of right knee pain, inability to ambulate safely secondary to pain. Patient is agreeable this plan. Did receive Percocet in the emergency department laboratory studies. Bridge orders placed per discussion, consultation placed for Dr. Blank of orthopedics. Dragon Disclaimer Dragon Disclaimer This electronic medical record was generated, in whole or in part, using a voice recognition dictation system. Departure Impression: Primary Impression: Intractable neuropathic pain of right knee Additional Impression: Knee pain Disposition: ADMITTED INPATIENT Admitting Physician: Jose Maria Ocampo Condition: STABLE Problem Qualifiers JEROME GALVIN DO Sep 25, 2017 16:09
[2017-09-25 16:15] LABS: BASO # 0.1 x10^3/uL (0.0-0.2); BASO % 1 % (0-3); EOS % 1 % (0-3); HEMATOCRIT 39.3 % (36.0-47.0); LYMPH # 3.1 x10^3/uL (1.0-4.8); LYMPH % 30 % (24-48); MEAN CORPUSCULAR HEMOGLOBIN 33 pg (25-35); MEAN CORPUSCULAR HGB CONC 33 g/dL (31-37); MEAN CORPUSCULAR VOLUME 101 fL (79-100); MONO % 8 % (0-9); NEUT % 61 % (31-73); PLATELET COUNT 249 x10^3/uL (140-400); RED CELL DISTRIBUTION WIDTH 13.9 % (11.5-14.5); WHITE BLOOD COUNT 10.5 x10^3/uL (4.0-11.0)
[2017-09-25] MEDS ORDERED: ACETAMINOPHEN 325 MG TABLET. PO PRN (16:15)
[2017-09-25] MEDS ORDERED: ONDANSETRON PF 4 MG/2 ML VIAL. IV PRN (16:15)
[2017-09-25 16:26] LABS: CREATININE 1.2 mg/dL (0.6-1.0); GFR 44.4; POTASSIUM 3.6 mmol/L (3.5-5.1)
[2017-09-25 16:31] LABS: ALBUMIN 3.4 g/dL (3.4-5.0); TOTAL BILIRUBIN 0.4 mg/dL (0.2-1.0); TOTAL PROTEIN 6.8 g/dL (6.4-8.2)
[2017-09-25 17:14] VITALS: BP 123/77
[2017-09-25] MEDS ORDERED: oxyCODONE/APAP 10/325 1 TAB TABLET PO SCH (18:00)
[2017-09-25] MEDS: ALPRAZolam 1 MG TABLET PO PRN (18:11)
[2017-09-25] MEDS: DOCUSATE SODIUM 100 MG CAPSULE. PO SCH (18:11)
[2017-09-25] MEDS ORDERED: oxyCODONE/APAP 10/325 1 TAB TABLET PO PRN (18:15)
[2017-09-25] MEDS ORDERED: MECLIZINE HCL 12.5 MG TABLET. PO PRN (18:15)
[2017-09-25] MEDS ORDERED: ZOLPIDEM 5 MG TABLET. PO PRN (18:30)
[2017-09-25] MEDS: POTASSIUM CHLORIDE 20 MEQ TABLET.ER. PO SCH (18:31)
[2017-09-25] MEDS: METOCLOPRAMIDE 10 MG TABLET. PO SCH (18:33)
[2017-09-25 19:58] VITALS: BP 123/81
[2017-09-25] MEDS: oxyCODONE/APAP 10/325 1 TAB TABLET PO PRN (20:15)
[2017-09-25] MEDS: HYDROmorphone 2 MG/ML VIAL IVP PRN (20:16)
[2017-09-25] MEDS: CYCLOBENZAPRINE 10 MG TABLET. PO SCH (20:30)
[2017-09-25] MEDS: HYDROXYCHLOROQUINE 200 MG TABLET PO SCH (20:30)
[2017-09-25] MEDS: GABAPENTIN 400 MG CAPSULE. PO SCH (20:30)
[2017-09-25] MEDS: BUDESONIDE 0.5 MG/2 ML NEBU. NEB SCH (20:58)
[2017-09-25] MEDS: LEVALBUTEROL 1.25 MG/0.5 ML NEBU. NEB SCH (20:59)
[2017-09-25] MEDS: QUEtiapine 100 MG TABLET. PO SCH (23:15)
[2017-09-25 23:38] LABS: BILIRUBIN,URINE NEGATIVE (NEG); GLUCOSE,URINE NEGATIVE (NEG); NITRITE,URINE NEGATIVE (NEG); PROTEIN,URINE NEGATIVE (NEG-TRACE); UROBILINOGEN,URINE 0.2 mg/dL (0.2 mg/dL)
[2017-09-25 23:59] VITALS: BP 104/57
[2017-09-26] VITALS (8 sets, daily range): BP systolic 87–117; BP diastolic 38–64
[2017-09-26 00:13] LABS: BACTERIA,URINE 0 /HPF (0-FEW)
[2017-09-26] MEDS: oxyCODONE/APAP 10/325 1 TAB TABLET PO PRN ×4 (00:15→19:29)
[2017-09-26] MEDS: ZOLPIDEM 5 MG TABLET. PO PRN (00:55)
[2017-09-26] MEDS: HYDROmorphone 2 MG/ML VIAL IVP PRN ×2 (03:19→10:28)
[2017-09-26] MEDS: ALPRAZolam 1 MG TABLET PO PRN ×3 (06:15→19:28)
[2017-09-26] MEDS: LEVALBUTEROL 1.25 MG/0.5 ML NEBU. NEB SCH ×3 (08:01→18:09)
[2017-09-26] MEDS: BUDESONIDE 0.5 MG/2 ML NEBU. NEB SCH ×2 (08:01→18:09)
[2017-09-26] MEDS ORDERED: FEXOFENADINE HCL 180 MG PO SCH (09:00)
[2017-09-26] MEDS: METOCLOPRAMIDE 10 MG TABLET. PO SCH ×3 (09:34→17:17)
[2017-09-26] MEDS: SPIRONOLACTONE 25 MG TABLET PO SCH ×2 (09:34→16:00)
[2017-09-26] MEDS: FLUoxetine HCL 20 MG CAPSULE PO SCH (09:35)
[2017-09-26] MEDS: POTASSIUM CHLORIDE 20 MEQ TABLET.ER. PO SCH ×3 (09:35→17:17)
[2017-09-26] MEDS: LOSARTAN POTASSIUM 25 MG TABLET. PO SCH (09:35)
[2017-09-26] MEDS: CETIRIZINE HCL 10 MG TABLET. PO SCH (09:35)
[2017-09-26] MEDS: PANTOPRAZOLE 40 MG TABLET.DR. PO SCH (09:35)
[2017-09-26] MEDS: TAMSULOSIN 0.4 MG CAP.ER.24H. PO SCH (09:36)
[2017-09-26] MEDS: HYDROXYCHLOROQUINE 200 MG TABLET PO SCH ×2 (09:36→19:30)
[2017-09-26] MEDS: DOCUSATE SODIUM 100 MG CAPSULE. PO SCH (09:36)
[2017-09-26] MEDS: GABAPENTIN 400 MG CAPSULE. PO SCH ×2 (09:36→19:28)
[2017-09-26] MEDS: FUROSEMIDE 20 MG TABLET PO SCH ×2 (09:36→16:00)
[2017-09-26] MEDS: CYCLOBENZAPRINE 10 MG TABLET. PO SCH ×3 (09:36→19:28)
[2017-09-26] MEDS: PRENATAL MULTIVITAMIN TABLET. PO SCH (09:36)
--- NOTE | 2017-09-26 11:26 | PDOC1 ---
History and Physical Date of Admission Date of Admission DATE: 09/26/17 TIME: : Identification/Chief Complaint Chief Complaint Knee pain Problems: History of Present Illness History of Present Illness This patient is a 72-year-old lady with a known history of congenital valvular heart disease and has had aortic valve replacement done twice. She also has sarcoidosis and significant COPD. She is a nonsmoker. Recently the patient has been admitted twice developed severe knee pain and the orthopedic surgeons had seen her and told her that she would need to have knee surgery. The patient wanted to try first to have a shot and after the shot was given to both knees she went home. After she arrived at home she continued to have intractable knee pain worse on the right than on the left and was very weak, she has had a fall and could no longer walk and therefore she came back to the emergency room where she was seen and evaluated and it was decided to admit her. At the time that I saw her the patient denies having any cardiac issues. He is complaining of a severe knee pain like a hot knife stuck in her knee and she cannot stand or walk. She denies having any chest pains, no palpitations, no significant dyspnea. Past Medical History Cardiovascular: AFIB, HTN, Aortic stenosis, Other Pulmonary: Asthma, Bronchitis, COPD, Pneumonia, Other CENTRAL NERVOUS SYSTEM: Periperal neuropathy, Vertigo, Other GI: GERD, Peptic Ulcer disease Heme/Onc: Cancer, Other Psych: Anxiety, Depression Musculoskeletal: low back pain Rheumatologic: Other Renal/: Acute renal failure Endocrine: Diabetes Past Surgical History Past Surgical History: Appendectomy, Cataract Removal, Tubal Ligation, Hysterectomy, Other Family History Family History: Coronary Artery Disease, Diabetes, Heart Disease, Hypertension , Kidney Disease, Family History Unknown, Other Social History ALCOHOL: none Drugs: None Current Medications Current Medications Current Medications Oxycodone/ Acetaminophen (Percocet 5/325) 1 tab 1X ONCE PO Last administered on 09/25/17t 15:49; Start 09/25/17 at 15:45; Stop 09/25/17 at 15:46; Status DC Ondansetron HCl (Zofran) 4 mg PRN Q8HRS PRN IV NAUSEA/VOMITING; Start at 16:15; Stop 09/26/17 at 16:14 Acetaminophen (Tylenol) 650 mg PRN Q4HRS PRN PO FEVER; Start 09/25/17 at 16:15 ; Stop 09/26/17 at 16:14 Hydromorphone HCl (Dilaudid) 0.2 mg PRN Q4HRS PRN IVP PAIN Last administered on 09/26/17 10:28; Start 09/25/17 at 16:15 Docusate Sodium (Colace) 100 mg DAILY PO Last administered on 09/26/17 09:36 ; Start 09/25/17 at 17:00 Alprazolam (Xanax) 1 mg PRN TID PRN PO ANXIETY / AGITATION Last administered on 09/26/17 06:15; Start 09/25/17 at 18:00 Cyclobenzaprine HCl (Flexeril) 10 mg TID PO Last administered on 09/26/17 09: 36; Start 09/25/17 at 21:00 Fluoxetine HCl (PROzac) 20 mg DAILY PO Last administered on 09/26/17 09:35; Start 09/26/17 at 09:00 Furosemide (Lasix) 20 mg [id number] PO Last administered on 09/26/17 09:36; Start 09/26/17 at 09:00 Gabapentin (Neurontin) 400 mg BID PO Last administered on 09/26/17 09:36; Start 09/25/17 at 21:00 Hydroxychloroquine Sulfate (Plaquenil) 200 mg BID PO Last administered on 09/26 09:36; Start 09/25/17 at 21:00 Losartan Potassium (Cozaar) 25 mg DAILY PO Last administered on 09/26/17 09: 35; Start 09/26/17 at 09:00 Metoclopramide HCl (Reglan) 10 mg TIDAC PO Last administered on 09/26/17 09: 34; Start 09/25/17 at 18:30 Oxycodone/ Acetaminophen (Percocet 10/325) 1 tab PRN Q6HRS PO ; Start at 18:00; Stop 09/25/17 at 18:05; Status DC Quetiapine Fumarate (SEROquel) 100 mg HS PO Last administered on 09/25/17 23: 15; Start 09/25/17 at 21:00 Tamsulosin HCl (Flomax) 0.4 mg DAILY PO Last administered on 09/26/17 09:36; Start 09/26/17 at 09:00 Budesonide (Pulmicort) 0.5 mg BID NEB Last administered on 09/26/17 08:01; Start 09/25/17 at 21:00 Cetirizine HCl (ZyrTEC) 10 mg DAILY PO Last administered on 09/26/17 09:35; Start 09/26/17 at 09:00 Vitamin D (Vitamin D3) 5,000 unit WEEKLY PO ; Start 10/02/17 at 09:00 Non-Formulary Medication 180 mg DAILY PO ; Start 09/26/17 at 09:00; Status UNV Levalbuterol HCl (Xopenex) 1.25 mg TID NEB Last administered on 09/26/17 08: 01; Start 09/25/17 at 21:00 Meclizine HCl (Antivert) 25 mg PRN BID PRN PO DIZZINESS; Start 09/25/17 at 18: 15 Pantoprazole Sodium (Protonix) 40 mg DAILYAC PO Last administered on 09:35; Start 09/26/17 at 07:30 Multivit/ Folic Acid/Iron (Multivitamin ) 1 tab DAILY PO Last administered on 09/26/17 09:36; Start 09/26/17 at 09:00 Potassium Chloride (Klor-Con) 20 meq TIDWMEALS PO Last administered on 09:35; Start 09/25/17 at 18:30 Spironolactone (Aldactone) 50 mg [id number] PO Last administered on 09/26/17 09:34 ; Start 09/26/17 at 09:00 Zolpidem Tartrate (Ambien) 5 mg PRN QHS PRN PO INSOMNIA, MAY REPEAT X1; Start 09/25/17 at 18:30; Stop 09/25/17 at 20:22; Status DC Oxycodone/ Acetaminophen (Percocet 10/325) 1 tab PRN Q6HRS PRN PO PAIN Last administered on 09/25/17 18:12; Start 09/25/17 at 18:15; Stop 09/25/17 at 18 :20; Status DC Oxycodone/ Acetaminophen (Percocet 10/325) 2 tab PRN Q6HRS PRN PO PAIN Last administered on 09/26/17 06:15; Start 09/25/17 at 18:30 Zolpidem Tartrate (Ambien) 10 mg PRN QHS PRN PO INSOMNIA Last administered on 09/26/17 00:55; Start 09/25/17 at 20:22 Active Scripts Active Reported Percocet 10-325 Mg Tablet (Oxycodone/Acetaminophen) 1 Each Tablet 1 Tab PO Q4- 6HRS Plaquenil (Hydroxychloroquine Sulfate) 200 Mg Tablet 200 Mg PO BID Promethazine-Codeine Syrup (Promethazine Hcl/Codeine) 118 Ml Syrup 10 Ml PO PRN Q4-6HRS PRN Furosemide 20 Mg Tablet 20 Mg PO BID Potassium Chloride 20 Meq Tablet.er 20 Meq PO TID Cetirizine Hcl 10 Mg Tab.chew 10 Mg PO DAILY Ambien (Zolpidem Tartrate) 10 Mg Tablet 10 Mg PO HS PRN Aldactone (Spironolactone) 50 Mg Tablet 50 Mg PO BID Symbicort 160-4.5 Mcg Inhaler (Budesonide/Formoterol Fumarate) 10.2 Gm Hfa.aer.ad 2 Puff IH BID Percocet 5-325 Mg Tablet (Oxycodone/Acetaminophen) 1 Each Tablet 2 Tab PO Q4- 6HRS Reglan (Metoclopramide Hcl) 10 Mg Tablet 1 Tab PO TID Vitamin D3 (Cholecalciferol (Vitamin D3)) 5,000 Unit Tablet 5,000 Unit PO WEEKLY Xopenex (Levalbuterol Hcl) 1.25 Mg/3 Ml Vial.neb 1 Vial NEB TID Tablet (Pnv Cmb#95/Ferrous Fumarate/Fa) 1 Each Tablet 1 Tab PO DAILY Aller-Fex (Fexofenadine Hcl) 180 Mg Tablet 180 Mg PO DAILY Losartan Potassium 25 Mg Tablet 25 Mg PO DAILY Omeprazole 40 Mg Capsule.dr 40 Mg PO BID Gabapentin 100 Mg Capsule 400 Mg PO BID 30 Days Tamsulosin Hcl 0.4 Mg Cap.er.24h 0.4 Mg PO DAILY Fluoxetine Hcl 20 Mg Capsule 1 Cap PO DAILY Cyclobenzaprine Hcl 10 Mg Tablet 1 Tab PO TID Meclizine Hcl 25 Mg Tab.chew 25 Mg PO PRN BID PRN Xanax (Alprazolam) 1 Mg Tablet 1 Mg PO PRN TID PRN Seroquel (Quetiapine Fumarate) 100 Mg Tablet 100 Mg PO HS Allergies Allergies: Coded Allergies: prochlorperazine edisylate (Verified Allergy, Severe, 09/16/16) TOLERATES PHENERGAN W/CODEINE prochlorperazine maleate (Verified Allergy, Severe, 09/16/16) NSAIDS (Non-Steroidal Anti-Inflamma (Verified Allergy, Intermediate, 09/16) Penicillins (Verified Allergy, Intermediate, 09/16/16) "BEOMES UNCONSCIOUS Sulfa (Sulfonamide Antibiotics) (Verified Allergy, Intermediate, Rash, ) fentanyl (Verified Allergy, Intermediate, 05/21/17) HALLICINATIONS ONLY WITH PATCH meperidine HCl (Verified Allergy, Intermediate, TOLERATES FENTANYL, ) DEMEROL MAKES HER SPASTIC prednisone (Verified Allergy, Intermediate, 09/16/16) WATER RETENTION AND MAKES HER CONFUSED morphine (Verified Adverse Reaction, Severe, HALLUCINATES, 09/16/16) albuterol (Verified Adverse Reaction, Mild, pt refuses albuterol, 05/21/17) Physical Exam General: Alert, Oriented X3, Cooperative, moderate distress HEENT: Atraumatic, PERRLA Lungs: Clear to auscultation Heart: S1S2, RRR, no rubs, murmurs, no jug vein distention Abdomen: Normal bowel sounds, Soft Extremities: Other (there is tenderness over the right knee and it also has a decreased rather limited range of motion due to pain. The left knee is not as tender and does not appear to have a significant amount of fluid. The range of motion of the left knee is a little better.) Vitals Vitals Vital Signs Date Time Temp Pulse Resp B/P (MAP) Pulse Ox O2 Delivery O2 Flow Rate FiO2 09/26/17 11:09 97.9 88 18 100/62 (75) 97 Room Air 97.9 09/26/17 06:15 2.0 Labs Labs Laboratory Tests Test 09/25/17 15:50 09/25/17 23:10 White Blood Count 10.5 x10^3/uL (4.0-11.0) Red Blood Count 3.90 x10^6/uL (3.50-5.40) Hemoglobin 13.0 g/dL (12.0-15.5) Hematocrit 39.3 % (36.0-47.0) Mean Corpuscular Volume 101 fL (79-100) Mean Corpuscular Hemoglobin 33 pg (25-35) Mean Corpuscular Hemoglobin Concent 33 g/dL (31-37) Red Cell Distribution Width 13.9 % (11.5-14.5) Platelet Count 249 x10^3/uL (140-400) Neutrophils (%) (Auto) 61 % (31-73) Lymphocytes (%) (Auto) 30 % (24-48) Monocytes (%) (Auto) 8 % (0-9) Eosinophils (%) (Auto) 1 % (0-3) Basophils (%) (Auto) 1 % (0-3) Neutrophils # (Auto) 6.3 x10^3uL (1.8-7.7) Lymphocytes # (Auto) 3.1 x10^3/uL (1.0-4.8) Monocytes # (Auto) 0.8 x10^3/uL (0.0-1.1) Eosinophils # (Auto) 0.1 x10^3/uL (0.0-0.7) Basophils # (Auto) 0.1 x10^3/uL (0.0-0.2) Sodium Level 143 mmol/L (136-145) Potassium Level 3.6 mmol/L (3.5-5.1) Chloride Level 106 mmol/L (98-107) Carbon Dioxide Level 29 mmol/L (21-32) Anion Gap 8 (6-14) Blood Urea Nitrogen 27 mg/dL (7-20) Creatinine 1.2 mg/dL (0.6-1.0) Estimated GFR (Cockcroft-Gault) 44.4 BUN/Creatinine Ratio 23 (6-20) Glucose Level 141 mg/dL (70-99) Calcium Level 9.0 mg/dL (8.5-10.1) Total Bilirubin 0.4 mg/dL (0.2-1.0) Aspartate Amino Transf (AST/SGOT) 13 U/L (15-37) Alanine Aminotransferase (ALT/SGPT) 19 U/L (14-59) Alkaline Phosphatase 65 U/L (46-116) Total Protein 6.8 g/dL (6.4-8.2) Albumin 3.4 g/dL (3.4-5.0) Albumin/Globulin Ratio 1.0 (1.0-1.7) Urine Collection Type Unknown Urine Color Yellow Urine Clarity Clear Urine pH 6.0 Urine Specific [place] 1.010 Urine Protein Negative mg/dL (NEG-TRACE) Urine Glucose (UA) Negative mg/dL (NEG) Urine Ketones (Stick) Negative mg/dL (NEG) Urine Blood Negative (NEG) Urine Nitrite Negative (NEG) Urine Bilirubin Negative (NEG) Urine Urobilinogen Dipstick 0.2 mg/dL (0.2 mg/dL) Urine Leukocyte Esterase Small (NEG) Urine RBC 1-2 /HPF (0-2) Urine WBC 5-10 /HPF (0-4) Urine Squamous Epithelial Cells None /LPF Urine Bacteria 0 /HPF (0-FEW) Laboratory Tests Test 09/25/17 15:50 09/25/17 23:10 White Blood Count 10.5 x10^3/uL (4.0-11.0) Red Blood Count 3.90 x10^6/uL (3.50-5.40) Hemoglobin 13.0 g/dL (12.0-15.5) Hematocrit 39.3 % (36.0-47.0) Mean Corpuscular Volume 101 fL (79-100) Mean Corpuscular Hemoglobin 33 pg (25-35) Mean Corpuscular Hemoglobin Concent 33 g/dL (31-37) Red Cell Distribution Width 13.9 % (11.5-14.5) Platelet Count 249 x10^3/uL (140-400) Neutrophils (%) (Auto) 61 % (31-73) Lymphocytes (%) (Auto) 30 % (24-48) Monocytes (%) (Auto) 8 % (0-9) Eosinophils (%) (Auto) 1 % (0-3) Basophils (%) (Auto) 1 % (0-3) Neutrophils # (Auto) 6.3 x10^3uL (1.8-7.7) Lymphocytes # (Auto) 3.1 x10^3/uL (1.0-4.8) Monocytes # (Auto) 0.8 x10^3/uL (0.0-1.1) Eosinophils # (Auto) 0.1 x10^3/uL (0.0-0.7) Basophils # (Auto) 0.1 x10^3/uL (0.0-0.2) Sodium Level 143 mmol/L (136-145) Potassium Level 3.6 mmol/L (3.5-5.1) Chloride Level 106 mmol/L (98-107) Carbon Dioxide Level 29 mmol/L (21-32) Anion Gap 8 (6-14) Blood Urea Nitrogen 27 mg/dL (7-20) Creatinine 1.2 mg/dL (0.6-1.0) Estimated GFR (Cockcroft-Gault) 44.4 BUN/Creatinine Ratio 23 (6-20) Glucose Level 141 mg/dL (70-99) Calcium Level 9.0 mg/dL (8.5-10.1) Total Bilirubin 0.4 mg/dL (0.2-1.0) Aspartate Amino Transf (AST/SGOT) 13 U/L (15-37) Alanine Aminotransferase (ALT/SGPT) 19 U/L (14-59) Alkaline Phosphatase 65 U/L (46-116) Total Protein 6.8 g/dL (6.4-8.2) Albumin 3.4 g/dL (3.4-5.0) Albumin/Globulin Ratio 1.0 (1.0-1.7) Urine Collection Type Unknown Urine Color Yellow Urine Clarity Clear Urine pH 6.0 Urine Specific [place] 1.010 Urine Protein Negative mg/dL (NEG-TRACE) Urine Glucose (UA) Negative mg/dL (NEG) Urine Ketones (Stick) Negative mg/dL (NEG) Urine Blood Negative (NEG) Urine Nitrite Negative (NEG) Urine Bilirubin Negative (NEG) Urine Urobilinogen Dipstick 0.2 mg/dL (0.2 mg/dL) Urine Leukocyte Esterase Small (NEG) Urine RBC 1-2 /HPF (0-2) Urine WBC 5-10 /HPF (0-4) Urine Squamous Epithelial Cells None /LPF Urine Bacteria 0 /HPF (0-FEW) VTE Prophylaxis Ordered VTE Prophylaxis Devices: No VTE Pharmacological Prophylaxi: Yes Assessment/Plan Assessment/Plan This patient returns with severe intractable knee pain and is unable to stand or walk and actually she has already had a recent fall due to the pain on weakness of the knee. I'm going to consult the orthopedic service and see what they recommend. I would like to get an MRI of both knees but in the past when we attempted to do an MRI here due to her valve that is a prosthetic tissue valve with a ring we were informed that she could not be done in the particular machine that we have here and she had to be sent to an outside facility by ambulance to have the MRI done and then returned here. We may need to do that to be able to get the MRI of the knees. Presently we need to get her pain under control and I did not want to discharge her to home because of the intractable pain and the fact that she can continues to return to try to get the pain under control. LORRIE HONG MD Sep 26, 2017 11:26
[2017-09-26] MEDS: QUEtiapine 100 MG TABLET. PO SCH (23:03)
[2017-09-27] VITALS (7 sets, daily range): BP systolic 90–124; BP diastolic 55–67
[2017-09-27] MEDS: ZOLPIDEM 5 MG TABLET. PO PRN (00:06)
[2017-09-27] MEDS: HYDROmorphone 2 MG/ML VIAL IVP PRN (00:07)
[2017-09-27] MEDS: LEVALBUTEROL 1.25 MG/0.5 ML NEBU. NEB SCH ×3 (07:48→20:11)
[2017-09-27] MEDS: BUDESONIDE 0.5 MG/2 ML NEBU. NEB SCH ×2 (07:48→20:11)
[2017-09-27] MEDS: METOCLOPRAMIDE 10 MG TABLET. PO SCH ×3 (08:00→17:40)
[2017-09-27] MEDS: PANTOPRAZOLE 40 MG TABLET.DR. PO SCH (08:00)
--- NOTE | 2017-09-27 08:05 | RAD ---
KNEE RIGHT 3V History:right knee pain Comparison: 06/26/2016 Findings:3 views of the right knee are submitted. No acute fracture or dislocation is identified. There is mild narrowing of the medial compartment joint space. Impression: 1.No acute osseous abnormality is identified.
[2017-09-27] MEDS: CYCLOBENZAPRINE 10 MG TABLET. PO SCH ×3 (09:00→20:37)
[2017-09-27] MEDS: SPIRONOLACTONE 25 MG TABLET PO SCH ×2 (09:00→17:40)
[2017-09-27] MEDS: LOSARTAN POTASSIUM 25 MG TABLET. PO SCH (09:00)
[2017-09-27] MEDS: DOCUSATE SODIUM 100 MG CAPSULE. PO SCH (09:16)
[2017-09-27] MEDS: PRENATAL MULTIVITAMIN TABLET. PO SCH (09:16)
[2017-09-27] MEDS: FLUoxetine HCL 20 MG CAPSULE PO SCH (09:16)
[2017-09-27] MEDS: CETIRIZINE HCL 10 MG TABLET. PO SCH (09:16)
[2017-09-27] MEDS: TAMSULOSIN 0.4 MG CAP.ER.24H. PO SCH (09:17)
[2017-09-27] MEDS: HYDROXYCHLOROQUINE 200 MG TABLET PO SCH ×2 (09:17→20:37)
[2017-09-27] MEDS: FUROSEMIDE 20 MG TABLET PO SCH ×2 (09:17→17:40)
[2017-09-27] MEDS: POTASSIUM CHLORIDE 20 MEQ TABLET.ER. PO SCH ×3 (09:17→17:40)
[2017-09-27] MEDS: GABAPENTIN 400 MG CAPSULE. PO SCH ×2 (09:17→20:37)
[2017-09-27] MEDS: oxyCODONE/APAP 10/325 1 TAB TABLET PO PRN ×3 (09:32→22:34)
[2017-09-27] MEDS: ALPRAZolam 1 MG TABLET PO PRN ×3 (09:32→22:35)
--- NOTE | 2017-09-27 10:00 | PDOC ---
PROGRESS NOTES Subjective Subjective Problems overnight: Objective Vital Signs Vital Signs Date Time Temp Pulse Resp B/P (MAP) Pulse Ox O2 Delivery O2 Flow Rate FiO2 09/27/17 09:32 16 Room Air 09/27/17 07:48 95 09/27/17 07:00 98.3 82 124/66 (85) 98.3 09/27/17 00:57 2.0 Labs Laboratory Tests Test 09/25/17 15:50 09/25/17 23:10 White Blood Count 10.5 x10^3/uL (4.0-11.0) Red Blood Count 3.90 x10^6/uL (3.50-5.40) Hemoglobin 13.0 g/dL (12.0-15.5) Hematocrit 39.3 % (36.0-47.0) Mean Corpuscular Volume 101 fL (79-100) Mean Corpuscular Hemoglobin 33 pg (25-35) Mean Corpuscular Hemoglobin Concent 33 g/dL (31-37) Red Cell Distribution Width 13.9 % (11.5-14.5) Platelet Count 249 x10^3/uL (140-400) Neutrophils (%) (Auto) 61 % (31-73) Lymphocytes (%) (Auto) 30 % (24-48) Monocytes (%) (Auto) 8 % (0-9) Eosinophils (%) (Auto) 1 % (0-3) Basophils (%) (Auto) 1 % (0-3) Neutrophils # (Auto) 6.3 x10^3uL (1.8-7.7) Lymphocytes # (Auto) 3.1 x10^3/uL (1.0-4.8) Monocytes # (Auto) 0.8 x10^3/uL (0.0-1.1) Eosinophils # (Auto) 0.1 x10^3/uL (0.0-0.7) Basophils # (Auto) 0.1 x10^3/uL (0.0-0.2) Sodium Level 143 mmol/L (136-145) Potassium Level 3.6 mmol/L (3.5-5.1) Chloride Level 106 mmol/L (98-107) Carbon Dioxide Level 29 mmol/L (21-32) Anion Gap 8 (6-14) Blood Urea Nitrogen 27 mg/dL (7-20) Creatinine 1.2 mg/dL (0.6-1.0) Estimated GFR (Cockcroft-Gault) 44.4 BUN/Creatinine Ratio 23 (6-20) Glucose Level 141 mg/dL (70-99) Calcium Level 9.0 mg/dL (8.5-10.1) Total Bilirubin 0.4 mg/dL (0.2-1.0) Aspartate Amino Transf (AST/SGOT) 13 U/L (15-37) Alanine Aminotransferase (ALT/SGPT) 19 U/L (14-59) Alkaline Phosphatase 65 U/L (46-116) Total Protein 6.8 g/dL (6.4-8.2) Albumin 3.4 g/dL (3.4-5.0) Albumin/Globulin Ratio 1.0 (1.0-1.7) Urine Collection Type Unknown Urine Color Yellow Urine Clarity Clear Urine pH 6.0 Urine Specific [place] 1.010 Urine Protein Negative mg/dL (NEG-TRACE) Urine Glucose (UA) Negative mg/dL (NEG) Urine Ketones (Stick) Negative mg/dL (NEG) Urine Blood Negative (NEG) Urine Nitrite Negative (NEG) Urine Bilirubin Negative (NEG) Urine Urobilinogen Dipstick 0.2 mg/dL (0.2 mg/dL) Urine Leukocyte Esterase Small (NEG) Urine RBC 1-2 /HPF (0-2) Urine WBC 5-10 /HPF (0-4) Urine Squamous Epithelial Cells None /LPF Urine Bacteria 0 /HPF (0-FEW) Assessment Assessment POD# [], S/P [] Problems: Plan Plan of Care Full consult to follow. I spoke with the patient last night. She reports a history of "sepsis" in her right knee. received an injection by Dr Schaefer 1 week ago. 3 weeks of acute right knee pain , fell 6 weeks ago onto her knees but no pain at that time reports fevers and chills at home no warmth or erythema at the knee , minimal effusion. may need a joint aspiration. will order esr / crp for now. she may need an mri, but can't have one here due to her AVR. will follow up labs and decide on knee aspiration. recc pain control, pt/ot wbat. EWELINA VAZQUEZ MD Sep 27, 2017 10:00
--- NOTE | 2017-09-27 15:21 | PDOC ---
PROGRESS NOTES Subjective Subjective Patient continues to complain of severe knee pain. Her blood pressure has been labile. Ortho is seeing the patient. Objective Objective Vital Signs Date Time Temp Pulse Resp B/P (MAP) Pulse Ox O2 Delivery O2 Flow Rate FiO2 09/27/17 14:15 94 Room Air 09/27/17 13:39 90 94/58 (70) 09/27/17 11:43 98.1 18 98.1 09/27/17 00:57 2.0 Intake and Output 09/28/17 07:00 Intake Total 400 ml Balance 400 ml Intake Oral 400 ml Physical Exam Physical Exam No significant changes and cardiac exam. She continues with the tenderness of both knees worse on the right than on the left Assessment Assessment The patient is compensated cardiac-pozo. She needs to have an MRI done of both knees but she has an aortic valve replacement and it cannot be done here so she will need to be transported tomorrow to facility where they can do the MRI and then bring her back for whatever treatment or surgery may need to be done by the orthopedic service. Hold BP medications. Her hypotension is probably secondary to the pain medications that she's been getting. Comment Review of Relevant I have reviewed the following items kari (where applicable) has been applied. Labs Laboratory Tests Test 09/25/17 15:50 09/25/17 23:10 09/27/17 13:30 White Blood Count 10.5 x10^3/uL (4.0-11.0) Red Blood Count 3.90 x10^6/uL (3.50-5.40) Hemoglobin 13.0 g/dL (12.0-15.5) Hematocrit 39.3 % (36.0-47.0) Mean Corpuscular Volume 101 fL (79-100) Mean Corpuscular Hemoglobin 33 pg (25-35) Mean Corpuscular Hemoglobin Concent 33 g/dL (31-37) Red Cell Distribution Width 13.9 % (11.5-14.5) Platelet Count 249 x10^3/uL (140-400) Neutrophils (%) (Auto) 61 % (31-73) Lymphocytes (%) (Auto) 30 % (24-48) Monocytes (%) (Auto) 8 % (0-9) Eosinophils (%) (Auto) 1 % (0-3) Basophils (%) (Auto) 1 % (0-3) Neutrophils # (Auto) 6.3 x10^3uL (1.8-7.7) Lymphocytes # (Auto) 3.1 x10^3/uL (1.0-4.8) Monocytes # (Auto) 0.8 x10^3/uL (0.0-1.1) Eosinophils # (Auto) 0.1 x10^3/uL (0.0-0.7) Basophils # (Auto) 0.1 x10^3/uL (0.0-0.2) Sodium Level 143 mmol/L (136-145) Potassium Level 3.6 mmol/L (3.5-5.1) Chloride Level 106 mmol/L (98-107) Carbon Dioxide Level 29 mmol/L (21-32) Anion Gap 8 (6-14) Blood Urea Nitrogen 27 mg/dL (7-20) Creatinine 1.2 mg/dL (0.6-1.0) Estimated GFR (Cockcroft-Gault) 44.4 BUN/Creatinine Ratio 23 (6-20) Glucose Level 141 mg/dL (70-99) Calcium Level 9.0 mg/dL (8.5-10.1) Total Bilirubin 0.4 mg/dL (0.2-1.0) Aspartate Amino Transf (AST/SGOT) 13 U/L (15-37) Alanine Aminotransferase (ALT/SGPT) 19 U/L (14-59) Alkaline Phosphatase 65 U/L (46-116) Total Protein 6.8 g/dL (6.4-8.2) Albumin 3.4 g/dL (3.4-5.0) Albumin/Globulin Ratio 1.0 (1.0-1.7) Urine Collection Type Unknown Urine Color Yellow Urine Clarity Clear Urine pH 6.0 Urine Specific [place] 1.010 Urine Protein Negative mg/dL (NEG-TRACE) Urine Glucose (UA) Negative mg/dL (NEG) Urine Ketones (Stick) Negative mg/dL (NEG) Urine Blood Negative (NEG) Urine Nitrite Negative (NEG) Urine Bilirubin Negative (NEG) Urine Urobilinogen Dipstick 0.2 mg/dL (0.2 mg/dL) Urine Leukocyte Esterase Small (NEG) Urine RBC 1-2 /HPF (0-2) Urine WBC 5-10 /HPF (0-4) Urine Squamous Epithelial Cells None /LPF Urine Bacteria 0 /HPF (0-FEW) Erythrocyte Sedimentation Rate 7 (0-25) C-Reactive Protein, Quantitative < 0.5 mg/L (0-3.3) Laboratory Tests Test 09/27/17 13:30 Erythrocyte Sedimentation Rate 7 (0-25) C-Reactive Protein, Quantitative < 0.5 mg/L (0-3.3) Medications Current Medications Oxycodone/ Acetaminophen (Percocet 5/325) 1 tab 1X ONCE PO Last administered on 09/25/17 15:49; Start 09/25/17 at 15:45; Stop 09/25/17 at 15:46; Status DC Ondansetron HCl (Zofran) 4 mg PRN Q8HRS PRN IV NAUSEA/VOMITING; Start at 16:15; Stop 09/26/17 at 16:14; Status DC Acetaminophen (Tylenol) 650 mg PRN Q4HRS PRN PO FEVER; Start 09/25/17 at 16:15 ; Stop 09/26/17 at 16:14; Status DC Hydromorphone HCl (Dilaudid) 0.2 mg PRN Q4HRS PRN IVP PAIN Last administered on 09/27/17 00:07; Start 09/25/17 at 16:15 Docusate Sodium (Colace) 100 mg DAILY PO Last administered on 09/27/17 09:16 ; Start 09/25/17 at 17:00 Alprazolam (Xanax) 1 mg PRN TID PRN PO ANXIETY / AGITATION Last administered on 09/27/17 09:32; Start 09/25/17 at 18:00 Cyclobenzaprine HCl (Flexeril) 10 mg TID PO Last administered on 09/26/17 19: 28; Start 09/25/17 at 21:00 Fluoxetine HCl (PROzac) 20 mg DAILY PO Last administered on 09/27/17 09:16; Start 09/26/17 at 09:00 Furosemide (Lasix) 20 mg [id number] PO Last administered on 09/27/17 09:17; Start 09/26/17 at 09:00 Gabapentin (Neurontin) 400 mg BID PO Last administered on 09/27/17 09:17; Start 09/25/17 at 21:00 Hydroxychloroquine Sulfate (Plaquenil) 200 mg BID PO Last administered on 09/27 09:17; Start 09/25/17 at 21:00 Losartan Potassium (Cozaar) 25 mg DAILY PO Last administered on 09/26/17 09: 35; Start 09/26/17 at 09:00 Metoclopramide HCl (Reglan) 10 mg TIDAC PO Last administered on 09/27/17 12: 15; Start 09/25/17 at 18:30 Oxycodone/ Acetaminophen (Percocet 10/325) 1 tab PRN Q6HRS PO ; Start at 18:00; Stop 09/25/17 at 18:05; Status DC Quetiapine Fumarate (SEROquel) 100 mg HS PO Last administered on 09/26/17 23: 03; Start 09/25/17 at 21:00 Tamsulosin HCl (Flomax) 0.4 mg DAILY PO Last administered on 09/27/17 09:17; Start 09/26/17 at 09:00 Budesonide (Pulmicort) 0.5 mg BID NEB Last administered on 09/27/17 07:48; Start 09/25/17 at 21:00 Cetirizine HCl (ZyrTEC) 10 mg DAILY PO Last administered on 09/27/17 09:16; Start 09/26/17 at 09:00 Vitamin D (Vitamin D3) 5,000 unit WEEKLY PO ; Start 10/02/17 at 09:00 Non-Formulary Medication 180 mg DAILY PO ; Start 09/26/17 at 09:00; Status UNV Levalbuterol HCl (Xopenex) 1.25 mg TID NEB Last administered on 09/27/17 14: 14; Start 09/25/17 at 21:00 Meclizine HCl (Antivert) 25 mg PRN BID PRN PO DIZZINESS; Start 09/25/17 at 18: 15 Pantoprazole Sodium (Protonix) 40 mg DAILYAC PO Last administered on 08:00; Start 09/26/17 at 07:30 Multivit/ Folic Acid/Iron (Multivitamin ) 1 tab DAILY PO Last administered on 09/27/17 09:16; Start 09/26/17 at 09:00 Potassium Chloride (Klor-Con) 20 meq TIDWMEALS PO Last administered on 12:15; Start 09/25/17 at 18:30 Spironolactone (Aldactone) 50 mg [id number] PO Last administered on 09/26/17 09:34 ; Start 09/26/17 at 09:00 Zolpidem Tartrate (Ambien) 5 mg PRN QHS PRN PO INSOMNIA, MAY REPEAT X1; Start 09/25/17 at 18:30; Stop 09/25/17 at 20:22; Status DC Oxycodone/ Acetaminophen (Percocet 10/325) 1 tab PRN Q6HRS PRN PO PAIN Last administered on 09/25/17 18:12; Start 09/25/17 at 18:15; Stop 09/25/17 at 18 :20; Status DC Oxycodone/ Acetaminophen (Percocet 10/325) 2 tab PRN Q6HRS PRN PO PAIN Last administered on 09/27/17 09:32; Start 09/25/17 at 18:30 Zolpidem Tartrate (Ambien) 10 mg PRN QHS PRN PO INSOMNIA Last administered on 09/27/17 00:06; Start 09/25/17 at 20:22 Active Scripts Active Reported Percocet 10-325 Mg Tablet (Oxycodone/Acetaminophen) 1 Each Tablet 1 Tab PO Q4- 6HRS Plaquenil (Hydroxychloroquine Sulfate) 200 Mg Tablet 200 Mg PO BID Promethazine-Codeine Syrup (Promethazine Hcl/Codeine) 118 Ml Syrup 10 Ml PO PRN Q4-6HRS PRN Furosemide 20 Mg Tablet 20 Mg PO BID Potassium Chloride 20 Meq Tablet.er 20 Meq PO TID Cetirizine Hcl 10 Mg Tab.chew 10 Mg PO DAILY Ambien (Zolpidem Tartrate) 10 Mg Tablet 10 Mg PO HS PRN Aldactone (Spironolactone) 50 Mg Tablet 50 Mg PO BID Symbicort 160-4.5 Mcg Inhaler (Budesonide/Formoterol Fumarate) 10.2 Gm Hfa.aer.ad 2 Puff IH BID Percocet 5-325 Mg Tablet (Oxycodone/Acetaminophen) 1 Each Tablet 2 Tab PO Q4- 6HRS Reglan (Metoclopramide Hcl) 10 Mg Tablet 1 Tab PO TID Vitamin D3 (Cholecalciferol (Vitamin D3)) 5,000 Unit Tablet 5,000 Unit PO WEEKLY Xopenex (Levalbuterol Hcl) 1.25 Mg/3 Ml Vial.neb 1 Vial NEB TID Tablet (Pnv Cmb#95/Ferrous Fumarate/Fa) 1 Each Tablet 1 Tab PO DAILY Aller-Fex (Fexofenadine Hcl) 180 Mg Tablet 180 Mg PO DAILY Losartan Potassium 25 Mg Tablet 25 Mg PO DAILY Omeprazole 40 Mg Capsule.dr 40 Mg PO BID Gabapentin 100 Mg Capsule 400 Mg PO BID 30 Days Tamsulosin Hcl 0.4 Mg Cap.er.24h 0.4 Mg PO DAILY Fluoxetine Hcl 20 Mg Capsule 1 Cap PO DAILY Cyclobenzaprine Hcl 10 Mg Tablet 1 Tab PO TID Meclizine Hcl 25 Mg Tab.chew 25 Mg PO PRN BID PRN Xanax (Alprazolam) 1 Mg Tablet 1 Mg PO PRN TID PRN Seroquel (Quetiapine Fumarate) 100 Mg Tablet 100 Mg PO HS Vitals/I & O Vital Sign - Last 24 Hours 09/26/17 09/26/17 09/26/17 09/26/17 16:15 17:18 18:10 18:14 Pulse 87 83 B/P (MAP) 93/54 (67) 99/54 (69) Pulse Ox 95 95 O2 Delivery Room Air Room Air 09/26/17 09/26/17 09/26/17 09/26/17 19:29 19:56 20:00 21:27 Temp 98.8 98.8 Pulse 92 Resp 18 18 18 B/P (MAP) 91/38 (55) Pulse Ox 98 O2 Delivery Room Air Room Air Room Air Room Air O2 Flow Rate 2.0 09/26/17 09/27/17 09/27/17 09/27/17 23:00 00:07 00:57 03:18 Temp 98.7 97.4 98.7 97.4 Pulse 79 85 Resp 20 20 18 18 B/P (MAP) 117/56 (76) 90/55 (67) Pulse Ox 98 96 O2 Delivery Nasal Cannula Nasal Cannula Nasal Cannula Room Air O2 Flow Rate 2.0 2.0 2.0 09/27/17 09/27/17 09/27/17 09/27/17 07:00 07:48 09:00 09:32 Temp 98.3 98.3 Pulse 82 82 Resp 18 16 B/P (MAP) 124/66 (85) 104/66 Pulse Ox 96 95 O2 Delivery Room Air Room Air Room Air 09/27/17 09/27/17 09/27/17 11:43 13:39 14:15 Temp 98.1 98.1 Pulse 88 90 Resp 18 B/P (MAP) 104/57 (73) 94/58 (70) Pulse Ox 95 94 O2 Delivery Room Air Room Air Intake and Output 09/27/17 09/27/17 09/28/17 15:00 23:00 07:00 Intake Total 400 ml Balance 400 ml LORRIE HONG MD Sep 27, 2017 15:21
[2017-09-27] MEDS: QUEtiapine 100 MG TABLET. PO SCH (22:33)
[2017-09-28] MEDS: ZOLPIDEM 5 MG TABLET. PO PRN ×2 (00:13→23:09)
[2017-09-28 03:00] VITALS: BP 106/58
[2017-09-28] MEDS: oxyCODONE/APAP 10/325 1 TAB TABLET PO PRN ×3 (06:28→20:11)
[2017-09-28 07:00] VITALS: BP 123/70
[2017-09-28] MEDS: GABAPENTIN 400 MG CAPSULE. PO SCH ×2 (08:40→20:11)
[2017-09-28] MEDS: PRENATAL MULTIVITAMIN TABLET. PO SCH (08:40)
[2017-09-28] MEDS: POTASSIUM CHLORIDE 20 MEQ TABLET.ER. PO SCH ×3 (08:41→17:17)
[2017-09-28] MEDS: PANTOPRAZOLE 40 MG TABLET.DR. PO SCH (08:41)
[2017-09-28] MEDS: FLUoxetine HCL 20 MG CAPSULE PO SCH (08:42)
[2017-09-28] MEDS: LOSARTAN POTASSIUM 25 MG TABLET. PO SCH (08:42)
[2017-09-28] MEDS: HYDROXYCHLOROQUINE 200 MG TABLET PO SCH ×2 (08:42→20:11)
[2017-09-28] MEDS: FUROSEMIDE 20 MG TABLET PO SCH ×2 (08:42→17:16)
[2017-09-28] MEDS: METOCLOPRAMIDE 10 MG TABLET. PO SCH ×3 (08:43→17:17)
[2017-09-28] MEDS: ALPRAZolam 1 MG TABLET PO PRN ×2 (08:43→15:23)
[2017-09-28] MEDS: CETIRIZINE HCL 10 MG TABLET. PO SCH (08:43)
[2017-09-28] MEDS: CYCLOBENZAPRINE 10 MG TABLET. PO SCH ×3 (08:43→20:11)
[2017-09-28] MEDS: DOCUSATE SODIUM 100 MG CAPSULE. PO SCH (08:46)
[2017-09-28] MEDS: TAMSULOSIN 0.4 MG CAP.ER.24H. PO SCH (08:46)
[2017-09-28] MEDS: SPIRONOLACTONE 25 MG TABLET PO SCH ×2 (08:47→17:16)
[2017-09-28] MEDS: LEVALBUTEROL 1.25 MG/0.5 ML NEBU. NEB SCH ×3 (08:50→20:05)
[2017-09-28] MEDS: BUDESONIDE 0.5 MG/2 ML NEBU. NEB SCH ×2 (08:51→20:05)
--- NOTE | 2017-09-28 09:52 | PDOC ---
PROGRESS NOTES Subjective Subjective Patient doing well this morning. Continues to report extreme knee pain with the R knee worse than the L. She denies any shortness of breath or cardiac complaints. BP labile overnight, beginning to stabilize this AM. No additional concerns at this time. Objective Objective Vital Signs Date Time Temp Pulse Resp B/P (MAP) Pulse Ox O2 Delivery O2 Flow Rate FiO2 09/28/17 09:03 96 Room Air 09/28/17 08:42 80 123/70 09/28/17 07:00 98.5 15 98.5 09/27/17 19:31 2.0 Intake and Output 09/28/17 06:59 Intake Total 3700 ml Output Total 2000 ml Balance 1700 ml Intake Oral 3700 ml Output Urine Total 2000 ml Physical Exam COMMENT Awake, Alert, Oriented No Acute Distress Lungs CTAB No change in cardiac exam No edema in LE b/l TTP around knees b/l; R>L Assessment Assessment The patient continues to be compensated cardiac-pozo. Continue to hold BP medications. Hypotension likely secondary to pain medications that patient is receiving. Ortho is following the patient. ESR came back wnl, patient needs to be transported to facility where they can do the MRI and then bring her back for whatever treatment or surgery may need to be done by the orthopedic service. Talked with nursing staff and older adult social work specialist regarding logistics of transportation and Medicare. Will continue to address this issue until plan is reached. Comment Review of Relevant I have reviewed the following items kari (where applicable) has been applied. Labs Laboratory Tests Test 09/27/17 13:30 Erythrocyte Sedimentation Rate 7 (0-25) C-Reactive Protein, Quantitative < 0.5 mg/L (0-3.3) Laboratory Tests Test 09/27/17 13:30 Erythrocyte Sedimentation Rate 7 (0-25) C-Reactive Protein, Quantitative < 0.5 mg/L (0-3.3) Medications Current Medications Oxycodone/ Acetaminophen (Percocet 5/325) 1 tab 1X ONCE PO Last administered on 09/25/17t 15:49; Start 09/25/17 at 15:45; Stop 09/25/17 at 15:46; Status DC Ondansetron HCl (Zofran) 4 mg PRN Q8HRS PRN IV NAUSEA/VOMITING; Start at 16:15; Stop 09/26/17 at 16:14; Status DC Acetaminophen (Tylenol) 650 mg PRN Q4HRS PRN PO FEVER; Start 09/25/17 at 16:15 ; Stop 09/26/17 at 16:14; Status DC Hydromorphone HCl (Dilaudid) 0.2 mg PRN Q4HRS PRN IVP PAIN Last administered on 09/27/17 00:07; Start 09/25/17 at 16:15 Docusate Sodium (Colace) 100 mg DAILY PO Last administered on 09/28/17 08:46 ; Start 09/25/17 at 17:00 Alprazolam (Xanax) 1 mg PRN TID PRN PO ANXIETY / AGITATION Last administered on 09/28/17 08:43; Start 09/25/17 at 18:00 Cyclobenzaprine HCl (Flexeril) 10 mg TID PO Last administered on 09/28/17 08: 43; Start 09/25/17 at 21:00 Fluoxetine HCl (PROzac) 20 mg DAILY PO Last administered on 09/28/17 08:42; Start 09/26/17 at 09:00 Furosemide (Lasix) 20 mg [id number] PO Last administered on 09/28/17 08:42; Start 09/26/17 at 09:00 Gabapentin (Neurontin) 400 mg BID PO Last administered on 09/28/17 08:40; Start 09/25/17 at 21:00 Hydroxychloroquine Sulfate (Plaquenil) 200 mg BID PO Last administered on 09/28 08:42; Start 09/25/17 at 21:00 Losartan Potassium (Cozaar) 25 mg DAILY PO Last administered on 09/28/17 08: 42; Start 09/26/17 at 09:00 Metoclopramide HCl (Reglan) 10 mg TIDAC PO Last administered on 09/28/17 08: 43; Start 09/25/17 at 18:30 Oxycodone/ Acetaminophen (Percocet 10/325) 1 tab PRN Q6HRS PO ; Start at 18:00; Stop 09/25/17 at 18:05; Status DC Quetiapine Fumarate (SEROquel) 100 mg HS PO Last administered on 09/27/17 22: 33; Start 09/25/17 at 21:00 Tamsulosin HCl (Flomax) 0.4 mg DAILY PO Last administered on 09/28/17 08:46; Start 09/26/17 at 09:00 Budesonide (Pulmicort) 0.5 mg BID NEB Last administered on 09/28/17 08:51; Start 09/25/17 at 21:00 Cetirizine HCl (ZyrTEC) 10 mg DAILY PO Last administered on 09/28/17 08:43; Start 09/26/17 at 09:00 Vitamin D (Vitamin D3) 5,000 unit WEEKLY PO ; Start 10/02/17 at 09:00 Non-Formulary Medication 180 mg DAILY PO ; Start 09/26/17 at 09:00; Status UNV Levalbuterol HCl (Xopenex) 1.25 mg TID NEB Last administered on 09/28/17 08: 50; Start 09/25/17 at 21:00 Meclizine HCl (Antivert) 25 mg PRN BID PRN PO DIZZINESS; Start 09/25/17 at 18: 15 Pantoprazole Sodium (Protonix) 40 mg DAILYAC PO Last administered on 08:41; Start 09/26/17 at 07:30 Multivit/ Folic Acid/Iron (Multivitamin ) 1 tab DAILY PO Last administered on 09/28/17 08:40; Start 09/26/17 at 09:00 Potassium Chloride (Klor-Con) 20 meq TIDWMEALS PO Last administered on 08:41; Start 09/25/17 at 18:30 Spironolactone (Aldactone) 50 mg [id number] PO Last administered on 09/28/17 08:47 ; Start 09/26/17 at 09:00 Zolpidem Tartrate (Ambien) 5 mg PRN QHS PRN PO INSOMNIA, MAY REPEAT X1; Start 09/25/17 at 18:30; Stop 09/25/17 at 20:22; Status DC Oxycodone/ Acetaminophen (Percocet 10/325) 1 tab PRN Q6HRS PRN PO PAIN Last administered on 09/25/17 18:12; Start 09/25/17 at 18:15; Stop 09/25/17 at 18 :20; Status DC Oxycodone/ Acetaminophen (Percocet 10/325) 2 tab PRN Q6HRS PRN PO PAIN Last administered on 09/28/17 06:28; Start 09/25/17 at 18:30 Zolpidem Tartrate (Ambien) 10 mg PRN QHS PRN PO INSOMNIA Last administered on 09/28/17 00:13; Start 09/25/17 at 20:22 Active Scripts Active Reported Percocet 10-325 Mg Tablet (Oxycodone/Acetaminophen) 1 Each Tablet 1 Tab PO Q4- 6HRS Plaquenil (Hydroxychloroquine Sulfate) 200 Mg Tablet 200 Mg PO BID Promethazine-Codeine Syrup (Promethazine Hcl/Codeine) 118 Ml Syrup 10 Ml PO PRN Q4-6HRS PRN Furosemide 20 Mg Tablet 20 Mg PO BID Potassium Chloride 20 Meq Tablet.er 20 Meq PO TID Cetirizine Hcl 10 Mg Tab.chew 10 Mg PO DAILY Ambien (Zolpidem Tartrate) 10 Mg Tablet 10 Mg PO HS PRN Aldactone (Spironolactone) 50 Mg Tablet 50 Mg PO BID Symbicort 160-4.5 Mcg Inhaler (Budesonide/Formoterol Fumarate) 10.2 Gm Hfa.aer.ad 2 Puff IH BID Percocet 5-325 Mg Tablet (Oxycodone/Acetaminophen) 1 Each Tablet 2 Tab PO Q4- 6HRS Reglan (Metoclopramide Hcl) 10 Mg Tablet 1 Tab PO TID Vitamin D3 (Cholecalciferol (Vitamin D3)) 5,000 Unit Tablet 5,000 Unit PO WEEKLY Xopenex (Levalbuterol Hcl) 1.25 Mg/3 Ml Vial.neb 1 Vial NEB TID Tablet (Pnv Cmb#95/Ferrous Fumarate/Fa) 1 Each Tablet 1 Tab PO DAILY Aller-Fex (Fexofenadine Hcl) 180 Mg Tablet 180 Mg PO DAILY Losartan Potassium 25 Mg Tablet 25 Mg PO DAILY Omeprazole 40 Mg Capsule.dr 40 Mg PO BID Gabapentin 100 Mg Capsule 400 Mg PO BID 30 Days Tamsulosin Hcl 0.4 Mg Cap.er.24h 0.4 Mg PO DAILY Fluoxetine Hcl 20 Mg Capsule 1 Cap PO DAILY Cyclobenzaprine Hcl 10 Mg Tablet 1 Tab PO TID Meclizine Hcl 25 Mg Tab.chew 25 Mg PO PRN BID PRN Xanax (Alprazolam) 1 Mg Tablet 1 Mg PO PRN TID PRN Seroquel (Quetiapine Fumarate) 100 Mg Tablet 100 Mg PO HS Vitals/I & O Vital Sign - Last 24 Hours 09/27/17 09/27/17 09/27/17 09/27/17 11:43 13:39 14:15 15:21 Temp 98.1 98.1 98.1 98.1 Pulse 88 90 74 Resp 18 18 B/P (MAP) 104/57 (73) 94/58 (70) 113/67 (82) Pulse Ox 95 94 95 O2 Delivery Room Air Room Air Room Air 09/27/17 09/27/17 09/27/17 09/27/17 15:48 19:00 19:31 20:16 Temp 97.7 97.7 Pulse 89 Resp 18 B/P (MAP) 103/62 (76) Pulse Ox 96 96 O2 Delivery Room Air Room Air Nasal Cannula Room Air O2 Flow Rate 2.0 09/27/17 09/27/17 09/27/17 09/28/17 20:17 22:34 23:00 00:22 Temp 97.7 97.7 Pulse 88 Resp 20 20 20 B/P (MAP) 112/58 (76) Pulse Ox 96 97 O2 Delivery Room Air Room Air Room Air Room Air 09/28/17 09/28/17 09/28/17 09/28/17 03:00 06:28 07:00 08:42 Temp 97.5 98.5 97.5 98.5 Pulse 72 80 80 Resp 16 20 15 B/P (MAP) 106/58 (74) 123/70 (87) 123/70 Pulse Ox 96 98 O2 Delivery Nasal Cannula Room Air 09/28/17 09/28/17 08:51 09:03 Pulse Ox 96 96 O2 Delivery Room Air Room Air Intake and Output 09/27/17 09/27/17 09/28/17 14:59 22:59 06:59 Intake Total 400 ml 1300 ml 2000 ml Output Total 2000 ml Balance 400 ml 1300 ml 0 ml LORRIE HONG MD Sep 28, 2017 09:52
[2017-09-28 11:00] VITALS: BP 99/51
[2017-09-28 15:07] VITALS: BP 102/48
[2017-09-28 19:00] VITALS: BP 103/53
[2017-09-28] MEDS: HYDROmorphone 2 MG/ML VIAL IVP PRN (21:46)
[2017-09-28 23:00] VITALS: BP 128/57
[2017-09-28] MEDS: QUEtiapine 100 MG TABLET. PO SCH (23:09)
--- NOTE | 2017-09-28 23:17 | PDOC2 ---
CONSULT Date of Consult Date of Consult DATE: 09/26/17 TIME: 23:02 Reason for Consult Reason for Consult: intractable right knee pain Identification/Chief Complaint Chief Complaint right knee pain Problems: Source Source: Chart review, Patient History of Present Illness Reason for Visit: The patient is a 72 year old female who presented to the ER with 3 weeks of severe right knee pain. She is a patient of Dr. Cruz. She received bilateral knee injections from him 1 week ago for pain. She says that the right knee is worse than the left. She says she has a history of "sepsis" in the right knee in the past. She reports that she had subjective fevers and chills prior to admission. She says she fell about 6 weeks ago onto her knees, but at that time she did not experience knee pain. Her wbc is normal. Past Medical History Cardiovascular: AFIB, HTN, Aortic stenosis, Other Pulmonary: Asthma, Bronchitis, COPD, Pneumonia, Other CENTRAL NERVOUS SYSTEM: Periperal neuropathy, Vertigo, Other GI: GERD, Peptic Ulcer disease Heme/Onc: Cancer, Other Psych: Anxiety, Depression Musculoskeletal: low back pain Rheumatologic: Other Renal/: Acute renal failure Endocrine: Diabetes Past Surgical History Past Surgical History: Appendectomy, Cataract Removal, Tubal Ligation, Hysterectomy, Other Family History Family History: Coronary Artery Disease, Diabetes, Heart Disease, Hypertension , Kidney Disease, Family History Unknown, Other Social History ALCOHOL: none Drugs: None Current Problem List Problem List right knee pain Current Medications Current Medications Current Medications Oxycodone/ Acetaminophen (Percocet 5/325) 1 tab 1X ONCE PO Last administered on 09/25/17 15:49; Start 09/25/17 at 15:45; Stop 09/25/17 at 15:46; Status DC Ondansetron HCl (Zofran) 4 mg PRN Q8HRS PRN IV NAUSEA/VOMITING; Start at 16:15; Stop 09/26/17 at 16:14; Status DC Acetaminophen (Tylenol) 650 mg PRN Q4HRS PRN PO FEVER; Start 09/25/17 at 16:15 ; Stop 09/26/17 at 16:14; Status DC Hydromorphone HCl (Dilaudid) 0.2 mg PRN Q4HRS PRN IVP PAIN Last administered on 09/28/17 21:46; Start 09/25/17 at 16:15 Docusate Sodium (Colace) 100 mg DAILY PO Last administered on 09/28/17 08:46 ; Start 09/25/17 at 17:00 Alprazolam (Xanax) 1 mg PRN TID PRN PO ANXIETY / AGITATION Last administered on 09/28/17 15:23; Start 09/25/17 at 18:00 Cyclobenzaprine HCl (Flexeril) 10 mg TID PO Last administered on 09/28/17 20: 11; Start 09/25/17 at 21:00 Fluoxetine HCl (PROzac) 20 mg DAILY PO Last administered on 09/28/17 08:42; Start 09/26/17 at 09:00 Furosemide (Lasix) 20 mg [id number] PO Last administered on 09/28/17 17:16; Start 09/26/17 at 09:00 Gabapentin (Neurontin) 400 mg BID PO Last administered on 09/28/17 20:11; Start 09/25/17 at 21:00 Hydroxychloroquine Sulfate (Plaquenil) 200 mg BID PO Last administered on 09/28 20:11; Start 09/25/17 at 21:00 Losartan Potassium (Cozaar) 25 mg DAILY PO Last administered on 09/28/17 08: 42; Start 09/26/17 at 09:00 Metoclopramide HCl (Reglan) 10 mg TIDAC PO Last administered on 09/28/17 17: 17; Start 09/25/17 at 18:30 Oxycodone/ Acetaminophen (Percocet 10/325) 1 tab PRN Q6HRS PO ; Start at 18:00; Stop 09/25/17 at 18:05; Status DC Quetiapine Fumarate (SEROquel) 100 mg HS PO Last administered on 09/27/17 22: 33; Start 09/25/17 at 21:00 Tamsulosin HCl (Flomax) 0.4 mg DAILY PO Last administered on 09/28/17 08:46; Start 09/26/17 at 09:00 Budesonide (Pulmicort) 0.5 mg BID NEB Last administered on 09/28/17 20:05; Start 09/25/17 at 21:00 Cetirizine HCl (ZyrTEC) 10 mg DAILY PO Last administered on 09/28/17 08:43; Start 09/26/17 at 09:00 Vitamin D (Vitamin D3) 5,000 unit WEEKLY PO ; Start 10/02/17 at 09:00 Non-Formulary Medication 180 mg DAILY PO ; Start 09/26/17 at 09:00; Status UNV Levalbuterol HCl (Xopenex) 1.25 mg TID NEB Last administered on 09/28/17 20: 05; Start 09/25/17 at 21:00 Meclizine HCl (Antivert) 25 mg PRN BID PRN PO DIZZINESS; Start 09/25/17 at 18: 15 Pantoprazole Sodium (Protonix) 40 mg DAILYAC PO Last administered on 08:41; Start 09/26/17 at 07:30 Multivit/ Folic Acid/Iron (Multivitamin ) 1 tab DAILY PO Last administered on 09/28/17 08:40; Start 09/26/17 at 09:00 Potassium Chloride (Klor-Con) 20 meq TIDWMEALS PO Last administered on 17:17; Start 09/25/17 at 18:30 Spironolactone (Aldactone) 50 mg [id number] PO Last administered on 09/28/17 17:16 ; Start 09/26/17 at 09:00 Zolpidem Tartrate (Ambien) 5 mg PRN QHS PRN PO INSOMNIA, MAY REPEAT X1; Start 09/25/17 at 18:30; Stop 09/25/17 at 20:22; Status DC Oxycodone/ Acetaminophen (Percocet 10/325) 1 tab PRN Q6HRS PRN PO PAIN Last administered on 09/25/17 18:12; Start 09/25/17 at 18:15; Stop 09/25/17 at 18 :20; Status DC Oxycodone/ Acetaminophen (Percocet 10/325) 2 tab PRN Q6HRS PRN PO PAIN Last administered on 09/28/17 20:11; Start 09/25/17 at 18:30 Zolpidem Tartrate (Ambien) 10 mg PRN QHS PRN PO INSOMNIA Last administered on 09/28/17 00:13; Start 09/25/17 at 20:22 Sodium Chloride (NORMAL SALINE FLUSH for STERILE FIELD) 10 ml STK-MED ONCE .ROUTE ; Start 09/25/17 at 15:42; Stop 09/28/17 at 11:44; Status DC Active Scripts Active Reported Percocet 10-325 Mg Tablet (Oxycodone/Acetaminophen) 1 Each Tablet 1 Tab PO Q4- 6HRS Plaquenil (Hydroxychloroquine Sulfate) 200 Mg Tablet 200 Mg PO BID Promethazine-Codeine Syrup (Promethazine Hcl/Codeine) 118 Ml Syrup 10 Ml PO PRN Q4-6HRS PRN Furosemide 20 Mg Tablet 20 Mg PO BID Potassium Chloride 20 Meq Tablet.er 20 Meq PO TID Cetirizine Hcl 10 Mg Tab.chew 10 Mg PO DAILY Ambien (Zolpidem Tartrate) 10 Mg Tablet 10 Mg PO HS PRN Aldactone (Spironolactone) 50 Mg Tablet 50 Mg PO BID Symbicort 160-4.5 Mcg Inhaler (Budesonide/Formoterol Fumarate) 10.2 Gm Hfa.aer.ad 2 Puff IH BID Percocet 5-325 Mg Tablet (Oxycodone/Acetaminophen) 1 Each Tablet 2 Tab PO Q4- 6HRS Reglan (Metoclopramide Hcl) 10 Mg Tablet 1 Tab PO TID Vitamin D3 (Cholecalciferol (Vitamin D3)) 5,000 Unit Tablet 5,000 Unit PO WEEKLY Xopenex (Levalbuterol Hcl) 1.25 Mg/3 Ml Vial.neb 1 Vial NEB TID Tablet (Pnv Cmb#95/Ferrous Fumarate/Fa) 1 Each Tablet 1 Tab PO DAILY Aller-Fex (Fexofenadine Hcl) 180 Mg Tablet 180 Mg PO DAILY Losartan Potassium 25 Mg Tablet 25 Mg PO DAILY Omeprazole 40 Mg Capsule.dr 40 Mg PO BID Gabapentin 100 Mg Capsule 400 Mg PO BID 30 Days Tamsulosin Hcl 0.4 Mg Cap.er.24h 0.4 Mg PO DAILY Fluoxetine Hcl 20 Mg Capsule 1 Cap PO DAILY Cyclobenzaprine Hcl 10 Mg Tablet 1 Tab PO TID Meclizine Hcl 25 Mg Tab.chew 25 Mg PO PRN BID PRN Xanax (Alprazolam) 1 Mg Tablet 1 Mg PO PRN TID PRN Seroquel (Quetiapine Fumarate) 100 Mg Tablet 100 Mg PO HS Allergies Allergies: Coded Allergies: prochlorperazine edisylate (Verified Allergy, Severe, 09/16/16) TOLERATES PHENERGAN W/CODEINE prochlorperazine maleate (Verified Allergy, Severe, 09/16/16) NSAIDS (Non-Steroidal Anti-Inflamma (Verified Allergy, Intermediate, 09/16) Penicillins (Verified Allergy, Intermediate, 09/16/16) "BEOMES UNCONSCIOUS Sulfa (Sulfonamide Antibiotics) (Verified Allergy, Intermediate, Rash, ) fentanyl (Verified Allergy, Intermediate, 05/21/17) HALLICINATIONS ONLY WITH PATCH meperidine HCl (Verified Allergy, Intermediate, TOLERATES FENTANYL, ) DEMEROL MAKES HER SPASTIC prednisone (Verified Allergy, Intermediate, 09/16/16) WATER RETENTION AND MAKES HER CONFUSED morphine (Verified Adverse Reaction, Severe, HALLUCINATES, 09/16/16) albuterol (Verified Adverse Reaction, Mild, pt refuses albuterol, 05/21/17) ROS Review of System 12 point system reviewed, negative except per hpi Physical Exam General: Alert, Oriented X3, Cooperative, No acute distress MUSCULOSKELETAL: Other (RIGHT LOWER EXTREMITY with no discrete effusion of the right knee. tenderness to palpation over the anterior knee area. able to perform a straight leg raise without difficulty. no bruising or abrasions. no warmth erythema over the area. neurovascularly intact distally. ) Vitals VITALS Vital Signs Date Time Temp Pulse Resp B/P (MAP) Pulse Ox O2 Delivery O2 Flow Rate FiO2 09/28/17 21:46 97 Room Air 2.0 09/28/17 19:00 98.8 89 16 103/53 (70) 98.8 Labs Labs Laboratory Tests Test 09/27/17 13:30 Erythrocyte Sedimentation Rate 7 (0-25) C-Reactive Protein, Quantitative < 0.5 mg/L (0-3.3) Images Images xrays of the right knee reveal no acute osseous abnormality. no fracture or effusion. some mild osteoarthritis Assessment/Plan Assessment/Plan The patient has severe right knee pain with minimal swelling and effusion, no erythema or warmth on my exam. She is able to move her leg. Her labs are normal. No elevation of esr, crp, or wbc. Therefore I have a very low suspiscion for septic arthritis. She likely has a bone bruise or early osteoarthritis of the knee. Could possibly be having a bad reaction to the steroid injection she received. I would recommend weight-bearing as tolerated and physical therapy/ot pain control. dvt prophylaxis. She can follow up with Dr. Encarnacion her regular orthopod as an outpatient. EWELINA VAZQUEZ MD Sep 28, 2017 23:17
[2017-09-29 03:00] VITALS: BP 140/71
[2017-09-29 07:00] VITALS: BP 112/66
[2017-09-29] MEDS: ALPRAZolam 1 MG TABLET PO PRN ×2 (07:31→21:33)
[2017-09-29] MEDS: oxyCODONE/APAP 10/325 1 TAB TABLET PO PRN ×3 (07:31→21:29)
[2017-09-29] MEDS: METOCLOPRAMIDE 10 MG TABLET. PO SCH ×3 (07:33→18:13)
[2017-09-29] MEDS: PANTOPRAZOLE 40 MG TABLET.DR. PO SCH (07:33)
[2017-09-29] MEDS: LEVALBUTEROL 1.25 MG/0.5 ML NEBU. NEB SCH ×3 (07:49→18:16)
[2017-09-29] MEDS: BUDESONIDE 0.5 MG/2 ML NEBU. NEB SCH ×2 (07:49→18:16)
[2017-09-29] MEDS: DOCUSATE SODIUM 100 MG CAPSULE. PO SCH (09:00)
[2017-09-29] MEDS: PRENATAL MULTIVITAMIN TABLET. PO SCH (09:12)
[2017-09-29] MEDS: TAMSULOSIN 0.4 MG CAP.ER.24H. PO SCH (09:13)
[2017-09-29] MEDS: FLUoxetine HCL 20 MG CAPSULE PO SCH (09:13)
[2017-09-29] MEDS: POTASSIUM CHLORIDE 20 MEQ TABLET.ER. PO SCH ×3 (09:13→18:13)
[2017-09-29] MEDS: HYDROXYCHLOROQUINE 200 MG TABLET PO SCH ×2 (09:13→21:28)
[2017-09-29] MEDS: CYCLOBENZAPRINE 10 MG TABLET. PO SCH ×3 (09:13→21:28)
[2017-09-29] MEDS: GABAPENTIN 400 MG CAPSULE. PO SCH ×2 (09:13→21:27)
[2017-09-29] MEDS: SPIRONOLACTONE 25 MG TABLET PO SCH ×2 (09:13→18:13)
[2017-09-29] MEDS: CETIRIZINE HCL 10 MG TABLET. PO SCH (09:13)
[2017-09-29] MEDS: LOSARTAN POTASSIUM 25 MG TABLET. PO SCH (09:15)
[2017-09-29] MEDS: FUROSEMIDE 20 MG TABLET PO SCH ×2 (09:16→18:13)
--- NOTE | 2017-09-29 10:45 | PDOC ---
PROGRESS NOTES Subjective Subjective Patient is alert and oriented this morning, in no acute distress. She states no changes in pain since yesterday: her R knee pain is consistently a 10/10 but drops to a 5/10 with pain medication. Patient has no new symptoms and no new pains, and she denies chest pain and SOA this morning and overnight. No new concerns. Objective Objective Vital Signs Date Time Temp Pulse Resp B/P (MAP) Pulse Ox O2 Delivery O2 Flow Rate FiO2 09/29/17 09:15 82 112/66 09/29/17 07:52 97 Room Air 09/29/17 07:00 97.7 18 2.0 97.7 Intake and Output 09/29/17 07:00 Intake Total 1950 ml Balance 1950 ml Intake Oral 1950 ml # Voids 4 Physical Exam Physical Exam Alert and oriented, no acute distress Cardiac: heart rate and rhythm are regular with a grade 3 systolic murmur Lungs: CTAB Extremities: R knee mildly swollen compared to L, no erythema or pitting edema, not hot to touch, knees TTP b/l; no ankle or pedal edema, Vascular: radial, dorsalis pedis and posterior tibial pulses +2/4 b/l; cap refill <2 sec b/l Assessment Assessment Patient remains stable from cardiac standpoint. Continue to hold BP medications. BP stabilized o/n and this morning, and is WNL. Ortho is following and has r/o septic arthritis. Continue to follow up on MRI of R&L knee. Patient is cleared from cardiac standpoint to receive MRI. I have discussed the MRI situation with the radiologist and they are going to check the patient's card with regards to the valve that was implanted at surgery time and then decide if they would be able to do the MRI of the knees here. The patient's stated that he will be bringing the cart in the morning. Comment Review of Relevant I have reviewed the following items kari (where applicable) has been applied. Labs Laboratory Tests Test 09/27/17 13:30 Erythrocyte Sedimentation Rate 7 (0-25) C-Reactive Protein, Quantitative < 0.5 mg/L (0-3.3) Microbiology 09/26/17 Urine Culture - Final, Complete 09/26/17 Urine Culture Result 1 (MARIELA) - Final, Complete Medications Current Medications Oxycodone/ Acetaminophen (Percocet 5/325) 1 tab 1X ONCE PO Last administered on 09/25/17 15:49; Start 09/25/17 at 15:45; Stop 09/25/17 at 15:46; Status DC Ondansetron HCl (Zofran) 4 mg PRN Q8HRS PRN IV NAUSEA/VOMITING; Start at 16:15; Stop 09/26/17 at 16:14; Status DC Acetaminophen (Tylenol) 650 mg PRN Q4HRS PRN PO FEVER; Start 09/25/17 at 16:15 ; Stop 09/26/17 at 16:14; Status DC Hydromorphone HCl (Dilaudid) 0.2 mg PRN Q4HRS PRN IVP PAIN Last administered on 09/28/17 21:46; Start 09/25/17 at 16:15 Docusate Sodium (Colace) 100 mg DAILY PO Last administered on 09/28/17 08:46 ; Start 09/25/17 at 17:00 Alprazolam (Xanax) 1 mg PRN TID PRN PO ANXIETY / AGITATION Last administered on 09/29/17 07:31; Start 09/25/17 at 18:00 Cyclobenzaprine HCl (Flexeril) 10 mg TID PO Last administered on 09/29/17 09: 13; Start 09/25/17 at 21:00 Fluoxetine HCl (PROzac) 20 mg DAILY PO Last administered on 09/29/17 09:13; Start 09/26/17 at 09:00 Furosemide (Lasix) 20 mg [id number] PO Last administered on 09/29/17 09:16; Start 09/26/17 at 09:00 Gabapentin (Neurontin) 400 mg BID PO Last administered on 09/29/17 09:13; Start 09/25/17 at 21:00 Hydroxychloroquine Sulfate (Plaquenil) 200 mg BID PO Last administered on 09/29 09:13; Start 09/25/17 at 21:00 Losartan Potassium (Cozaar) 25 mg DAILY PO Last administered on 09/29/17 09: 15; Start 09/26/17 at 09:00 Metoclopramide HCl (Reglan) 10 mg TIDAC PO Last administered on 09/29/17 07: 33; Start 09/25/17 at 18:30 Oxycodone/ Acetaminophen (Percocet 10/325) 1 tab PRN Q6HRS PO ; Start at 18:00; Stop 09/25/17 at 18:05; Status DC Quetiapine Fumarate (SEROquel) 100 mg HS PO Last administered on 09/28/17 23: 09; Start 09/25/17 at 21:00 Tamsulosin HCl (Flomax) 0.4 mg DAILY PO Last administered on 09/29/17 09:13; Start 09/26/17 at 09:00 Budesonide (Pulmicort) 0.5 mg BID NEB Last administered on 09/29/17 07:49; Start 09/25/17 at 21:00 Cetirizine HCl (ZyrTEC) 10 mg DAILY PO Last administered on 09/29/17 09:13; Start 09/26/17 at 09:00 Vitamin D (Vitamin D3) 5,000 unit WEEKLY PO ; Start 10/02/17 at 09:00 Non-Formulary Medication 180 mg DAILY PO ; Start 09/26/17 at 09:00; Status UNV Levalbuterol HCl (Xopenex) 1.25 mg TID NEB Last administered on 09/29/17 07: 49; Start 09/25/17 at 21:00 Meclizine HCl (Antivert) 25 mg PRN BID PRN PO DIZZINESS; Start 09/25/17 at 18: 15 Pantoprazole Sodium (Protonix) 40 mg DAILYAC PO Last administered on 07:33; Start 09/26/17 at 07:30 Multivit/ Folic Acid/Iron (Multivitamin ) 1 tab DAILY PO Last administered on 09/29/17 09:12; Start 09/26/17 at 09:00 Potassium Chloride (Klor-Con) 20 meq TIDWMEALS PO Last administered on 09:13; Start 09/25/17 at 18:30 Spironolactone (Aldactone) 50 mg [id number] PO Last administered on 09/29/17 09:13 ; Start 09/26/17 at 09:00 Zolpidem Tartrate (Ambien) 5 mg PRN QHS PRN PO INSOMNIA, MAY REPEAT X1; Start 09/25/17 at 18:30; Stop 09/25/17 at 20:22; Status DC Oxycodone/ Acetaminophen (Percocet 10/325) 1 tab PRN Q6HRS PRN PO PAIN Last administered on 09/25/17 18:12; Start 09/25/17 at 18:15; Stop 09/25/17 at 18 :20; Status DC Oxycodone/ Acetaminophen (Percocet 10/325) 2 tab PRN Q6HRS PRN PO PAIN Last administered on 09/29/17 07:31; Start 09/25/17 at 18:30 Zolpidem Tartrate (Ambien) 10 mg PRN QHS PRN PO INSOMNIA Last administered on 09/28/17 23:09; Start 09/25/17 at 20:22 Sodium Chloride (NORMAL SALINE FLUSH for STERILE FIELD) 10 ml STK-MED ONCE .ROUTE ; Start 09/25/17 at 15:42; Stop 09/28/17 at 11:44; Status DC Active Scripts Active Reported Percocet 10-325 Mg Tablet (Oxycodone/Acetaminophen) 1 Each Tablet 1 Tab PO Q4- 6HRS Plaquenil (Hydroxychloroquine Sulfate) 200 Mg Tablet 200 Mg PO BID Promethazine-Codeine Syrup (Promethazine Hcl/Codeine) 118 Ml Syrup 10 Ml PO PRN Q4-6HRS PRN Furosemide 20 Mg Tablet 20 Mg PO BID Potassium Chloride 20 Meq Tablet.er 20 Meq PO TID Cetirizine Hcl 10 Mg Tab.chew 10 Mg PO DAILY Ambien (Zolpidem Tartrate) 10 Mg Tablet 10 Mg PO HS PRN Aldactone (Spironolactone) 50 Mg Tablet 50 Mg PO BID Symbicort 160-4.5 Mcg Inhaler (Budesonide/Formoterol Fumarate) 10.2 Gm Hfa.aer.ad 2 Puff IH BID Percocet 5-325 Mg Tablet (Oxycodone/Acetaminophen) 1 Each Tablet 2 Tab PO Q4- 6HRS Reglan (Metoclopramide Hcl) 10 Mg Tablet 1 Tab PO TID Vitamin D3 (Cholecalciferol (Vitamin D3)) 5,000 Unit Tablet 5,000 Unit PO WEEKLY Xopenex (Levalbuterol Hcl) 1.25 Mg/3 Ml Vial.neb 1 Vial NEB TID Tablet (Pnv Cmb#95/Ferrous Fumarate/Fa) 1 Each Tablet 1 Tab PO DAILY Aller-Fex (Fexofenadine Hcl) 180 Mg Tablet 180 Mg PO DAILY Losartan Potassium 25 Mg Tablet 25 Mg PO DAILY Omeprazole 40 Mg Capsule.dr 40 Mg PO BID Gabapentin 100 Mg Capsule 400 Mg PO BID 30 Days Tamsulosin Hcl 0.4 Mg Cap.er.24h 0.4 Mg PO DAILY Fluoxetine Hcl 20 Mg Capsule 1 Cap PO DAILY Cyclobenzaprine Hcl 10 Mg Tablet 1 Tab PO TID Meclizine Hcl 25 Mg Tab.chew 25 Mg PO PRN BID PRN Xanax (Alprazolam) 1 Mg Tablet 1 Mg PO PRN TID PRN Seroquel (Quetiapine Fumarate) 100 Mg Tablet 100 Mg PO HS Vitals/I & O Vital Sign - Last 24 Hours 09/28/17 09/28/17 09/28/17 09/28/17 10:56 11:00 13:12 15:07 Temp 97.7 97.7 97.7 97.7 Pulse 87 90 Resp 18 18 B/P (MAP) 99/51 (67) 102/48 (66) Pulse Ox 95 96 97 O2 Delivery Room Air Room Air Room Air Room Air 09/28/17 09/28/17 09/28/17 09/28/17 19:00 20:00 20:07 20:09 Temp 98.8 98.8 Pulse 89 Resp 16 B/P (MAP) 103/53 (70) Pulse Ox 96 97 97 O2 Delivery Room Air Room Air Room Air Room Air 09/28/17 09/28/17 09/28/17 09/28/17 20:11 21:11 21:46 22:16 Pulse Ox 97 97 97 97 O2 Delivery Room Air Room Air Room Air Room Air O2 Flow Rate 2.0 2.0 2.0 2.0 09/28/17 09/29/17 09/29/17 09/29/17 23:00 03:00 07:00 07:52 Temp 97.9 97.7 97.9 97.7 Pulse 89 86 82 Resp 16 16 18 B/P (MAP) 128/57 (80) 140/71 (94) 112/66 (81) Pulse Ox 94 96 98 97 O2 Delivery Room Air Room Air Nasal Cannula Room Air O2 Flow Rate 2.0 09/29/17 09:15 Pulse 82 B/P (MAP) 112/66 Intake and Output 09/28/17 09/28/17 09/29/17 15:00 23:00 07:00 Intake Total 850 ml 1100 ml 0 ml Balance 850 ml 1100 ml 0 ml LORRIE HONG MD Sep 29, 2017 10:45
[2017-09-29 10:49] VITALS: BP 88/44
[2017-09-29 15:00] VITALS: BP 115/58
[2017-09-29 19:00] VITALS: BP 107/68
[2017-09-29 23:00] VITALS: BP 142/52
[2017-09-29] MEDS ORDERED: CALCIUM CARBONATE 500 MG TAB.CHEW PO PRN (23:00)
[2017-09-29] MEDS: QUEtiapine 100 MG TABLET. PO SCH (23:19)
[2017-09-29] MEDS: HYDROmorphone 2 MG/ML VIAL IVP PRN (23:20)
[2017-09-30 03:00] VITALS: BP 113/57
[2017-09-30] MEDS: ALPRAZolam 1 MG TABLET PO PRN ×2 (03:31→11:54)
[2017-09-30] MEDS: oxyCODONE/APAP 10/325 1 TAB TABLET PO PRN ×2 (03:31→14:57)
[2017-09-30] MEDS: HYDROmorphone 2 MG/ML VIAL IVP PRN (06:48)
[2017-09-30 07:00] VITALS: BP 116/69
[2017-09-30] MEDS: BUDESONIDE 0.5 MG/2 ML NEBU. NEB SCH (07:32)
[2017-09-30] MEDS: LEVALBUTEROL 1.25 MG/0.5 ML NEBU. NEB SCH ×2 (07:32→13:59)
--- NOTE | 2017-09-30 09:19 | PDOC ---
PROGRESS NOTES Subjective Subjective Patient is alert and oriented this morning and in no acute distress. She is ' disgusted' about the MRI situation. She provided card with info about heart valve to nurse. She denies CP, or any new symptoms. She endorsed feeling slightly SOB while getting up this morning but she attributes it to stress and anxiety. Knee pain on R remains 10/10 but improves with pain medications. BP remains stable. Objective Objective Vital Signs Date Time Temp Pulse Resp B/P (MAP) Pulse Ox O2 Delivery O2 Flow Rate FiO2 09/30/17 07:32 93 Room Air 09/30/17 07:25 18 2.0 09/30/17 07:00 97.6 89 116/69 (85) 97.6 Intake and Output 09/30/17 07:00 Intake Total 2330 ml Balance 2330 ml Intake Oral 2330 ml # Voids 7 # Bowel Movements 1 Physical Exam Physical Exam Alert and oriented No acute distress Heart: Grade 3 systolic murmur, no S3 S4, regular rate and rhythm Lungs: CTAB Vascular: dorsalis pedis, radial and post tibial pulses +2/4 Ext: R knee mildly swollen compared to L. No erythema, not hot to touch. Tender to palpation b/l Assessment Assessment Remains stable from cardiac standpoint. Will provide heart valve card to radiology. Awaiting for the clearance to do the MRI. If unable to do the MRI will discharge and try to have it done as an out-pt somewhere alse. The problem is going to be to control her pain and she may return to the ER again. Comment Review of Relevant I have reviewed the following items kari (where applicable) has been applied. Labs Microbiology 09/26/17 Urine Culture - Final, Complete 09/26/17 Urine Culture Result 1 (MARIELA) - Final, Complete Medications Current Medications Oxycodone/ Acetaminophen (Percocet 5/325) 1 tab 1X ONCE PO Last administered on 09/25/17t 15:49; Start 09/25/17 at 15:45; Stop 09/25/17 at 15:46; Status DC Ondansetron HCl (Zofran) 4 mg PRN Q8HRS PRN IV NAUSEA/VOMITING; Start at 16:15; Stop 09/26/17 at 16:14; Status DC Acetaminophen (Tylenol) 650 mg PRN Q4HRS PRN PO FEVER; Start 09/25/17 at 16:15 ; Stop 09/26/17 at 16:14; Status DC Hydromorphone HCl (Dilaudid) 0.2 mg PRN Q4HRS PRN IVP PAIN Last administered on 09/30/17 06:48; Start 09/25/17 at 16:15 Docusate Sodium (Colace) 100 mg DAILY PO Last administered on 09/28/17 08:46 ; Start 09/25/17 at 17:00 Alprazolam (Xanax) 1 mg PRN TID PRN PO ANXIETY / AGITATION Last administered on 09/30/17 03:31; Start 09/25/17 at 18:00 Cyclobenzaprine HCl (Flexeril) 10 mg TID PO Last administered on 09/29/17 21: 28; Start 09/25/17 at 21:00 Fluoxetine HCl (PROzac) 20 mg DAILY PO Last administered on 09/29/17 09:13; Start 09/26/17 at 09:00 Furosemide (Lasix) 20 mg [id number] PO Last administered on 09/29/17 18:13; Start 09/26/17 at 09:00 Gabapentin (Neurontin) 400 mg BID PO Last administered on 09/29/17 21:27; Start 09/25/17 at 21:00 Hydroxychloroquine Sulfate (Plaquenil) 200 mg BID PO Last administered on 09/29 21:28; Start 09/25/17 at 21:00 Losartan Potassium (Cozaar) 25 mg DAILY PO Last administered on 09/29/17 09: 15; Start 09/26/17 at 09:00 Metoclopramide HCl (Reglan) 10 mg TIDAC PO Last administered on 09/29/17 18: 13; Start 09/25/17 at 18:30 Oxycodone/ Acetaminophen (Percocet 10/325) 1 tab PRN Q6HRS PO ; Start at 18:00; Stop 09/25/17 at 18:05; Status DC Quetiapine Fumarate (SEROquel) 100 mg HS PO Last administered on 09/29/17 23: 19; Start 09/25/17 at 21:00 Tamsulosin HCl (Flomax) 0.4 mg DAILY PO Last administered on 09/29/17 09:13; Start 09/26/17 at 09:00 Budesonide (Pulmicort) 0.5 mg BID NEB Last administered on 09/30/17 07:32; Start 09/25/17 at 21:00 Cetirizine HCl (ZyrTEC) 10 mg DAILY PO Last administered on 09/29/17 09:13; Start 09/26/17 at 09:00 Vitamin D (Vitamin D3) 5,000 unit WEEKLY PO ; Start 10/02/17 at 09:00 Non-Formulary Medication 180 mg DAILY PO ; Start 09/26/17 at 09:00; Status UNV Levalbuterol HCl (Xopenex) 1.25 mg TID NEB Last administered on 09/30/17 07: 32; Start 09/25/17 at 21:00 Meclizine HCl (Antivert) 25 mg PRN BID PRN PO DIZZINESS; Start 09/25/17 at 18: 15 Pantoprazole Sodium (Protonix) 40 mg DAILYAC PO Last administered on 07:33; Start 09/26/17 at 07:30 Multivit/ Folic Acid/Iron (Multivitamin ) 1 tab DAILY PO Last administered on 09/29/17 09:12; Start 09/26/17 at 09:00 Potassium Chloride (Klor-Con) 20 meq TIDWMEALS PO Last administered on 18:13; Start 09/25/17 at 18:30 Spironolactone (Aldactone) 50 mg [id number] PO Last administered on 09/29/17 18:13 ; Start 09/26/17 at 09:00 Zolpidem Tartrate (Ambien) 5 mg PRN QHS PRN PO INSOMNIA, MAY REPEAT X1; Start 09/25/17 at 18:30; Stop 09/25/17 at 20:22; Status DC Oxycodone/ Acetaminophen (Percocet 10/325) 1 tab PRN Q6HRS PRN PO PAIN Last administered on 09/25/17 18:12; Start 09/25/17 at 18:15; Stop 09/25/17 at 18 :20; Status DC Oxycodone/ Acetaminophen (Percocet 10/325) 2 tab PRN Q6HRS PRN PO PAIN Last administered on 09/30/17 03:31; Start 09/25/17 at 18:30 Zolpidem Tartrate (Ambien) 10 mg PRN QHS PRN PO INSOMNIA Last administered on 09/28/17 23:09; Start 09/25/17 at 20:22 Sodium Chloride (NORMAL SALINE FLUSH for STERILE FIELD) 10 ml STK-MED ONCE .ROUTE ; Start 09/25/17 at 15:42; Stop 09/28/17 at 11:44; Status DC Calcium Carbonate/ Glycine (Tums) 1,000 mg PRN Q4HRS PRN PO INDIGESTION Last administered on 09/29/17 23:19; Start 09/29/17 at 23:00 Active Scripts Active Reported Percocet 10-325 Mg Tablet (Oxycodone/Acetaminophen) 1 Each Tablet 1 Tab PO Q4- 6HRS Plaquenil (Hydroxychloroquine Sulfate) 200 Mg Tablet 200 Mg PO BID Promethazine-Codeine Syrup (Promethazine Hcl/Codeine) 118 Ml Syrup 10 Ml PO PRN Q4-6HRS PRN Furosemide 20 Mg Tablet 20 Mg PO BID Potassium Chloride 20 Meq Tablet.er 20 Meq PO TID Cetirizine Hcl 10 Mg Tab.chew 10 Mg PO DAILY Ambien (Zolpidem Tartrate) 10 Mg Tablet 10 Mg PO HS PRN Aldactone (Spironolactone) 50 Mg Tablet 50 Mg PO BID Symbicort 160-4.5 Mcg Inhaler (Budesonide/Formoterol Fumarate) 10.2 Gm Hfa.aer.ad 2 Puff IH BID Percocet 5-325 Mg Tablet (Oxycodone/Acetaminophen) 1 Each Tablet 2 Tab PO Q4- 6HRS Reglan (Metoclopramide Hcl) 10 Mg Tablet 1 Tab PO TID Vitamin D3 (Cholecalciferol (Vitamin D3)) 5,000 Unit Tablet 5,000 Unit PO WEEKLY Xopenex (Levalbuterol Hcl) 1.25 Mg/3 Ml Vial.neb 1 Vial NEB TID Tablet (Pnv Cmb#95/Ferrous Fumarate/Fa) 1 Each Tablet 1 Tab PO DAILY Aller-Fex (Fexofenadine Hcl) 180 Mg Tablet 180 Mg PO DAILY Losartan Potassium 25 Mg Tablet 25 Mg PO DAILY Omeprazole 40 Mg Capsule.dr 40 Mg PO BID Gabapentin 100 Mg Capsule 400 Mg PO BID 30 Days Tamsulosin Hcl 0.4 Mg Cap.er.24h 0.4 Mg PO DAILY Fluoxetine Hcl 20 Mg Capsule 1 Cap PO DAILY Cyclobenzaprine Hcl 10 Mg Tablet 1 Tab PO TID Meclizine Hcl 25 Mg Tab.chew 25 Mg PO PRN BID PRN Xanax (Alprazolam) 1 Mg Tablet 1 Mg PO PRN TID PRN Seroquel (Quetiapine Fumarate) 100 Mg Tablet 100 Mg PO HS Vitals/I & O Vital Sign - Last 24 Hours 09/29/17 09/29/17 09/29/17 09/29/17 09:15 10:49 11:53 15:00 Temp 97.7 97.7 97.7 97.7 Pulse 82 90 89 Resp 18 18 B/P (MAP) 112/66 88/44 (59) 115/58 (77) Pulse Ox 93 95 O2 Delivery Room Air Room Air Room Air 09/29/17 09/29/17 09/29/17 09/29/17 18:17 19:00 20:10 21:29 Temp 98.1 98.1 Pulse 98 Resp 18 18 B/P (MAP) 107/68 (81) Pulse Ox 97 97 O2 Delivery Room Air Room Air Room Air Room Air 09/29/17 09/29/17 09/29/17 09/30/17 22:45 23:00 23:20 03:00 Temp 97.8 97.9 97.8 97.9 Pulse 96 88 Resp 19 18 17 B/P (MAP) 142/52 (82) 113/57 (75) Pulse Ox 98 97 96 O2 Delivery Room Air Room Air Room Air Room Air 09/30/17 09/30/17 09/30/17 09/30/17 03:31 04:30 06:48 07:00 Temp 97.6 97.6 Pulse 89 Resp 18 18 20 B/P (MAP) 116/69 (85) Pulse Ox 97 97 97 95 O2 Delivery Room Air Room Air Room Air Room Air O2 Flow Rate 2.0 09/30/17 09/30/17 07:25 07:32 Resp 18 Pulse Ox 97 93 O2 Delivery Room Air Room Air O2 Flow Rate 2.0 Intake and Output 09/29/17 09/29/17 09/30/17 15:00 23:00 07:00 Intake Total 600 ml 1370 ml 360 ml Balance 600 ml 1370 ml 360 ml LORRIE HONG MD Sep 30, 2017 09:19
[2017-09-30] MEDS: GABAPENTIN 400 MG CAPSULE. PO SCH (10:07)
[2017-09-30] MEDS: METOCLOPRAMIDE 10 MG TABLET. PO SCH ×3 (10:07→16:51)
[2017-09-30] MEDS: PRENATAL MULTIVITAMIN TABLET. PO SCH (10:07)
[2017-09-30] MEDS: TAMSULOSIN 0.4 MG CAP.ER.24H. PO SCH (10:07)
[2017-09-30] MEDS: CYCLOBENZAPRINE 10 MG TABLET. PO SCH ×2 (10:07→14:57)
[2017-09-30] MEDS: HYDROXYCHLOROQUINE 200 MG TABLET PO SCH (10:07)
[2017-09-30] MEDS: POTASSIUM CHLORIDE 20 MEQ TABLET.ER. PO SCH ×3 (10:08→16:51)
[2017-09-30] MEDS: CETIRIZINE HCL 10 MG TABLET. PO SCH (10:08)
[2017-09-30] MEDS: PANTOPRAZOLE 40 MG TABLET.DR. PO SCH (10:08)
[2017-09-30] MEDS: DOCUSATE SODIUM 100 MG CAPSULE. PO SCH (10:08)
[2017-09-30] MEDS: LOSARTAN POTASSIUM 25 MG TABLET. PO SCH (10:08)
[2017-09-30] MEDS: FLUoxetine HCL 20 MG CAPSULE PO SCH (10:08)
[2017-09-30] MEDS: SPIRONOLACTONE 25 MG TABLET PO SCH ×2 (10:09→15:00)
[2017-09-30] MEDS: FUROSEMIDE 20 MG TABLET PO SCH ×2 (10:09→15:00)
[2017-09-30 11:00] VITALS: BP 110/64
[2017-09-30 15:00] VITALS: BP 128/54
[2017-09-30] MEDS ORDERED: HEPARIN PF 500 UNIT/5 ML DISP.SYRIN. IV ONE (18:45)
[2017-10-02] MEDS ORDERED: CHOLECALCIFEROL (VITAMIN D3) 5,000 UNIT CAPSULE PO SCH (09:00)
--- NOTE | 2017-10-29 17:09 | PDOC3 ---
*Discharge Summary* Date of Admission: Sep 25, 2017 Date of Discharge: Sep 30, 2017 Admitting Diagnosis Intractable knee pain Problems: Final Diagnosis Intractable knee pain Sarcoidosis Post AVR X 2 Arthritis COPD CONSULTS Ortho Brief Hospital Course Ms. Vaca is a 72 old Lady that has a Hx of Sarcoidosis, valvular heart disease s/p post AVR , COPD. She came in with severe intractable knee pain. Please see the H&P for more details. After admission she was seen by ortho and they recommended an MRI but it was difficult to get it done because of the prosthetic tissue valve in the aortic position. The radiologist felt that it was not safe to do the MRI here with the scanner that is available. This took days to decide and to figure out. The pt's pain was gradually controlled with pain meds and the pt received an injection in the knee. Finally on 09-30-17 she felt better but still was not able to walk and it was diced to discharge her and go to an out-pt MRI place where they could scan her and then have her follow up with ortho and see what can be done about her knee joints. This was all discussed at length with the pt and she agrees with this approach. The meds, diet, follow up, and activity were discussed with the pt. Please see the MRAD for the list of meds. CONDITION AT DISCHARGE: Stable Home Meds Reported Medications Oxycodone/Apap 10-325 (PERCOCET 10-325 MG TABLET) 1 Each Tablet, 1 TAB PO PRN Q6HRS Y for PAIN, TAB 0 Refills 10/20/17 Oxycodone/Apap 10-325 (PERCOCET 10-325 MG TABLET) 1 Each Tablet, 1 TAB PO Q4- 6HRS, #40 TAB 09/17/17 Hydroxychloroquine Sulfate (PLAQUENIL) 200 Mg Tablet, 200 MG PO BID, TAB 09/06/17 Promethazine Hcl/Codeine (PROMETHAZINE-CODEINE SYRUP) 118 Ml Syrup, 10 ML PO PRN Q4-6HRS Y for COUGH, #120 ML 08/17/17 Furosemide (FUROSEMIDE) 20 Mg Tablet, 20 MG PO BID for water pill, TAB 07/16/17 Potassium Chloride (POTASSIUM CHLORIDE) 20 Meq Tablet.er, 20 MEQ PO TID, TAB.SR 05/22/17 Cetirizine Hcl (CETIRIZINE HCL) 10 Mg Tab.chew, 10 MG PO DAILY for seasonal allergies, TAB.CHEW 05/22/17 Zolpidem Tartrate (AMBIEN) 10 Mg Tablet, 10 MG PO HS Y for INSOMNIA, TAB 0 Refills 05/20/17 Spironolactone (ALDACTONE) 50 Mg Tablet, 50 MG PO BID for water pill, TAB 05/20/17 Budesonide/Formoterol Fumarate (SYMBICORT 160-4.5 MCG INHALER) 10.2 Gm Hfa.aer.ad, 2 PUFF IH BID for copd/asthma, #10.6 GM 3 Refills 11/11/16 Metoclopramide Hcl (REGLAN) 10 Mg Tablet, 1 TAB PO TID for for stomache, #90 TAB 11/11/16 Cholecalciferol (Vitamin D3) (VITAMIN D3) 5,000 Unit Tablet, 5000 UNIT PO WEEKLY for supplement 11/11/16 Levalbuterol Hcl (XOPENEX) 1.25 Mg/3 Ml Vial.neb, 1 VIAL NEB TID for copd/asthma , #60 VIAL 09/03/16 Pnv Cmb#95/Ferrous Fumarate/Fa ( TABLET) 1 Each Tablet, 1 TAB PO DAILY for supplement, #90 TAB 3 Refills 09/03/16 Fexofenadine Hcl (ALLER-FEX) 180 Mg Tablet, 180 MG PO DAILY for antihistamine 09/03/16 Losartan Potassium (LOSARTAN POTASSIUM) 25 Mg Tablet, 25 MG PO DAILY for HTN, TAB 09/03/16 Omeprazole (OMEPRAZOLE) 40 Mg Capsule.dr, 40 MG PO BID for GERD, CAP 09/03/16 Gabapentin (Gabapentin) 100 Mg Capsule, 400 MG PO BID for neuropathy for 30 Days 05/11/16 Tamsulosin Hcl (TAMSULOSIN HCL) 0.4 Mg Cap.er.24h, 0.4 MG PO DAILY for HTN, TAB 02/06/16 Fluoxetine Hcl (FLUOXETINE HCL) 20 Mg Capsule, 1 CAP PO DAILY for depression, # 90 CAP 1 Refill 01/01/16 Cyclobenzaprine Hcl (CYCLOBENZAPRINE HCL) 10 Mg Tablet, 1 TAB PO TID for muscle relaxer, #90 TAB 01/06/15 Meclizine Hcl (MECLIZINE HCL) 25 Mg Tab.chew, 25 MG PO PRN BID Y for DIZZINESS, TAB.CHEW 01/11/14 Alprazolam (XANAX) 1 Mg Tablet, 1 MG PO PRN TID Y for ANXIETY / AGITATION 01/11/14 Quetiapine Fumarate (SEROQUEL) 100 Mg Tablet, 100 MG PO HS for mental health 01/11/14 Scheduled Budesonide/Formoterol Fumarate (Symbicort 160-4.5 Mcg Inhaler), 2 PUFF IH BID, ( Reported) Cetirizine Hcl (Cetirizine Hcl), 10 MG PO DAILY, (Reported) Cholecalciferol (Vitamin D3) (Vitamin D3), 5,000 UNIT PO WEEKLY, (Reported) Cyclobenzaprine Hcl (Cyclobenzaprine Hcl), 1 TAB PO TID, (Reported) Fexofenadine Hcl (Aller-Fex), 180 MG PO DAILY, (Reported) Fluoxetine Hcl (Fluoxetine Hcl), 1 CAP PO DAILY, (Reported) Furosemide (Furosemide), 20 MG PO BID, (Reported) Gabapentin (Gabapentin), 400 MG PO BID, (Reported) Hydroxychloroquine Sulfate (Plaquenil), 200 MG PO BID, (Reported) Levalbuterol Hcl (Xopenex), 1 VIAL NEB TID, (Reported) Losartan Potassium (Losartan Potassium), 25 MG PO DAILY, (Reported) Metoclopramide Hcl (Reglan), 1 TAB PO TID, (Reported) Omeprazole (Omeprazole), 40 MG PO BID, (Reported) Oxycodone/Apap 10-325 (Percocet 10-325 Mg Tablet), 1 TAB PO Q4-6HRS, (Reported) Pnv Cmb#95/Ferrous Fumarate/Fa ( Tablet), 1 TAB PO DAILY, (Reported) Potassium Chloride (Potassium Chloride), 20 MEQ PO TID, (Reported) Quetiapine Fumarate (Seroquel), 100 MG PO HS, (Reported) Spironolactone (Aldactone), 50 MG PO BID, (Reported) Tamsulosin Hcl (Tamsulosin Hcl), 0.4 MG PO DAILY, (Reported) Scheduled PRN Alprazolam (Xanax), 1 MG PO PRN TID PRN for ANXIETY / AGITATION, (Reported) Meclizine Hcl (Meclizine Hcl), 25 MG PO PRN BID PRN for DIZZINESS, (Reported) Oxycodone/Apap 10-325 (Percocet 10-325 Mg Tablet), 1 TAB PO PRN Q6HRS PRN for PAIN, (Reported) Promethazine Hcl/Codeine (Promethazine-Codeine Syrup), 10 ML PO PRN Q4-6HRS PRN for COUGH, (Reported) Zolpidem Tartrate (Ambien), 10 MG PO HS PRN for INSOMNIA, (Reported) Time Spent Total time spent with patient [] minutes for coordination of care, counseling, and education. LORRIE HONG MD Oct 29, 2017 17:09
== END 2017-09-30 18:45 | disposition home or self-care (01) | DRG 554 ==
LOC: ER 14:05 → 5 SOUTH 16:09
PROVIDERS: ADMIT Internal Medicine Cardiovascular Disease; ATTEND Internal Medicine Cardiovascular Disease
DX: M17.11 Unilateral primary osteoarthritis, right knee (principal); E11.42 Type 2 diabetes mellitus with diabetic polyneuropathy; I11.0 Hypertensive heart disease with heart failure; I95.9 Hypotension, unspecified; I48.91 Unspecified atrial fibrillation; I50.9 Heart failure, unspecified; M25.561 Pain in right knee; J44.9 Chronic obstructive pulmonary disease, unspecified; E11.9 Type 2 diabetes mellitus without complications; D86.9 Sarcoidosis, unspecified; F41.9 Anxiety disorder, unspecified; I35.0 Nonrheumatic aortic (valve) stenosis; K21.9 Gastro-esophageal reflux disease without esophagitis; M54.5 Low back pain; F32.9 Major depressive disorder, single episode, unspecified; Z82.49 Family history of ischemic heart disease and other diseases of the circulatory system; Z87.11 Personal history of peptic ulcer disease; Z90.710 Acquired absence of both cervix and uterus; Z90.81 Acquired absence of spleen; Z95.2 Presence of prosthetic heart valve; Z79.4 Long term (current) use of insulin; Z87.01 Personal history of pneumonia (recurrent); Z87.440 Personal history of urinary (tract) infections; Z88.6 Allergy status to analgesic agent; Z88.4 Allergy status to anesthetic agent; Z88.8 Allergy status to other drugs, medicaments and biological substances
CPT/HCPCS: 36415; 73562; 80053; 81001; 85025; 85651; 86140; 87086; 94640; 94760; J1170; J7626; J8597; 99285-25

== ENCOUNTER → 2017-10-09 | Outpatient (CLI) | payer MEDICARE, OTHER ==
[2017-09-30 15:00] VITALS: BP 128/54
--- NOTE | 2017-10-10 16:28 | KCIC ---
MR of the right knee Indication: Right knee pain after a fall over 3 weeks ago. Technique: The standard multiplanar sequences are obtained. Findings: Medial meniscus: Degenerative tear. Subluxation of meniscus out of the joint and towards the tibial gutter. Lateral meniscus: Intact. Anterior cruciate ligament: No evidence of an acute tear. Posterior cruciate ligament: Intact Medial collateral ligament: No acute tear. Iliotibial band: Intact. Lateral collateral ligament: Intact Posterolateral corner: Mild thickening and signal of the popliteus tendon attachment compatible with degeneration. No acute tear. Biceps femoris tendon intact. Extensor mechanism: Intact. Fluid: Small joint effusion. Small Reyes's cyst. The cyst is mildly septated. Articular cartilage -patellofemoral joint: Moderate to severe chondromalacia at the median ridge of the patella. -medial compartment: Severe chondromalacia at the medial joint compartment. -lateral compartment:Intact Bones: No significant lesion or acute fracture. Soft tissue: Unremarkable Impression: 1. Medial meniscal tear. 2. Primary osteoarthritis. 3. Reyes's cyst and small joint effusion. Electronically signed by: Jose Baker MD (10/10/2017 4:24 PM) [facility]
== END | disposition home or self-care (01) ==
LOC: KCIC MRI 15:47
PROVIDERS: ATTEND Orthopaedic Surgery
DX: S83.241A Other tear of medial meniscus, current injury, right knee, initial encounter (principal); M17.11 Unilateral primary osteoarthritis, right knee; M71.21 Synovial cyst of popliteal space [Baker], right knee; M25.461 Effusion, right knee; M94.261 Chondromalacia, right knee; X58.XXXA Exposure to other specified factors, initial encounter; Y93.89 Activity, other specified; Y92.89 Other specified places as the place of occurrence of the external cause; Y99.8 Other external cause status
CPT/HCPCS: 73721

== ENCOUNTER 2017-10-20 08:05 | Observation (INO) | payer MEDICARE, OTHER ==
[2017-10-20] VITALS (8 sets, daily range): BP systolic 111–121; BP diastolic 65–71
[~2017-10-20] VITALS: Ht 160 cm; Wt 73.9 kg
[~2017-10-20 08:05] MED LIST changes: +CLINDAMYCIN 900MG PREMIX 50 ML IV PRN; +HYDROmorphone 2 MG/ML VIAL IV PRN; +IV RINGERS,LACTATED 1000ML 1,000 ML IV SCH; +LIDOCAINE 1% PF 2 ML VIAL. ID PRN; +ONDANSETRON PF 4 MG/2 ML VIAL. IV PRN; +fentaNYL PF VIAL 100 MCG/2 ML VIAL IV PRN
[2017-10-20] MEDS ORDERED: PROPOFOL 20 ML IV ONE (10:01)
[2017-10-20] MEDS ORDERED: LIDOCAINE 2% PF Vial for OR 5 ML VIAL. ONE (10:01)
[2017-10-20] MEDS ORDERED: BUPIVAC MPF-EPI 0.5%-1:200000 30 ML VIAL. ONE (10:12)
[2017-10-20] MEDS ORDERED: PHENYLEPHRINE in 0.9% NACL PF 1 MG/10 ML SYRINGE. IV ONE (11:11)
[2017-10-20] MEDS ORDERED: fentaNYL PF VIAL 100 MCG/2 ML VIAL ONE ×2 (11:15→13:11)
[2017-10-20] MEDS ORDERED: DEXAMETHASONE SOD PHOS 20 MG/5 ML VIAL. ONE (11:16)
[2017-10-20] MEDS ORDERED: ONDANSETRON PF 4 MG/2 ML VIAL. ONE (11:16)
[2017-10-20] MEDS ORDERED: BUPIVACAINE MPF 0.5% 30 ML VIAL. ONE (11:42)
[2017-10-20] MEDS ORDERED: SEVOFLURANE 31 TO 60 MINUTES. IH ONE (12:06)
[2017-10-20] MEDS ORDERED: OXYC-328 PO (12:42)
[2017-10-20] MEDS ORDERED: oxyCODONE/APAP 10/325 1 TAB TABLET ONE (12:47)
[2017-10-20] MEDS ORDERED: oxyCODONE/APAP 10/325 1 TAB TABLET PO ONE (13:00)
[2017-10-20] MEDS: fentaNYL PF VIAL 100 MCG/2 ML VIAL IV PRN ×2 (13:15→13:20)
[2017-10-20] MEDS ORDERED: fentaNYL PF VIAL 100 MCG/2 ML VIAL IV PRN (14:30)
[2017-10-20] MEDS ORDERED: DEXTROSE 50% 25 GM / 50ML DISP.SYRIN. IV PRN (14:30)
[2017-10-20] MEDS ORDERED: oxyCODONE/APAP 10/325 1 TAB TABLET PO PRN (14:30)
[2017-10-20] MEDS ORDERED: diphenhydrAMINE 50 MG/ML VIAL IV PRN (14:30)
[2017-10-20] MEDS ORDERED: ACETAMINOPHEN 325 MG TABLET. PO PRN (14:30)
[2017-10-20] MEDS ORDERED: CALCIUM CARBONATE 500 MG TAB.CHEW PO PRN (14:30)
[2017-10-20] MEDS ORDERED: oxyCODONE/APAP 7.5/325 1 TAB TABLET PO PRN (14:30)
[2017-10-20] MEDS ORDERED: 0.9 % SODIUM CHLORIDE 10 ML DISP.SYRIN. IV PRN (14:30)
[2017-10-20] MEDS ORDERED: PROCHLORPERAZINE 10 MG/2 ML VIAL. IV PRN (14:30)
--- NOTE | 2017-10-20 14:42 | PDOC4 ---
Operative Note Operative Note Date of surgery: 10/20/2017 Preoperative diagnosis: Medial meniscus tear and symptomatic Reyes cyst Postoperative diagnosis: Medial meniscus tear plus loose cartilage bodies and symptomatic Reyes cyst Operative procedure: Right knee arthroscopy partial medial meniscectomy removal loose bodies and partial synovectomy to decompress Reyes cyst Surgeon: Silvano Anesthesia: Gen. endotracheal Estimated blood loss: 5 mL Complications: None Operative indications: Nasreen is a 72-year-old female who has had severe debilitating right knee pain ever since a fall a couple of months ago she has had previous hospital admissions for this problem and was evaluated in my office MRI obtained which confirmed clinical suspicion of a medial meniscus tear. She also has some posterior knee pain that I think may be due to the Reyes cyst based on her fullness posteriorly and also has some anterior knee pain that appears patellofemoral in nature that I cautioned her repeatedly that I cannot undo any degenerative type changes or take away her pain resulting for degenerative type causes. Our specific goal with the knee arthroscopy is to deal with the mechanical aspects of the meniscus tear and open up the area of the Reyes cyst so it is less symptomatic in terms of swelling provided to we can get the swelling calm down in the knee from treatment of the meniscus itself. I repeatedly emphasized again that I cannot undo the degenerative type changes in the knee and the pain associated with those would have to be symptomatically treated going forward whether that be by activity modification and anti-inflammatories glucosamine injections or other measures. All her questions were answered consent was obtained and she agrees to proceed with operative evaluation and treatment Operative text: Patient was identified procedure verified patient placed in the supine position on the operating table. After adequate amounts of general endotracheal anesthesia were administered the right lower extremity was prepped and draped in standard sterile fashion after having placed a thigh tourniquet. After timeout was performed patient procedure identified and verified the right lower extremity was exsanguinated with Esmarch bandage tourniquet inflated to 300 mmHg anterolateral portal was established a medial portal established using spinal needle localization and the knee joint was systematically examined she had mild patellofemoral chondromalacia that did not need any debridement no full -thickness cartilage deficits noted there were loose bodies noted in the medial and lateral compartments which were retrieved with arthroscopic shaver. She did have a complex tear posterior horn of medial meniscus which was trimmed back to stable condition and some associated chondromalacia partial thickness on the medial femoral condyle. The meniscus was radiused to remove the tear and any associated stress risers lateral meniscus was probed and found to be intact. A posterior medial portal was a separately established to observe the Reyes cyst opening which was debrided with a partial synovectomy to open up the area for free exchange of fluid no loose bodies were noted in the Reyes cyst. Knee was drained of arthroscopic fluid portals were closed with nylon suture the knee was infused with a total of 20 mL of half percent plain Marcaine sterile dressings were applied she was returned recovery room in stable condition having tolerated procedure well. She was subsequently admitted to observation status due to some sedation concern with mild hypoxia and a severe fall risk based on her previous evaluations FLOWER MAGANA MD Oct 20, 2017 14:42
[2017-10-20] MEDS ORDERED: PROMETH/CODEINE 6.25/10MG 5 ML SYRUP. PO PRN (15:30)
[2017-10-20] MEDS ORDERED: NON FORMULARY ITEM (Zolpidem Tartrate (Ambien) 10 MG) PO PRN (15:30)
[2017-10-20] MEDS ORDERED: MECLIZINE HCL 12.5 MG TABLET. PO PRN (16:00)
[2017-10-20] MEDS: ALPRAZolam 0.5 MG TABLET PO PRN (16:42)
[2017-10-20] MEDS: METOCLOPRAMIDE 10 MG TABLET. PO SCH (16:42)
[2017-10-20] MEDS: POTASSIUM CHLORIDE 20 MEQ TABLET.ER. PO SCH (16:42)
[2017-10-20] MEDS: oxyCODONE/APAP 10/325 1 TAB TABLET PO PRN (16:43)
[2017-10-20] MEDS ORDERED: traMADol 50 MG TABLET PO PRN (16:45)
[2017-10-20] MEDS ORDERED: KETOROLAC TROMETHAMINE 10 MG TABLET PO SCH (18:00)
[2017-10-20] MEDS: BUDESONIDE 0.5 MG/2 ML NEBU. NEB SCH (20:00)
[2017-10-20] MEDS ORDERED: NON FORMULARY ITEM (Budesonide/Formoterol Fumarate (Symbicort 160-4.5 Mcg Inhaler) 2 PUFF) IH SCH (21:00)
[2017-10-20] MEDS: LEVALBUTEROL 1.25 MG/0.5 ML NEBU. NEB SCH (21:00)
[2017-10-20] MEDS ORDERED: SPIRONOLACTONE 25 MG TABLET PO SCH (21:00)
[2017-10-20] MEDS ORDERED: QUEtiapine 100 MG TABLET. PO SCH (21:00)
[2017-10-20] MEDS: GABAPENTIN 400 MG CAPSULE. PO SCH (21:07)
[2017-10-20] MEDS: HYDROXYCHLOROQUINE 200 MG TABLET PO SCH (21:07)
[2017-10-20] MEDS: ZOLPIDEM 5 MG TABLET. PO PRN ×2 (21:07→23:03)
[2017-10-20] MEDS: CYCLOBENZAPRINE 10 MG TABLET. PO SCH (21:07)
[2017-10-21 03:00] VITALS: BP 123/72
[2017-10-21] MEDS: oxyCODONE/APAP 10/325 1 TAB TABLET PO PRN ×2 (03:59→09:32)
[2017-10-21] MEDS: ALPRAZolam 0.5 MG TABLET PO PRN ×2 (04:49→11:49)
[2017-10-21] MEDS ORDERED: MAGNESIUM HYDROXIDE 2,400 MG/30 ML ORAL.SUSP. PO PRN (06:00)
[2017-10-21 06:14] VITALS: BP 96/52
[2017-10-21] MEDS ORDERED: PANTOPRAZOLE 40 MG TABLET.DR. PO SCH (07:30)
[2017-10-21] MEDS: BUDESONIDE 0.5 MG/2 ML NEBU. NEB SCH (08:00)
[2017-10-21] MEDS: METOCLOPRAMIDE 10 MG TABLET. PO SCH ×2 (08:05→11:46)
[2017-10-21] MEDS: POTASSIUM CHLORIDE 20 MEQ TABLET.ER. PO SCH ×2 (08:05→11:46)
[2017-10-21] MEDS: CYCLOBENZAPRINE 10 MG TABLET. PO SCH ×2 (08:06→14:38)
[2017-10-21] MEDS: GABAPENTIN 400 MG CAPSULE. PO SCH (08:06)
[2017-10-21] MEDS: HYDROXYCHLOROQUINE 200 MG TABLET PO SCH (08:06)
[2017-10-21] MEDS ORDERED: TAMSULOSIN 0.4 MG CAP.ER.24H. PO SCH (09:00)
[2017-10-21] MEDS ORDERED: FLUoxetine HCL 20 MG CAPSULE PO SCH (09:00)
[2017-10-21] MEDS: LEVALBUTEROL 1.25 MG/0.5 ML NEBU. NEB SCH (09:00)
[2017-10-21] MEDS ORDERED: SENNOSIDES/DOCUSATE 8.6/50MG TABLET. PO SCH (09:00)
[2017-10-21] MEDS ORDERED: LOSARTAN POTASSIUM 25 MG TABLET. PO SCH (09:00)
[2017-10-21] MEDS ORDERED: FUROSEMIDE 20 MG TABLET PO SCH (09:00)
[2017-10-21] MEDS ORDERED: PRENATAL MULTIVITAMIN TABLET. PO SCH (09:00)
[2017-10-21] MEDS ORDERED: MULTIVITAMIN with MINERAL TABLET. PO SCH (09:00)
[2017-10-21] MEDS ORDERED: CETIRIZINE HCL 10 MG TABLET. PO SCH (09:00)
[2017-10-21] MEDS ORDERED: FEXOFENADINE HCL 180 MG PO SCH (09:00)
[2017-10-21] MEDS ORDERED: CHOLECALCIFEROL (VITAMIN D3) 5,000 UNIT CAPSULE PO SCH (09:00)
[2017-10-21] MEDS ORDERED: HEPARIN PF 500 UNIT/5 ML DISP.SYRIN. IV ONE ×2 (10:00→15:15)
[2017-10-21 10:36] LABS: HEMATOCRIT 37.7 % (36.0-47.0); HEMOGLOBIN 12.4 g/dL (12.0-15.5)
[2017-10-21 15:34] VITALS: BP 132/84
[2017-10-21] MEDS ORDERED: BISACODYL 10 MG SUPP.RECT. PR PRN (16:00)
--- NOTE | 2017-10-21 18:52 | DS ---
DATE OF DISCHARGE: 10/21/2017 ORTHOPEDIC DISCHARGE SUMMARY PRINCIPAL DIAGNOSES: Status post right knee arthroscopy, partial medial meniscectomy and decompression of Reyes cyst. ADDITIONAL DIAGNOSES: Postoperative sedation and hypoxia due to difficulty with initial pain control. DISCHARGE INSTRUCTIONS: Followup includes Dr. Schaefer in 7-10 days. ACTIVITY: Weightbearing as tolerated with assistance with walker as needed. Remove dressing on 10/22/2017, march then shower. No soaking in tub. Increase activities as tolerated. MEDICATIONS: Include resumption of home medications. She was given prescription for Percocet 10/325 one p.o. q.4 hours p.r.n. pain, dispensed #80. BRIEF DESCRIPTION OF HOSPITAL COURSE: The patient underwent observation admission following a knee arthroscopy and was noted to have significant postoperative sedation with some mild hypoxia requiring overnight observation. She did well the next day with physical therapy through ambulation and transfers. I discussed her condition with Dr. Ocampo. He really had no cardiac concerns with her and she remained asymptomatic and was discharged home in stable condition. FLOWER SCHAEFER MD DR: ELAN/trevon JOB#: [id number] / [id number]
== END 2017-10-21 15:40 | disposition still patient (30) ==
LOC: SURG 08:05 → 4 SOUTHEST 14:27
PROVIDERS: ADMIT Orthopaedic Surgery; ATTEND Orthopaedic Surgery
DX: S83.231A Complex tear of medial meniscus, current injury, right knee, initial encounter (principal); M71.20 Synovial cyst of popliteal space [Baker], unspecified knee; X58.XXXA Exposure to other specified factors, initial encounter; Y93.89 Activity, other specified; Y92.89 Other specified places as the place of occurrence of the external cause; Y99.8 Other external cause status; Z91.81 History of falling
CPT/HCPCS: 29874; 29881; 36415; 82962; 85014; 85018; 96374; 96376; 97116; 97150; 97162; G0378; G0379; G8978; G8979; G8980; J1100; J2370; J2405; J2704; J3010; J3490; J8597; J2001

== ENCOUNTER 2017-11-14 16:17 | Inpatient (IN) | payer MEDICARE, OTHER ==
[2017-11-14] MEDS ORDERED: AMIODARONE 150 MG/3 ML VIAL (16:55)
[2017-11-14 17:00] LABS: BASO % 0 % (0-3); EOS % 0 % (0-3); HEMATOCRIT 33.9 % (36.0-47.0); HEMOGLOBIN 10.8 g/dL (12.0-15.5); LYMPH # 1.3 x10^3/uL (1.0-4.8); LYMPH % 5 % (24-48); MEAN CORPUSCULAR HEMOGLOBIN 32 pg (25-35); MEAN CORPUSCULAR HGB CONC 32 g/dL (31-37); MEAN CORPUSCULAR VOLUME 99 fL (79-100); MONO # 0.7 x10^3/uL (0.0-1.1); MONO % 3 % (0-9); NEUT # 22.1 x10^3uL (1.8-7.7); NEUT % 91 % (31-73); PLATELET COUNT 119 x10^3/uL (140-400); RED BLOOD COUNT 3.43 x10^6/uL (3.50-5.40); RED CELL DISTRIBUTION WIDTH 13.8 % (11.5-14.5); WHITE BLOOD COUNT 24.2 x10^3/uL (4.0-11.0)
[2017-11-14 17:01] LABS: POC GLUCOSE 132 mg/dL (70-99)
[2017-11-14 17:02] LABS: ADD MAN DIFF? YES
[2017-11-14 17:12] LABS: ANION GAP 16 (6-14); BLOOD UREA NITROGEN 54 mg/dL (7-20); CALCIUM 8.8 mg/dL (8.5-10.1); CARBON DIOXIDE 19 mmol/L (21-32); CHLORIDE 99 mmol/L (98-107); CREATININE 2.5 mg/dL (0.6-1.0); GLUCOSE 150 mg/dL (70-99); POTASSIUM 4.5 mmol/L (3.5-5.1); SODIUM 134 mmol/L (136-145)
[2017-11-14] MEDS: LIDOCAINE 2% 100 MG/5 ML SYRINGE. IV (17:15)
[2017-11-14] MEDS: AMIODARONE 150 MG in IV DEXTROSE 5% 100 ML IV (17:17)
[2017-11-14 17:18] LABS: ALBUMIN 2.6 g/dL (3.4-5.0); ALK PHOS 165 U/L (46-116); ALT (SGPT) 693 U/L (14-59); AST (SGOT) 404 U/L (15-37); DIRECT BILIRUBIN 0.2 mg/dL (0.0-0.2); LIPASE 112 U/L (73-393); TOTAL BILIRUBIN 0.4 mg/dL (0.2-1.0); TOTAL PROTEIN 6.9 g/dL (6.4-8.2)
[2017-11-14] MEDS: IV NORMAL SALINE 500ML BAG 500 ML IV ×3 (17:18→19:00)
[2017-11-14 17:19] LABS: PHOSPHORUS 4.1 mg/dL (2.6-4.7)
[2017-11-14 17:19] LABS: MAGNESIUM 2.2 mg/dL (1.8-2.4)
[2017-11-14 17:20] LABS: LACTIC ACID 1.8 mmol/L (0.4-2.0)
[2017-11-14 17:20] LABS: BILIRUBIN,URINE SMALL (NEG); CLARITY,URINE CLEAR; COLOR,URINE YELLOW; GLUCOSE,URINE NEGATIVE (NEG); NITRITE,URINE NEGATIVE (NEG); PH,URINE 5.5; PROTEIN,URINE 30 mg/dL (NEG-TRACE); UROBILINOGEN,URINE 0.2 mg/dL (0.2 mg/dL)
[2017-11-14 17:21] LABS: INR 1.5 (0.8-1.1); PROTHROMBIN TIME PATIENT 17.4 SEC (11.7-14.0)
[2017-11-14 17:22] LABS: PARTIAL THROMBOPLASTIN TIME 60 SEC (24-38)
[2017-11-14 17:24] LABS: TROPONINI 0.662 ng/mL (0.000-0.055)
[2017-11-14] MEDS: AMIODARONE 900 MG in IV DEXTROSE 5% 500 ML IV (17:25)
[2017-11-14 17:29] LABS: BACTERIA,URINE 0 /HPF (0-FEW); RBC,URINE 0 /HPF (0-2); WBC,URINE 0 /HPF (0-4)
[2017-11-14 17:30] LABS: HYALINE CASTS, URINE MANY /HPF
[2017-11-14] MEDS ORDERED: levOFLOXacin PER PHARMACY. MC (17:45)
[2017-11-14] MEDS: HYDROCORTISONE SOD SUCC/PF 100 MG/2 ML VIAL. IV (17:50)
[2017-11-14 17:52] LABS: % BANDS 7 % (0-9); % LYMPHS 5 % (24-48); % MONOS 2 % (0-10); % SEGS 86 % (35-66)
[2017-11-14 17:54] LABS: PLT ESTIMATE DECREASED (ADEQUATE); POLYCHROMASIA SLIGHT; SCHISTOCYTES OCC; TOXIC GRANULATION SLIGHT; TOXIC VACUOLATION SLIGHT
[2017-11-14] MEDS: ASPIRIN 300 MG SUPP.RECT PR (18:00)
[2017-11-14] MEDS: VANCOMYCIN 1.25 GM in IV DEXTROSE 5% 250 ML IV (18:59)
[2017-11-14] MEDS: VANCOMYCIN PER PHARMACY MC (19:11)
[2017-11-14] MEDS ORDERED: diphenhydrAMINE HCL 25 MG CAPSULE PO (20:15)
[2017-11-14] MEDS ORDERED: MECLIZINE HCL 12.5 MG TABLET. PO (20:45)
[2017-11-14] MEDS ORDERED: NON FORMULARY ITEM (Budesonide/Formoterol Fumarate (Symbicort 160-4.5 Mcg Inhaler) 2 PUFF) IH (21:00)
[2017-11-14] MEDS: IV NORMAL SALINE 1000ML BAG 1,000 ML IV (21:03)
[2017-11-14] MEDS: QUEtiapine 100 MG TABLET. PO (21:24)
[2017-11-14] MEDS: GABAPENTIN 400 MG CAPSULE. PO (21:24)
[2017-11-14] MEDS: HYDROXYCHLOROQUINE 200 MG TABLET PO (21:24)
[2017-11-14] MEDS: METOCLOPRAMIDE 10 MG TABLET. PO (21:24)
[2017-11-14] MEDS: CYCLOBENZAPRINE 10 MG TABLET. PO (21:24)
[2017-11-14] MEDS: SPIRONOLACTONE 25 MG TABLET PO (21:25)
[2017-11-15 01:30] LABS: TROPONINI 0.718 ng/mL (0.000-0.055)
[2017-11-15] MEDS: ALPRAZolam 1 MG TABLET PO ×2 (04:26→20:53)
[2017-11-15 06:24] LABS: ADD MAN DIFF? NO
[2017-11-15 06:33] LABS: BASO # 0.1 x10^3/uL (0.0-0.2); BASO % 0 % (0-3); EOS % 0 % (0-3); HEMATOCRIT 29.6 % (36.0-47.0); HEMOGLOBIN 9.5 g/dL (12.0-15.5); LYMPH # 0.6 x10^3/uL (1.0-4.8); LYMPH % 3 % (24-48); MEAN CORPUSCULAR HEMOGLOBIN 31 pg (25-35); MEAN CORPUSCULAR HGB CONC 32 g/dL (31-37); MEAN CORPUSCULAR VOLUME 98 fL (79-100); MONO # 0.7 x10^3/uL (0.0-1.1); MONO % 3 % (0-9); NEUT # 23.4 x10^3uL (1.8-7.7); NEUT % 94 % (31-73); PLATELET COUNT 72 x10^3/uL (140-400); RED BLOOD COUNT 3.01 x10^6/uL (3.50-5.40); RED CELL DISTRIBUTION WIDTH 13.8 % (11.5-14.5); WHITE BLOOD COUNT 24.8 x10^3/uL (4.0-11.0)
[2017-11-15] MEDS: IV NORMAL SALINE 1000ML BAG 1,000 ML IV ×2 (06:33→15:30)
[2017-11-15 06:56] LABS: ANION GAP 11 (6-14); BLOOD UREA NITROGEN 40 mg/dL (7-20); CALCIUM 8.3 mg/dL (8.5-10.1); CARBON DIOXIDE 22 mmol/L (21-32); CHLORIDE 104 mmol/L (98-107); CREATININE 1.6 mg/dL (0.6-1.0); GFR 31.9; GLUCOSE 154 mg/dL (70-99); POTASSIUM 4.4 mmol/L (3.5-5.1); SODIUM 137 mmol/L (136-145)
[2017-11-15 07:06] LABS: TROPONINI 1.024 ng/mL (0.000-0.055)
[2017-11-15 08:53] LABS: BASE EXCESS ABG -6 mmol/L (-3-3); FIO2 ABG 32; HCO3 ABG 18 mmol/L (21-28); PCO2 ABG 29 mmHg (35-46); PO2 ABG 155 mmHg (65-108); SAT O2 ABG 99 % (92-99)
[2017-11-15] MEDS: LOSARTAN POTASSIUM 25 MG TABLET. PO (09:00)
[2017-11-15] MEDS ORDERED: FEXOFENADINE HCL 180 MG PO (09:00)
[2017-11-15] MEDS: SPIRONOLACTONE 25 MG TABLET PO ×2 (09:32→20:52)
[2017-11-15] MEDS: CETIRIZINE HCL 10 MG TABLET. PO (09:32)
[2017-11-15] MEDS: CYCLOBENZAPRINE 10 MG TABLET. PO ×3 (09:33→20:53)
[2017-11-15] MEDS: CHOLECALCIFEROL (VITAMIN D3) 5,000 UNIT CAPSULE PO (09:33)
[2017-11-15] MEDS: GABAPENTIN 400 MG CAPSULE. PO ×2 (09:33→20:53)
[2017-11-15] MEDS: HYDROXYCHLOROQUINE 200 MG TABLET PO ×2 (09:33→20:53)
[2017-11-15] MEDS: PANTOPRAZOLE 40 MG TABLET.DR. PO ×2 (09:34→16:07)
[2017-11-15] MEDS: METOCLOPRAMIDE 10 MG TABLET. PO ×3 (09:34→20:54)
[2017-11-15] MEDS: FLUoxetine HCL 20 MG CAPSULE PO (09:35)
[2017-11-15] MEDS: FUROSEMIDE 20 MG TABLET PO ×2 (09:35→15:10)
[2017-11-15] MEDS: CALCIUM CARBONATE 500 MG TAB.CHEW PO (09:36)
[2017-11-15] MEDS: BUDESONIDE 0.5 MG/2 ML NEBU. NEB ×2 (11:15→19:34)
[2017-11-15] MEDS: LEVALBUTEROL 1.25 MG/0.5 ML NEBU. NEB ×3 (11:15→19:33)
[2017-11-15] MEDS: PRENATAL MULTIVITAMIN TABLET. PO (11:40)
[2017-11-15] MEDS: DOCUSATE SODIUM 100 MG CAPSULE. PO (11:40)
[2017-11-15] MEDS: TAMSULOSIN 0.4 MG CAP.ER.24H. PO (11:40)
[2017-11-15] MEDS: VANCOMYCIN PER PHARMACY MC (11:42)
[2017-11-15] MEDS ORDERED: AMIODARONE HCL 200 MG TABLET. PO (15:30)
[2017-11-15] MEDS: BENZONATATE 100 MG CAPSULE. PO ×2 (16:05→19:10)
[2017-11-15] MEDS: AMIODARONE HCL 200 MG TABLET. PO ×2 (16:05→20:53)
[2017-11-15] MEDS: VANCOMYCIN 1 GM in IV 1/2 NORMAL SALINE 250 ML IV (16:08)
[2017-11-15] MEDS: PROMETH/CODEINE 6.25/10MG 5 ML SYRUP. PO ×2 (19:11→22:46)
[2017-11-15] MEDS: QUEtiapine 100 MG TABLET. PO (20:54)
[2017-11-15] MEDS: LACTOBACILLUS RHAMNOSUS GG 1 CAPSULE. PO (20:54)
[2017-11-15 21:08] LABS: MRSA BY PCR Negative (Negative)
[2017-11-16] MEDS: BUDESONIDE 0.5 MG/2 ML NEBU. NEB ×2 (07:26→20:40)
[2017-11-16] MEDS: LEVALBUTEROL 1.25 MG/0.5 ML NEBU. NEB ×3 (07:27→20:45)
[2017-11-16] MEDS: CYCLOBENZAPRINE 10 MG TABLET. PO ×3 (08:24→20:53)
[2017-11-16] MEDS: GABAPENTIN 400 MG CAPSULE. PO ×2 (08:24→20:54)
[2017-11-16] MEDS: FLUoxetine HCL 20 MG CAPSULE PO (08:24)
[2017-11-16] MEDS: CHOLECALCIFEROL (VITAMIN D3) 5,000 UNIT CAPSULE PO (08:24)
[2017-11-16] MEDS: PRENATAL MULTIVITAMIN TABLET. PO (08:24)
[2017-11-16] MEDS: PANTOPRAZOLE 40 MG TABLET.DR. PO ×2 (08:24→17:54)
[2017-11-16] MEDS: HYDROXYCHLOROQUINE 200 MG TABLET PO ×2 (08:24→20:55)
[2017-11-16] MEDS: TAMSULOSIN 0.4 MG CAP.ER.24H. PO (08:25)
[2017-11-16] MEDS: LACTOBACILLUS RHAMNOSUS GG 1 CAPSULE. PO ×2 (08:25→20:55)
[2017-11-16] MEDS: BENZONATATE 100 MG CAPSULE. PO ×3 (08:25→20:53)
[2017-11-16] MEDS: AMIODARONE HCL 200 MG TABLET. PO ×2 (08:25→20:54)
[2017-11-16] MEDS: CETIRIZINE HCL 10 MG TABLET. PO (08:25)
[2017-11-16] MEDS: METOCLOPRAMIDE 10 MG TABLET. PO ×3 (08:27→20:54)
[2017-11-16] MEDS: PROMETH/CODEINE 6.25/10MG 5 ML SYRUP. PO (08:37)
[2017-11-16] MEDS: FUROSEMIDE 20 MG TABLET PO ×2 (09:00→17:54)
[2017-11-16] MEDS: LOSARTAN POTASSIUM 25 MG TABLET. PO (09:00)
[2017-11-16] MEDS ORDERED: MAGNESIUM SULFATE 2GM 50 ML IV (09:15)
[2017-11-16 11:54] LABS: RETIC COUNT 3.8 % (0.5-2.5)
[2017-11-16 12:05] LABS: % SAT IRON 7 % (15-34); IRON,SERUM 15 ug/dL (50-170)
[2017-11-16 12:06] LABS: ALBUMIN 2.1 g/dL (3.4-5.0); ALK PHOS 151 U/L (46-116); ALT (SGPT) 352 U/L (14-59); AST (SGOT) 40 U/L (15-37); DIRECT BILIRUBIN 0.1 mg/dL (0.0-0.2); TOTAL BILIRUBIN 0.3 mg/dL (0.2-1.0); TOTAL PROTEIN 5.9 g/dL (6.4-8.2)
[2017-11-16 12:20] LABS: FERRITIN 306 ng/mL (8-252)
[2017-11-16] MEDS: ALPRAZolam 1 MG TABLET PO (14:55)
[2017-11-16] MEDS: oxyCODONE/APAP 10/325 1 TAB TABLET PO ×2 (14:56→20:53)
[2017-11-16] MEDS ORDERED: LIDO:MAALOX:DONNATAL 1:1:1 15 ML SINGLE DOSE SWSW (15:30)
[2017-11-16 16:20] LABS: POC GLUCOSE 110 mg/dL (70-99)
[2017-11-16] MEDS: QUEtiapine 100 MG TABLET. PO (20:55)
[2017-11-17 06:20] LABS: ALBUMIN 2.1 g/dL (3.4-5.0); ANION GAP 7 (6-14); BLOOD UREA NITROGEN 19 mg/dL (7-20); CALCIUM 8.1 mg/dL (8.5-10.1); CARBON DIOXIDE 27 mmol/L (21-32); CHLORIDE 105 mmol/L (98-107); GFR 54.8; GLUCOSE 115 mg/dL (70-99); MAGNESIUM 1.7 mg/dL (1.8-2.4); PHOSPHORUS 2.2 mg/dL (2.6-4.7); POTASSIUM 3.9 mmol/L (3.5-5.1); SODIUM 139 mmol/L (136-145)
[2017-11-17] MEDS: PANTOPRAZOLE 40 MG TABLET.DR. PO ×2 (07:30→16:30)
[2017-11-17] MEDS: BUDESONIDE 0.5 MG/2 ML NEBU. NEB ×2 (08:19→19:28)
[2017-11-17] MEDS: LEVALBUTEROL 1.25 MG/0.5 ML NEBU. NEB ×3 (08:19→19:28)
[2017-11-17 08:44] LABS: POC GLUCOSE 88 mg/dL (70-99)
[2017-11-17 08:50] LABS: ADD MAN DIFF? NO
[2017-11-17] MEDS: FLUoxetine HCL 20 MG CAPSULE PO (09:00)
[2017-11-17] MEDS: LOSARTAN POTASSIUM 25 MG TABLET. PO (09:00)
[2017-11-17] MEDS: IOHEXOL 300 MG/ML 100ML VIAL. IV (09:00)
[2017-11-17] MEDS: AMIODARONE HCL 200 MG TABLET. PO ×2 (09:00→21:00)
[2017-11-17] MEDS: PRENATAL MULTIVITAMIN TABLET. PO (09:00)
[2017-11-17] MEDS: FUROSEMIDE 20 MG TABLET PO ×2 (09:00→16:00)
[2017-11-17] MEDS: SPIRONOLACTONE 25 MG TABLET PO (09:00)
[2017-11-17] MEDS: HYDROXYCHLOROQUINE 200 MG TABLET PO ×2 (09:00→21:00)
[2017-11-17] MEDS: CETIRIZINE HCL 10 MG TABLET. PO (09:00)
[2017-11-17] MEDS: CYCLOBENZAPRINE 10 MG TABLET. PO ×3 (09:00→21:00)
[2017-11-17] MEDS: LACTOBACILLUS RHAMNOSUS GG 1 CAPSULE. PO ×2 (09:00→21:00)
[2017-11-17] MEDS: METOCLOPRAMIDE 10 MG TABLET. PO ×3 (09:00→21:00)
[2017-11-17] MEDS: BENZONATATE 100 MG CAPSULE. PO ×3 (09:00→21:00)
[2017-11-17] MEDS: CHOLECALCIFEROL (VITAMIN D3) 5,000 UNIT CAPSULE PO (09:00)
[2017-11-17] MEDS: GABAPENTIN 400 MG CAPSULE. PO ×2 (09:00→21:00)
[2017-11-17] MEDS: TAMSULOSIN 0.4 MG CAP.ER.24H. PO (09:00)
[2017-11-17] MEDS ORDERED: CONTRAST GIVEN MC (09:00)
[2017-11-17 09:02] LABS: ANION GAP 9 (6-14); BLOOD UREA NITROGEN 17 mg/dL (7-20); BUN/CREATININE RATIO 17 (6-20); CALCIUM 8.2 mg/dL (8.5-10.1); CARBON DIOXIDE 28 mmol/L (21-32); CHLORIDE 105 mmol/L (98-107); GFR 54.8; GLUCOSE 113 mg/dL (70-99); POTASSIUM 4.4 mmol/L (3.5-5.1); SODIUM 142 mmol/L (136-145)
[2017-11-17 09:05] LABS: INR 1.3 (0.8-1.1); PROTHROMBIN TIME PATIENT 15.2 SEC (11.7-14.0)
[2017-11-17 09:07] LABS: BASO # 0.2 x10^3/uL (0.0-0.2); BASO % 1 % (0-3); EOS % 0 % (0-3); HEMOGLOBIN 9.4 g/dL (12.0-15.5); LYMPH # 0.8 x10^3/uL (1.0-4.8); LYMPH % 4 % (24-48); MEAN CORPUSCULAR HEMOGLOBIN 32 pg (25-35); MEAN CORPUSCULAR HGB CONC 32 g/dL (31-37); MEAN CORPUSCULAR VOLUME 100 fL (79-100); MONO # 0.7 x10^3/uL (0.0-1.1); MONO % 3 % (0-9); NEUT # 21.7 x10^3uL (1.8-7.7); NEUT % 92 % (31-73); RED CELL DISTRIBUTION WIDTH 13.8 % (11.5-14.5); WHITE BLOOD COUNT 23.5 x10^3/uL (4.0-11.0)
[2017-11-17 09:14] LABS: ALBUMIN 2.3 g/dL (3.4-5.0); ALBUMIN/GLOBULIN RATIO 0.7 (1.0-1.7); ALK PHOS 146 U/L (46-116); ALT (SGPT) 284 U/L (14-59); AST (SGOT) 33 U/L (15-37); TOTAL BILIRUBIN 0.4 mg/dL (0.2-1.0); TOTAL PROTEIN 5.7 g/dL (6.4-8.2)
[2017-11-17 09:36] LABS: PLATELET COUNT 34 x10^3/uL (140-400)
[2017-11-17] MEDS ORDERED: VANCOMYCIN 1 GM in IV DEXTROSE 5% 250 ML IV (09:45)
[2017-11-17] MEDS: IV NORMAL SALINE 1000ML BAG 1,000 ML IV ×2 (10:29→11:08)
[2017-11-17] MEDS ORDERED: NOREPINEPHRIN PREMIX 250 ML IV (10:30)
[2017-11-17] MEDS ORDERED: TOBRAMYCIN PER PHARMACY MC (10:30)
[2017-11-17] MEDS ORDERED: IV NORMAL SALINE 500ML BAG 500 ML IV (10:30)
[2017-11-17 10:49] LABS: PARTIAL THROMBOPLASTIN TIME 37 SEC (24-38)
[2017-11-17] MEDS: CLOPIDOGREL BISULFATE 75 MG TABLET PO (11:00)
[2017-11-17 11:04] LABS: DIRECT BILIRUBIN 0.2 mg/dL (0.0-0.2)
[2017-11-17 11:13] LABS: ISTAT INR 1.4 (0.9-1.1); ISTAT PT 16.8 Sec (10.0-14.0)
[2017-11-17 11:15] LABS: PROCALCITONIN 0.41 ng/mL (0.00-0.10)
[2017-11-17] MEDS: IRON SUCROSE COMPLEX 200 MG in TOTAL VOLUME SYRINGE 0 ML IVP (11:34)
[2017-11-17] MEDS: SODIUM PHOSPHATE 20 MMOL in IV NORMAL SALINE 250ML 250 ML IV (11:34)
[2017-11-17] MEDS: VANCOMYCIN 1.75 GM in IV DEXTROSE 5 %-0.2 % NACL 500 ML IV (11:36)
[2017-11-17] MEDS: ASPIRIN 300 MG SUPP.RECT PR (11:51)
[2017-11-17] MEDS: NORMAL SALINE IV ×3 (14:00→20:56)
[2017-11-17] MEDS: RIFAMPIN IV ×2 (14:00→20:56)
[2017-11-17] MEDS: VANCOMYCIN PER PHARMACY MC ×2 (14:08→14:31)
[2017-11-17] MEDS: POTASSIUM PHOSPHATE DIBASIC 10 MMOL in IV NORMAL SALINE 100ML 100 ML IV ×2 (16:09→19:00)
[2017-11-17] MEDS: TOBRAMYCIN SULFATE IV (16:10)
[2017-11-17 16:15] LABS: HCV ANTIBODY <0.1 s/co ratio (0.0-0.9); HEP A IGM ABDY Negative (Negative); HEP B SURFACE AG Negative (Negative)
[2017-11-17] MEDS: QUEtiapine 100 MG TABLET. PO (21:00)
[2017-11-18 05:27] LABS: ADD MAN DIFF? NO
[2017-11-18 06:00] LABS: BASO # 0.1 x10^3/uL (0.0-0.2); BASO % 1 % (0-3); EOS % 0 % (0-3); HEMATOCRIT 30.5 % (36.0-47.0); HEMOGLOBIN 9.9 g/dL (12.0-15.5); LYMPH # 1.1 x10^3/uL (1.0-4.8); LYMPH % 5 % (24-48); MEAN CORPUSCULAR HEMOGLOBIN 33 pg (25-35); MEAN CORPUSCULAR HGB CONC 32 g/dL (31-37); MEAN CORPUSCULAR VOLUME 100 fL (79-100); MONO # 0.9 x10^3/uL (0.0-1.1); MONO % 4 % (0-9); NEUT # 21.4 x10^3uL (1.8-7.7); NEUT % 91 % (31-73); RED BLOOD COUNT 3.05 x10^6/uL (3.50-5.40); RED CELL DISTRIBUTION WIDTH 14.2 % (11.5-14.5); WHITE BLOOD COUNT 23.5 x10^3/uL (4.0-11.0)
[2017-11-18] MEDS ORDERED: VANCOMYCIN 1.25 GM in IV 1/2 NORMAL SALINE 250 ML IV (06:00)
[2017-11-18 06:01] LABS: ALBUMIN 2.2 g/dL (3.4-5.0); ANION GAP 12 (6-14); BLOOD UREA NITROGEN 16 mg/dL (7-20); CALCIUM 8.7 mg/dL (8.5-10.1); CARBON DIOXIDE 24 mmol/L (21-32); CHLORIDE 107 mmol/L (98-107); CHOLESTEROL 143 mg/dL (0-200); GFR 54.8; GLUCOSE 138 mg/dL (70-99); HDLC 37 mg/dL (40-60); LDLC 89 mg/dL (0-100); MAGNESIUM 1.9 mg/dL (1.8-2.4); NON-HDL CHOLESTEROL 106 mg/dL (0-129); PHOSPHORUS 3.2 mg/dL (2.6-4.7); SODIUM 143 mmol/L (136-145); TRIGLYCERIDES 85 mg/dL (0-150); VLDLC 17 mg/dL (0-40)
[2017-11-18 06:04] LABS: CHOLESTEROL/HDL RATIO 3.9
[2017-11-18] MEDS: VANCOMYCIN 1.25 GM in IV DEXTROSE 5% 250 ML IV (06:18)
[2017-11-18] MEDS: PANTOPRAZOLE 40 MG TABLET.DR. PO ×2 (07:30→13:03)
[2017-11-18] MEDS: CLOPIDOGREL BISULFATE 75 MG TABLET PO (08:00)
[2017-11-18] MEDS: BUDESONIDE 0.5 MG/2 ML NEBU. NEB (08:34)
[2017-11-18] MEDS: LEVALBUTEROL 1.25 MG/0.5 ML NEBU. NEB ×2 (08:34→13:35)
[2017-11-18] MEDS ORDERED: IRON SUCROSE COMPLEX 200 MG in IV NORMAL SALINE 100ML 100 ML IV (09:00)
[2017-11-18] MEDS: LOSARTAN POTASSIUM 25 MG TABLET. PO (09:00)
[2017-11-18] MEDS: CETIRIZINE HCL 10 MG TABLET. PO (09:00)
[2017-11-18] MEDS: METOCLOPRAMIDE 10 MG TABLET. PO ×2 (09:00→13:03)
[2017-11-18] MEDS: HYDROXYCHLOROQUINE 200 MG TABLET PO (09:00)
[2017-11-18] MEDS: AMIODARONE HCL 200 MG TABLET. PO (09:00)
[2017-11-18] MEDS: CHOLECALCIFEROL (VITAMIN D3) 5,000 UNIT CAPSULE PO (09:00)
[2017-11-18] MEDS: PRENATAL MULTIVITAMIN TABLET. PO (09:00)
[2017-11-18] MEDS: GABAPENTIN 400 MG CAPSULE. PO (09:00)
[2017-11-18] MEDS: FUROSEMIDE 20 MG TABLET PO ×2 (09:00→13:03)
[2017-11-18] MEDS: CYCLOBENZAPRINE 10 MG TABLET. PO ×2 (09:00→13:02)
[2017-11-18] MEDS: TAMSULOSIN 0.4 MG CAP.ER.24H. PO (09:00)
[2017-11-18] MEDS: BENZONATATE 100 MG CAPSULE. PO ×2 (09:00→13:03)
[2017-11-18] MEDS: LACTOBACILLUS RHAMNOSUS GG 1 CAPSULE. PO (09:00)
[2017-11-18] MEDS: SPIRONOLACTONE 25 MG TABLET PO (09:00)
[2017-11-18] MEDS: FLUoxetine HCL 20 MG CAPSULE PO (09:00)
[2017-11-18] MEDS: VANCOMYCIN PER PHARMACY MC ×2 (09:47→09:50)
[2017-11-18] MEDS: IRON SUCROSE COMPLEX 200 MG in TOTAL VOLUME SYRINGE 0 ML IVP (10:00)
[2017-11-18] MEDS: NORMAL SALINE IV (10:08)
[2017-11-18] MEDS: RIFAMPIN IV (10:08)
[2017-11-18] MEDS ORDERED: CALCIUM CHLORIDE 1,000 MG/10 ML DISP.SYRIN IV (12:00)
[2017-11-18] MEDS ORDERED: EPINEPHrine SYRINGE 1 MG/10 ML SYRINGE (12:00)
[2017-11-18] MEDS ORDERED: AMIODARONE 150 MG/3 ML VIAL (12:00)
[2017-11-18] MEDS ORDERED: LIDOCAINE 2% 100 MG/5 ML SYRINGE. (12:00)
[2017-11-18] MEDS ORDERED: EPINEPHrine NASAL 30 MG/30 ML BOTTLE (12:00)
[2017-11-18] MEDS ORDERED: SODIUM BICARB ADULT 8.4% 50 MEQ/50 ML DISP.SYRIN. (12:00)
[2017-11-18] MEDS: ASPIRIN 300 MG SUPP.RECT PR (12:25)
[2017-11-18 12:32] LABS: PLATELET COUNT 24 x10^3/uL (140-400)
[2017-11-18] MEDS ORDERED: NOREPINEPHRIN PREMIX 250 ML IV (14:30)
[2017-11-18] MEDS ORDERED: ETOMIDATE 20 MG/10 ML VIAL. IV (14:40)
[2017-11-18] MEDS ORDERED: SUCCINYLCHOLINE 200 MG/10 ML VIAL. (14:41)
[2017-11-18 14:57] LABS: POC GLUCOSE 74 mg/dL (70-99)
== END 2017-11-18 18:30 | DRG 871 ==
LOC: CVICU 11-16 14:26 → ER 16:17 → 1 WEST ICU 18:12
PROC: 5A2204Z Restoration of Cardiac Rhythm, Single (ICD-10-PCS; principal; 2017-11-15)
DX: A41.89 Other specified sepsis (principal); J96.20 Acute and chronic respiratory failure, unspecified whether with hypoxia or hypercapnia; I21.4 Non-ST elevation (NSTEMI) myocardial infarction; I63.9 Cerebral infarction, unspecified; G93.41 Metabolic encephalopathy; I47.2 Ventricular tachycardia; N17.9 Acute kidney failure, unspecified; K81.9 Cholecystitis, unspecified; N18.3 Chronic kidney disease, stage 3 (moderate); R47.01 Aphasia; G81.91 Hemiplegia, unspecified affecting right dominant side; I13.0 Hypertensive heart and chronic kidney disease with heart failure and stage 1 through stage 4 chronic kidney disease, or unspecified chronic kidney disease; A41.9 Sepsis, unspecified organism; I48.91 Unspecified atrial fibrillation; D69.6 Thrombocytopenia, unspecified; E11.22 Type 2 diabetes mellitus with diabetic chronic kidney disease; E11.42 Type 2 diabetes mellitus with diabetic polyneuropathy; C44.90 Unspecified malignant neoplasm of skin, unspecified; D63.8 Anemia in other chronic diseases classified elsewhere; F41.9 Anxiety disorder, unspecified; I35.0 Nonrheumatic aortic (valve) stenosis; I50.9 Heart failure, unspecified; J44.9 Chronic obstructive pulmonary disease, unspecified; K21.9 Gastro-esophageal reflux disease without esophagitis; K27.9 Peptic ulcer, site unspecified, unspecified as acute or chronic, without hemorrhage or perforation; K59.00 Constipation, unspecified; Z66 Do not resuscitate; Z79.82 Long term (current) use of aspirin; Z82.49 Family history of ischemic heart disease and other diseases of the circulatory system; Z85.828 Personal history of other malignant neoplasm of skin; Z86.73 Personal history of transient ischemic attack (TIA), and cerebral infarction without residual deficits; Z87.01 Personal history of pneumonia (recurrent); Z87.11 Personal history of peptic ulcer disease; Z87.440 Personal history of urinary (tract) infections; Z88.6 Allergy status to analgesic agent; Z90.49 Acquired absence of other specified parts of digestive tract; Z90.710 Acquired absence of both cervix and uterus; Z90.81 Acquired absence of spleen; Z95.3 Presence of xenogenic heart valve; Z96.659 Presence of unspecified artificial knee joint; F41.8 Other specified anxiety disorders; G89.29 Other chronic pain; Z88.2 Allergy status to sulfonamides; Z88.8 Allergy status to other drugs, medicaments and biological substances; Z98.51 Tubal ligation status; Z98.49 Cataract extraction status, unspecified eye; M54.5 Low back pain; D86.9 Sarcoidosis, unspecified; Z87.891 Personal history of nicotine dependence; E88.09 Other disorders of plasma-protein metabolism, not elsewhere classified; Z88.0 Allergy status to penicillin; R47.1 Dysarthria and anarthria; Z71.89 Other specified counseling
CPT/HCPCS: 36415; 36600; 51702; 70450; 70496; 70498; 71045; 76700; 80048; 80053; 80061; 80069; 80074; 80076; 81001; 82248; 82728; 82805; 82962; 83540; 83550; 83605; 83690; 83735; 84100; 84145; 84484; 85007; 85018; 85025; 85045; 85610; 85730; 86850; 86900; 86901; 87040; 87205; 87641; 92526-GN; 92610-GN; 92960; 93005; 93306; 93970; 94002; 94640; 96365; 96367; 96368; 96375; 97162-GP; 97164-GP; 97165-GO; 97530-GP; 99291-25; J0282; J1720; J1756; J1956; J3370; J3490; J7030; J7040; J7050; J7626; J8597